=== PATIENT | female | born 1970 | race Caucasian/White ===

== ENCOUNTER 2025-05-16 18:38 | Emergency (ER) | payer OTHER, SELFPAY ==
--- OUTSIDE RECORDS SUMMARY | 2025-04-09 13:48 | XMS_ITS | Encounter Summary ---
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 Unavailable + Reason for Referral * Home Health Therapies & Aides (Routine: Next available opening) - Pending Review Specialty Diagnoses / Procedures Referred By Sharan benoit Referred To Contact Diagnoses Closed fracture of left tibial plateau, initial encounter Allison Gibbons PA-C [facility] [place] [address] Phone: tel: Referral ID Status Reason Start Date Expiration Date V isits Requested Visits Authorized [id number] Pending Review 04/12/2025 04/12/2026 1 1 Question Answer Reason for Referral: Physical Therapy Physical Therapy Eval and Treat for: Gait Training, Home Safety Assessment, Therapeutic Exercise, Transfer Training Additional Services Needed: Home Health Aide Is the patient homebound? Yes Homebound Status (describe the functional limitations that support this patient is confined to his/her home. Medicaid recipients are not required to be homebound.): Patient has difficulty ambulating >100 ft, Requires assistance of another person or specialized equipment is needed I attest that I saw or will see the patient on this date: 04/12/2025 Provider to follow patient MAGGIE SUMMERS [[id number]] Comments Your provider has ordered home health services. If you have not been contacted within 2 days of your discharge please call the selected Home Care agency listed on your Discharge document. If a Home Care agency is NOT listed, please call [phone]. Reason for Visit * Reason Comments Fall * Auth/Cert (Routine) Specialty Diagnoses / Procedures Referred By Contac t Referred To Contact Surgery Diagnoses Closed fracture of left tibial plateau, initial encounter Closed fracture of proximal end of left fibula, unspecified fracture morphology, initial encounter Lipohemarthrosis Moody Oneal MD [address] [place] [address] Phone: tel: fax: [facility] [address] [place] [address] Phone: tel: fax: Referral ID Status Reason Start Date Expiration Date Visits Re quested Visits Authorized [id number] 1 1 Encounter Details Date Type Department Care Team (Late st Contact Info) Description 04/09/2025 1:48 PM CDT - 04/17/2025 12:03 PM CDT Hospital Encounter [facility] [address] [place] [id number] Ashley Rodriguez PA-C [facility] [address] [facility] [place] [address] Moody Oneal MD [address] [place] [address] Lionel Logan MD [address] [place], [place] [id number] Closed fracture of left tibial plateau, initial encounter (Primary Dx); Closed fracture of proximal end of left fibula, unspecified fracture morphology, initial encounter; Lipohemarthrosis; Vitamin D deficiency; Bariatric surgery status; Morbid obesity (H); ELEONORA (obstructive sleep apnea) Discharge Disposition: Assisted Facility Social History Tobacco Use Types Packs/Day Years Used Date Smoking Tobacco: Former Cigarettes 0 11/07/1985 - 11/07/1995 Smokeless Tobacco: Never Comments:social smoker Alcohol Use Standard Drinks/Week Comments Yes 0 (1 standard drink = 0.6 oz pur e alcohol) Very little PHQ-2 Answer Date Recorded PHQ-2 Score 1 09/19/2018 Adolescent Education Answer Date Record ed Getting School Help Needed Not on file 06/11 Food Insecurity Answer Date Recorded Within the past 12 months, d id you worry that your food would run out before you got money to buy more? No 04/09/2025 Within the past 12 months, d id the food you bought just not last and you didn t have money to get more? No 04/09/2025 Housing Stability Answer Date Recorded Do you have housing? (Housin g is defined as stable permanent housing and does not include staying outside in a car, in a tent, in an abandoned building, in an overnight jail, or couch-surfing.) Yes 04/09/2025 Are you worried about losing your housing? No 04/09/2025 Financial Resource Strain Answer Date R ecorded Within the past 12 months, h ave you or your family members you live with been unable to get utilities (heat, electricity) when it was really needed? No 04/09/2025 Transportation Needs Answer Date Record ed Within the past 12 months, h as lack of transportation kept you from medical appointments, getting your medicines, non-medical meetings or appointments, work, or from getting things that you need? No 04/09/2025 Interpersonal Safety Answer Date Record ed Do you feel physically and e motionally safe where you currently live? Yes 04/10/2025 Within the past 12 months, h ave you been hit, slapped, kicked or otherwise physically hurt by someone? No 04/10/2025 Within the past 12 months, h ave you been humiliated or emotionally abused in other ways by your partner or ex-partner? 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 Gender Identity Not on file Sexual Orientation Not on file documented as of this encounter Last Filed Vital Signs Vital Sign Reading Time Taken Comments Blood Pressure 113/51 04/17/2025 8:29 AM CDT Pulse 68 04/17/2025 8:29 AM CDT Temperature 36.4 C (97.5 F) 04/17/2025 8:29 AM CDT Respiratory Rate 14 04/17/2025 8:29 AM CDT Oxygen Saturation 95% 04/17/2025 8:29 AM CDT Inhaled Oxygen Concentration - - Weight 123 kg (271 lb 2.7 oz) 04/16/2025 6:12 AM CDT Height 172.7 cm (5' 8) 04/09/2025 6:47 PM CDT Body Mass Index 41.23 04/09/2025 6:47 PM CDT documented in this encounter Discharge Summaries * Amara Barrera DO - 04/17/2025 12:03 PM CDT Images from the original note were not included. [facility] Hospitalist Discharge Summary Date of Admission: 04/09/2025 Date of Discharge: 04/17/2025 12:03 PM Discharging Provider: Amara Barrera DO Discharge Service: Hospitalist Service Discharge Diagnoses Left tibial plateau fracture s/p ORIF 04/10 mechanical fall Acute blood loss on chronic Fe deficiency anemia Clinically Significant Risk Factors # Morbid Obesity: Estimated body mass index is 41.23 kg/m?? as calculated from the following: Height as of this encounter: 1.727 m (5' 8). Weight as of this encounter: 123 kg (271 lb 2.7 oz). Follow-ups Needed After Discharge Follow-up Appointments Follow Up Follow-up with Dr. Cartwright ([facility]) at 2 weeks postoperatively for reevaluation, wound check/suture or staple removal, and possible x-rays. No need for labs or imaging prior to appointment. Please call Dr. Cartwright's post acute care nurse, Susan, at [phone] to schedule. [facility] [place] After Hours If urgent need with dressing/splint or operative site questions, the [facility] is available at multiple metro locations from 8-8 daily excluding holidays. Follow Up and recommended labs and tests Follow up with alf physician. Discharge Disposition Discharged to TCU Condition at discharge: Stable Hospital Course Adilene Thurman is a 55 year old lady with PMH of mild intermittent asthma, obesity, ELEONORA not on CPAP, dysfunctional uterine bleeding, HTN, generalized anxiety disorder, depression, who was admitted04/09/2025 after falling on her L leg, resulting in a tibial fracture. Left tibial plateau fracture s/p ORIF 04/10 mechanical fall orthopedic consulted. Status post ORIF Tibial plateau fracture - TTWB LLE per surgeon. Ice and elevate. Brace in place. 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 Acute blood loss on chronic Fe deficiency anemia: Ferritin low at 14. Iron 28 and % saturation 9. Hgb preoperative 11.5 --> 9.5. Start PO Fe JOHN/depression: Stable Obesity CKD Stage II - IIIa Consultations This Hospital Stay ORTHOPEDIC SURGERY IP CONSULT NURSING TO CONSULT FOR VIRTUAL CARE IP PHYSICAL THERAPY ADULT IP CONSULT OCCUPATIONAL THERAPY ADULT IP CONSULT CARE MANAGEMENT / SOCIAL WORK IP CONSULT PHYSICAL THERAPY ADULT IP CONSULT OCCUPATIONAL THERAPY ADULT IP CONSULT Code Status Full Code Time Spent on this Encounter I, Amara Barrera DO, personally saw the patient today and spent greater than 30 minutes discharging this patient. Amara Barrera DO [facility] [address] [facility] [id number] Physical Exam Vital Signs: Temp: 97.5 ??F (36.4 ??C) Temp src: Temporal BP: 113/51 Pulse: 68 Resp: 14 SpO2: 95 % O2 Device: None (Room air) Weight: 271 lbs 2.65 oz Constitutional: Awake, alert, no distress, and cooperative Cardiovascular: Regular rate and rhythm, normal S1 and S2, no S3 or S4, and no murmur noted Respiratory: No increased work of breathing, good air exchange, clear to auscultation bilaterally, no crackles or wheezing Gastrointestinal: Abdomen soft, non-tender, non-distended. BS normal. No masses, organomegaly Primary Care Physician Maggie Summers Discharge Orders Home Care Referral Reason for your hospital stay Open reduction internal fixation tibial plateau fracture, left Follow Up Follow-up with Dr. Cartwright ([facility]) at 2 weeks postoperatively for reevaluation, wound check/suture or staple removal, and possible x-rays. No need for labs or imaging prior to appointment. Please call Dr. Cartwright's post acute care nurse, Susan, at [phone] to schedule. [facility] [place] After Hours If urgent need with dressing/splint or operative site questions, the [facility]gent Care is available at multiple metro locations from 8-8 daily excluding holidays. Activity Your activity upon discharge: bedrest, elevate left leg for swelling control. May do toe touch weightbearing with crutches or walker as needed When to contact your care team Call Dr Cartwright's office if you have any of the following: temperature greater than 100, increased shortness of breath, increased drainage, increased swelling, or increased pain. Wound care and dressings Instructions to care for your wound at home: keep Aquacel dressing in place, may shower over the Aquacel. Discharge Instructions Pain after surgery is normal and expected. You will have some amount of pain and swelling for several weeks after surgery. These symptoms will improve with time. There are several things you can do to help reduce your pain including: rest, cold compresses, elevation, and using pain medications as needed. Contact your Surgeon Team if you have pain that persists or worsens after surgery despite rest, ice, elevation, and taking your medication(s) as prescribed. Contact your Surgeon Team if you have new numbness, tingling, or weakness in your operative extremity. Swelling and/or bruising of the surgical extremity is common and may persist for several months after surgery. In addition to frequent icing and elevation, gentle compressive support with an KIM wrapor tubigrip may help with swelling. Apply compression regularly, removing at least twice daily to perform skin checks. Contact your Surgeon Team if your swelling increases and is NOT associated with an increase in your activity level, or if your swelling increases and is associated with redness andpain. Ice can be used to control swelling and discomfort after surgery. Place a thin towel over your operative site and apply the ice pack overtop. Leave ice pack in place for 20 minutes, then remove for 20 minutes. Repeat this 20 minutes on/20 minutes off routine as often as tolerated. Please contact your surgical team with any concerns for infection including increasing redness around your surgical site, pus-like drainage, fever, chills, or flu-like symptoms. General info for SNF Length of Stay Estimate: Short Term Care: Estimated # of Days <30 Condition at Discharge: Stable Level of care:skilled Rehabilitation Potential: Good Admission H&P remains valid and up-to-date: Yes Recent Chemotherapy: N/A Use Long-Term Standing Orders: Yes Mantoux instructions Give two-step Mantoux (PPD) Per Facility Policy Yes Follow Up and recommended labs and tests Follow up with alf physician. Physical Therapy Adult Consult Evaluate and treat as clinically indicated. Reason: tibial fracture Occupational Therapy Adult Consult Evaluate and treat as clinically indicated. Reason: tibial fracture Crutches DME DME Documentation: Describe the reason for need to support medical necessity: Impaired gait status post knee surgery. I, the undersigned, certify that the above prescribed supplies are medically necessary for this patient and is both reasonable and necessary in reference to accepted standards of medical practice in the treatment of this patient's condition and is not prescribed as a convenience. Cane DME DME Documentation: Describe the reason for need to support medical necessity: Impaired gait status post knee surgery. I, the undersigned, certify that the above prescribed supplies are medically necessary for this patient and is both reasonable and necessary in reference to accepted standards of medical practice in the treatment of this patient's condition and is not prescribed as a convenience. Walker DME DME Documentation: Describe the reason for need to support medical necessity: Impaired gait status post knee surgery. I, the undersigned, certify that the above prescribed supplies are medically necessary for this patient and is both reasonable and necessary in reference to accepted standards of medical practice in the treatment of this patient's condition and is not prescribed as a convenience. Diet Follow this diet upon discharge: Regular Diet Adult Significant Results and Procedures Most Recent 3 CBC's: Recent Labs Lab Test 04/16/25 0613 04/13/25 0624 04/12/25 0709 04/11/25 0711 04/10/2551804/09/25 1424 WBC -- -- -- 8.4 6.4 9.1 HGB -- -- 8.6* 10.0* 9.7* 11.5* MCV 92 91 91 92 91 90 PLT 280 220 -- 230 225 310 Most Recent 3 BMP's: Recent Labs Lab Test 04/16/25 0613 04/13/25 0624 04/12/25 0709 04/11/25 0711 04/10/25 0819 04/10/2551804/09/25 1424 NA -- -- -- 136 -- 137 136 POTASSIUM -- -- -- 4.5 -- 4.2 4.2 CHLORIDE -- -- -- 103 -- 105 100 CO2 -- -- -- 24 -- 23 21* BUN -- -- -- 18.1 -- 22.9* 24.2* CR 1.09* 1.11* -- 1.11* -- 1.03* 1.09* ANIONGAP -- -- -- 9 -- 9 15 JOY -- -- -- 8.8 -- 8.4* 9.6 GLC -- -- 97 122* 73 105* 122* , Results for orders placed or performed during the hospital encounter of 04/09/25 XR Femur Left 2 Views Narrative EXAM: XR KNEE LEFT 3 VIEWS, XR FEMUR LEFT 2 VIEWS LOCATION: [facility] DATE: 04/09/2025 INDICATION: fall, pain COMPARISON: None. Impression IMPRESSION: Cortical irregularity of the medial tibial plateau suspicious for a comminuted intra-articular fracture. Small knee joint effusion with a fluid/fluid level likely representing a lipohemarthrosis. CT is recommended to confirm these findings. Cortical irregularity of the fibular head likely a nondisplaced fracture. Demineralization. No fracture of the more proximal left femur. Mild left sacroiliac joint osteoarthritis. XR Knee Left 3 Views Narrative EXAM: XR KNEE LEFT 3 VIEWS, XR FEMUR LEFT 2 VIEWS LOCATION: [facility] DATE: 04/09/2025 INDICATION: fall, pain COMPARISON: None. Impression IMPRESSION: Cortical irregularity of the medial tibial plateau suspicious for a comminuted intra-articular fracture. Small knee joint effusion with a fluid/fluid level likely representing a lipohemarthrosis. CT is recommended to confirm these findings. Cortical irregularity of the fibular head likely a nondisplaced fracture. Demineralization. No fracture of the more proximal left femur. Mild left sacroiliac joint osteoarthritis. XR Pelvis 1/2 Views Narrative EXAM: XR PELVIS 1/2 VIEWS LOCATION: [facility] DATE: 04/09/2025 INDICATION: fall, pain COMPARISON: Correlation with same day radiographs. Impression IMPRESSION: Bilateral acetabular marginal osteophytes. No hip joint space narrowing. 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 Lower lumbar facet arthropathy. No definite fracture or dislocationon a single view of the pelvis. CT Knee Left w/o Contrast Narrative EXAM: CT KNEE LEFT W/O CONTRAST LOCATION: [facility] DATE: 04/09/2025 INDICATION: cocnern tibial plateau fractures COMPARISON: 04/09/2025 TECHNIQUE: Noncontrast. Axial, sagittal and coronal thin-section reconstruction. Dose reduction techniques were used. FINDINGS: BONES: Acute comminuted impacted intra-articular fracture along the anterior aspect of the medial tibial plateau (series 5 image 70, series 4 image 70). Depression of the articular surface up to 0.2 cm. Fracture planes contact the articular surface at multiple locations. Acute avulsion fracture along the lateral aspect of the tibial plateau (series 4 image 88). Patternis suggestive of a Segond fracture. Acute minimally displaced fracture of the proximal fibula (series 4 image 108, series 2 image 187). Diffuse osseous demineralization which limits evaluation for nondisplaced fractures and subtle osseous lesions. No aggressive appearing osseous lesions. SOFT TISSUES: Large joint effusion with lipohemarthrosis. Posttraumatic soft tissue edema and blood products along the anterior medial aspect of the knee. No sizable hematoma or organized fluid collection. Impression IMPRESSION: 1. Acute comminuted impacted intra-articular fracture along the anterior aspect of the medial tibial plateau. 2. Acute avulsion fracture along the lateral aspect of the tibial plateau. Pattern is suggestive ofa Segond fracture. 3. Acute minimally displaced fracture of the proximal fibula. 4. Large joint effusion with lipohemarthrosis. XR Surgery BOBBY L/T 5 Min Fluoro w Stills Narrative EXAM: XR SURGERY C-ARM FLUORO LESS THAN 5 MIN W STILLS LOCATION: [facility] DATE: 04/10/2025 INDICATION: ORIF left tibial plateau. COMPARISON: None. TECHNIQUE: Intraoperative fluoroscopy performed during the patient's procedure. RADIATION DOSE: Dose Area Product 0.8377 mGy-cm2. Impression IMPRESSION: Two fluoroscopic images acquired by the clinical service for ORIF of the left tibial plateau. Anatomic alignment. US Lower Extremity Venous Duplex Left Narrative EXAM: US LOWER EXTREMITY VENOUS DUPLEX LEFT LOCATION: [facility] DATE: 04/12/2025 INDICATION: calf pain post op knee surgery COMPARISON: None. TECHNIQUE: Venous Duplex ultrasound of the left lower extremity with and without compression, augmentation and duplex. Color flow and spectral Doppler with waveform analysis performed. FINDINGS: Exam includes the common femoral, femoral, popliteal, and contralateral common femoral veins as well as segmentally visualized deep calf veins and greater saphenous vein. LEFT: No deep vein thrombosis. No superficial thrombophlebitis. No popliteal cyst. Impression IMPRESSION: 1. No deep venous thrombosis in the left lower extremity. Discharge Medications Review of your medicines PAUSE taking these medications Dose / Directions lisinopril-hydrochlorothiazide 20-25 MG tablet Wait to take this until your doctor or other care provider tells you to start again. Commonly known as: ZESTORETIC Dose: 1 tablet Take 1 tablet by mouth daily. Refills: 0 START taking Dose / Directions acetaminophen 325 MG tablet Commonly known as: TYLENOL Used for: Closed fracture of left tibial plateau, initial encounter Dose: 975 mg Take 3 tablets (975 mg) by mouth every 8 hours. Quantity: 100 tablet Refills: 0 celecoxib 100 MG capsule Commonly known as: celeBREX Used for: Closed fracture of left tibial plateau, initial encounter Dose: 100 mg Take 1 capsule (100 mg) by mouth 2 times daily as needed. Quantity: 30 capsule Refills: 0 enoxaparin ANTICOAGULANT 40 MG/0.4ML syringe Commonly known as: LOVENOX Used for: Closed fracture of left tibial plateau, initial encounter Dose: 40 mg Inject 0.4 mLs (40 mg) subcutaneously every 24 hours. Quantity: 12 mL Refills: 0 ferrous sulfate 325 (65 Fe) MG tablet Commonly known as: FEROSUL Used for: Vitamin D deficiency, Bariatric surgery status Dose: 325 mg Take 1 tablet (325 mg) by mouth daily. Refills: 0 hydrOXYzine HCl 25 MG tablet Commonly known as: ATARAX Used for: Closed fracture of left tibial plateau, initial encounter Dose: 25 mg Take 1 tablet (25 mg) by mouth every 6 hours. Quantity: 40 tablet Refills: 1 methocarbamol 500 MG tablet Commonly known as: ROBAXIN Used for: Closed fracture of left tibial plateau, initial encounter Dose: 500 mg Take 1 tablet (500 mg) by mouth 4 times daily as needed for muscle spasms (pain). Quantity: 40 tablet Refills: 1 oxyCODONE IR 10 MG tablet Commonly known as: ROXICODONE Used for: Closed fracture of left tibial plateau, initial encounter Dose: 10 mg Take 1 tablet (10 mg) by mouth every 4 hours as needed for severe pain (Take one tablet (10 mg) by mouth for pain rated 7-10/10. Take half tablet (5 mg) for pain rated 4-6/10.). Quantity: 8 tablet Refills: 0 * polyethylene glycol 17 GM/Dose powder Commonly known as: MIRALAX Used for: Closed fracture of left tibial plateau, initial encounter Dose: 17 g Take 17 g by mouth daily. Quantity: 510 g Refills: 0 * polyethylene glycol 17 g packet Commonly known as: MIRALAX Used for: Closed fracture of left tibial plateau, initial encounter, ELEONORA (obstructive sleep apnea) Dose: 17 g Take 17 g by mouth 2 times daily as needed for constipation. Refills: 0 * senna-docusate 8.6-50 MG tablet Commonly known as: SENOKOT-S/PERICOLACE Used for: Closed fracture of left tibial plateau, initial encounter Dose: 1 tablet Take 1 tablet by mouth 2 times daily as needed for constipation. Quantity: 30 tablet Refills: 1 * senna-docusate 8.6-50 MG tablet Commonly known as: SENOKOT-S/PERICOLACE Used for: Closed fracture of left tibial plateau, initial encounter, Morbid obesity (H) Dose: 1 tablet Take 1 tablet by mouth 2 times daily as needed for constipation. Refills: 0 * This list has 4 medication(s) that are the same as other medications prescribed for you. Read thedirections carefully, and ask your doctor or other care provider to review them with you. CONTINUE these medicines which have NOT CHANGED Dose / Directions LEVOTHYROXINE SODIUM PO Dose: 225 mcg Take 225 mcg by mouth every morning (before breakfast). Refills: 0 Where to get your medicines These medications were sent to [facility] [place], [place] - [address] [facility] [address] [facility] [address] acetaminophen 325 MG tablet celecoxib 100 MG capsule enoxaparin ANTICOAGULANT 40 MG/0.4ML syringe hydrOXYzine HCl 25 MG tablet methocarbamol 500 MG tablet polyethylene glycol 17 GM/Dose powder senna-docusate 8.6-50 MG tablet Some of these will need a paper prescription and others can be bought over the counter. Ask your nurse if you have questions. Bring a paper prescription for each of these medications oxyCODONE IR 10 MG tablet Allergies Allergies Allergen Reactions Amoxicillin-Pot Clavulanate Nausea and Vomiting Droperidol Panic attacks Ibuprofen Other (See Comments) Unable to take due to past gastric bypass Morphine And Codeine Panic attack Tape [Adhesive Tape] Clear tape=RASH; tegaderm ok * Amara Barrera DO - 04/16/2025 1:34 PM CDT Images from the original note were not included. [facility] Hospitalist Discharge Summary Date of Admission: 04/09/2025 Date of Discharge: 04/16/2025 Discharging Provider: Amara Barrera DO Discharge Service: Hospitalist Service Discharge Diagnoses Left tibial plateau fracture s/p ORIF 04/10 mechanical fall Acute blood loss on chronic Fe deficiency anemia Clinically Significant Risk Factors # Morbid Obesity: Estimated body mass index is 41.23 kg/m?? as calculated from the following: Height as of this encounter: 1.727 m (5' 8). Weight as of this encounter: 123 kg (271 lb 2.7 oz). Follow-ups Needed After Discharge Follow-up Appointments Follow Up Follow-up with Dr. Cartwright ([facility] Orthopedics) at 2 weeks postoperatively for reevaluation, wound check/suture or staple removal, and possible x-rays. No need for labs or imaging prior to appointment. Please call Dr. Cartwright's post acute care nurse, Susan, at [phone] to schedule. [facility] [place] After Hours If urgent need with dressing/splint or operative site questions, the [facility] Orthopedic Urgent Care is available at multiple metro locations from 8-8 daily excluding holidays. Follow Up and recommended labs and tests Follow up with alf physician. Discharge Disposition Discharged to TCU Condition at discharge: Stable Hospital Course Adilene Thurman is a 55 year old lady with PMH of mild intermittent asthma, obesity, ELEONORA not on CPAP, dysfunctional uterine bleeding, HTN, generalized anxiety disorder, depression, who was admitted04/09/2025 after falling on her L leg, resulting in a tibial fracture. Left tibial plateau fracture s/p ORIF 04/10 mechanical fall orthopedic consulted. Status post ORIF Tibial plateau fracture - TTWB LLE per surgeon. Ice and elevate. Brace in place. 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 Acute blood loss on chronic Fe deficiency anemia: Ferritin low at 14. Iron 28 and % saturation 9. Hgb preoperative 11.5 --> 9.5. Start PO Fe JOHN/depression: Stable Obesity CKD Stage II - IIIa Consultations This Hospital Stay ORTHOPEDIC SURGERY IP CONSULT NURSING TO CONSULT FOR VIRTUAL CARE IP PHYSICAL THERAPY ADULT IP CONSULT OCCUPATIONAL THERAPY ADULT IP CONSULT CARE MANAGEMENT / SOCIAL WORK IP CONSULT PHYSICAL THERAPY ADULT IP CONSULT OCCUPATIONAL THERAPY ADULT IP CONSULT Code Status Full Code Time Spent on this Encounter I, Amara Barrera DO, personally saw the patient today and spent greater than 30 minutes discharging this patient. Amara Barrera DO [facility] [address] [facility] [id number] Physical Exam Vital Signs: Temp: 97.7 ??F (36.5 ??C) Temp src: Temporal BP: (!) 140/64 Pulse: 71 Resp: 16 SpO2: 96 % O2 Device: None (Room air) Weight: 271 lbs 2.65 oz Constitutional: Awake, alert, no distress, and cooperative Cardiovascular: Regular rate and rhythm, normal S1 and S2, no S3 or S4, and no murmur noted Respiratory: No increased work of breathing, good air exchange, clear to auscultation bilaterally, no crackles or wheezing Gastrointestinal: Abdomen soft, non-tender, non-distended. BS normal. No masses, organomegaly Primary Care Physician Maggie Summers Discharge Orders Home Care Referral Reason for your hospital stay Open reduction internal fixation tibial plateau fracture, left Follow Up Follow-up with Dr. Cartwright ([facility]) at 2 weeks postoperatively for reevaluation, wound check/suture or staple removal, and possible x-rays. No need for labs or imaging prior to appointment. Please call Dr. Cartwright's post acute care nurse, Susan, at [phone] to schedule. [facility] [place] After Hours If urgent need with dressing/splint or operative site questions, the [facility] Orthopedic Urgent Care is available at multiple metro locations from 8-8 daily excluding holidays. Activity Your activity upon discharge: bedrest, elevate left leg for swelling control. May do toe touch weightbearing with crutches or walker as needed When to contact your care team Call Dr Cartwright's office if you have any of the following: temperature greater than 100, increased shortness of breath, increased drainage, increased swelling, or increased pain. Wound care and dressings Instructions to care for your wound at home: keep Aquacel dressing in place, may shower over the Aquacel. Discharge Instructions Pain after surgery is normal and expected. You will have some amount of pain and swelling for several weeks after surgery. These symptoms will improve with time. There are several things you can do to help reduce your pain including: rest, cold compresses, elevation, and using pain medications as needed. Contact your Surgeon Team if you have pain that persists or worsens after surgery despite rest, ice, elevation, and taking your medication(s) as prescribed. Contact your Surgeon Team if you have new numbness, tingling, or weakness in your operative extremity. Swelling and/or bruising of the surgical extremity is common and may persist for several months after surgery. In addition to frequent icing and elevation, gentle compressive support with an KIM wrapor tubigrip may help with swelling. Apply compression regularly, removing at least twice daily to perform skin checks. Contact your Surgeon Team if your swelling increases and is NOT associated with an increase in your activity level, or if your swelling increases and is associated with redness andpain. Ice can be used to control swelling and discomfort after surgery. Place a thin towel over your operative site and apply the ice pack overtop. Leave ice pack in place for 20 minutes, then remove for 20 minutes. Repeat this 20 minutes on/20 minutes off routine as often as tolerated. Please contact your surgical team with any concerns for infection including increasing redness around your surgical site, pus-like drainage, fever, chills, or flu-like symptoms. General info for SNF Length of Stay Estimate: Short Term Care: Estimated # of Days <30 Condition at Discharge: Stable Level of care:skilled Rehabilitation Potential: Good Admission H&P remains valid and up-to-date: Yes Recent Chemotherapy: N/A Use Long-Term Standing Orders: Yes Mantoux instructions Give two-step Mantoux (PPD) Per Facility Policy Yes Follow Up and recommended labs and tests Follow up with alf physician. Physical Therapy Adult Consult Evaluate and treat as clinically indicated. Reason: tibial fracture Occupational Therapy Adult Consult Evaluate and treat as clinically indicated. Reason: tibial fracture Crutches DME DME Documentation: Describe the reason for need to support medical necessity: Impaired gait status post knee surgery. I, the undersigned, certify that the above prescribed supplies are medically necessary for this patient and is both reasonable and necessary in reference to accepted standards of medical practice in the treatment of this patient's condition and is not prescribed as a convenience. Cane DME DME Documentation: Describe the reason for need to support medical necessity: Impaired gait status post knee surgery. I, the undersigned, certify that the above prescribed supplies are medically necessary for this patient and is both reasonable and necessary in reference to accepted standards of medical practice in the treatment of this patient's condition and is not prescribed as a convenience. Walker DME DME Documentation: Describe the reason for need to support medical necessity: Impaired gait status post knee surgery. I, the undersigned, certify that the above prescribed supplies are medically necessary for this patient and is both reasonable and necessary in reference to accepted standards of medical practice in the treatment of this patient's condition and is not prescribed as a convenience. Diet Follow this diet upon discharge: Regular Diet Adult Significant Results and Procedures Most Recent 3 CBC's: Recent Labs Lab Test 04/16/2561204/13/2562304/12/2509 04/11/25 0711 04/10/2551804/09/25 1424 WBC -- -- -- 8.4 6.4 9.1 HGB -- -- 8.6* 10.0* 9.7* 11.5* MCV 92 91 91 92 91 90 PLT 280 220 -- 230 225 310 Most Recent 3 BMP's: Recent Labs Lab Test 04/16/2561204/13/2562304/12/[id number]/11/[id number]/10/2581804/10/2551804/09/25 1424 NA -- -- -- 136 -- 137 136 POTASSIUM -- -- -- 4.5 -- 4.2 4.2 CHLORIDE -- -- -- 103 -- 105 100 CO2 -- -- -- 24 -- 23 21* BUN -- -- -- 18.1 -- 22.9* 24.2* CR 1.09* 1.11* -- 1.11* -- 1.03* 1.09* ANIONGAP -- -- -- 9 -- 9 15 JOY -- -- -- 8.8 -- 8.4* 9.6 GLC -- -- 97 122* 73 105* 122* , Results for orders placed or performed during the hospital encounter of 04/09/25 XR Femur Left 2 Views Narrative EXAM: XR KNEE LEFT 3 VIEWS, XR FEMUR LEFT 2 VIEWS LOCATION: [facility] DATE: 04/09/2025 INDICATION: fall, pain COMPARISON: None. Impression IMPRESSION: Cortical irregularity of the medial tibial plateau suspicious for a comminuted intra-articular fracture. Small knee joint effusion with a fluid/fluid level likely representing a lipohemarthrosis. CT is recommended to confirm these findings. Cortical irregularity of the fibular head likely a nondisplaced fracture. Demineralization. No fracture of the more proximal left femur. Mild left sacroiliac joint osteoarthritis. XR Knee Left 3 Views Narrative EXAM: XR KNEE LEFT 3 VIEWS, XR FEMUR LEFT 2 VIEWS LOCATION: [facility] DATE: 04/09/2025 INDICATION: fall, pain COMPARISON: None. Impression IMPRESSION: Cortical irregularity of the medial tibial plateau suspicious for a comminuted intra-articular fracture. Small knee joint effusion with a fluid/fluid level likely representing a lipohemarthrosis. CT is recommended to confirm these findings. Cortical irregularity of the fibular head likely a nondisplaced fracture. Demineralization. No fracture of the more proximal left femur. Mild left sacroiliac joint osteoarthritis. XR Pelvis 1/2 Views Narrative EXAM: XR PELVIS 1/2 VIEWS LOCATION: [facility] DATE: 04/09/2025 INDICATION: fall, pain COMPARISON: Correlation with same day radiographs. Impression IMPRESSION: Bilateral acetabular marginal osteophytes. No hip joint space narrowing. 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 Lower lumbar facet arthropathy. No definite fracture or dislocationon a single view of the pelvis. CT Knee Left w/o Contrast Narrative EXAM: CT KNEE LEFT W/O CONTRAST LOCATION: [facility] DATE: 04/09/2025 INDICATION: cocnern tibial plateau fractures COMPARISON: 04/09/2025 TECHNIQUE: Noncontrast. Axial, sagittal and coronal thin-section reconstruction. Dose reduction techniques were used. FINDINGS: BONES: Acute comminuted impacted intra-articular fracture along the anterior aspect of the medial tibial plateau (series 5 image 70, series 4 image 70). Depression of the articular surface up to 0.2 cm. Fracture planes contact the articular surface at multiple locations. Acute avulsion fracture along the lateral aspect of the tibial plateau (series 4 image 88). Patternis suggestive of a Segond fracture. Acute minimally displaced fracture of the proximal fibula (series 4 image 108, series 2 image 187). Diffuse osseous demineralization which limits evaluation for nondisplaced fractures and subtle osseous lesions. No aggressive appearing osseous lesions. SOFT TISSUES: Large joint effusion with lipohemarthrosis. Posttraumatic soft tissue edema and blood products along the anterior medial aspect of the knee. No sizable hematoma or organized fluid collection. Impression IMPRESSION: 1. Acute comminuted impacted intra-articular fracture along the anterior aspect of the medial tibial plateau. 2. Acute avulsion fracture along the lateral aspect of the tibial plateau. Pattern is suggestive ofa Segond fracture. 3. Acute minimally displaced fracture of the proximal fibula. 4. Large joint effusion with lipohemarthrosis. XR Surgery BOBBY L/T 5 Min Fluoro w Stills Narrative EXAM: XR SURGERY C-ARM FLUORO LESS THAN 5 MIN W STILLS LOCATION: [facility] DATE: 04/10/2025 INDICATION: ORIF left tibial plateau. COMPARISON: None. TECHNIQUE: Intraoperative fluoroscopy performed during the patient's procedure. RADIATION DOSE: Dose Area Product 0.8377 mGy-cm2. Impression IMPRESSION: Two fluoroscopic images acquired by the clinical service for ORIF of the left tibial plateau. Anatomic alignment. US Lower Extremity Venous Duplex Left Narrative EXAM: US LOWER EXTREMITY VENOUS DUPLEX LEFT LOCATION: [facility] DATE: 04/12/2025 INDICATION: calf pain post op knee surgery COMPARISON: None. TECHNIQUE: Venous Duplex ultrasound of the left lower extremity with and without compression, augmentation and duplex. Color flow and spectral Doppler with waveform analysis performed. FINDINGS: Exam includes the common femoral, femoral, popliteal, and contralateral common femoral veins as well as segmentally visualized deep calf veins and greater saphenous vein. LEFT: No deep vein thrombosis. No superficial thrombophlebitis. No popliteal cyst. Impression IMPRESSION: 1. No deep venous thrombosis in the left lower extremity. Discharge Medications Review of your medicines PAUSE taking these medications Dose / Directions lisinopril-hydrochlorothiazide 20-25 MG tablet Wait to take this until your doctor or other care provider tells you to start again. Commonly known as: ZESTORETIC Dose: 1 tablet Take 1 tablet by mouth daily. Refills: 0 START taking Dose / Directions acetaminophen 325 MG tablet Commonly known as: TYLENOL Dose: 975 mg Take 3 tablets (975 mg) by mouth every 8 hours. Quantity: 100 tablet Refills: 0 celecoxib 100 MG capsule Commonly known as: celeBREX Dose: 100 mg Take 1 capsule (100 mg) by mouth 2 times daily as needed. Quantity: 30 capsule Refills: 0 enoxaparin ANTICOAGULANT 40 MG/0.4ML syringe Commonly known as: LOVENOX Dose: 40 mg Inject 0.4 mLs (40 mg) subcutaneously every 24 hours. Quantity: 12 mL Refills: 0 ferrous sulfate 325 (65 Fe) MG tablet Commonly known as: FEROSUL Used for: Vitamin D deficiency, Bariatric surgery status Dose: 325 mg Start taking on: April 17, 2025 Take 1 tablet (325 mg) by mouth daily. Refills: 0 hydrOXYzine HCl 25 MG tablet Commonly known as: ATARAX Dose: 25 mg Take 1 tablet (25 mg) by mouth every 6 hours. Quantity: 40 tablet Refills: 1 methocarbamol 500 MG tablet Commonly known as: ROBAXIN Dose: 500 mg Take 1 tablet (500 mg) by mouth 4 times daily as needed for muscle spasms (pain). Quantity: 40 tablet Refills: 1 oxyCODONE IR 10 MG tablet Commonly known as: ROXICODONE Dose: 10 mg Take 1 tablet (10 mg) by mouth every 4 hours as needed for severe pain (Take one tablet (10 mg) by mouth for pain rated 7-10/10. Take half tablet (5 mg) for pain rated 4-6/10.). Quantity: 8 tablet Refills: 0 * polyethylene glycol 17 GM/Dose powder Commonly known as: MIRALAX Dose: 17 g Take 17 g by mouth daily. Quantity: 510 g Refills: 0 * polyethylene glycol 17 g packet Commonly known as: MIRALAX Used for: ELEONORA (obstructive sleep apnea) Dose: 17 g Take 17 g by mouth 2 times daily as needed for constipation. Refills: 0 * senna-docusate 8.6-50 MG tablet Commonly known as: SENOKOT-S/PERICOLACE Dose: 1 tablet Take 1 tablet by mouth 2 times daily as needed for constipation. Quantity: 30 tablet Refills: 1 * senna-docusate 8.6-50 MG tablet Commonly known as: SENOKOT-S/PERICOLACE Used for: Morbid obesity (H) Dose: 1 tablet Take 1 tablet by mouth 2 times daily as needed for constipation. Refills: 0 * This list has 4 medication(s) that are the same as other medications prescribed for you. Read thedirections carefully, and ask your doctor or other care provider to review them with you. CONTINUE these medicines which have NOT CHANGED Dose / Directions LEVOTHYROXINE SODIUM PO Dose: 225 mcg Take 225 mcg by mouth every morning (before breakfast). Refills: 0 Where to get your medicines These medications were sent to [place], [place] - [address] [facility] [address] [facility] [address] acetaminophen 325 MG tablet celecoxib 100 MG capsule enoxaparin ANTICOAGULANT 40 MG/0.4ML syringe hydrOXYzine HCl 25 MG tablet methocarbamol 500 MG tablet polyethylene glycol 17 GM/Dose powder senna-docusate 8.6-50 MG tablet Some of these will need a paper prescription and others can be bought over the counter. Ask your nurse if you have questions. 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 5 lisinopril-hydroch lorothiazide (ZESTORETIC) 20-25 MG tablet Take 1 tablet by mouth daily. 5 acetaminophen (TYLENOL) 325 MG tabletIndications: Closed fracture of left tibial plateau, initial encounter Take 3 tablets (975 mg) by mouth every 8 hours. 100 tablet 5 04/25/20 25 celecoxib (CELEBREX) 100 MG capsuleIndications :Closed fracture of left tibial plateau, initial encounter Take 1 capsule (100 mg) by mouth 2 times daily as needed. 30 capsule 5 04/25/20 25 enoxaparin ANTICOAGULANT (LOVENOX) 40 MG/0.4ML syringeIndications :Closed fracture of left tibial plateau, initial encounter Inject 0.4 mLs (40 mg) subcutaneously every 24 hours. 12 mL 5 04/25/20 25 ferrous sulfate (FEROSUL) 325 (65 Fe) MG tabletIndications: Vitamin D deficiency,Bariatr ic surgery status Take 1 tablet (325 mg) by mouth daily. 5 04/25/20 25 hydrOXYzine HCl (ATARAX) 25 MG tabletIndications: Closed fracture of left tibial plateau, initial encounter Take 1 tablet (25 mg) by mouth every 6 hours. 40 tablet 1 5 04/25/20 25 methocarbamol (ROBAXIN) 500 MG tabletIndications: Closed fracture of left tibial plateau, initial encounter Take 1 tablet (500 mg) by mouth 4 times daily as needed for muscle spasms (pain). 40 tablet 1 5 04/24/20 25 oxyCODONE IR (ROXICODONE) 10 MG tabletIndications: Closed fracture of left tibial plateau, initial encounter Take 1 tablet (10 mg) by mouth every 4 hours as needed for severe pain (Take one tablet (10 mg) by mouth for pain rated 7-10/10. Take half tablet (5 mg) for pain rated 4-6/10.). 8 tablet 5 04/19/20 25 polyethylene glycol (MIRALAX) 17 g packetIndications: Closed fracture of left tibial plateau, initial encounter,ELEONORA (obstructive sleep apnea) Take 17 g by mouth 2 times daily as needed for constipation. 5 04/25/20 25 polyethylene glycol (MIRALAX) 17 GM/Dose powderIndications: Closed fracture of left tibial plateau, initial encounter Take 17 g by mouth daily. 510 g 5 04/25/20 25 senna-docusate (SENOKOT-S/PERICOL KIM) 8.6-50 MG tabletIndications: Closed fracture of left tibial plateau, initial encounter,Morbid obesity (H) Take 1 tablet by mouth 2 times daily as needed for constipation. 5 04/18/20 25 senna-docusate (SENOKOT-S/PERICOL KIM) 8.6-50 MG tabletIndications: Closed fracture of left tibial plateau, initial encounter Take 1 tablet by mouth 2 times daily as needed for constipation. 30 tablet 1 5 04/25/20 25 documented as of this encounter Progress Notes * Zayra Yousif RN - 04/17/2025 12:03 PM CDT Pt discharged via wheelchair transport to TCU. AVS given to pt. * Zayra Yousif RN - 04/17/2025 12:03 PM CDT Pt discharge to TCU via wheelchair transport. * Brielle Betancourt RN - 04/17/2025 9:30 AM CDT Care Management Discharge Note Discharge Date: 04/17/2025 Discharge Disposition: TCU Discharge Transportation: [facility] [employer] [facility] Is transportation arrangement complete? Yes Private pay costs discussed: private room/amenity fees and transportation costs Does the patient's insurance plan have a 3 day qualifying hospital stay waiver? No PAS Confirmation Code: [id number] Patient/family educated on Medicare website which has current facility and service quality ratings:yes Education Provided on the Discharge Plan: yes Persons Notified of Discharge Plans: patient, bedside RN, hospitalist Patient/Family in Agreement with the Plan: yes Additional Information: Patient is medically ready for discharge today to [facility]. Update from [facility] on April admission dept,they have received auth this morning for patient's TCU stay. [facility] ridelvi is set up for fish bait picker today between [id number]. Met with patient at bedside to update on discharge plan. She is in agreement with discharge today to [facility]. Signed orders have been faxed to TCU. Hospitalist and bedside RNupdated. No further discharge needs noted. Brielle Betancourt, RN Data Control Clerk Supervisor [facility] [phone] * Brielle Betancourt RN - 04/16/2025 10:38 AM CDT Care Management Follow Up Length of Stay (days): 5 Expected Discharge Date: 04/17/2025 Concerns to be Addressed: Patient plan of care discussed at interdisciplinary rounds: Yes Anticipated Discharge Disposition: TCU Patient/family educated on Medicare website which has current facility and service quality ratings:yes Education Provided on the Discharge Plan: yes Patient/Family in Agreement with the Plan: yes Referrals Placed by CM/SW: Homecare Private pay costs discussed: private room/amenity fees and transportation costs Discussed ???Partnership in Safe Discharge Planning??? document with patient/family: No Handoff Completed: No, handoff not indicated or clinically appropriate Additional Information: Patient is medically ready for discharge today to TCU once placement is found. Met with patient andfamily member Nilda at bedside to discuss. They are aware that pt's [facility] plan is a barrier for finding placement. They are in agreement with global referral to TCUs in the area. Patient [place] like [place] of [place] and stay close to [place] or [place]. Additional TCU referrals have been sent and awaiting response. Next Steps: Follow up with TCUs and patient/family once we hear back. ADDENDUM 1200: Patient has been accepted by [facility] on [facility] TCU for admission today, pending they receive authorization from pt's [facility] plan. Met with patient and family member at bedside who will accept this bed and are in agreement with discharge this evening to [facility]. They request w/c ride at discharge. Reviewed out of pocket cost for [facility] transport, $99.20 base and $6.38 per mile to the destination. Pt and family expressed understanding and are agreeable to this. [employer] FVw/c ride has been arranged for fish bait picker this evening between [phone]. This will need to be pushed to tomorrow if TCU does not receive auth in time. Bedside RN and wire charger and hospitalist are aware. ADDENDUM 1601: TCU has not received auth yet from pt's insurance company. [employer] w/c transport has been pushed to tomorrow between [phone] in hopes that [facility] provides auth to [facility] by this time. Bedside RN updated who will let patient know. Hospitalist and wire charger updated. Brielle Betancourt, CHANDA Data Control Clerk Supervisor [facility] [phone] * Lionel Logan MD - 04/15/2025 3:51 PM CDT [facility] Progress Note - Hospitalist Service Date of Admission: 04/09/2025 Assessment & Plan Adilene Thurman is a 55 year old lady with mild intermittent asthma, obesity, obstructive sleep apnea not on BiPAP, dysfunctional uterine bleeding, hypertension, generalized anxiety disorder, depression, is otherwise healthy able to climb 2 flight of stairs without any chest pain or shortness of breath was at a bank where she slipped and fell with her left knee bent. There was no loss of consciousness. Acute medical issues: #Left tibial plateau fracture #S/P ORIF L tibial plateau fracture # mechanical fall --- Inpatient --- orthopedic consulted. Appreciate assistance. Status post ORIF Tibial plateau fracture --- advanced diet as tolerated --- multimodal pain management. --- PT consult in the AM. --- TTWB LLE per surgeon. Ice and elevate. Brace in place. --- repeat CBC and BMP in the AM. Chronic medical issues: # HTN: She is on lisinopril hydrochlorothiazide 20/25 daily. Hold for now. P.r.n. hydralazine. Repeat CBC and BMP in the AM. # Hypothyroidism: Continue replacement. # Fe deficiency anemia: Ferritin low at 14. Iron 28 and % saturation 9. Hgb preoperative 11.5 --> 9.5. Repeat CBC in the AM. Transfuse PRN. Start PO Fe # JOHN/depression: Stable. # Obesity # CKD Stage II - IIIa Diet: Advance Diet as Tolerated: Regular Diet Adult DVT Prophylaxis: Enoxaparin (Lovenox) SQ Plunkett Catheter: Not present Lines: None Cardiac Monitoring: None Code Status: Full Code Clinically Significant Risk Factors # Hypertension: Noted on problem list # Obesity: Estimated body mass index is 37.28 kg/m?? as calculated from the following: Height as of this encounter: 1.727 m (5' 8). Weight as of this encounter: 111.2 kg (245 lb 2.4 oz). # Asthma: noted on problem list Social Drivers of Health Tobacco Use: Medium Risk (04/10/2025) Patient History Smoking Tobacco Use: Former Smokeless Tobacco Use: Never Disposition Plan Medically Ready for Discharge: Anticipated Tomorrow Lionel Logan MD Hospitalist Service [facility] Securely message with [employer] (more info) Text page via [employer] Paging/Directory Interval History Pain in the left knee in better control. At rest tolerable. Blood pressure medication at home Zestoretic, on hold here b/c blood pressure is normal. Waiting for TCU bed Physical Exam Vital Signs: Temp: 97.8 ??F (36.6 ??C) Temp src: Temporal BP: 124/51 Pulse: 83 Resp: 16 SpO2: 96 % O2 Device: None (Room air) Weight: 245 lbs 2.42 oz Constitutional: awake, alert, cooperative, no apparent distress, and appears stated age Respiratory: No increased work of breathing, good air exchange, clear to auscultation bilaterally, no crackles or wheezing Cardiovascular: Normal apical impulse, regular rate and rhythm, normal S1 and S2, no S3 or S4, and no murmur noted Medical Decision Making 36 MINUTES SPENT BY ME on the date of service doing chart review, history, exam, documentation & further activities per the note. Data Imaging results reviewed over the past 24 hrs: No results found for this or any previous visit (from the past 24 hours). * Mouna Raines RN - 04/15/2025 3:05 PM CDT Care Management Follow Up Length of Stay (days): 4 Expected Discharge Date: 04/15/2025 Concerns to be Addressed: Patient plan of care discussed at interdisciplinary rounds: NA Anticipated Discharge Disposition: TCU vs Home Care Anticipated Discharge Services: TBD Anticipated Discharge DME: TBD Patient/family educated on Medicare website which has current facility and service quality ratings:yes Education Provided on the Discharge Plan: yes Patient/Family in Agreement with the Plan: yes Referrals Placed by CM/SW: Homecare, transitional care Private pay costs discussed: Not applicable Discussed ???Partnership in Safe Discharge Planning??? document with patient/family: No Handoff Completed: No, handoff not indicated or clinically appropriate Additional Information: [employer] Artistic Director met with patient in room to discuss discharge planning. Current recommendations are for transitional care unit as patient is nonweightbearing to her left lower extremity. Patient has been declined from 2 facilities due to noncoverage by her commercial insurance plan. Care Management was instructed to have the patient call their insurance provider to determine what transitional care coverage she has. Patient was provided [employer] phone number and subscriber ID at bedside. Alternate discharge disposition was discussed, including potential discharge home, but patient would need to be able to navigate stairs for this to be safe. Patient stated she will call her insurance companytoday. Once coverage is determined, Care Management will move forward with the discharge plan. Addendum 1620: Pt spoke with insurance company and DOES have TCU coverage. She will need an in-network facility. [employer] Artistic Director called [facility] who stated pt's insurance is in-network but they donot reimburse at an acceptable rate. CM will follow-up with pt tomorrow to gather additional preferences. Next Steps: Follow-up with patient regarding additional transitional care choices Mouna Raines RN, BSN, PHN 8th grade teacher Management [facility] Acute Care Management Searchable by name on Vocera: Mouna Raines * Leonor Cordoba PA-C - 04/15/2025 12:21 PM CDT Orthopedic Surgery Adilene Thurman 04/15/2025 Admit Date: 04/09/2025 Assessment: POD: 5 Days Post-Op Procedure(s): Open reduction internal fixation of right anteromedial tibial plateau fracture Patient resting comfortably in a chair, reports brace isn't fitting well. Pain controlled at rest Tolerating oral intake Reports nausea but no vomiting Denies chest pain or shortness of breath Temp: [97.2 ??F (36.2 ??C)-98.3 ??F (36.8 ??C)] 97.2 ??F (36.2 ??C) Pulse: [63-71] 63 Resp: [14-20] 14 BP: (118-126)/(57-59) 126/59 SpO2: [93 %-98 %] 96 % Alert and oriented Dressing is clean, dry, peeling proximally. Brace re-adjusted to fit more appropriately. Minimal erythema of the surrounding skin Bilateral calves are soft, left remains tender to palpation Right lower extremity is NVI Sensation intact bilateral lower extremities Patient able to resist dorsi and plantar flexion bilaterally +Dp pulse Labs: Recent Labs Lab Test 04/13/25 0624 04/12/25 0709 04/11/25 0711 04/10/25 0519 04/09/25 1424 WBC -- -- 8.4 6.4 9.1 HGB -- 8.6* 10.0* 9.7* 11.5* PLT 220 -- 230 225 310 Plan: Continue SCDs and ASA 81 mg BID for DVT prophylaxis Ultrasound on--negative for DVT on 04/12 Mobilize with PT/OT TTWB LLE x 8 weeks post op Hinged knee brace to allow ROM as tolerated at rest. Gentle ROM at rest. Locked when out of bed. Continue current pain regimen Dressings: Keep intact. change if peeling or saturated. Change if >60% saturated or peeling off Follow-up: 2 weeks post-op with [facility]/Dr Cartwright's team Disposition: Anticipate d/c to TCU when medically cleared and progressing in PT. Ortho stable for discharge. Will follow peripherally. Leonor Cordoba PA-C [facility] Orthopedics * Lionel Logan MD - 04/14/2025 2:28 PM CDT [facility] Medicine Progress Note - Hospitalist Service Date of Admission: 04/09/2025 Assessment & Plan Adilene Thurman is a 55 year old lady with mild intermittent asthma, obesity, obstructive sleep apnea not on BiPAP, dysfunctional uterine bleeding, hypertension, generalized anxiety disorder, depression, is otherwise healthy able to climb 2 flight of stairs without any chest pain or shortness of breath was at a bank where she slipped and fell with her left knee bent. There was no loss of consciousness. Acute medical issues: #Left tibial plateau fracture #S/P ORIF L tibial plateau fracture # mechanical fall --- Inpatient --- orthopedic consulted. Appreciate assistance. Status post ORIF Tibial plateau fracture --- advanced diet as tolerated --- multimodal pain management. --- PT consult in the AM. --- TTWB LLE per surgeon. Ice and elevate. Brace in place. --- repeat CBC and BMP in the AM. Chronic medical issues: # HTN: She is on lisinopril hydrochlorothiazide 20/25 daily. Hold for now. P.r.n. hydralazine. Repeat CBC and BMP in the AM. # Hypothyroidism: Continue replacement. # Fe deficiency anemia: Ferritin low at 14. Iron 28 and % saturation 9. Hgb preoperative 11.5 --> 9.5. Repeat CBC in the AM. Transfuse PRN. Start PO Fe # JOHN/depression: Stable. # Obesity Diet: Advance Diet as Tolerated: Regular Diet Adult DVT Prophylaxis: Enoxaparin (Lovenox) SQ Plunkett Catheter: Not present Lines: None Cardiac Monitoring: None Code Status: Full Code Clinically Significant Risk Factors # Hypertension: Noted on problem list # Obesity: Estimated body mass index is 37.28 kg/m?? as calculated from the following: Height as of this encounter: 1.727 m (5' 8). Weight as of this encounter: 111.2 kg (245 lb 2.4 oz)., PRESENT ON ADMISSION # Asthma: noted on problem list Social Drivers of Health Tobacco Use: Medium Risk (04/10/2025) Patient History Smoking Tobacco Use: Former Smokeless Tobacco Use: Never Disposition Plan Medically Ready for Discharge: Anticipated Tomorrow Lionel Logan MD Hospitalist Service [facility] Securely message with [employer] (more info) Text page via [employer] Paging/Directory Interval History Pain in the left knee increases with movement. At rest tolerable. Blood pressure medication at homeZestoretic, on hold here b/c blood pressure is normal. Waiting for TCU bed Physical Exam Vital Signs: Temp: 96.8 ??F (36 ??C) Temp src: Tympanic BP: 109/51 Pulse: 59 Resp: 16 SpO2: 99 % [id number]: None (Room air) Weight: 245 lbs 2.42 oz Constitutional: awake, alert, cooperative, no apparent distress, and appears stated age Respiratory: No increased work of breathing, good air exchange, clear to auscultation bilaterally, no crackles or wheezing Cardiovascular: Normal apical impulse, regular rate and rhythm, normal S1 and S2, no S3 or S4, and no murmur noted Medical Decision Making 36 MINUTES SPENT BY ME on the date of service doing chart review, history, exam, documentation & further activities per the note. Data Imaging results reviewed over the past 24 hrs: No results found for this or any previous visit (from the past 24 hours). * Linwood Lizarraga - 04/13/2025 11:23 AM CDT Care Management Follow Up Length of Stay (days): 2 Expected Discharge Date: 04/14/2025 Concerns to be Addressed: Patient plan of care discussed at interdisciplinary rounds: Yes Anticipated Discharge Disposition: TCU Anticipated Discharge Services: TCU Patient/family educated on Medicare website which has current facility and service quality ratings:yes Education Provided on the Discharge Plan: Patient/Family in Agreement with the Plan: yes Referrals Placed by CM/LIBIA: Homecare Additional Information: Patient admitted for fractures of L tibia and fibula with knee joint effusion. SW notified of an update to discharge plan it is no longer PT recommends HC PT. Patient recommended for TCU due to stairs in the home and her working full-time and limited support in the home. CM met with patientand family to discuss PT& OT recommendations. She is in agreement. Patient will review TCU referral options given by SW and determine a few options. CM will check back with the pt at the end of the day. SW also gave patient legal resources per her request. SW following. Update: The pt gave two referral choices: [facility] & [facility]. Both referrals received and submitted on the behalf of the pt. Referrals pending. Next Steps: Monitor for TCU acceptance. MELVINA Nayak, [facility] Client Insights Consultant Care Management * Lionel Logan MD - 04/13/2025 8:50 AM CDT [facility] Medicine Progress Note - Hospitalist Service Date of Admission: 04/09/2025 Assessment & Plan Adilene Thurman is a 55 year old lady with mild intermittent asthma, obesity, obstructive sleep apnea not on BiPAP, dysfunctional uterine bleeding, hypertension, generalized anxiety disorder, depression, is otherwise healthy able to climb 2 flight of stairs without any chest pain or shortness of breath was at a bank where she slipped and fell with her left knee bent. There was no loss of consciousness. Acute medical issues: #Left tibial plateau fracture #S/P ORIF L tibial plateau fracture # mechanical fall --- Inpatient --- orthopedic consulted. Appreciate assistance. Status post ORIF Tibial plateau fracture --- advanced diet as tolerated --- multimodal pain management. --- PT consult in the AM. --- TTWB LLE per surgeon. Ice and elevate. Brace in place. --- repeat CBC and BMP in the AM. Chronic medical issues: # HTN: She is on lisinopril hydrochlorothiazide 20/25 daily. Hold for now. P.r.n. hydralazine. Repeat CBC and BMP in the AM. # Hypothyroidism: Continue replacement. # Fe deficiency anemia: Ferritin low at 14. Iron 28 and % saturation 9. Hgb preoperative 11.5 --> 9.5. Repeat CBC in the AM. Transfuse PRN. Start PO Fe # JOHN/depression: Stable. # Obesity Diet: Advance Diet as Tolerated: Regular Diet Adult DVT Prophylaxis: Enoxaparin (Lovenox) SQ Plunkett Catheter: Not present Lines: None Cardiac Monitoring: None Code Status: Full Code Clinically Significant Risk Factors # Hypertension: Noted on problem list # Obesity: Estimated body mass index is 37.28 kg/m?? as calculated from the following: Height as of this encounter: 1.727 m (5' 8). Weight as of this encounter: 111.2 kg (245 lb 2.4 oz)., PRESENT ON ADMISSION # Asthma: noted on problem list Social Drivers of Health Tobacco Use: Medium Risk (04/10/2025) Patient History Smoking Tobacco Use: Former Smokeless Tobacco Use: Never Disposition Plan Medically Ready for Discharge: Anticipated Tomorrow Lionel Logan MD Hospitalist Service [facility] Securely message with [employer] (more info) Text page via [facility] Paging/Directory Interval History Pain in the left knee is unbearable WITH any movement. At rest that the leg still pain is 3/10. Denies nausea or vomiting. . Blood pressure medication at home Zestoretic, it has been on hold here butblood pressure is normal. Discussed with PT, patient is hesitant to go home Physical Exam Vital Signs: Temp: 97 ??F (36.1 ??C) Temp src: Temporal BP: 109/66 Pulse: 64 Resp: 16 SpO2: 96 % [id number]: None (Room air) Weight: 245 lbs 2.42 oz Constitutional: awake, alert, cooperative, no apparent distress, and appears stated age Respiratory: No increased work of breathing, good air exchange, clear to auscultation bilaterally, no crackles or wheezing Cardiovascular: Normal apical impulse, regular rate and rhythm, normal S1 and S2, no S3 or S4, and no murmur noted Medical Decision Making 36 MINUTES SPENT BY ME on the date of service doing chart review, history, exam, documentation & further activities per the note. Data I have personally reviewed the following data over the past 24 hrs: N/A \ N/A / 220 N/A N/A N/A / N/A N/A N/A 1.11 (H) \ Imaging results reviewed over the past 24 hrs: Recent Results (from the past 24 hours) US Lower Extremity Venous Duplex Left Narrative EXAM: US LOWER EXTREMITY VENOUS DUPLEX LEFT LOCATION: [facility] DATE: 04/12/2025 INDICATION: calf pain post op knee surgery COMPARISON: None. TECHNIQUE: Venous Duplex ultrasound of the left lower extremity with and without compression, augmentation and duplex. Color flow and spectral Doppler with waveform analysis performed. FINDINGS: Exam includes the common femoral, femoral, popliteal, and contralateral common femoral veins as well as segmentally visualized deep calf veins and greater saphenous vein. LEFT: No deep vein thrombosis. No superficial thrombophlebitis. No popliteal cyst. Impression IMPRESSION: 1. No deep venous thrombosis in the left lower extremity. * Allison Gibbons PA-C - 04/12/2025 8:52 AM CDT Orthopedic Surgery Adilene Thurman 04/12/2025 Admit Date: 04/09/2025 Assessment: POD: 2 Days Post-Op Procedure(s): Open reduction internal fixation of right anteromedial tibial plateau fracture Patient resting comfortably in a chair, had hypotension while working with therapy Pain controlled at rest Tolerating oral intake Reports nausea but no vomiting Denies chest pain or shortness of breath Per nursing is reporting left calf pain Temp: [97 ??F (36.1 ??C)-99 ??F (37.2 ??C)] 98.3 ??F (36.8 ??C) Pulse: [63-78] 71 Resp: [14-20] 18 BP: (90-135)/(36-73) 135/73 SpO2: [93 %-99 %] 94 % Alert and oriented Dressing is clean, dry, and intact Minimal erythema of the surrounding skin Bilateral calves are soft, left is tender to palpation Right lower extremity is NVI Sensation intact bilateral lower extremities Patient able to resist dorsi and plantar flexion bilaterally +Dp pulse Labs: Recent Labs Lab Test 04/12/25 0709 04/11/25 0711 04/10/25 0519 04/09/25 1424 WBC -- 8.4 6.4 9.1 HGB 8.6* 10.0* 9.7* 11.5* PLT -- 230 225 310 Plan: Continue SCDs and ASA 81 mg BID for DVT prophylaxis Ultrasound ordered to evaluate DVT--negative for DVT Perioperative antibiotics completed Mobilize with PT/OT TTWB LLE x 8 weeks post op Hinged knee brace to allow ROM as tolerated Continue current pain regimen, hydroxyzine changed to regular schedule, celebrex added to try to reduce narcotic use. Patient has taken NSAIDS in the past after her gastric bypass and tolerated. Dressings: changed today, keep intact. Change if >60% saturated or peeling off Follow-up: 2 weeks post-op with [facility]/Dr Cartwright's team Disposition: Anticipate d/c to home when medically cleared and progressing in PT Allison Gibbons PA-C [facility] Orthopedics * Lionel Logan MD - 04/12/2025 8:13 AM CDT [facility] Medicine Progress Note - Hospitalist Service Date of Admission: 04/09/2025 Assessment & Plan Adilene Thurman is a 55 year old lady with mild intermittent asthma, obesity, obstructive sleep apnea not on BiPAP, dysfunctional uterine bleeding, hypertension, generalized anxiety disorder, depression, is otherwise healthy able to climb 2 flight of stairs without any chest pain or shortness of breath was at a bank where she slipped and fell with her left knee bent. There was no loss of consciousness. Acute medical issues: #Left tibial plateau fracture #S/P ORIF L tibial plateau fracture # mechanical fall --- Observation --- orthopedic consulted. Appreciate assistance. Status post ORIF Tibial plateau fracture --- advanced diet as tolerated --- multimodal pain management. --- PT consult in the AM. --- TTWB LLE per surgeon. Ice and elevate. Brace in place. --- repeat CBC and BMP in the AM. Chronic medical issues: # HTN: She is on lisinopril hydrochlorothiazide 20/25 daily. Hold for now. P.r.n. hydralazine. Repeat CBC and BMP in the AM. # Hypothyroidism: Continue replacement. # Fe deficiency anemia: Ferritin low at 14. Iron 28 and % saturation 9. Hgb preoperative 11.5 --> 9.5. Repeat CBC in the AM. Transfuse PRN. Start PO Fe # JOHN/depression: Stable. # Obesity Diet: Advance Diet as Tolerated: Regular Diet Adult DVT Prophylaxis: Enoxaparin (Lovenox) SQ Plunkett Catheter: Not present Lines: None Cardiac Monitoring: None Code Status: Full Code Clinically Significant Risk Factors Present on Admission # Hypertension: Noted on problem list # Anemia: based on hgb <11 # Obesity: Estimated body mass index is 37.38 kg/m?? as calculated from the following: Height as of this encounter: 1.727 m (5' 8). Weight as of this encounter: 111.5 kg (245 lb 13 oz). # Asthma: noted on problem list Social Drivers of Health Tobacco Use: Medium Risk (04/10/2025) Patient History Smoking Tobacco Use: Former Smokeless Tobacco Use: Never Disposition Plan Medically Ready for Discharge: Anticipated Tomorrow Lionel Logan MD Hospitalist Service [facility] Securely message with [employer] (more info) Text [facility] via [facility] Paging/Directory Interval History On her report pain in the left knee is unbearable any movement. At rest that the leg still pain is 3/10. Denies nausea or vomiting. . Blood pressure medication at home Zestoretic, it has been on holdhere but blood pressure is normal. Azelastine is available as needed. Physical Exam Vital Signs: Temp: 98.1 ??F (36.7 ??C) Temp src: Temporal BP: 130/73 (OT - dizzy w/activity) Pulse:71 Resp: 20 SpO2: 94 % O2 Device: None (Room air) Weight: 245 lbs 13.01 oz Constitutional: awake, alert, cooperative, no apparent distress, and appears stated age Respiratory: No increased work of breathing, good air exchange, clear to auscultation bilaterally, no crackles or wheezing Cardiovascular: Normal apical impulse, regular rate and rhythm, normal S1 and S2, no S3 or S4, and no murmur noted Medical Decision Making 36 MINUTES SPENT BY ME on the date of service doing chart review, history, exam, documentation & further activities per the note. Data I have personally reviewed the following data over the past 24 hrs: N/A \ 8.6 (L) / N/A N/A N/A N/A / 97 N/A N/A N/A \ Imaging results reviewed over the past 24 hrs: No results found for this or any previous visit (from the past 24 hours). * Gallo Wick MD - 04/12/2025 4:43 AM CDT Cross cover note: Ordered simethicone as needed for gas pain. * Kelle Herring PT - 04/11/2025 10:37 AM CDT [facility] OUTPATIENT PHYSICAL THERAPY PLAN OF TREATMENT FOR OUTPATIENT REHABILITATION Patient's Last Name, First Name, Adilene Figueroa Date of : 1970 Provider's Name [facility] Onset Date: 04/09/25 Start of Care Date: 04/11/25 Medical Diagnosis: L tibial plateau fx - s/p ORIF PT Diagnosis: Impaired functional mobility Certification Dates: From: 04/11/25 To: 04/12/25 See note for plan of treatment, functional goals, and certification details. I CERTIFY THE NEED FOR THESE SERVICES FURNISHED UNDER THIS PLAN OF TREATMENT AND WHILE UNDER MY CARE (Physician co-signature of this document indicates review and certification of the therapy plan). 04/11/25 0800 Appointment Info Signing Clinician's Name / Credentials (PT) Kelle Herring PT Rehab Comments (PT) Per MD: The hinged knee brace is to remain on and locked when patient is up. Itmay be unlocked for ROM exercises. Patient to wear brace at all times. Brace may only be removed while the patient is safely seated or lying in bed for hygiene and skin checks per Provider orders. L LE TTWB Quick Adds Quick Adds [facility] Auth & Certification Living Environment People in Home spouse;child(gisell), dependent Current Living Arrangements house Home Accessibility stairs to enter home;stairs within home Number of Stairs, Main Entrance 3 Stair Railings, Main Entrance none Number of Stairs, Within Home, Primary eight Stair Railings, Within Home, Primary railing on left side (ascending) Transportation Anticipated family or friend will provide Living Environment Comments Pt lives with and 13 yr old daughter in a split entry home withall needs met on upper level with 3 BER[address] without a rail. works outside of the home FT. 13 yrold able to assist until school starts in the fall. Self-Care Usual Activity Tolerance good Current Activity Tolerance moderate Equipment Currently Used at Home walker, rolling;shower chair Fall history within last six months yes Number of times patient has fallen within last six months 1 Activity/Exercise/Self-Care Comment Pt ambulated without a device and was ind with all ADLs and IADLs. 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 Pt has aFWW and shower chair from husbands prior injury. General Information Onset of Illness/Injury or Date of Surgery 04/09/25 Referring Physician Davie Mari PA-C Patient/Family Therapy Goals Statement (PT) Pt wanting to return home and stay on upper level. Pertinent History of Current Problem (include personal factors and/or comorbidities that impact thePOC) Per medical chart: Wilma Thurman is a markedly pleasant 55-year-old female with a past medical history of asthma, obstructive sleep apnea, hypertension, JOHN, depression who presented 04/09/2025 f or mechanical fall. Pt sustained a L tibial plateau fx. Pt underwent ORIF. Weight-Bearing Status - LLE toe touch weight-bearing General Observations Pt greeted in supine with L hinged knee brace on. Seated BP 101/56, HR 76, SpO2 99% on RA Cognition Affect/Mental Status (Cognition) WFL Follows Commands (Cognition) WNL Cognitive Status Comments Pt states it's April 09; otherwise A & O. Pain Assessment Patient Currently in Pain Yes, see Vital Sign flowsheet (L knee pain 3/10 at rest) Integumentary/Edema Integumentary/Edema Comments L knee incision covered with bandages Posture Posture Forward head position;Protracted shoulders Range of Motion (ROM) ROM Comment L knee brace limited to 0-90 deg flex. Pt able to achieve ~45 deg in sitting Strength (Manual Muscle Testing) Strength (Manual Muscle Testing) Deficits observed during functional mobility Strength Comments Decreased L LE strength - unable to perform SLR without A. Assist needed to move L LE in bed. Bed Mobility Comment, (Bed Mobility) Sup > sit Mod/Max A at L LE and Min A at trunk Transfers Comment, (Transfers) Sit <> stand to FWW with Min A Gait/Stairs (Locomotion) Comment, (Gait/Stairs) Pt amb 10' with FWW and CGA, L TTWB/NWB Balance Balance Comments Good sitting balance on EOB. Impaired standing balance due to L TTWB with pt requiring B UE support on FWW and CGA for safe mobility Coordination Coordination no deficits were identified Muscle Tone Muscle Tone no deficits were identified Clinical Impression Criteria for Skilled Therapeutic Intervention Yes, treatment indicated PT Diagnosis (PT) Impaired functional mobility Influenced by the following impairments Decreased L LE strength and ROM, L LE TTWB status, impairedbalance, L LE pain Functional limitations due to impairments Impaired gait, increased falls risk, assisted mobility and ADLs. Clinical Presentation (PT Evaluation Complexity) stable Clinical Presentation Rationale clinical judgement Clinical Decision Making (Complexity) low complexity Planned Therapy Interventions (PT) balance training;bed mobility training;cryotherapy;gait training;home exercise program;patient/family education;ROM (range of motion);stair training;strengthening;stretching;transfer training;progressive activity/exercise;risk factor education;home program guidelines Risk & Benefits of therapy have been explained evaluation/treatment results reviewed;care plan/treatment goals reviewed;risks/benefits reviewed;current/potential barriers reviewed;participants voiced agreement with care plan;participants included;patient PT Total Evaluation Time PT Faizan Wallace Complexity Minutes ([id number]) 10 Therapy Certification Start of care date 04/11/25 Certification date from 04/11/25 Certification date to 04/12/25 Medical Diagnosis L tibial plateau fx - s/p ORIF [facility] Authorization Information Condition type Initial onset (within last 3 months) Cause of current episode Traumatic Nature of treatment Rehabilitative Functional ability Moderate functional limitations Documented POC (choose all that apply) Measurable short and fpc/discharge treatment goals related to physical and functional deficits.;Frequency of treatment visits and treatment activities to address deficit areas.;Patient agrees to program participation including home program Briefly describe symptoms L LE pain, decreased ROM, unable to weight bear in standing with limited gait with FWW How did the symptoms start Pt fell Last 24H: avg pain/symptom intensity 5/10 Past wk: avg pain/symptom intensity worst pain Frequency of Symptoms Constantly (76-100% of the time) Symptom impact on ADLs Quite a bit Condition change since eval N/A (first visit) General health reported by patient Very good Physical Therapy Goals PT Frequency Daily PT Predicted Duration/Target Date for Goal Attainment 04/12/25 PT Goals Bed Mobility;Transfers;Gait;Stairs PT: Bed Mobility Independent;Supine to/from sit PT: Transfers Modified independent;Sit to/from stand;Assistive device;Within precautions PT: Gait Modified independent;Rolling walker;50 feet;Within precautions PT: Stairs Minimal assist;Assistive device;Within precautions;8 stairs;Rail on right (Also amb up 3 steps without rail with chair at top) PT Discharge Planning PT Plan Progress ind with lifting L LE in/OOB, progress gait distance, initiate stairs (3 without rail to enter and 8 with L rail to main living), review HEP PT Discharge Recommendation (DC Rec) home with assist;home with home care physical therapy PT Rationale for DC Rec Pt significantly below her baseline with mobility. Pt lives in a split entry home with 8 steps to main living area. Pt currently requiring Mod/Max A to lift L LE in/OOB, Min Awith transfers and CGA with gait for limited distances of ~ 20' with FWW and L TTWB with hinged L knee brace on. Mobility limited by pain, decreased L LE strength and ROM and TTWB status limiting gait distances. Recommend pt return home with HHPT and assist from family for ADLs and IADLs as needed.HHPT to progress safety and independence with gait on level surfaces and stairs. PT Brief overview of current status A x 1 FWW up to 20' L TTWB with hinged knee brace locked in ext PT Total Distance Amb During Session (feet) 20 PT Equipment Needed at Discharge (has FWW and shower chair) Physical Therapy Time and Intention Total Session Time (sum of timed and untimed services) 10 Cosigned by Davie Mari PA-C at 04/11/2025 2:51 PM CDT Associated attestation - Davie Mari PA-C - 04/11/2025 2:51 PM CDT I agree with the above notes * Lionel Logan MD - 04/11/2025 8:01 AM CDT [facility] Medicine Progress Note - Hospitalist Service Date of Admission: 04/09/2025 Assessment & Plan Adilene Thurman is a 55 year old lady with mild intermittent asthma, obesity, obstructive sleep apnea not on BiPAP, dysfunctional uterine bleeding, hypertension, generalized anxiety disorder, depression, is otherwise healthy able to climb 2 flight of stairs without any chest pain or shortness of breath was at a bank where she slipped and fell with her left knee bent. There was no loss of consciousness. Acute medical issues: #Left tibial plateau fracture #S/P ORIF L tibial plateau fracture # mechanical fall --- Observation --- orthopedic consulted. Appreciate assistance. Status post ORIF Tibial plateau fracture --- advanced diet as tolerated --- multimodal pain management. --- PT consult in the AM. --- TTWB LLE per surgeon. Ice and elevate. Brace in place. --- repeat CBC and BMP in the AM. Chronic medical issues: # HTN: She is on lisinopril hydrochlorothiazide 20/25 daily. Hold for now. P.r.n. hydralazine. Repeat CBC and BMP in the AM. # Hypothyroidism: Continue replacement. # Fe deficiency anemia: Ferritin low at 14. Iron 28 and % saturation 9. Hgb preoperative 11.5 --> 9.5. Repeat CBC in the AM. Transfuse PRN. Start PO Fe # JOHN/depression: Stable. # Obesity Diet: Advance Diet as Tolerated: Regular Diet Adult DVT Prophylaxis: Enoxaparin (Lovenox) SQ Plunkett Catheter: Not present Lines: None Cardiac Monitoring: None Code Status: Full Code Clinically Significant Risk Factors Present on Admission # Hypertension: Noted on problem list # Anemia: based on hgb <11 # Obesity: Estimated body mass index is 37.38 kg/m?? as calculated from the following: Height as of this encounter: 1.727 m (5' 8). Weight as of this encounter: 111.5 kg (245 lb 13 oz). # Asthma: noted on problem list Social Drivers of Health Tobacco Use: Medium Risk (04/10/2025) Patient History Smoking Tobacco Use: Former Smokeless Tobacco Use: Never Disposition Plan Medically Ready for Discharge: Anticipated Tomorrow Lionel Logan MD Hospitalist Service [facility] Securely message with Sc[employer] (more info) Text page via [employer] Paging/Directory Interval History Patient reported pain in the left knee with any movement. She is sitting in the edge of bed and working with PT. Physical Exam Vital Signs: Temp: 98.1 ??F (36.7 ??C) Temp src: Temporal BP: 111/49 Pulse: 71 Resp: 20 SpO2: 94 % O2 Device: None (Room air) Weight: 245 lbs 13.01 oz Constitutional: awake, alert, cooperative, no apparent distress, and appears stated age Respiratory: No increased work of breathing, good air exchange, clear to auscultation bilaterally, no crackles or wheezing Cardiovascular: Normal apical impulse, regular rate and rhythm, normal S1 and S2, no S3 or S4, and no murmur noted Medical Decision Making 37 MINUTES SPENT BY ME on the date of service doing chart review, history, exam, documentation & further activities per the note. Data I have personally reviewed the following data over the past 24 hrs: N/A \ 8.6 (L) / N/A N/A N/A N/A / 97 N/A N/A N/A \ Imaging results reviewed over the past 24 hrs: No results found for this or any previous visit (from the past 24 hours). * Allison Gibbons PA-C - 04/11/2025 7:55 AM CDT Orthopedic Surgery Adilene M Cuca 04/11/2025 Admit Date: 04/09/2025 Assessment: POD: 1 Day Post-Op Procedure(s): OPEN REDUCTION INTERNAL FIXATION, FRACTURE, TIBIA, PLATEAU, LEFT Patient resting comfortably in bed Pain controlled Tolerating oral intake Denies nausea or vomiting Denies chest pain or shortness of breath Temp: [96.8 ??F (36 ??C)-98.7 ??F (37.1 ??C)] 97.5 ??F (36.4 ??C) Pulse: [58-86] 62 Resp: [7-32] 14 BP: (99-131)/(48-84) 109/65 SpO2: [82 %-100 %] 98 % Alert and oriented Dressing is clean, dry, and intact Knee immobilizer in place Minimal erythema of the surrounding skin Bilateral calves are soft, non-tender Left lower extremity is NVI Sensation intact bilateral lower extremities Patient able to resist dorsi and plantar flexion bilaterally +Dp pulse bilaterally Labs: Recent Labs Lab Test 04/11/25 0711 04/10/25 0519 04/09/25 1424 WBC 8.4 6.4 9.1 HGB 10.0* 9.7* 11.5* PLT 230 225 310 Plan: Continue SCDs and ASA 81 mg BID for DVT prophylaxis Perioperative antibiotics x 24 hours post op Mobilize with PT/OT TTWB LLE x 8 weeks post op Hinged knee brace to allow ROM as tolerated Continue current pain regimen Dressings: Keep intact. Change if >60% saturated or peeling off Follow-up: 2 weeks post-op with Davie/Dr Cartwright's team Disposition: Anticipate d/c to home when medically cleared and progressing in PT Allison Gibbons PA-C [facility] Orthopedics * Andi Mackenzie APRN [employer] TOOL OPERATOR - 04/10/2025 4:55 PM CDT [facility] Medicine Progress Note - Hospitalist Service Date of Admission: 04/09/2025 Assessment & Plan Adilene Thurman is a 55 year old lady with mild intermittent asthma, obesity, obstructive sleep apnea not on BiPAP, dysfunctional uterine bleeding, hypertension, generalized anxiety disorder, depression, is otherwise healthy able to climb 2 flight of stairs without any chest pain or shortness of breath was at a bank where she slipped and fell with her left knee bent. There was no loss of consciousness. Acute medical issues: #Left tibial plateau fracture #S/P ORIF L tibial plateau fracture # mechanical fall --- admitted to observation --- orthopedic consult. Appreciate assistance. Status post ORIF Tibial plateau fracture --- advanced diet as tolerated --- multimodal pain management. --- PT consult in the AM. --- TTWB LLE. Ice and elevate. Brace in place. --- continue MIVF this evening (LR). SL in the AM if taking PO well. --- repeat CBC and BMP in the AM. Chronic medical issues: #HTN: She is on lisinopril hydrochlorothiazide 20/25 daily. Hold for now. P.r.n. hydralazine. Repeat CBC and BMP in the AM. # Hypothyroidism: Continue replacement. # Fe deficiency anemia: Ferritin low at 14. Iron 28 and % saturation 9. Hgb preoperative 11.5 --> 9.5. Repeat CBC in the AM. Transfuse PRN. Start PO Fe # JOHN/depression: Stable. Diet: Advance Diet as Tolerated: Regular Diet Adult DVT Prophylaxis: Enoxaparin (Lovenox) SQ Plunkett Catheter: Not present Lines: None Cardiac Monitoring: None Code Status: Full Code Clinically Significant Risk Factors Present on Admission # Hypertension: Noted on problem list # Anemia: based on hgb <11 # Obesity: Estimated body mass index is 35.26 kg/m?? as calculated from the following: Height as of this encounter: 1.727 m (5' 8). Weight as of this encounter: 105.2 kg (231 lb 14.8 oz). # Asthma: noted on problem list Social Drivers of Health Tobacco Use: Medium Risk (04/10/2025) Patient History Smoking Tobacco Use: Former Smokeless Tobacco Use: Never Disposition Plan Medically Ready for Discharge: Anticipated in 2-4 Days The patient's care was discussed with the Bedside Nurse, Patient, Patient's Family, and Ortho Computational Physicist(s). Andi Mackenzie APRN [facility] Hospitalist Service [facility] Securely message with [employer] (more info) Text page via [employer] Paging/Directory Interval History Assumed care of patient. VSS. Seen postoperatively. No CP or SOB. Pain difficult to control -- adjusting medications. Physical Exam Vital Signs: Temp: 98.2 ??F (36.8 ??C) Temp src: Temporal BP: 114/59 Pulse: 64 Resp: (!) 7 SpO2: 97% O2 Device: Nasal cannula Oxygen Delivery: 2 LPM Weight: 231 lbs 14.78 oz General Appearance: Pleasant 55-year-old female seen postoperatively who is recovering from anesthesia Respiratory: unlabored respirations. Cardiovascular: RRR. S1S2 GI: Soft nontender nondistended. DTV. Skin: TERRAZAS. CR < 3 seconds. L KI in place. Post operative dressing CDI. Other: CN II-XII intact. No focal deficits. Medical Decision Making 45 MINUTES SPENT BY ME on the date of service doing chart review, history, exam, documentation & further activities per the note. Data PAST 24 HR DATA REVIEWED I have personally reviewed the following data over the past 24 hrs: 6.4 \ 9.7 (L) / 225 137 105 22.9 (H) / 73 4.2 23 1.03 (H) \ Imaging results reviewed over the past 24 hrs: Recent Results (from the past 24 hours) XR Surgery BOBBY L/T 5 Min Fluoro w [place] Narrative EXAM: XR SURGERY C-ARM FLUORO LESS THAN 5 MIN W STILLS LOCATION: [facility] DATE: 04/10/2025 INDICATION: ORIF left tibial plateau. COMPARISON: None. TECHNIQUE: Intraoperative fluoroscopy performed during the patient's procedure. RADIATION DOSE: Dose Area Product [id number] mGy-cm2. Impression IMPRESSION: Two fluoroscopic images acquired by the clinical service for ORIF of the left tibial plateau. Anatomic alignment. * Liu Bran CPO, LPO - 04/10/2025 3:30 PM CDT Patient was fit fit hinged knee brace. present. Physical instruction provided as well as written and contact information. Patient groggy during fitting. Patient to follow with office as needed. Liu GARCIA. * Latisha Calhoun RT - 04/09/2025 11:44 PM CDT Per chart, pt does not use CPAP. RT Radha documented in this encounter H&P Notes * Moody Oneal MD - 04/09/2025 5:33 PM CDT [facility] History and Physical - Hospitalist Service Date of Admission: 04/09/2025 Assessment & Plan Adilene Thurman is a 55 year old female admitted on 04/09/2025. Acute comminuted impacted intra-articular fracture of medial left tibial plateau Acute avulsion fracture along the lateral aspect of the left tibial plateau - suggestive of a Segond fracture Acute minimally displaced fracture of the proximal left fibula Left knee joint effusion Patient came in after falling down when her leg slipped while walking on a mossy path followed by severe pain and diagnosis of fractures as above Will keep patient n.p.o. for possible surgery tomorrow morning Give pain medications Consult orthopedic surgery Keep n.p.o. in a.m. and give IV fluids Hypertension Patient is on lisinopril and hydrochlorothiazide 20/25 mg once daily Since the blood pressure is elevated probably related to pain versus not taking the medication willgive lisinopril and hydrochlorothiazide today but We will hold lisinopril in this perioperative state and restarted later starting tomorrow hold from04/10/2025) Hypothyroidism On levothyroxine to 25 mcg daily which will be continued Obesity Obstructive sleep apnea not on BiPAP Status post gastric bypass Iron deficiency Ferritin level was low earlier CBC results from today are not available as yet JOHN Depression Asthma Not in acute exacerbation Diet: Regular diet today and n.p.o. at midnight DVT Prophylaxis: Will start DVT prophylaxis as per orthopedic surgeon. Plunkett Catheter: Not present Lines: None Cardiac Monitoring: None Code Status: Full code Clinically Significant Risk Factors Present on Admission # Hypertension: Noted on problem list # Obesity: Estimated body mass index is 34.97 kg/m?? as calculated from the following: Height as of this encounter: 1.727 m (5' 8). Weight as of this encounter: 104.3 kg (230 lb). # Asthma: noted on problem list Disposition Plan Medically Ready for Discharge: Anticipated in 2-4 Days Moody Oneal MD Hospitalist Service [facility] Securely message with [employer] (more info) Text page via [employer] Paging/Directory Chief Complaint Left knee pain History is obtained from the patient, medical records and my discussion with emergency department physician History of Present Illness Adilene Thurman is a 55 year old lady with mild intermittent asthma, obesity, obstructive sleep apnea not on BiPAP, dysfunctional uterine bleeding, hypertension, generalized anxiety disorder, depression, is otherwise healthy able to climb 2 flight of stairs without any chest pain or shortness of breath was at a bank where she slipped and fell with her left knee bent. There was no loss of consciousness. She denied any chest pain or shortness of breath before this. This resulted in a 10/10 leftknee pain for which she came to [facility] for further evaluation where a CT scan of the left knee showed acute comminuted impacted intra-articular fracture along the anterior aspect of the left medial tibia plateau with acute avulsion fracture along the lateral aspect of the left tibia plateau suggestive of a Segond fracture and acute minimally displaced fracture of the proximal left fibula. Past Medical History Past Medical History: Diagnosis Date Abnormal Pap smear of cervix 09/19/2018 See problem list Anemia IN PAST , NEEDED IRON TRANSFUSION Anesthesia complication after gastric bypass-hard time waking up Asthma uses inhaler during winter months. 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 Hypertension Irregular heart beat Osteoarthritis of right knee 04/05/2015 Tear of meniscus of right knee Past Surgical History Past Surgical History: Procedure Laterality Date ABDOMEN SURGERY gastric bypass APPENDECTOMY ARTHROSCOPY KNEE Right 05/12/2015 Procedure: ARTHROSCOPY KNEE; Surgeon: Deandre Mcfarland MD; Location: [facility] OR COLONOSCOPY N/A 02/21/2015 Procedure: COLONOSCOPY; Surgeon: Simon Montanez MD; Location: GI CYSTECTOMY OVARIAN BENIGN 05/25/2012 Procedure: CYSTECTOMY OVARIAN BENIGN; left ovarian cystectomy; Surgeon: Blanca Wharton MD; Location: [facility] DILATION AND CURETTAGE, HYSTEROSCOPY DIAGNOSTIC, COMBINED 05/25/2012 Procedure: COMBINED DILATION AND CURETTAGE, HYSTEROSCOPY DIAGNOSTIC; HYSTEROSCOPY, DILATION & CURETTAGE, MINI LAPAROTOMY WITH LEFT OVARIAN CYSTECTOMY, LEFT SALPINGECTOMY; Surgeon: Blanca Wharton MD; Location: [facility] ENT SURGERY tonsillectomy EXCISE MASS UPPER EXTREMITY Right 05/12/2015 Procedure: EXCISE MASS UPPER EXTREMITY; Surgeon: Deandre Mcfarland MD; Location: [facility] OR INCISION AND DRAINAGE TRUNK, COMBINED N/A 06/05/2014 Procedure: COMBINED INCISION AND DRAINAGE TRUNK; Surgeon: Royal Avery MD; Location: [facility] OR LAPAROTOMY MINI FOR EXPOSURE 05/25/2012 Procedure: LAPAROTOMY MINI FOR EXPOSURE; Mini-laparotomy.; Surgeon: Blanca Wharton MD;Location: [facility] SALPINGECTOMY 05/25/2012 Procedure: SALPINGECTOMY; Left salpingectomy; Surgeon: Blanca Wharton MD; Location: [facility] TYMPANOPLASTY 03/11/2014 Procedure: TYMPANOPLASTY; Surgeon: Deandre Ibrahim MD; Location: OR TYMPANOPLASTY Left 07/22/2014 Procedure: TYMPANOPLASTY; Surgeon: Deandre Ibrahim MD; Location: [facility] OR Prior to Admission Medications Prior to Admission Medications Prescriptions Last Dose Informant Patient Reported? Taking? Acetaminophen (TYLENOL PO) Yes No Sig: Take 650 mg by mouth every morning albuterol (PROAIR HFA/PROVENTIL HFA/VENTOLIN HFA) 108 (90 Base) MCG/ACT inhaler No No Sig: Inhale 2 puffs into the lungs every 4 hours as needed for shortness of breath / dyspnea or wheezing Patient not taking: Reported on 08/04/2019 azithromycin (ZITHROMAX) 250 MG tablet No No Sig: Two tablets first day, then one tablet daily for four days. buPROPion (WELLBUTRIN XL) 150 MG 24 hr tablet No No Sig: Take 3 tablets (450 mg) by mouth every morning Patient not taking: Reported on 08/04/2019 hydrochlorothiazide (HYDRODIURIL) 25 MG tablet No No Sig: Take 1 tablet (25 mg) by mouth daily Patient not taking: Reported on 08/04/2019 hydrochlorothiazide (HYDRODIURIL) 25 MG tablet No No Sig: Take 1 tablet (25 mg) by mouth daily .MUST SEE PROVIDER FOR REFILLS Patient not taking: Reported on 08/04/2019 levothyroxine (SYNTHROID/LEVOTHROID) 200 MCG tablet No No Sig: Take 1 tablet (200 mcg) by mouth daily levothyroxine (SYNTHROID/LEVOTHROID) 200 MCG tablet No No Sig: Take 1 tablet (200 mcg) by mouth daily .MUST SEE PROVIDER FOR REFILL lisinopril (PRINIVIL/ZESTRIL) 10 MG tablet No No Sig: Take 2 tablets (20 mg) by mouth daily lisinopril (PRINIVIL/ZESTRIL) 10 MG tablet No No Sig: TAKE 1 TABLET BY MOUTH DAILY magic mouthwash suspension, diphenhydrAMINE, lidocaine, aluminum-magnesium & simethicone, (FIRST-MOUTHWASH BLM) compounding kit No No Sig: Swish and swallow 5-10 mLs in mouth every 6 hours as needed for mouth sores predniSONE (DELTASONE) 20 MG tablet No No Sig: Take 2 tablets (40 mg) by mouth daily traMADol (ULTRAM) 50 MG tablet No No Sig: Take 1 tablet (50 mg) by mouth every 6 hours as needed for severe pain Facility-Administered Medications: None Review of Systems Denies any headache, blurring of vision or double vision, neck pain jaw pain or shoulder pain, chest pain, shortness of breath, cough or increased sputum production, nausea or vomiting, abdominal pain, diarrhea or constipation. Denies any urinary symptoms of burning or increased frequency. Denies any weakness of upper or lower extremities or any seizure activity. Fever or chills. Bleeding from anywhere else. No rashes or cellulitis. Social History I have reviewed this patient's social history and updated it with pertinent information if needed. Social History Tobacco Use Smoking status: Former Current packs/day: 0.00 Types: Cigarettes Start date: 11/07/1985 Quit date: 11/07/1995 Years since quittin.4 Smokeless tobacco: Never Tobacco comments: social smoker Substance Use Topics Alcohol use: Yes Alcohol/week: 0.0 standard drinks of alcohol Comment: Very little Drug use: No Family History I have reviewed this patient's family history and updated it with pertinent information if needed. Family History Problem Relation Age of Onset Diabetes Mother Hypertension Mother Cancer Mother lung ~ liver Thyroid Disease Mother Hyperlipidemia Mother Other Cancer Mother Depression Mother Sleep Apnea Mother Unknown/Adopted Father Hypertension Maternal Grandmother Gallbladder Disease Maternal Grandmother Thyroid Disease Maternal Grandmother Hypertension Maternal Grandfather C.A.D. Maternal Grandfather Thyroid Disease Maternal Grandfather Cerebrovascular Disease Maternal Grandfather Unknown/Adopted Paternal Grandmother Unknown/Adopted Paternal Grandfather Coronary Artery Disease Brother 54 [place] Colon Cancer No family hx of Allergies Allergies Allergen Reactions Amoxicillin-Pot Clavulanate Nausea and Vomiting Droperidol Panic attacks Ibuprofen Other (See Comments) Unable to take due to past gastric bypass Morphine And Codeine Panic attack Tape [Adhesive Tape] Clear tape=RASH; tegaderm ok Physical Exam Vital Signs: Temp: 98.3 ??F (36.8 ??C) BP: 135/85 Pulse: 82 Resp: 28 SpO2: 100 % O2 Device: Nasal cannula Oxygen Delivery: 2 LPM Weight: 230 lbs 0 oz GENERAL: Patient does not look in any acute distress HEENT: EOM+, Conjunctiva is clear NECK: No Jugular Venous distention HEART: S1 S2 regular Rate and Rhythm, no murmur, LUNGS: Respirations are not laboured, Lungs are clear to auscultation without Crepitations or Wheezing ABDOMEN: Soft, there is no tenderness, Bowel Sounds are Positive LOWER LIMBS: Left knee is swollen as a ice pack over it HEEL STAINER: Alert, Oriented x 3, Moving all the Four Limbs Data Imaging results reviewed over the past 24 hrs: Recent Results (from the past 24 hours) XR Pelvis 1/2 Views Narrative EXAM: XR PELVIS 1/2 VIEWS LOCATION: [facility] DATE: 04/09/2025 INDICATION: fall, pain COMPARISON: Correlation with same day radiographs. Impression IMPRESSION: Bilateral acetabular marginal osteophytes. No hip joint space narrowing. 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 Lower lumbar facet arthropathy. No definite fracture or dislocationon a single view of the pelvis. XR Knee Left 3 Views Narrative EXAM: XR KNEE LEFT 3 VIEWS, XR FEMUR LEFT 2 VIEWS LOCATION: [facility] DATE: 04/09/2025 INDICATION: fall, pain COMPARISON: None. Impression IMPRESSION: Cortical irregularity of the medial tibial plateau suspicious for a comminuted intra-articular fracture. Small knee joint effusion with a fluid/fluid level likely representing a lipohemarthrosis. CT is recommended to confirm these findings. Cortical irregularity of the fibular head likely a nondisplaced fracture. Demineralization. No fracture of the more proximal left femur. Mild left sacroiliac joint osteoarthritis. XR Femur Left 2 Views Narrative EXAM: XR KNEE LEFT 3 VIEWS, XR FEMUR LEFT 2 VIEWS LOCATION: [facility] DATE: 04/09/2025 INDICATION: fall, pain COMPARISON: None. Impression IMPRESSION: Cortical irregularity of the medial tibial plateau suspicious for a comminuted intra-articular fracture. Small knee joint effusion with a fluid/fluid level likely representing a lipohemarthrosis. CT is recommended to confirm these findings. Cortical irregularity of the fibular head likely a nondisplaced fracture. Demineralization. No fracture of the more proximal left femur. Mild left sacroiliac joint osteoarthritis. CT Knee Left w/o Contrast Narrative EXAM: CT KNEE LEFT W/O CONTRAST LOCATION: [facility] DATE: 04/09/2025 INDICATION: cocnern tibial plateau fractures COMPARISON: 04/09/2025 TECHNIQUE: Noncontrast. Axial, sagittal and coronal thin-section reconstruction. Dose reduction techniques were used. FINDINGS: BONES: Acute comminuted impacted intra-articular fracture along the anterior aspect of the medial tibial plateau (series 5 image 70, series 4 image 70). Depression of the articular surface up to 0.2 cm. Fracture planes contact the articular surface at multiple locations. Acute avulsion fracture along the lateral aspect of the tibial plateau (series 4 image 88). Patternis suggestive of a Segond fracture. Acute minimally displaced fracture of the proximal fibula (series 4 image 108, series 2 image 187). Diffuse osseous demineralization which limits evaluation for nondisplaced fractures and subtle osseous lesions. No aggressive appearing osseous lesions. SOFT TISSUES: Large joint effusion with lipohemarthrosis. Posttraumatic soft tissue edema and blood products along the anterior medial aspect of the knee. No sizable hematoma or organized fluid collection. Impression IMPRESSION: 1. Acute comminuted impacted intra-articular fracture along the anterior aspect of the medial tibial plateau. 2. Acute avulsion fracture along the lateral aspect of the tibial plateau. Pattern is suggestive ofa Segond fracture. 3. Acute minimally displaced fracture of the proximal fibula. 4. Large joint effusion with lipohemarthrosis. Recent Labs Lab 04/09/25 1424 NA 136 POTASSIUM 4.2 CHLORIDE 100 CO2 21* BUN 24.2* CR 1.09* ANIONGAP 15 JOY 9.6 GLC 122* documented in this encounter Consult Notes * Lucy Knox RN - 04/11/2025 12:01 PM CDTAssociated Order(s): CARE MANAGEMENT / SOCIAL WORK IP CONSULT Care Management Initial Consult General Information Assessment completed with: Patient, Wilma Type of CM/SW Visit: Initial Assessment Primary Care Provider verified and updated as needed: Yes Readmission within the last 30 days: no previous admission in last 30 days Reason for Consult: discharge planning, care coordination/care conference Advance Care Planning: Communication Assessment Patient's communication style: spoken language (Citizen Of [place] or Bilingual) Hearing Difficulty or Deaf: no Cognitive Cognitive/Neuro/Behavioral: .WDL except Level of Consciousness: lethargic Arousal Level: opens eyesspontaneously Orientation: disoriented to, time Mood/Behavior: calm, other (see comments) (letargic,) Best Language: 0 - No aphasia Speech: clear, logical Living Environment: People in home: child(gisell), dependent, spouse Current living Arrangements: house Able to return to prior arrangements: yes Family/Social Support: Care provided by: self Provides care for: child(gisell) Marital Status: Support system: , Children Description of Support System: Involved, Supportive Support Assessment: Adequate social supports Current Resources: Patient receiving home care services: No Community Resources: None Equipment currently used at home: none Supplies currently used at home: Employment/Financial: Employment Status: Financial Concerns: Does the patient's insurance plan have a 3 day qualifying hospital stay waiver? No Lifestyle & Psychosocial Needs: Social Drivers of Health Food Insecurity: Low Risk (04/09/2025) Food Insecurity Within the past 12 months, did you worry that your food would run out before you got money to buy more?: No Within the past 12 months, did the food you bought just not last and you didn???t have money to getmore?: No Depression: Not at risk (03/04/2025) [facility] from [facility] PHQ-2 PHQ-2 TOTAL SCORE: 2 Housing Stability: Low Risk (04/09/2025) Housing Stability Do you have housing? : Yes Are you worried about losing your housing?: No Tobacco Use: Medium Risk (04/10/2025) Patient History Smoking Tobacco Use: Former Smokeless Tobacco Use: Never Passive Exposure: Not on file Financial Resource Strain: Low Risk (04/09/2025) Financial Resource Strain Within the past 12 months, have you or your family members you live with been unable to get utilities (heat, electricity) when it was really needed?: No Alcohol Use: Not on file Transportation Needs: Low Risk (04/09/2025) Transportation Needs Within the past 12 months, has lack of transportation kept you from medical appointments, getting your medicines, non-medical meetings or appointments, work, or from getting things that you need?: No Physical Activity: Not on file Interpersonal Safety: Low Risk (04/10/2025) Interpersonal Safety Do you feel physically and emotionally safe where you currently live?: Yes Within the past 12 months, have you been hit, slapped, kicked or otherwise physically hurt by someone?: No Within the past 12 months, have you been humiliated or emotionally abused in other ways by your partner or ex-partner?: No Stress: Not on file Social Connections: Socially Integrated (08/03/2024) Received from [facility] Social Connections Do you often feel lonely or isolated from those around you?: 0 Health Literacy: Not on file Functional Status: Prior to admission patient needed assistance: Dependent ADLs:: Independent, Ambulation-no assistive device Dependent IADLs:: Independent Assesssment of Functional Status: Not at functional baseline, Not at baseline with mobility Mental Health Status: Chemical Dependency Status: Values/Beliefs: Spiritual, Cultural Beliefs, Quaker Practices, Values that affect care: Discussed ???Partnership in Safe Discharge Planning??? document with patient/family: No Additional Information: Patient admitted for fractures of L tibia and fibula with knee joint effusion. See H and P for further details. She is followed by ortho and the Hospitalist. PT recommends HC PT. CM met with patient and family to discuss PT recommendations. She is in agreement. Patient has no preference of agencies. CM sent referral for HC PT. Patient was independent in all cares , tasks and ambulation prior to the fall.Transportation home via her . Next Steps: Monitor for HC acceptance. Shelby Knox RN, BSN, CM Inpatient Care Coordination [facility] [phone] * Violet Giron PA-C - 04/10/2025 8:00 AM CDTAssociated Order(s): ORTHOPEDIC SURGERY IP CONSULT [facility] Orthopedic Consultation Adilene Thurman Age: [age] year old Date of : 1970 Date of Admission: 04/09/2025 Reason for consult: Left tibia plateau fracture Requesting physician: Moody Oneal MD Level of consult: Consult, follow and place orders Assessment and Plan: Assessment: 85-year-old female admitted 04/09/2025 following a mechanical fall and sustaining acute, closed, tibial plateau fracture of the left lower extremity Plan: The patient's history and clinical/diagnostic findings were independently reviewed by the on-call orthopedic trauma surgeon. The patient is a candidate for a left lower extremity ORIF. This is been added to the OR schedule for this morning. Appreciate surgical optimization by hospital team. Basil discuss the risks, benefits, and outcomes of surgery while obtaining consent. On my consultation I discussed general surgical plans with the patient, she is in agreement to proceed with surgery at this time. Surgeon: Dr. Cartwright NPO NWB/bedrest until postop. Continue pain regimen. Anticoagulation: Hold until postop Type and screen ordered. Please contact orthopedic trauma team if any questions or concerns arise. Chief Complaint: Left tibial plateau fracture with History of Present Illness: Wilma Thurman is a markedly pleasant 55-year-old female with a past medical history of asthma, obstructive sleep apnea, hypertension, JOHN, depression who presented 04/09/2025 for mechanical fall. Patient reports that she was ambulating outside at the bank where the ground was wet underneath a sood tree. She reports the ground was slippery and fell with immediate pain of the left lower extremity. She was brought to the emergency department by EMS for evaluation. Imaging was obtained which reveals tibial plateau fracture. On consultation she has significant pain of the left lower extremity. 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 Hypertension Irregular heart beat Osteoarthritis of right knee 04/05/2015 Tear of meniscus of right knee Past Surgical History: Past Surgical History: Procedure Laterality Date ABDOMEN SURGERY gastric bypass APPENDECTOMY ARTHROSCOPY KNEE Right 05/12/2015 Procedure: ARTHROSCOPY KNEE; Surgeon: Deandre Mcfarland MD; Location: OR COLONOSCOPY N/A 02/21/2015 Procedure: COLONOSCOPY; Surgeon: Simon Montanez MD; Location: GI CYSTECTOMY OVARIAN BENIGN 05/25/2012 Procedure: CYSTECTOMY OVARIAN BENIGN; left ovarian cystectomy; Surgeon: Blanca Wharton MD; Location: [facility] DILATION AND CURETTAGE, HYSTEROSCOPY DIAGNOSTIC, COMBINED 05/25/2012 Procedure: COMBINED DILATION AND CURETTAGE, HYSTEROSCOPY DIAGNOSTIC; HYSTEROSCOPY, DILATION & CURETTAGE, MINI LAPAROTOMY WITH LEFT OVARIAN CYSTECTOMY, LEFT SALPINGECTOMY; Surgeon: Blanca Wharton MD; Location: [facility] ENT SURGERY tonsillectomy EXCISE MASS UPPER EXTREMITY Right 05/12/2015 Procedure: EXCISE MASS UPPER EXTREMITY; Surgeon: Deandre Mcfarland MD; Location: [facility] OR INCISION AND DRAINAGE TRUNK, COMBINED N/A 06/05/2014 Procedure: COMBINED INCISION AND DRAINAGE TRUNK; Surgeon: Royal Avery MD; Location: [facility] OR LAPAROTOMY MINI FOR EXPOSURE 05/25/2012 Procedure: LAPAROTOMY MINI FOR EXPOSURE; Mini-laparotomy.; Surgeon: Blanca Wharton MD;Location: [place] SALPINGECTOMY 05/25/2012 Procedure: SALPINGECTOMY; Left salpingectomy; Surgeon: Blanca Wharton MD; [facility] 03/11/2014 Procedure: TYMPANOPLASTY; Surgeon: Deandre Ibrahim MD; Location: [facility] OR TYMPANOPLASTY Left 07/22/2014 Procedure: TYMPANOPLASTY; Surgeon: Deandre Ibrahim MD; Location: [facility] OR Social History: Social History Tobacco Use Smoking status: Former Current packs/day: 0.00 Types: Cigarettes Start date: 11/07/1985 Quit date: 11/07/1995 Years since quittin.4 Smokeless tobacco: Never Tobacco comments: social smoker Substance Use Topics Alcohol use: Yes Alcohol/week: 0.0 standard drinks of alcohol Comment: Very little Family History: Family History Problem Relation Age of Onset Diabetes Mother Hypertension Mother Cancer Mother lung ~ liver Thyroid Disease Mother Hyperlipidemia Mother Other Cancer Mother Depression Mother Sleep Apnea Mother Unknown/Adopted Father Hypertension Maternal Grandmother Gallbladder Disease Maternal Grandmother Thyroid Disease Maternal Grandmother Hypertension Maternal Grandfather C.A.D. Maternal Grandfather Thyroid Disease Maternal Grandfather Cerebrovascular Disease Maternal Grandfather Unknown/Adopted Paternal Grandmother Unknown/Adopted Paternal Grandfather Coronary Artery Disease Brother 54 [place] Colon Cancer No family hx of Immunizations: VACCINE / DOSE Diptheria DPT DTAP HBIG Hepatitis A Hepatitis B HIB Influenza Measles Meningococcal MMR Mumps Pneumococcal Polio Rubella Small Pox TDAP Varicella Zoster Allergies: Allergies Allergen Reactions Amoxicillin-Pot Clavulanate Nausea and Vomiting Droperidol Panic attacks Ibuprofen Other (See Comments) Unable to take due to past gastric bypass Morphine And Codeine Panic attack Tape [Adhesive Tape] Clear tape=RASH; tegaderm ok Medications: Current Facility-Administered Medications Medication Dose Route Frequency Provider Last Rate Last Admin [Auto Hold] acetaminophen (TYLENOL) tablet 650 mg 650 mg Oral Q4H PRN Moody Oneal MD 650 mg at 04/10/25 0239 Or [Auto Hold] acetaminophen (TYLENOL) Suppository 650 mg 650 mg Rectal Q4H PRN Moody Oneal MD [Auto Hold] calcium carbonate (TUMS) chewable tablet 1,000 mg 1,000 mg Oral 4x Daily PRN Ping Oneal MD ceFAZolin Sodium (ANCEF) injection 2 g 2 g Intravenous Pre-Op/Pre-procedure x 1 dose Jair Cartwright MD ceFAZolin Sodium (ANCEF) injection 2 g 2 g Intravenous See Admin Instructions Roge Cartwright MD fentaNYL (PF) (SUBLIMAZE) injection 50 mcg 50 mcg Intravenous Q30 Min PRN Shamika Apodaca MD50 mcg at 04/10/25 0843 [Auto Hold] HYDROmorphone (DILAUDID) injection 1 mg 1 mg Intravenous Q2H PRN Moody Oneal MD 1 mg at 04/10/25 0636 [Auto Hold] HYDROmorphone (DILAUDID) tablet 2 mg 2 mg Oral Q4H PRN Moody Oneal MD 2 mg at 04/09/25 2344 lactated ringers infusion Intravenous Continuous Tadeo Wiseman MD 10 mL/hr at 04/10/25 0845 New Bag at 04/10/25 0845 [Auto Hold] levothyroxine (SYNTHROID/LEVOTHROID) tablet 225 mcg 225 mcg Oral QAM AC Moody Oneal MD 225 mcg at 04/10/25 0636 [Auto Hold] lidocaine (LMX4) cream Topical Q1H PRN Moody Oneal MD [Auto Hold] lidocaine 1 % 0.1-1 mL 0.1-1 mL Other Q1H PRN Moody Oneal MD [Auto Hold] lisinopril-hydrochlorothiazide (ZESTORETIC) 20-25 MG per tablet 1 tablet 1 tablet Oral Daily Moody Oneal MD midazolam (VERSED) injection 2 mg 2 mg Intravenous Once PRN Shamika Apodaca MD [Auto Hold] naloxone (NARCAN) injection 0.2 mg 0.2 mg Intravenous Q2 Min PRN Moody Oneal MD Or [Auto Hold] naloxone (NARCAN) injection 0.4 mg 0.4 mg Intravenous Q2 Min PRN Moody Oneal MD Or [Auto Hold] naloxone (NARCAN) injection 0.2 mg 0.2 mg Intramuscular Q2 Min PRN Moody Oneal MD Or [Auto Hold] naloxone (NARCAN) injection 0.4 mg 0.4 mg Intramuscular Q2 Min PRMoody Venegas MD [Auto Hold] ondansetron (ZOFRAN ODT) ODT tab 4 mg 4 mg Oral Q6H PRN Moody Oneal MD Or [Auto Hold] ondansetron (ZOFRAN) injection 4 mg 4 mg Intravenous Q6H PRN Moody Oneal MD [Auto Hold] senna-docusate (SENOKOT-S/PERICOLACE) 8.6-50 MG per tablet 1 tablet 1 tablet Oral BID PRN Moody Oneal MD Or [Auto Hold] senna-docusate (SENOKOT-S/PERICOLACE) 8.6-50 MG per tablet 2 tablet 2 tablet Oral BID PRN Moody Oneal MD [Auto Hold] sodium chloride (PF) 0.9% PF flush 3 mL 3 mL Intracatheter Q8H [facility] Moody Oneal MD 3 mL at 04/09/252022 [Auto Hold] sodium chloride (PF) 0.9% PF flush 3 mL 3 mL Intracatheter q1 min prMoody Venegas MD sodium chloride 0.9 % infusion Intravenous Continuous Moody Oneal MD 75 mL/hr at 04/09/25 2345 Rate Verify at 04/09/25 2345 tranexamic acid 1 g in 100 mL NS IV bag (premix) 1 g Intravenous Once Roge Cartwright MD tranexamic acid 1 g in 100 mL NS IV bag (premix) 1 g Intravenous Once Roge Cartwright MD Physical Exam: All vitals have been reviewed Patient Vitals for the past 24 hrs: BP Temp Temp src Pulse Resp SpO2 Height Weight 04/10/25 0827 116/70 98 ??F (36.7 ??C) Core 66 18 98 % -- -- 04/09/25 2345 110/64 97.3 ??F (36.3 ??C) Oral 74 20 100 % -- -- 04/09/25 1847 (!) 152/98 97.8 ??F (36.6 ??C) Oral 78 21 99 % 1.727 m (5' 8) 105.2 kg (231 lb 14.8 oz) 04/09/25 1652 -- -- -- -- -- 92 % -- -- 04/09/25 1600 135/85 -- -- 82 -- 100 % -- -- 04/09/25 1545 112/66 -- -- 72 -- 100 % -- -- 04/09/25 1445 -- -- -- -- -- 97 % -- -- 04/09/25 1444 119/65 -- -- 78 -- (!) 88 % -- -- 04/09/25 1349 (!) 158/112 98.3 ??F (36.8 ??C) -- 110 28 100 % 1.727 m (5' 8) 104.3 kg (230 lb) Intake/Output Summary (Last 24 hours) at 04/10/2025 0945 Last data filed at 04/10/2025 0715 Gross per 24 hour Intake -- Output 700 ml Net -700 ml Constitutional: Pleasant, alert, appropriate, following commands. HEENT: Head atraumatic normocephalic. Respiratory: Unlabored breathing no audible wheeze Cardiovascular: Regular rate and rhythm per pulses. Lymph/Hematologic: No lymphadenopathy in areas examined. Skin: No rashes, no cyanosis, no edema. Musculoskeletal: Left lower extremity is extended. Moderate swelling throughout the lower extremity. Her toes are cool to touch but have appropriate cap refill. Palpable DP pulse. Compartments are soft and compressible of the calf and thigh. She endorses pain to the medial aspect of the knee along the medial patella. No open wounds, abrasions, or surrounding skin erythema. Range of motion is defer red at this time. Patient with significant discomfort at rest. Neurologic: normal without focal findings, mental status, speech normal, alert and oriented x iii Neuropsychiatric: stable Data: All laboratory data reviewed Results for orders placed or performed during the hospital encounter of 04/09/25 XR Femur Left 2 Views Status: None Narrative EXAM: XR KNEE LEFT 3 VIEWS, XR FEMUR LEFT 2 VIEWS LOCATION: [facility] DATE: 04/09/2025 INDICATION: fall, pain COMPARISON: None. Impression IMPRESSION: Cortical irregularity of the medial tibial plateau suspicious for a comminuted intra-articular fracture. Small knee joint effusion with a fluid/fluid level likely representing a lipohemarthrosis. CT is recommended to confirm these findings. Cortical irregularity of the fibular head likely a nondisplaced fracture. Demineralization. No fracture of the more proximal left femur. Mild left sacroiliac joint osteoarthritis. XR Knee Left 3 Views Status: None Narrative EXAM: XR KNEE LEFT 3 VIEWS, XR FEMUR LEFT 2 VIEWS LOCATION: [facility] DATE: 04/09/2025 INDICATION: fall, pain COMPARISON: None. Impression IMPRESSION: Cortical irregularity of the medial tibial plateau suspicious for a comminuted intra-articular fracture. Small knee joint effusion with a fluid/fluid level likely representing a lipohemarthrosis. CT is recommended to confirm these findings. Cortical irregularity of the fibular head likely a nondisplaced fracture. Demineralization. No fracture of the more proximal left femur. Mild left sacroiliac joint osteoarthritis. XR Pelvis 1/2 Views Status: None Narrative EXAM: XR PELVIS 1/2 VIEWS LOCATION: [facility] DATE: 04/09/2025 INDICATION: fall, pain COMPARISON: Correlation with same day radiographs. Impression IMPRESSION: Bilateral acetabular marginal osteophytes. No hip joint space narrowing. 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 Lower lumbar facet arthropathy. No definite fracture or dislocationon a single view of the pelvis. CT Knee Left w/o Contrast Status: None Narrative EXAM: CT KNEE LEFT W/O CONTRAST LOCATION: [facility] DATE: 04/09/2025 INDICATION: cocnern tibial plateau fractures COMPARISON: 04/09/2025 TECHNIQUE: Noncontrast. Axial, sagittal and coronal thin-section reconstruction. Dose reduction techniques were used. FINDINGS: BONES: Acute comminuted impacted intra-articular fracture along the anterior aspect of the medial tibial plateau (series 5 image 70, series 4 image 70). Depression of the articular surface up to 0.2 cm. Fracture planes contact the articular surface at multiple locations. Acute avulsion fracture along the lateral aspect of the tibial plateau (series 4 image 88). Patternis suggestive of a Segond fracture. Acute minimally displaced fracture of the proximal fibula (series 4 image 108, series 2 image 187). Diffuse osseous demineralization which limits evaluation for nondisplaced fractures and subtle osseous lesions. No aggressive appearing osseous lesions. SOFT TISSUES: Large joint effusion with lipohemarthrosis. Posttraumatic soft tissue edema and blood products along the anterior medial aspect of the knee. No sizable hematoma or organized fluid collection. Impression IMPRESSION: 1. Acute comminuted impacted intra-articular fracture along the anterior aspect of the medial tibial plateau. 2. Acute avulsion fracture along the lateral aspect of the tibial plateau. Pattern is suggestive ofa Segond fracture. 3. Acute minimally displaced fracture of the proximal fibula. 4. Large joint effusion with lipohemarthrosis. CBC with Platelets (Limited Occurrences) Status: Abnormal Result Value Ref Range WBC Count 9.1 4.0 - 11.0 10e3/uL RBC Count 3.94 3.80 - 5.20 10e6/uL Hemoglobin 11.5 (L) 11.7 - 15.7 g/dL Hematocrit 35.4 35.0 - 47.0 % MCV 90 78 - 100 fL MCH 29.2 26.5 - 33.0 pg MCHC 32.5 31.5 - 36.5 g/dL RDW 14.0 10.0 - 15.0 % Platelet Count 310 150 - 450 10e3/uL Basic Metabolic Panel (Limited Occurrences) Status: Abnormal Result Value Ref Range Sodium 136 135 - 145 mmol/L Potassium 4.2 3.4 - 5.3 mmol/L Chloride 100 98 - 107 mmol/L Carbon Dioxide (CO2) 21 (L) 22 - 29 mmol/L Anion Gap 15 7 - 15 mmol/L Urea Nitrogen 24.2 (H) 6.0 - 20.0 mg/dL Creatinine 1.09 (H) 0.51 - 0.95 mg/dL GFR Estimate 59 (L) >60 mL/min/1.73m2 Calcium 9.6 8.8 - 10.4 mg/dL Glucose 122 (H) 70 - 99 mg/dL Basic Metabolic Panel (Limited Occurrences) Status: Abnormal Result Value Ref Range Sodium 137 135 - 145 mmol/L Potassium 4.2 3.4 - 5.3 mmol/L Chloride 105 98 - 107 mmol/L Carbon Dioxide (CO2) 23 22 - 29 mmol/L Anion Gap 9 7 - 15 mmol/L Urea Nitrogen 22.9 (H) 6.0 - 20.0 mg/dL Creatinine 1.03 (H) 0.51 - 0.95 mg/dL GFR Estimate 63 >60 mL/min/1.73m2 Calcium 8.4 (L) 8.8 - 10.4 mg/dL Glucose 105 (H) 70 - 99 mg/dL CBC with platelets Status: Abnormal Result Value Ref Range WBC Count 6.4 4.0 - 11.0 10e3/uL RBC Count 3.31 (L) 3.80 - 5.20 10e6/uL Hemoglobin 9.7 (L) 11.7 - 15.7 g/dL Hematocrit 30.1 (L) 35.0 - 47.0 % MCV 91 78 - 100 fL MCH 29.3 26.5 - 33.0 pg MCHC 32.2 31.5 - 36.5 g/dL RDW 14.4 10.0 - 15.0 % Platelet Count 225 150 - 450 10e3/uL Glucose by meter Status: Normal Result Value Ref Range GLUCOSE BY METER POCT 73 70 - 99 mg/dL Adult Type and Screen Status: None Result Value Ref Range ABO/RH(D) O POS Antibody Screen Negative Negative SPECIMEN EXPIRATION DATE 04/12/2025 11:59:00 PM CDT ABO/Rh type and screen Status: None Narrative The following orders were created for panel order ABO/Rh type and screen. Procedure Abnormality Status --------- ------ Adult Type and Screen[[id number]] Edited Result - FINAL Please view results for these tests on the individual orders. Attestation: Amount of time performed on this consult: 50 minutes. Violet Giron PA-C [facility] Orthopedics Trauma Team [facility] Non-operative provider (Floor JANNETTE/ Trauma Rounds & Consults) Cosigned by Roge Cartwright MD at 04/10/2025 10:47 AM CDT Associated attestation - Roge Cartwright MD - 04/10/2025 10:47 AM CDT Physician Attestation I saw and evaluated Adilene Thurman as part of a shared FORESTRY PATROLMAN/PA visit. I personally reviewed the vital signs, medications, labs, and imaging. I personally provided a substantive portion of care for this patient and I approve the care plan aswritten by the JANNETTE. I was involved with Medical Decision Making including: Tests personally interpreted in the past 24 hours: - Left lower extremity knee radiographs and CT scan showing a displaced anterior medial left tibialplateau fracture Medical complexity over the past 24 hours: - Decision regarding MAJOR SURGERY without additional risks Roge Cartwright MD Date of Service (when I saw the patient): 04/10/25 documented in this encounter Nursing Notes * Jamila Kang RN - 04/15/2025 8:10 AM CDT Per Eli Oseguera RN and Dr. Apodaca, patient was given 2 mg IV Versed prior to pre operative peripheral nerve block. Unable to enter into MAR as order is discontinued. documented in this encounter ED Notes * Iain Cruz RN - 04/09/2025 6:13 PM CDT [facility] ED Nurse Handoff Report ED Chief complaint: Fall . ED Diagnosis: Final diagnoses: Closed fracture of left tibial plateau, initial encounter Closed fracture of proximal end of left fibula, unspecified fracture morphology, initial encounter Lipohemarthrosis Allergies: Allergies Allergen Reactions Amoxicillin-Pot Clavulanate Nausea and Vomiting Droperidol Panic attacks Ibuprofen Other (See Comments) Unable to take due to past gastric bypass Morphine And Codeine Panic attack Tape [Adhesive Tape] Clear tape=RASH; tegaderm ok Code Status: Full Code Activity level - Baseline/Home: independent. Activity Level - Current: in bed. Lift room needed: No. Bariatric: No Youth Teacher Needed: No Isolation: No. Infection: Not Applicable. Respiratory status: Room air/ NC with pain meds Vital Signs (within 30 minutes): Vitals: 04/09/25 1445 04/09/25 1545 04/09/25 1600 04/09/25 1652 BP: 112/66 135/85 Pulse: 72 82 Resp: Temp: SpO2: 97% 100% 100% 92% Weight: Height: Cardiac Rhythm: , Pain level: Patient confused: No. Patient Falls Risk: arm band in place and patient and family education. Elimination Status: DTV Patient Report - Initial Complaint: Fall. Focused Assessment: Per MD: is a 55 year old female with a history of hypertension who presents to the ED via EMS for a fall. Per EMS report, the patient had a mechanical fall resulting in left knee and mild left hip pain. There was no prior injury. EMS gave 100 mcg fentanyl. The patient reports that she was getting out of her car to enter the bank at 1230 when she slipped on the wet sood. Her left leg went completely straight and her right leg bent under her so that she was in a semi-splits. Following the fall, she developed pain in her left leg with more severe pain at the left knee and left hip. She was unable to get up independently and was helped to the curb by bank staff prior to EMS's arrival. She denies any head trauma. Further denies use of blood thinners. Abnormal Results: Labs Ordered and Resulted from Time of ED Arrival to Time of ED Departure BASIC METABOLIC PANEL (LIMITED OCCURRENCES) - Abnormal Result Value Sodium 136 Potassium 4.2 Chloride 100 Carbon Dioxide (CO2) 21 (*) Anion Gap 15 Urea Nitrogen 24.2 (*) Creatinine 1.09 (*) GFR Estimate 59 (*) Calcium 9.6 Glucose 122 (*) CBC WITH PLATELETS (LIMITED OCCURRENCES) TYPE AND SCREEN, ADULT ABO/RH(D) O POS Antibody Screen Negative SPECIMEN EXPIRATION DATE 04/12/2025 11:59:00 PM CDT ABO/RH TYPE AND SCREEN CT Knee Left w/o Contrast Final Result IMPRESSION: 1. Acute comminuted impacted intra-articular fracture along the anterior aspect of the medial tibial plateau. 2. Acute avulsion fracture along the lateral aspect of the tibial plateau. Pattern is suggestive ofa Segond fracture. 3. Acute minimally displaced fracture of the proximal fibula. 4. Large joint effusion with lipohemarthrosis. XR Femur Left 2 Views Final Result IMPRESSION: Cortical irregularity of the medial tibial plateau suspicious for a comminuted intra-articular fracture. Small knee joint effusion with a fluid/fluid level likely representing a lipohemarthrosis. CT is recommended to confirm these findings. Cortical irregularity of the fibular head likely a nondisplaced fracture. Demineralization. No fracture of the more proximal left femur. Mild left sacroiliac joint osteoarthritis. XR Knee Left 3 Views Final Result IMPRESSION: Cortical irregularity of the medial tibial plateau suspicious for a comminuted intra-articular fracture. Small knee joint effusion with a fluid/fluid level likely representing a lipohemarthrosis. CT is recommended to confirm these findings. Cortical irregularity of the fibular head likely a nondisplaced fracture. Demineralization. No fracture of the more proximal left femur. Mild left sacroiliac joint osteoarthritis. XR Pelvis 1/2 Views Final Result IMPRESSION: Bilateral acetabular marginal osteophytes. No hip joint space narrowing. 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 Lower lumbar facet arthropathy. No definite fracture or dislocationon a single view of the pelvis. Treatments provided: Pain management, supplemental O2 Family Comments: Family -spouse and daughter were at bedside OBS brochure/video discussed/provided to patient: No ED Medications: Medications HYDROmorphone (PF) (DILAUDID) injection 0.5 mg (0.5 mg Intravenous $Given 04/09/25 1550) acetaminophen (TYLENOL) tablet 1,000 mg (1,000 mg Oral $Given 04/09/25 1421) sodium chloride 0.9% BOLUS 1,000 mL (0 mLs Intravenous Stopped 04/09/25 1655) ondansetron (ZOFRAN) injection 4 mg (4 mg Intravenous $Given 04/09/25 1700) Drips infusing: No For the majority of the shift this patient was Green. Interventions performed were See MAR. Sepsis treatment initiated: No Cares/treatment/interventions/medications to be completed following ED care: ED Nurse Name: Mariela Cyr RN 6:14 PM RECEIVING UNIT ED HANDOFF REVIEW Above ED Nurse Handoff Report was reviewed: Yes Reviewed by: Iain Coles RN on April 09, 2025 at 6:25 PM * Jessi Ruiz MD - 04/09/2025 4:12 PM CDT ED APC SUPERVISION NOTE: I evaluated this patient in conjunction with Ashley Rodriguez PA-C I have participated in the care of the patient and personally performed adam elements of the history, exam, and medical decision making. HPI: Adilene Thurman is a 55 year old female with a past medical history of hypertension who presents to the emergency department for evaluation of a fall. Per EMS she had a mechanical fall resulting inleft nee and mild left hip pain. She slipped at 1230 this morning when getting out of her car and her left leg went completely straight and right bent under her. After the fall, she developed severe pain and was unable to get up independently. She denies any head trauma or use of blood thinners. Independent Historian: None Review of External Notes: EXAM: General: Resting comfortably when I enter the room Eyes: Pupils equal ENT: Moist mucus membranes Respiratory: Equal chest rise, no respiratory distress CV: Normal rate and rhythm GI: No distension Skin: Warm, dry. No rashes or petechiae Musculoskeletal: Tenderness to palpation of the diffuse left knee. Limited range of motion secondary to pain. No hip or ankle pain. Patient can wiggle her toes and flex and extend her ankle. Compartments are soft. Sensation intact. Pulses intact. Brisk capillary refill. Independent Interpretation (X-rays, CTs, rhythm strip): Xray left knee does not show any dislocation. Consultations/Discussion of Management or Tests: SHAWN Rose spoke with Kelby with [facility]. SHAWN Rose spoke with Moody Oneal for admission. MIPS: None MEDICAL DECISION MAKING/ASSESSMENT AND PLAN: 55-year-old female presents emergency department after mechanical fall with complaints of left kneepain. On exam patient has diffuse tenderness to palpation of her left knee. No tenderness of the left hipor ankle. No bruising or abrasions. Patient is neurovascularly intact distally. No signs of ischemic limb. No signs of open fracture. Patient reports that she lives in a house that has stairs and is concerned about getting around on crutches. She does not feel comfortable going home. Patient is having significant pain. Ortho is contacted for consultation. Patient is admitted to Dr. Oneal. DIAGNOSIS: ICD-10-CM 1. Closed fracture of left tibial plateau, initial encounter S82.142A 2. Closed fracture of proximal end of left fibula, unspecified fracture morphology, initial encounter S82.832A 3. Lipohemarthrosis M25.00 Scribe Disclosure: I, Jesus Cristobal, am serving as a scribe at 5:10 PM on 04/09/2025 to document services personally performed by Jessi Ruiz MD based on my observations and the provider's statements to me. I, Irvin Caceres, am serving as a scribe vocational trainer for Jesus Cristobal at 4:26 PM on 04/09/2025 to document services personally performed by Jessi Ruiz MD based on my observations and theprovider's statements to me. 04/09/2025 [facility] EMERGENCY DEPT Jessi Ruiz MD 04/09/252156 * Mariela Cyr RN - 04/09/2025 4:00 PM CDT Ice chips given to pt per request * Ashley Rodriguez PA-C - 04/09/2025 2:10 PM CDT Emergency Department Note History of Present Illness Chief Complaint Fall HPI Adilene Thurman is a 55 year old female with a history of hypertension who presents to the ED viaEMS for a fall. Per EMS report, the patient had a mechanical fall resulting in left knee and mild left hip pain. There was no prior injury. EMS gave 100 mcg fentanyl. The patient reports that she wasgetting out of her car to enter the bank at 1230 when she slipped on the wet sood. Her left leg went completely straight and her right leg bent under her so that she was in a semi-splits. Following the fall, she developed pain in her left leg with more severe pain at the left knee and left hip. Shewas unable to get up independently and was helped to the curb by bank staff prior to EMS's arrival. She denies any head trauma. Further denies use of blood thinners. Independent Historian EMS as detailed above. Review of External Notes I reviewed patient's echo from 07/25/2017 when she had a ejection fraction of 60 to 65%. Past Medical History Medical History and Problem List Left ovarian cyst Endometrial mass DUB Leonel's disease B-complex deficiency Iron deficiency anemia Essential hypertension, benign Tympanic membrane disorder Intermittent asthma Colon polyposis Medial meniscus tear, right Perimeniscal cyst of right knee Osteoarthritis of right knee JOHN ELEONORA Nocturnal Hypoxemia Morbid obesity Osteopenia of multiple sites Depression Dysfunction of bilateral eustachian tubes LLUVIA 1 Medications Synthroid Zestril Deltasone Ultram Omnicef Zestoretic Surgical History Past Surgical History: Procedure Laterality Date ??? ABDOMEN SURGERY gastric bypass ??? APPENDECTOMY ??? ARTHROSCOPY KNEE Right 05/12/2015 Procedure: ARTHROSCOPY KNEE; Surgeon: Deandre Mcfarland MD; Location: [facility] OR ??? COLONOSCOPY N/A 02/21/2015 Procedure: COLONOSCOPY; Surgeon: Simon Montanez MD; Location: [facility] GI ??? CYSTECTOMY OVARIAN BENIGN 05/25/2012 Procedure: CYSTECTOMY OVARIAN BENIGN; left ovarian cystectomy; Surgeon: Blanca Wharton MD; Location: [facility] ??? DILATION AND CURETTAGE, HYSTEROSCOPY DIAGNOSTIC, COMBINED 05/25/2012 Procedure: COMBINED DILATION AND CURETTAGE, HYSTEROSCOPY DIAGNOSTIC; HYSTEROSCOPY, DILATION & CURETTAGE, MINI LAPAROTOMY WITH LEFT OVARIAN CYSTECTOMY, LEFT SALPINGECTOMY; Surgeon: Blanca Wharton MD; Location: [facility] ??? ENT SURGERY tonsillectomy ??? EXCISE MASS UPPER EXTREMITY Right 05/12/2015 Procedure: EXCISE MASS UPPER EXTREMITY; Surgeon: Deandre Mcfarland MD; Location: [facility] OR ??? INCISION AND DRAINAGE TRUNK, COMBINED N/A 06/05/2014 Procedure: COMBINED INCISION AND DRAINAGE TRUNK; Surgeon: Royal Avery MD; Location: [facility] OR ??? LAPAROTOMY MINI FOR EXPOSURE 05/25/2012 Procedure: LAPAROTOMY MINI FOR EXPOSURE; Mini-laparotomy.; Surgeon: Blanca Wharton MD;Location: [facility] ??? SALPINGECTOMY 05/25/2012 Procedure: SALPINGECTOMY; Left salpingectomy; Surgeon: Blanca Wharton MD; [facility] ??? TYMPANOPLASTY 03/11/2014 Procedure: TYMPANOPLASTY; Surgeon: Deandre Ibrahim MD; Location: [facility] ??? TYMPANOPLASTY Left 07/22/2014 Procedure: TYMPANOPLASTY; Surgeon: Deandre Ibrahim MD; Location: [facility] Physical Exam Patient Vitals for the past 24 hrs: BP Temp Pulse Resp SpO2 Height Weight 04/09/25 1600 135/85 -- 82 -- 100 % -- -- 04/09/25 1545 112/66 -- 72 -- 100 % -- -- 04/09/25 1445 -- -- -- -- 97 % -- -- 04/09/25 1444 119/65 -- 78 -- (!) 88 % -- -- 04/09/25 1349 (!) 158/112 98.3 ??F (36.8 ??C) 110 28 100 % 1.727 m (5' 8) 104.3 kg (230 lb) Physical Exam Vital signs and nursing notes reviewed. General: Patient in no acute distress. Head: No obvious trauma to head. Negative kenyon's sign and negative raccoon eyes bilaterally. Ears: External ears normal. No hemotympanum bilaterally. Nose: No deformity to nose. No epistaxis. Eyes: Conjunctivae and EOM are normal. Pupils are equal, round, and reactive. Neck: Normal range of motion. Neck supple. No tracheal deviation present. No midline cervical neck tenderness, deformity, step off or pain in the midline with ROM. CV: Normal heart sounds. Plus radial and dorsalis pedal pulses bilaterally Pulm/Chest: Breath sounds clear and equal. Effort normal. Abd: Soft and non distended. There is no tenderness. M/S: Normal range of motion. No pain to palpation or step off to thoracic and lumbar spine. LLE: Pain to palpation of anterior hip, femur, knee, and medial proximal tibia. Able to wiggle her toes. 2-point sensation intact to the distal extremity, toes warm and well-perfused Otherwise, no pain to palpation or deformity of all 4 extremities. Neuro: Alert. CN II-XII Grossly intact. GCS 15. Skin: Skin is warm and dry to touch. Diagnostics Lab Results Labs Ordered and Resulted from Time of ED Arrival to Time of ED Departure BASIC METABOLIC PANEL (LIMITED OCCURRENCES) - Abnormal Result Value Sodium 136 Potassium 4.2 Chloride 100 Carbon Dioxide (CO2) 21 (*) Anion Gap 15 Urea Nitrogen 24.2 (*) Creatinine 1.09 (*) GFR Estimate 59 (*) Calcium 9.6 Glucose 122 (*) CBC WITH PLATELETS (LIMITED OCCURRENCES) TYPE AND SCREEN, ADULT ABO/RH(D) O POS Antibody Screen Negative SPECIMEN EXPIRATION DATE 04/12/2025 11:59:00 PM CDT ABO/RH TYPE AND SCREEN Imaging CT Knee Left w/o Contrast Final Result IMPRESSION: 1. Acute comminuted impacted intra-articular fracture along the anterior aspect of the medial tibial plateau. 2. Acute avulsion fracture along the lateral aspect of the tibial plateau. Pattern is suggestive ofa Segond fracture. 3. Acute minimally displaced fracture of the proximal fibula. 4. Large joint effusion with lipohemarthrosis. XR Femur Left 2 Views Final Result IMPRESSION: Cortical irregularity of the medial tibial plateau suspicious for a comminuted intra-articular fracture. Small knee joint effusion with a fluid/fluid level likely representing a lipohemarthrosis. CT is recommended to confirm these findings. Cortical irregularity of the fibular head likely a nondisplaced fracture. Demineralization. No fracture of the more proximal left femur. Mild left sacroiliac joint osteoarthritis. XR Knee Left 3 Views Final Result IMPRESSION: Cortical irregularity of the medial tibial plateau suspicious for a comminuted intra-articular fracture. Small knee joint effusion with a fluid/fluid level likely representing a lipohemarthrosis. CT is recommended to confirm these findings. Cortical irregularity of the fibular head likely a nondisplaced fracture. Demineralization. No fracture of the more proximal left femur. Mild left sacroiliac joint osteoarthritis. XR Pelvis 1/2 Views Final Result IMPRESSION: Bilateral acetabular marginal osteophytes. No hip joint space narrowing. 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 Lower lumbar facet arthropathy. No definite fracture or dislocationon a single view of the pelvis. Independent Interpretation I reviewed the knee x-ray and appreciate proximal fibula fracture and lateral tibial plateau fracture ED Course Medications Administered Medications HYDROmorphone (PF) (DILAUDID) injection 0.5 mg (0.5 mg Intravenous $Given 04/09/25 1550) sodium chloride 0.9% BOLUS 1,000 mL (1,000 mLs Intravenous $New Bag 04/09/25 1548) acetaminophen (TYLENOL) tablet 1,000 mg (1,000 mg Oral $Given 04/09/25 1421) Procedures Procedures Discussion of Management Staffed with Dr. Ruiz Admitting Hospitalist, [facility], SHAWN Lama at [facility] ED Course ED Course as of 04/09/25 165TueApr 09, 2025 1407 I obtained history and examined the patient as noted above. 1557 I reassessed the patient and updated them on results and plan of care. 1612 I staffed the patient with Dr. Ruiz 1627 I spoke with SHAWN Lama at [facility], regarding patient's presentation, findings, and plan of care. 1633 Dr. Ruiz assessed the patient [address] Moody Oneal, hospitalist, regarding patient's presentation, findings, and plan of care. Additional Documentation None Medical Decision Making / Diagnosis [facility] Diagnoses: None MIPS None MDM Adilene Thurman is a 55 year old female who presents to the emergency department for evaluation after a mechanical fall, presenting with mainly knee and left leg pain. See HPI. Vitals are stable. The above imaging was indicated and resulted with likely intra-articular tibial plateau fracture and proximal fibula fracture. CT was subsequently obtained and reveals both medial and lateral tibial plateau fractures with lipohemarthrosis and a mildly displaced proximal fibula fracture. Distal CMS isintact. Head to toe trauma exam is otherwise reassuring. Patient unable to extend the knee despite pain medications, and therefore cannot be adequately immobilized in a knee immobilizer. She will be admitted to the observation unit for Ortho consult overnight and pain control. Dr. Moody Oneal accepted the patient and will oversee further cares. I staffed this patient with Dr. Ruiz who agrees with the above assessment and plan. Disposition The patient was admitted to the hospital. Diagnosis ICD-10-CM 1. Closed fracture of left tibial plateau, initial encounter S82.142A 2. Closed fracture of proximal end of left fibula, unspecified fracture morphology, initial encounter S82.832A 3. Lipohemarthrosis M25.00 Discharge Medications New Prescriptions No medications on file Scribe Disclosure: I, Oneyda Glover, am serving as a scribe at 2:40 PM on 04/09/2025 to document services personally performed by Ashley Rodriguez PA-C based on my observations and the provider's statements to me. Ashley Rodriguez PA-C on 04/09/2025 at 4:54 PM Ashley Rodriguez PA-C 04/09/25 1655 * Jessi Silva RN - 04/09/2025 1:50 PM CDT Patient arrives via EMS after a slip and fall. Reporting L knee pain. 100 mcg fentanyl given by EMS. documented in this encounter Miscellaneous Notes * Plan of Care - Liang Trevino, PT - 04/17/2025 12:03 PM CDT Physical Therapy Discharge Summary Reason for therapy discharge: Discharged to transitional care facility. Progress towards therapy goal(s). See [facility] for goal details. Goals not met. Barriers to achieving goals: discharge from facility. Therapy recommendation(s): Continued therapy is recommended. Rationale/Recommendations: Per prior PT recommendation, Patient remains significantly below her prior level of function, tolerating sit <> stands and short distance ambulation with FWW and SBA but unable to negotiate stairs needed to access home. Anticipate need for TCU to promote safety and independence with mobility. * Plan of Care - Armida Javier OTR - 04/17/2025 12:03 PM CDT Occupational Therapy Discharge Summary Reason for therapy discharge: Discharged to transitional care facility. Progress towards therapy goal(s). See goals on Care Plan [facility] electronic health record for goal details. Goals not met. Barriers to achieving goals: discharge from facility. Therapy recommendation(s): Continued therapy is recommended. Rationale/Recommendations: Pt requiring Ax1 for self cares and functional mobility. Pt limited by pain, precautions, activity tolerance, and fear. Recommending TCU to progress activity tolerance, strength, functional transfers, and ADLs. * Plan of Care - Taiwo Caba RN - 04/17/2025 6:07 AM CDT Goal Outcome Evaluation: Plan of Care Reviewed With: patient Overall Patient Progress: improvingOverall Patient Progress: improving Outcome Evaluation: VSS on RA. AOx4. Gave PRN tylenol and 5mg oxy. Aquacell is CDI. Wearing knee immobilizer - locked while moving. Some constipation. Void adequately. TTWB. Problem: Adult Inpatient Plan of Care Goal: Plan of Care Review Description: The Plan of Care Review/Shift note should be completed every shift. The Outcome Evaluation is a brief statement about your assessment that the patient is improving, declining, or no change. This information will be displayed automatically on your shift note. Outcome: Progressing Flowsheets (Taken 04/17/2025 010) Outcome Evaluation: VSS on RA. AOx4. Gave PRN tylenol and 5mg oxy. Aquacell is CDI. Wearing knee immobilizer - locked while moving. Some constipation. Void adequately. TTWB. Plan of Care Reviewed With: patient Overall Patient Progress: improving Goal: Patient-Specific Goal (Individualized) Description: You can add care plan individualizations to a care plan. Examples of Individualizationmight be: Parent requests to be called daily at 9am for status, I have a hard time hearing out of my right ear, or Do not touch me to wake me up as it startles me. Outcome: Progressing Goal: Absence of Hospital-Acquired Illness or Injury Outcome: Progressing Intervention: Identify and Manage Fall Risk Recent Flowsheet Documentation Taken 04/17/202526 by Taiwo Caba RN Safety Promotion/Fall Prevention: activity supervised assistive device/personal items within reach lighting adjusted Intervention: Prevent Skin Injury Recent Flowsheet Documentation Taken 04/17/202526 by Taiwo Caba RN Body Position: position changed independently Skin Protection: adhesive use limited Intervention: Prevent and Manage VTE (Venous Thromboembolism) Risk Recent Flowsheet Documentation Taken 04/17/202526 by Taiwo Caba RN VTE Prevention/Management: SCDs off (sequential compression devices) Intervention: Prevent Infection Recent Flowsheet Documentation Taken 04/17/202526 by Taiwo Caba RN Infection Prevention: hand hygiene promoted rest/sleep promoted single patient room provided Goal: Optimal Comfort and Wellbeing Outcome: Progressing Intervention: Monitor Pain and Promote Comfort Recent Flowsheet Documentation Taken 04/17/202526 by Taiwo Caba continuous improvement manager Interventions: medication (see MAR) care clustered emotional support cold applied pain management plan reviewed with patient/caregiver rest quiet environment facilitated Goal: Readiness for Transition of Care Outcome: Progressing * Plan of Care - Vibha Quesada RN - 04/16/2025 8:17 PM CDT Goal Outcome Evaluation: Plan of Care Reviewed With: patient Overall Patient Progress: no changeOverall Patient Progress: no change Outcome Evaluation: VSS, cms, baseline numbness in feet, swelling and to left leg, hinged brace on,skin beneath is intact. TTWB LLE. Transfers with walker, gait belt and 1 assist.Voiding. Pain controlled with tylenol, atarax, oxycodone and robaxin.Plan to dc to rehab tomorrow. Problem: Adult Inpatient Plan of Care Goal: Plan of Care Review Description: The Plan of Care Review/Shift note should be completed every shift. The Outcome Evaluation is a brief statement about your assessment that the patient is improving, declining, or no change. This information will be displayed automatically on your shift note. Outcome: Progressing Flowsheets (Taken 04/16/20252013) Outcome Evaluation: VSS, cms, baseline numbness in feet, swelling and to left leg, hinged brace on,skin beneath is intact. TTWB LLE. Transfers with walker, gait belt and 1 assist.Voiding. Pain controlled with tylenol, atarax, oxycodone and robaxin.Plan to dc to rehab tomorrow. Plan of Care Reviewed With: patient Overall Patient Progress: no change Goal: Patient-Specific Goal (Individualized) Description: You can add care plan individualizations to a care plan. Examples of Individualizationmight be: Parent requests to be called daily at 9am for status, I have a hard time hearing out of my right ear, or Do not touch me to wake me up as it startles me. Outcome: Progressing Goal: Absence of Hospital-Acquired Illness or Injury Outcome: Progressing Intervention: Identify and Manage Fall Risk Recent Flowsheet Documentation Taken 04/16/20251699 by Vibha Quesada RN Safety Promotion/Fall Prevention: activity supervised assistive device/personal items within reach lighting adjusted Intervention: Prevent Skin Injury Recent Flowsheet Documentation Taken 04/16/20251699 by Vibha Quesada RN Body Position: position changed independently Skin Protection: adhesive use limited Intervention: Prevent and Manage VTE (Venous Thromboembolism) Risk Recent Flowsheet Documentation Taken 04/16/20251699 by Vibha Quesada RN VTE Prevention/Management: SCDs off (sequential compression devices) Intervention: Prevent Infection Recent Flowsheet Documentation Taken 04/16/20251699 by Vibha Quesada RN Infection Prevention: hand hygiene promoted rest/sleep promoted single patient room provided Goal: Optimal Comfort and Wellbeing Outcome: Progressing Intervention: Monitor Pain and Promote Comfort Recent Flowsheet Documentation Taken 04/16/2025 193 by Vibha Quesada RN Pain Management Interventions: medication (see MAR) care clustered cold applied Taken 04/16/2025 1602 by Vibha Quesada RN Pain Management Interventions: repositioned rest Goal: Readiness for Transition of Care Outcome: Progressing Problem: Knee Arthroplasty Goal: Optimal Coping Outcome: Progressing Intervention: Support Psychosocial Response to Surgery and Mobility Changes Recent Flowsheet Documentation Taken 04/16/20251699 by Vibha Quesada RN Supportive Measures: active listening utilized Goal: Absence of Bleeding Outcome: Progressing Intervention: Monitor and Manage Bleeding Recent Flowsheet Documentation Taken 04/16/20251699 by Vibha Quesada RN Bleeding Management: dressing monitored Goal: Effective Bowel Elimination Outcome: Progressing Intervention: Enhance Bowel Motility and Elimination Recent Flowsheet Documentation Taken 04/16/20251699 by Vibha Quesada RN Bowel Motility Enhancement: ambulation promoted fluid intake encouraged Bowel Elimination Management: relaxation techniques promoted Goal: Fluid and Electrolyte Balance Outcome: Progressing Goal: Optimal Functional Ability Outcome: Progressing Intervention: Promote Optimal Functional Status Recent Flowsheet Documentation Taken 04/16/20251699 by Vibha Quesada RN Self-Care Promotion: independence encouraged BADL personal objects within reach Assistive Device Utilized: gait belt walker Activity Management: activity adjusted per tolerance ambulated to bathroom Goal: Absence of Infection Signs and Symptoms Outcome: Progressing Intervention: Prevent or Manage Infection Recent Flowsheet Documentation Taken 04/16/20251699 by Vibha Quesada RN Infection Management: aseptic technique maintained Goal: Intact Neurovascular Status Outcome: Progressing Intervention: Prevent or Manage Neurovascular Compromise Recent Flowsheet Documentation Taken 04/16/20251699 by Vibha Quesada RN Neurovascular Pressure Management: ice/cold therapy applied Compartment Syndrome Management: active flexion/extension encouraged Goal: Anesthesia/Sedation Recovery Outcome: Progressing Intervention: Optimize Anesthesia Recovery Recent Flowsheet Documentation Taken 04/16/20251699 by Vibha Quesada RN Safety Promotion/Fall Prevention: activity supervised assistive device/personal items within reach lighting adjusted Administration (IS): self-administered Incentive Spirometer Predicted Level (mL): 2000 Number of Repetitions (IS): 5 Patient Tolerance (IS): good Goal: Optimal Pain Control and Function Outcome: Progressing Intervention: Prevent or Manage Pain Recent Flowsheet Documentation Taken 04/16/2025 193 by Vibha Quesada RN Pain Management Interventions: medication (see MAR) care clustered cold applied Taken 04/16/2025 1602 by Vibha Quesada RN Pain Management Interventions: repositioned rest Goal: Nausea and Vomiting Relief Outcome: Progressing Goal: Effective Urinary Elimination Outcome: Progressing Goal: Effective Oxygenation and Ventilation Outcome: Progressing Intervention: Optimize Oxygenation and Ventilation Recent Flowsheet Documentation Taken 04/16/20251699 by Vibha Quesada RN Airway/Ventilation Management: pulmonary hygiene promoted Activity Management: activity adjusted per tolerance ambulated to bathroom Head of Bed (HOB) Positioning: HOB at 45 degrees Problem: Orthopaedic Fracture Goal: Absence of Bleeding Outcome: Progressing Intervention: Monitor and Manage Fracture Bleeding Recent Flowsheet Documentation Taken 04/16/20251699 by Vibha Quesada RN Bleeding Management: dressing monitored Goal: Bowel Elimination Outcome: Progressing Intervention: Promote Effective Bowel Elimination Recent Flowsheet Documentation Taken 04/16/2025 1700 by Vibha Quesada RN Bowel Elimination Management: relaxation techniques promoted Bowel Elimination Promotion: adequate fluid intake promoted Goal: Absence of Embolism Signs and Symptoms Outcome: Progressing Intervention: Prevent or Manage Embolism Risk Recent Flowsheet Documentation Taken 04/16/2025 170 by Vibha Quesada RN VTE Prevention/Management: SCDs off (sequential compression devices) Goal: Fracture Stability Outcome: Progressing Goal: Optimal Functional Ability Outcome: Progressing Intervention: Optimize Functional Ability Recent Flowsheet Documentation Taken 04/16/2025 170 by Vibha Quesada RN Self-Care Promotion: independence encouraged BADL personal objects within reach Activity Management: activity adjusted per tolerance ambulated to bathroom Positioning/Transfer Devices: pillows Goal: Absence of Infection Signs and Symptoms Outcome: Progressing Intervention: Prevent or Manage Infection Recent Flowsheet Documentation Taken 04/16/2025 170 by Vibha Quesada RN Infection Management: aseptic technique maintained Goal: Effective Tissue Perfusion Outcome: Progressing Intervention: Prevent or Manage Neurovascular Compromise Recent Flowsheet Documentation Taken 04/16/2025 170 by Vibha Quesada RN Compartment Syndrome Management: active flexion/extension encouraged Goal: Optimal Pain Control and Function Outcome: Progressing Intervention: Manage Acute Orthopaedic-Related Pain Recent Flowsheet Documentation Taken 04/16/2025 193 by Vibha Quesada RN Pain Management Interventions: medication (see MAR) care clustered cold applied Taken 04/16/2025 170 by Vibha Quesada RN Sleep/Rest Enhancement: awakenings minimized Taken 04/16/2025 1602 by Vibha Quesada RN Pain Management Interventions: repositioned rest Goal: Effective Oxygenation and Ventilation Outcome: Progressing Intervention: Promote Airway Secretion Clearance Recent Flowsheet Documentation Taken 04/16/2025 170 by Vibha Quesada RN Activity Management: activity adjusted per tolerance ambulated to bathroom Intervention: Optimize Oxygenation and Ventilation Recent Flowsheet Documentation Taken 04/16/2025 170 by Vibha Quesada RN Airway/Ventilation Management: pulmonary hygiene promoted Head of Bed (HOB) Positioning: HOB at 45 degrees * Plan of Care - Zayra Yousif RN - 04/16/2025 3:59 PM CDT Goal Outcome Evaluation: VSS, on RA. A&Ox4. CMS intact. +2 swelling to LLE. Dressing CDI. Ambulated to the bathroom multiple times. PRN & scheduled stool softeners given, 1 medium BM today. Pain controlled with scheduled meds & oxycodone. Pending discharge to TCU- awaiting insurance. Plan of Care Reviewed With: patient Overall Patient Progress: no changeOverall Patient Progress: no change Problem: Adult Inpatient Plan of Care Goal: Plan of Care Review Description: The Plan of Care Review/Shift note should be completed every shift. The Outcome Evaluation is a brief statement about your assessment that the patient is improving, declining, or no change. This information will be displayed automatically on your shift note. Outcome: Progressing Flowsheets (Taken 04/16/2025 1559) Plan of Care Reviewed With: patient Overall Patient Progress: no change Goal: Patient-Specific Goal (Individualized) Description: You can add care plan individualizations to a care plan. Examples of Individualizationmight be: Parent requests to be called daily at 9am for status, I have a hard time hearing out of my right ear, or Do not touch me to wake me up as it startles me. Outcome: Progressing Goal: Absence of Hospital-Acquired Illness or Injury Outcome: Progressing Intervention: Identify and Manage Fall Risk Recent Flowsheet Documentation Taken 04/16/2025825 by Zayra Yousif RN Safety Promotion/Fall Prevention: activity supervised assistive device/personal items within reach supervised activity safety round/check completed Intervention: Prevent and Manage VTE (Venous Thromboembolism) Risk Recent Flowsheet Documentation Taken 04/16/2025825 by Zayra Yousif RN VTE Prevention/Management: SCDs off (sequential compression devices) Goal: Optimal Comfort and Wellbeing Outcome: Progressing Intervention: Monitor Pain and Promote Comfort Recent Flowsheet Documentation Taken 04/16/2025825 by Zayra Yousif continuous improvement manager Interventions: medication (see MAR) Goal: Readiness for Transition of Care Outcome: Progressing * Plan of Care - Rachelle Trejo RN - 04/16/2025 6:43 AM CDT Goal Outcome Evaluation: Plan of Care Reviewed With: patient Overall Patient Progress: no changeOverall Patient Progress: no change Outcome Evaluation: Plan for PT/OT in AM Aquacel dressing to LLE CDI, leg brace on at all times, locked when in standing position Given scheduled apap, atarax, and PRN PO oxy and robaxin for pain N/T reported to LLE, edema 2+ No IV access, care team aware Able to make needs known Problem: Adult Inpatient Plan of Care Goal: Plan of Care Review Description: The Plan of Care Review/Shift note should be completed every shift. The Outcome Evaluation is a brief statement about your assessment that the patient is improving, declining, or no change. This information will be displayed automatically on your shift note. Outcome: Progressing Flowsheets (Taken 04/16/2025 0642) Outcome Evaluation: Plan for PT/OT in AM Plan of Care Reviewed With: patient Overall Patient Progress: no change Goal: Patient-Specific Goal (Individualized) Description: You can add care plan individualizations to a care plan. Examples of Individualizationmight be: Parent requests to be called daily at 9am for status, I have a hard time hearing out of my right ear, or Do not touch me to wake me up as it startles me. Outcome: Progressing Goal: Absence of Hospital-Acquired Illness or Injury Outcome: Progressing Intervention: Identify and Manage Fall Risk Recent Flowsheet Documentation Taken 04/16/2025 043 by Rachelle Trejo RN Safety Promotion/Fall Prevention: activity supervised assistive device/personal items within reach increase visualization of patient lighting adjusted Intervention: Prevent and Manage VTE (Venous Thromboembolism) Risk Recent Flowsheet Documentation Taken 04/16/2025 0432 by Rachelle Trejo RN VTE Prevention/Management: SCDs off (sequential compression devices) Intervention: Prevent Infection Recent Flowsheet Documentation Taken 04/16/2025 0432 by Rachelle Trejo RN Infection Prevention: environmental surveillance performed single patient room provided Taken 04/16/2025 0001 by Rachelle Trejo RN Infection Prevention: environmental surveillance performed single patient room provided Goal: Optimal Comfort and Wellbeing Outcome: Progressing Intervention: Monitor Pain and Promote Comfort Recent Flowsheet Documentation Taken 04/16/2025 0341 by Rachelle Trejo RN Pain Management Interventions: cold applied repositioned rest medication (see MAR) Goal: Readiness for Transition of Care Outcome: Progressing Problem: Knee Arthroplasty Goal: Optimal Coping Outcome: Progressing Goal: Absence of Bleeding Outcome: Progressing Goal: Effective Bowel Elimination Outcome: Progressing Goal: Fluid and Electrolyte Balance Outcome: Progressing Goal: Optimal Functional Ability Outcome: Progressing Goal: Absence of Infection Signs and Symptoms Outcome: Progressing Goal: Intact Neurovascular Status Outcome: Progressing Intervention: Prevent or Manage Neurovascular Compromise Recent Flowsheet Documentation Taken 04/16/2025431 by Rachelle Trejo RN Neurovascular Pressure Management: ice/cold therapy applied Compartment Syndrome Management: active flexion/extension encouraged Goal: Anesthesia/Sedation Recovery Outcome: Progressing Intervention: Optimize Anesthesia Recovery Recent Flowsheet Documentation Taken 04/16/2025431 by Rachelle Trejo RN Safety Promotion/Fall Prevention: activity supervised assistive device/personal items within reach increase visualization of patient lighting adjusted Goal: Optimal Pain Control and Function Outcome: Progressing Intervention: Prevent or Manage Pain Recent Flowsheet Documentation Taken 04/16/2025340 by Rachelle Trejo RN Pain Management Interventions: cold applied repositioned rest medication (see MAR) Goal: Nausea and Vomiting Relief Outcome: Progressing Goal: Effective Urinary Elimination Outcome: Progressing Goal: Effective Oxygenation and Ventilation Outcome: Progressing Problem: Orthopaedic Fracture Goal: Absence of Bleeding Outcome: Progressing Goal: Bowel Elimination Outcome: Progressing Goal: Absence of Embolism Signs and Symptoms Outcome: Progressing Intervention: Prevent or Manage Embolism Risk Recent Flowsheet Documentation Taken 04/16/2025431 by Rachelle Trejo RN VTE Prevention/Management: SCDs off (sequential compression devices) Goal: Fracture Stability Outcome: Progressing Goal: Optimal Functional Ability Outcome: Progressing Goal: Absence of Infection Signs and Symptoms Outcome: Progressing Goal: Effective Tissue Perfusion Outcome: Progressing Intervention: Prevent or Manage Neurovascular Compromise Recent Flowsheet Documentation Taken 04/16/2025431 by Rachelle Trejo RN Compartment Syndrome Management: active flexion/extension encouraged Goal: Optimal Pain Control and Function Outcome: Progressing Intervention: Manage Acute Orthopaedic-Related Pain Recent Flowsheet Documentation Taken 04/16/2025340 by Rachelle Trejo RN Pain Management Interventions: cold applied repositioned rest medication (see MAR) Goal: Effective Oxygenation and Ventilation Outcome: Progressing * Plan of Care - Vibha Quesada RN - 04/15/2025 10:05 PM CDT Goal Outcome Evaluation: Plan of Care Reviewed With: patient Overall Patient Progress: improvingOverall Patient Progress: improving Outcome Evaluation: vss , alert and oriented x4. cms intact, mild swelling to left knee and leg, hinged brace on, skin intact dressing intact. Ice pack applied. TTWB, transfers with assist of1 using gait belt and walker. Sat up in recliner. pain controlled with repositioning, tylenol, robaxin, atarax and oxycodone. Voiding. DC plan to be determined, SS following. Problem: Adult Inpatient Plan of Care Goal: Plan of Care Review Description: The Plan of Care Review/Shift note should be completed every shift. The Outcome Evaluation is a brief statement about your assessment that the patient is improving, declining, or no change. This information will be displayed automatically on your shift note. Outcome: Progressing Flowsheets (Taken 04/15/2025 1904) Outcome Evaluation: vss , alert and oriented x4. cms intact, mild swelling to left knee and leg, hinged brace on, skin intact dressing intact. Ice pack applied. TTWB, transfers with assist of1 using gait belt and walker. Sat up in recliner. pain controlled with repositioning, tylenol, robaxin, atarax and oxycodone. Voiding. DC plan to be determined, SS following. Plan of Care Reviewed With: patient Overall Patient Progress: improving Goal: Patient-Specific Goal (Individualized) Description: You can add care plan individualizations to a care plan. Examples of Individualizationmight be: Parent requests to be called daily at 9am for status, I have a hard time hearing out of my right ear, or Do not touch me to wake me up as it startles me. Outcome: Progressing Goal: Absence of Hospital-Acquired Illness or Injury Outcome: Progressing Intervention: Identify and Manage Fall Risk Recent Flowsheet Documentation Taken 04/15/2025 1600 by Vibha Quesada RN Safety Promotion/Fall Prevention: activity supervised assistive device/personal items within reach increase visualization of patient lighting adjusted Intervention: Prevent Skin Injury Recent Flowsheet Documentation Taken 04/15/2025 1600 by Vibha Quesada RN Body Position: position changed independently Skin Protection: adhesive use limited Intervention: Prevent and Manage VTE (Venous Thromboembolism) Risk Recent Flowsheet Documentation Taken 04/15/2025 1600 by Vibha Quesada RN VTE Prevention/Management: SCDs off (sequential compression devices) Intervention: Prevent Infection Recent Flowsheet Documentation Taken 04/15/2025 1600 by Vibha Quesada RN Infection Prevention: hand hygiene promoted rest/sleep promoted single patient room provided Goal: Optimal Comfort and Wellbeing Outcome: Progressing Intervention: Monitor Pain and Promote Comfort Recent Flowsheet Documentation Taken 04/15/2025 1646 by Vibha Quesada RN Pain Management Interventions: cold applied care clustered Taken 04/15/2025 1603 by Vibha Quesada RN Pain Management Interventions: medication (see MAR) care clustered cold applied repositioned relaxation techniques promoted rest Goal: Readiness for Transition of Care Outcome: Progressing Problem: Knee Arthroplasty Goal: Optimal Coping Outcome: Progressing Intervention: Support Psychosocial Response to Surgery and Mobility Changes Recent Flowsheet Documentation Taken 04/15/2025 1600 by Vibha Quesada RN Supportive Measures: active listening utilized positive reinforcement provided Goal: Absence of Bleeding Outcome: Progressing Intervention: Monitor and Manage Bleeding Recent Flowsheet Documentation Taken 04/15/2025 1600 by Vibha Quesada RN Bleeding Management: dressing monitored Goal: Effective Bowel Elimination Outcome: Progressing Intervention: Enhance Bowel Motility and Elimination Recent Flowsheet Documentation Taken 04/15/2025 1600 by Vibha Quesada RN Bowel Motility Enhancement: fluid intake encouraged Bowel Elimination Management: relaxation techniques promoted sitting position facilitated Goal: Fluid and Electrolyte Balance Outcome: Progressing Goal: Optimal Functional Ability Outcome: Progressing Intervention: Promote Optimal Functional Status Recent Flowsheet Documentation Taken 04/15/2025 1600 by Vibha Quesada RN Self-Care Promotion: independence encouraged BADL personal objects within reach Assistive Device Utilized: gait belt walker Activity Management: activity adjusted per tolerance Goal: Absence of Infection Signs and Symptoms Outcome: Progressing Intervention: Prevent or Manage Infection Recent Flowsheet Documentation Taken 04/15/2025 1600 by Vibha Quesada RN Infection Management: aseptic technique maintained Goal: Intact Neurovascular Status Outcome: Progressing Intervention: Prevent or Manage Neurovascular Compromise Recent Flowsheet Documentation Taken 04/15/2025 1600 by Vibha Quesada RN Neurovascular Pressure Management: ice/cold therapy applied Compartment Syndrome Management: active flexion/extension encouraged Goal: Anesthesia/Sedation Recovery Outcome: Progressing Intervention: Optimize Anesthesia Recovery Recent Flowsheet Documentation Taken 04/15/2025 1600 by Vibha Quesada RN Safety Promotion/Fall Prevention: activity supervised assistive device/personal items within reach increase visualization of patient lighting adjusted Level Incentive Spirometer (mL): 5 Incentive Spirometer Predicted Level (mL): 1800 Patient Tolerance (IS): good Goal: Optimal Pain Control and Function Outcome: Progressing Intervention: Prevent or Manage Pain Recent Flowsheet Documentation Taken 04/15/2025 1646 by Vibha Quesada RN Pain Management Interventions: cold applied care clustered Taken 04/15/2025 1603 by Vibha Quesada RN Pain Management Interventions: medication (see MAR) care clustered cold applied repositioned relaxation techniques promoted rest Goal: Nausea and Vomiting Relief Outcome: Progressing Goal: Effective Urinary Elimination Outcome: Progressing Goal: Effective Oxygenation and Ventilation Outcome: Progressing Intervention: Optimize Oxygenation and Ventilation Recent Flowsheet Documentation Taken 04/15/2025 1600 by Vibha Quesada RN Cough And Deep Breathing: done with encouragement Airway/Ventilation Management: pulmonary hygiene promoted Activity Management: activity adjusted per tolerance Head of Bed (HOB) Positioning: HOB at 30-45 degrees Problem: Orthopaedic Fracture Goal: Absence of Bleeding Outcome: Progressing Intervention: Monitor and Manage Fracture Bleeding Recent Flowsheet Documentation Taken 04/15/2025 1600 by Vibha Quesada RN Bleeding Management: dressing monitored Goal: Bowel Elimination Outcome: Progressing Intervention: Promote Effective Bowel Elimination Recent Flowsheet Documentation Taken 04/15/2025 1600 by Vibha Quesada RN Bowel Elimination Management: relaxation techniques promoted sitting position facilitated Bowel Elimination Promotion: adequate fluid intake promoted ambulation promoted Goal: Absence of Embolism Signs and Symptoms Outcome: Progressing Intervention: Prevent or Manage Embolism Risk Recent Flowsheet Documentation Taken 04/15/2025 1600 by Vibha Quesada RN VTE Prevention/Management: SCDs off (sequential compression devices) Goal: Fracture Stability Outcome: Progressing Goal: Optimal Functional Ability Outcome: Progressing Intervention: Optimize Functional Ability Recent Flowsheet Documentation Taken 04/15/2025 1600 by Vibha Quesada RN Self-Care Promotion: independence encouraged BADL personal objects within reach Activity Management: activity adjusted per tolerance Positioning/Transfer Devices: pillows in use Goal: Absence of Infection Signs and Symptoms Outcome: Progressing Intervention: Prevent or Manage Infection Recent Flowsheet Documentation Taken 04/15/2025 1600 by Vibha Quesada RN Infection Management: aseptic technique maintained Goal: Effective Tissue Perfusion Outcome: Progressing Intervention: Prevent or Manage Neurovascular Compromise Recent Flowsheet Documentation Taken 04/15/2025 1600 by Vibha Quesada RN Neurovascular Pressure Management: Cast: external pressure reduced Compartment Syndrome Management: active flexion/extension encouraged Goal: Optimal Pain Control and Function Outcome: Progressing Intervention: Manage Acute Orthopaedic-Related Pain Recent Flowsheet Documentation Taken 04/15/2025 1646 by Vibha Quesada RN Pain Management Interventions: cold applied care clustered Taken 04/15/2025 1603 by Vibha Quesada RN Pain Management Interventions: medication (see MAR) care clustered cold applied repositioned relaxation techniques promoted rest Taken 04/15/2025 1600 by Vibha Quesada RN Sleep/Rest Enhancement: noise level reduced Goal: Effective Oxygenation and Ventilation Outcome: Progressing Intervention: Promote Airway Secretion Clearance Recent Flowsheet Documentation Taken 04/15/2025 1600 by iVbha Quesada RN Breathing Techniques/Airway Clearance: deep/controlled cough encouraged Cough And Deep Breathing: done with encouragement Activity Management: activity adjusted per tolerance Intervention: Optimize Oxygenation and Ventilation Recent Flowsheet Documentation Taken 04/15/2025 1600 by Vibha Quesada RN Airway/Ventilation Management: pulmonary hygiene promoted Head of Bed (HOB) Positioning: HOB at 30-45 degrees * Plan of Care - Thelma Constantino RN - 04/15/2025 10:21 AM CDT Goal Outcome Evaluation: Plan of Care Reviewed With: patient Overall Patient Progress: no changeOverall Patient Progress: no change Outcome Evaluation: Pt awaiting TCU placment, referrals sent. Patient A/Ox4, RA, Ax1GBW, LLE in hinged knee brace at all times - locked when up. TTWB. Voiding. Aquacel dressing C/D/I, pain controlled with ice, oxy, celebrex, atarax, and robaxin. Reports some numbness to left foot, able to feel touch but not movement. Mild edema to LLE. Awaiting TCU placement,referrals sent, SW following. Problem: Adult Inpatient Plan of Care Goal: Plan of Care Review Description: The Plan of Care Review/Shift note should be completed every shift. The Outcome Evaluation is a brief statement about your assessment that the patient is improving, declining, or no change. This information will be displayed automatically on your shift note. Outcome: Progressing Flowsheets (Taken 04/15/2025 1021) Outcome Evaluation: Pt awaiting TCU placment, referrals sent. Plan of Care Reviewed With: patient Overall Patient Progress: no change Goal: Patient-Specific Goal (Individualized) Description: You can add care plan individualizations to a care plan. Examples of Individualizationmight be: Parent requests to be called daily at 9am for status, I have a hard time hearing out of my right ear, or Do not touch me to wake me up as it startles me. Outcome: Progressing Goal: Absence of Hospital-Acquired Illness or Injury Outcome: Progressing Intervention: Identify and Manage Fall Risk Recent Flowsheet Documentation Taken 04/15/2025 09 by Thelma Constantino RN Safety Promotion/Fall Prevention: activity supervised assistive device/personal items within reach room near nurse's station safety round/check completed Intervention: Prevent Skin Injury Recent Flowsheet Documentation Taken 04/15/2025899 by Thelma Constantino RN Skin Protection: adhesive use limited Taken 04/15/2025 08 by Thelma Constantino RN Body Position: supine, head elevated Intervention: Prevent and Manage VTE (Venous Thromboembolism) Risk Recent Flowsheet Documentation Taken 04/15/2025 09 by Thelma Constantino RN VTE Prevention/Management: SCDs off (sequential compression devices) Intervention: Prevent Infection Recent Flowsheet Documentation Taken 04/15/2025 09 by Thelma Constantino RN Infection Prevention: single patient room provided rest/sleep promoted Goal: Optimal Comfort and Wellbeing Outcome: Progressing Intervention: Monitor Pain and Promote Comfort Recent Flowsheet Documentation Taken 04/15/2025 08 by Thelma Constantino continuous improvement manager Interventions: medication (see MAR) pain management plan reviewed with patient/caregiver pillow support provided repositioned Goal: Readiness for Transition of Care Outcome: Progressing Problem: Knee Arthroplasty Goal: Optimal Coping Outcome: Progressing Intervention: Support Psychosocial Response to Surgery and Mobility Changes Recent Flowsheet Documentation Taken 04/15/2025899 by Thelma Constantino RN Supportive Measures: active listening utilized Goal: Absence of Bleeding Outcome: Progressing Intervention: Monitor and Manage Bleeding Recent Flowsheet Documentation Taken 04/15/2025899 by Thelma Constantino RN Bleeding Management: dressing monitored Goal: Effective Bowel Elimination Outcome: Progressing Intervention: Enhance Bowel Motility and Elimination Recent Flowsheet Documentation Taken 04/15/2025899 by Thelma Constantino RN Bowel Motility Enhancement: fluid intake encouraged Goal: Fluid and Electrolyte Balance Outcome: Progressing Intervention: Monitor and Manage Fluid and Electrolyte Balance Recent Flowsheet Documentation Taken 04/15/2025899 by Thelma Constantino RN Fluid/Electrolyte Management: fluids provided Goal: Optimal Functional Ability Outcome: Progressing Intervention: Promote Optimal Functional Status Recent Flowsheet Documentation Taken 04/15/2025 0840 by Thelma Constantino RN Activity Management: activity adjusted per tolerance ambulated to bathroom up in chair Goal: Absence of Infection Signs and Symptoms Outcome: Progressing Intervention: Prevent or Manage Infection Recent Flowsheet Documentation Taken 04/15/2025899 by Thelma Constantino RN Infection Management: aseptic technique maintained Goal: Intact Neurovascular Status Outcome: Progressing Intervention: Prevent or Manage Neurovascular Compromise Recent Flowsheet Documentation Taken 04/15/2025899 by Thelma Constantino RN Neurovascular Pressure Management: ice/cold therapy applied Compartment Syndrome Management: active flexion/extension encouraged Goal: Anesthesia/Sedation Recovery Outcome: Progressing Intervention: Optimize Anesthesia Recovery Recent Flowsheet Documentation Taken 04/15/2025899 by Thelma Constantino RN Safety Promotion/Fall Prevention: activity supervised assistive device/personal items within reach room near nurse's station safety round/check completed Administration (IS): self-administered Goal: Optimal Pain Control and Function Outcome: Progressing Intervention: Prevent or Manage Pain Recent Flowsheet Documentation Taken 04/15/2025812 by Thelma Constantino RN Pain Management Interventions: medication (see MAR) pain management plan reviewed with patient/caregiver pillow support provided repositioned Goal: Nausea and Vomiting Relief Outcome: Progressing Goal: Effective Urinary Elimination Outcome: Progressing Intervention: Monitor and Manage Urinary Retention Recent Flowsheet Documentation Taken 04/15/2025899 by Thelma Constantino RN Urinary Elimination Promotion: toileting offered Goal: Effective Oxygenation and Ventilation Outcome: Progressing Intervention: Optimize Oxygenation and Ventilation Recent Flowsheet Documentation Taken 04/15/2025899 by Thelma Constantino RN Cough And Deep Breathing: done with encouragement Airway/Ventilation Management: pulmonary hygiene promoted Taken 04/15/2025839 by Thelma Constantino RN Activity Management: activity adjusted per tolerance ambulated to bathroom up in chair Problem: Orthopaedic Fracture Goal: Absence of Bleeding Outcome: Progressing Intervention: Monitor and Manage Fracture Bleeding Recent Flowsheet Documentation Taken 04/15/2025899 by Thelma Constantino RN Bleeding Management: dressing monitored Goal: Bowel Elimination Outcome: Progressing Intervention: Promote Effective Bowel Elimination Recent Flowsheet Documentation Taken 04/15/2025899 by Thelma Constantino RN Bowel Elimination Promotion: adequate fluid intake promoted Goal: Absence of Embolism Signs and Symptoms Outcome: Progressing Intervention: Prevent or Manage Embolism Risk Recent Flowsheet Documentation Taken 04/15/2025899 by Thelma Constantino RN VTE Prevention/Management: SCDs off (sequential compression devices) Goal: Fracture Stability Outcome: Progressing Goal: Optimal Functional Ability Outcome: Progressing Intervention: Optimize Functional Ability Recent Flowsheet Documentation Taken 04/15/2025839 by Thelma Constantino RN Activity Management: activity adjusted per tolerance ambulated to bathroom up in chair Goal: Absence of Infection Signs and Symptoms Outcome: Progressing Intervention: Prevent or Manage Infection Recent Flowsheet Documentation Taken 04/15/2025899 by Thelma Constantino RN Infection Management: aseptic technique maintained Goal: Effective Tissue Perfusion Outcome: Progressing Intervention: Prevent or Manage Neurovascular Compromise Recent Flowsheet Documentation Taken 04/15/2025899 by Thelma Constantino RN Neurovascular Pressure Management: Cast: ice/cold therapy performed Compartment Syndrome Management: active flexion/extension encouraged Goal: Optimal Pain Control and Function Outcome: Progressing Intervention: Manage Acute Orthopaedic-Related Pain Recent Flowsheet Documentation Taken 04/15/2025899 by Thelma Constantino RN Sleep/Rest Enhancement: relaxation techniques promoted regular sleep/rest pattern promoted natural light exposure provided therapeutic touch utilized Taken 04/15/2025812 by Thelma Constantino RN Pain Management Interventions: medication (see MAR) pain management plan reviewed with patient/caregiver pillow support provided repositioned Goal: Effective Oxygenation and Ventilation Outcome: Progressing Intervention: Promote Airway Secretion Clearance Recent Flowsheet Documentation Taken 04/15/2025 09 by Thelma Constantino RN Breathing Techniques/Airway Clearance: deep/controlled cough encouraged Cough And Deep Breathing: done with encouragement Taken 04/15/2025 0840 by Thelma Constantino RN Activity Management: activity adjusted per tolerance ambulated to bathroom up in chair Intervention: Optimize Oxygenation and Ventilation Recent Flowsheet Documentation Taken 04/15/2025 09 by Thelma Constantino RN Airway/Ventilation Management: pulmonary hygiene promoted Fluid/Electrolyte Management: fluids provided * Plan of Care - Juliette Cooper RN - 04/15/2025 6:30 AM CDT Goal Outcome Evaluation: Plan of Care Reviewed With: patient Overall Patient Progress: improvingOverall Patient Progress: improving Outcome Evaluation: Patient A/Ox4, RA, continent up to void [id number], VSS, LLE in hinge brace at all times, aquacel dressing C/D/I, pain controlled overnight with po analgesics, and ice therapy, reports some numbness to toes, edema to LLE and scattered erythema, awaiting TCU placement, referrals sent, SW following. Problem: Adult Inpatient Plan of Care Goal: Plan of Care Review Description: The Plan of Care Review/Shift note should be completed every shift. The Outcome Evaluation is a brief statement about your assessment that the patient is improving, declining, or no change. This information will be displayed automatically on your shift note. Outcome: Progressing Flowsheets (Taken 04/15/2025 0627) Outcome Evaluation: Patient A/Ox4, RA, continent up to void [id number], VSS, LLE in hinge brace at all times, aquacel dressing C/D/I, pain controlled overnight with po analgesics, and ice therapy, reports some numbness to toes, edema to LLE and scattered erythema, awaiting TCU placement, referrals sent, SW following. Plan of Care Reviewed With: patient Overall Patient Progress: improving Goal: Patient-Specific Goal (Individualized) Description: You can add care plan individualizations to a care plan. Examples of Individualizationmight be: Parent requests to be called daily at 9am for status, I have a hard time hearing out of my right ear, or Do not touch me to wake me up as it startles me. Outcome: Progressing Goal: Absence of Hospital-Acquired Illness or Injury Outcome: Progressing Intervention: Identify and Manage Fall Risk Recent Flowsheet Documentation Taken 04/14/20252347 by Juliette Cooper RN Safety Promotion/Fall Prevention: activity supervised assistive device/personal items within reach room near nurse's station safety round/check completed Intervention: Prevent Skin Injury Recent Flowsheet Documentation Taken 04/14/20252347 by Juliette Cooper RN Body Position: position changed independently Skin Protection: adhesive use limited Intervention: Prevent and Manage VTE (Venous Thromboembolism) Risk Recent Flowsheet Documentation Taken 04/14/20252347 by Juliette Cooper RN VTE Prevention/Management: SCDs on (sequential compression devices) Intervention: Prevent Infection Recent Flowsheet Documentation Taken 04/14/20252347 by Juliette Cooper RN Infection Prevention: single patient room provided rest/sleep promoted Goal: Optimal Comfort and Wellbeing Outcome: Progressing Intervention: Monitor Pain and Promote Comfort Recent Flowsheet Documentation Taken 04/14/20252347 by Juliette Cooper RN Pain Management Interventions: cold applied care clustered medication (see MAR) Goal: Readiness for Transition of Care Outcome: Progressing Problem: Knee Arthroplasty Goal: Optimal Coping Outcome: Progressing Intervention: Support Psychosocial Response to Surgery and Mobility Changes Recent Flowsheet Documentation Taken 04/14/20252347 by Juliette Cooper RN Supportive Measures: active listening utilized Goal: Absence of Bleeding Outcome: Progressing Intervention: Monitor and Manage Bleeding Recent Flowsheet Documentation Taken 04/14/20252347 by Juliette Cooper RN Bleeding Management: dressing monitored Goal: Effective Bowel Elimination Outcome: Progressing Intervention: Enhance Bowel Motility and Elimination Recent Flowsheet Documentation Taken 04/14/20252347 by Juliette Cooper RN Bowel Motility Enhancement: fluid intake encouraged Goal: Fluid and Electrolyte Balance Outcome: Progressing Intervention: Monitor and Manage Fluid and Electrolyte Balance Recent Flowsheet Documentation Taken 04/14/20252347 by Juliette Cooper RN Fluid/Electrolyte Management: fluids provided Goal: Optimal Functional Ability Outcome: Progressing Intervention: Promote Optimal Functional Status Recent Flowsheet Documentation Taken 04/14/20252347 by Juliette Cooper RN Assistive Device Utilized: gait belt walker Activity Management: activity adjusted per tolerance activity encouraged Goal: Absence of Infection Signs and Symptoms Outcome: Progressing Intervention: Prevent or Manage Infection Recent Flowsheet Documentation Taken 04/14/20252347 by Juliette Cooper RN Infection Management: aseptic technique maintained Goal: Intact Neurovascular Status Outcome: Progressing Intervention: Prevent or Manage Neurovascular Compromise Recent Flowsheet Documentation Taken 04/14/20252347 by Juliette Cooper RN Neurovascular Pressure Management: ice/cold therapy applied Compartment Syndrome Management: active flexion/extension encouraged Goal: Anesthesia/Sedation Recovery Outcome: Progressing Intervention: Optimize Anesthesia Recovery Recent Flowsheet Documentation Taken 04/14/20252347 by Juliette Cooper RN Safety Promotion/Fall Prevention: activity supervised assistive device/personal items within reach room near nurse's station safety round/check completed Goal: Optimal Pain Control and Function Outcome: Progressing Intervention: Prevent or Manage Pain Recent Flowsheet Documentation Taken 04/14/20252347 by Juliette Cooper RN Pain Management Interventions: cold applied care clustered medication (see MAR) Goal: Nausea and Vomiting Relief Outcome: Progressing Goal: Effective Urinary Elimination Outcome: Progressing Intervention: Monitor and Manage Urinary Retention Recent Flowsheet Documentation Taken 04/14/20252347 by Juliette Cooper RN Urinary Elimination Promotion: toileting offered Goal: Effective Oxygenation and Ventilation Outcome: Progressing Intervention: Optimize Oxygenation and Ventilation Recent Flowsheet Documentation Taken 04/14/20252347 by Juliette Cooper RN Cough And Deep Breathing: done with encouragement Airway/Ventilation Management: pulmonary hygiene promoted Activity Management: activity adjusted per tolerance activity encouraged Head of Bed (HOB) Positioning: HOB at 30 degrees Problem: Orthopaedic Fracture Goal: Absence of Bleeding Outcome: Progressing Intervention: Monitor and Manage Fracture Bleeding Recent Flowsheet Documentation Taken 04/14/20252347 by Juliette Cooper RN Bleeding Management: dressing monitored Goal: Bowel Elimination Outcome: Progressing Intervention: Promote Effective Bowel Elimination Recent Flowsheet Documentation Taken 04/14/20252347 by Juliette Cooper RN Bowel Elimination Promotion: adequate fluid intake promoted Goal: Absence of Embolism Signs and Symptoms Outcome: Progressing Intervention: Prevent or Manage Embolism Risk Recent Flowsheet Documentation Taken 04/14/20252347 by Juleitte Cooper RN VTE Prevention/Management: SCDs on (sequential compression devices) Goal: Fracture Stability Outcome: Progressing Goal: Optimal Functional Ability Outcome: Progressing Intervention: Optimize Functional Ability Recent Flowsheet Documentation Taken 04/14/20252347 by Juliette Cooper RN Activity Management: activity adjusted per tolerance activity encouraged Goal: Absence of Infection Signs and Symptoms Outcome: Progressing Intervention: Prevent or Manage Infection Recent Flowsheet Documentation Taken 04/14/20252347 by Juliette Cooper RN Infection Management: aseptic technique maintained Goal: Effective Tissue Perfusion Outcome: Progressing Intervention: Prevent or Manage Neurovascular Compromise Recent Flowsheet Documentation Taken 04/14/20252347 by Juliette Cooper RN Neurovascular Pressure Management: Cast: ice/cold therapy performed Compartment Syndrome Management: active flexion/extension encouraged Goal: Optimal Pain Control and Function Outcome: Progressing Intervention: Manage Acute Orthopaedic-Related Pain Recent Flowsheet Documentation Taken 04/14/20252347 by Juliette Cooper RN Pain Management Interventions: cold applied care clustered medication (see MAR) Sleep/Rest Enhancement: awakenings minimized room darkened Goal: Effective Oxygenation and Ventilation Outcome: Progressing Intervention: Promote Airway Secretion Clearance Recent Flowsheet Documentation Taken 04/14/20252347 by Juliette Cooper RN Breathing Techniques/Airway Clearance: deep/controlled cough encouraged Cough And Deep Breathing: done with encouragement Activity Management: activity adjusted per tolerance activity encouraged Intervention: Optimize Oxygenation and Ventilation Recent Flowsheet Documentation Taken 04/14/20252347 by Juliette Cooper RN Airway/Ventilation Management: pulmonary hygiene promoted Fluid/Electrolyte Management: fluids provided Head of Bed (HOB) Positioning: HOB at 30 degrees * Plan of Care - Anne Stanford RN - 04/14/2025 10:42 PM CDT Goal Outcome Evaluation: Plan of Care Reviewed With: patient, spouse Overall Patient Progress: improving Outcome Evaluation: Pt pending placement. Throughout this shift, pt's endorses her pain is 3-4/10 at rest but increases significantly between7-10 with ambulation. Pain controlled with scheduled and PRN oral analgesics, RICE. Continues with moderate swelling around knee. Extremity elevated. Numbness in toes per pt, but reports, I am able to feel when someone touches my toes. Able to wiggle toes. Extremity warm-consistent with body temperature. Good capillary refill <3 seconds. Problem: Adult Inpatient Plan of Care Goal: Plan of Care Review Description: The Plan of Care Review/Shift note should be completed every shift. The Outcome Evaluation is a brief statement about your assessment that the patient is improving, declining, or no change. This information will be displayed automatically on your shift note. Outcome: Progressing Flowsheets (Taken 04/14/2025 2241) Outcome Evaluation: Pt pending placement. Plan of Care Reviewed With: patient spouse Overall Patient Progress: improving Goal: Patient-Specific Goal (Individualized) Description: You can add care plan individualizations to a care plan. Examples of Individualizationmight be: Parent requests to be called daily at 9am for status, I have a hard time hearing out of my right ear, or Do not touch me to wake me up as it startles me. Outcome: Progressing Goal: Absence of Hospital-Acquired Illness or Injury Outcome: Progressing Intervention: Identify and Manage Fall Risk Recent Flowsheet Documentation Taken 04/14/2025 1617 by Anne Stanford, RN Safety Promotion/Fall Prevention: activity supervised assistive device/personal items within reach clutter free environment maintained mobility aid in reach nonskid shoes/slippers when out of bed room near nurse's station room organization consistent safety round/check completed treat reversible contributory factors Intervention: Prevent and Manage VTE (Venous Thromboembolism) Risk Recent Flowsheet Documentation Taken 04/14/2025 1617 by Anne Stanford, RN VTE Prevention/Management: SCDs on (sequential compression devices) Intervention: Prevent Infection Recent Flowsheet Documentation Taken 04/14/2025 1617 by Anne Stanford, RN Infection Prevention: hand hygiene promoted Goal: Optimal Comfort and Wellbeing Outcome: Progressing Intervention: Monitor Pain and Promote Comfort Recent Flowsheet Documentation Taken 04/14/2025 1602 by Anne Stanford, continuous improvement manager Interventions: (pt has PRN IV dilaudid but does not have PIV access. Refused placement of new IV. Wants to take only oral pain medications at this time along with ice for pain control.) medication (see MAR) Goal: Readiness for Transition of Care Outcome: Progressing Problem: Knee Arthroplasty Goal: Optimal Coping Outcome: Progressing Intervention: Support Psychosocial Response to Surgery and Mobility Changes Recent Flowsheet Documentation Taken 04/14/20251616 by Anne Stanford RN Supportive Measures: active listening utilized positive reinforcement provided self-care encouraged verbalization of feelings encouraged Goal: Absence of Bleeding Outcome: Progressing Intervention: Monitor and Manage Bleeding Recent Flowsheet Documentation Taken 04/14/20251616 by Anne Stanford RN Bleeding Management: dressing monitored Goal: Effective Bowel Elimination Outcome: Not Progressing Intervention: Enhance Bowel Motility and Elimination Recent Flowsheet Documentation Taken 04/14/20251616 by Anne Stanford RN Bowel Motility Enhancement: ambulation promoted fluid intake encouraged oral intake encouraged Bowel Elimination Management: relaxation techniques promoted hygiene measures promoted Goal: Fluid and Electrolyte Balance Outcome: Progressing Intervention: Monitor and Manage Fluid and Electrolyte Balance Recent Flowsheet Documentation Taken 04/14/20251616 by Anne Stanford RN Fluid/Electrolyte Management: fluids provided Goal: Optimal Functional Ability Outcome: Progressing Intervention: Promote Optimal Functional Status Recent Flowsheet Documentation Taken 04/14/20252022 by Anne Stanford RN Assistive Device Utilized: (hinged brace on.) walker gait belt Activity Management: activity adjusted per tolerance Taken 04/14/2025 1732 by Anne Stanford RN Assistive Device Utilized: (Hinged knee brace locked and on.) gait belt walker Activity Management: activity adjusted per tolerance ambulated to bathroom back to bed Taken 04/14/20251616 by Anne Stanford RN Assistive Device Utilized: (Hinged Knee brace.) gait belt walker Activity Management: activity encouraged up in chair Goal: Absence of Infection Signs and Symptoms Outcome: Progressing Intervention: Prevent or Manage Infection Recent Flowsheet Documentation Taken 04/14/20251616 by Anne Stanford RN Infection Management: aseptic technique maintained Goal: Intact Neurovascular Status Outcome: Progressing Intervention: Prevent or Manage Neurovascular Compromise Recent Flowsheet Documentation Taken 04/14/20251616 by Anne Stanford RN Neurovascular Pressure Management: extremity positioned at heart level ice/cold therapy applied Compartment Syndrome Management: active flexion/extension encouraged Goal: Anesthesia/Sedation Recovery Outcome: Progressing Intervention: Optimize Anesthesia Recovery Recent Flowsheet Documentation Taken 04/14/20251616 by Anne Stanford RN Safety Promotion/Fall Prevention: activity supervised assistive device/personal items within reach clutter free environment maintained mobility aid in reach nonskid shoes/slippers when out of bed room near nurse's station room organization consistent safety round/check completed treat reversible contributory factors Goal: Optimal Pain Control and Function Outcome: Progressing Intervention: Prevent or Manage Pain Recent Flowsheet Documentation Taken 04/14/2025 1602 by Anne Stanford RN Pain Management Interventions: (pt has PRN IV dilaudid but does not have PIV access. Refused placement of new IV. Wants to take only oral pain medications at this time along with ice for pain control.) medication (see MAR) Goal: Nausea and Vomiting Relief Outcome: Progressing Goal: Effective Urinary Elimination Outcome: Progressing Goal: Effective Oxygenation and Ventilation Outcome: Progressing Intervention: Optimize Oxygenation and Ventilation Recent Flowsheet Documentation Taken 04/14/20252022 by Anne Stanford RN Activity Management: activity adjusted per tolerance Taken 04/14/2025 173 by Anne Stanford RN Activity Management: activity adjusted per tolerance ambulated to bathroom back to bed Taken 04/14/2025 1617 by Anne Stanford RN Cough And Deep Breathing: done independently per patient Activity Management: activity encouraged up in chair Problem: Orthopaedic Fracture Goal: Absence of Bleeding Outcome: Progressing Intervention: Monitor and Manage Fracture Bleeding Recent Flowsheet Documentation Taken 04/14/2025 161 by Anne Stanford RN Bleeding Management: dressing monitored Goal: Bowel Elimination Outcome: Progressing Intervention: Promote Effective Bowel Elimination Recent Flowsheet Documentation Taken 04/14/2025 161 by Anne Stanford RN Bowel Elimination Management: relaxation techniques promoted hygiene measures promoted Bowel Elimination Promotion: adequate fluid intake promoted ambulation promoted Goal: Absence of Embolism Signs and Symptoms Outcome: Not Progressing Intervention: Prevent or Manage Embolism Risk Recent Flowsheet Documentation Taken 04/14/2025 161 by Anne Stanford RN VTE Prevention/Management: SCDs on (sequential compression devices) Goal: Fracture Stability Outcome: Progressing Goal: Optimal Functional Ability Outcome: Progressing Intervention: Optimize Functional Ability Recent Flowsheet Documentation Taken 04/14/20252022 by Anne Stanford RN Activity Management: activity adjusted per tolerance Taken 04/14/2025 1732 by Anne Stanford RN Activity Management: activity adjusted per tolerance ambulated to bathroom back to bed Taken 04/14/2025 1617 by Anne Stanford RN Activity Management: activity encouraged up in chair Positioning/Transfer Devices: pillows in use Goal: Absence of Infection Signs and Symptoms Outcome: Progressing Intervention: Prevent or Manage Infection Recent Flowsheet Documentation Taken 04/14/2025 161 by Anne Stanford RN Infection Management: aseptic technique maintained Goal: Effective Tissue Perfusion Outcome: Progressing Intervention: Prevent or Manage Neurovascular Compromise Recent Flowsheet Documentation Taken 04/14/2025 161 by Anne Stanford RN Compartment Syndrome Management: active flexion/extension encouraged Goal: Optimal Pain Control and Function Outcome: Progressing Intervention: Manage Acute Orthopaedic-Related Pain Recent Flowsheet Documentation Taken 04/14/2025 1602 by Anne Stanford RN Pain Management Interventions: (pt has PRN IV dilaudid but does not have PIV access. Refused placement of new IV. Wants to take only oral pain medications at this time along with ice for pain control.) medication (see MAR) Goal: Effective Oxygenation and Ventilation Outcome: Progressing Intervention: Promote Airway Secretion Clearance Recent Flowsheet Documentation Taken 04/14/20252022 by Anne Stanford RN Activity Management: activity adjusted per tolerance Taken 04/14/2025 1732 by Anne Stanford RN Activity Management: activity adjusted per tolerance ambulated to bathroom back to bed Taken 04/14/2025 161 by Anne Stanford RN Cough And Deep Breathing: done independently per patient Activity Management: activity encouraged up in chair Intervention: Optimize Oxygenation and Ventilation Recent Flowsheet Documentation Taken 04/14/2025 1617 by Anne Stanford RN Fluid/Electrolyte Management: fluids provided * Plan of Care - Abril Knapp RN - 04/14/2025 2:28 PM CDT Goal Outcome Evaluation: Plan of Care Reviewed With: patient Overall Patient Progress: improvingOverall Patient Progress: improving Outcome Evaluation: A&O. VSS on RA. No IV access. Ax1 gb/walker. Knee immobilizer/brace on at all times, locked when up and moving. Tolerating regular diet. Voiding well, up to bathroom. Pain managed with scheduled and PRN medications. Worked with PT, OT this shift. Pt on lovenox. Discharge to TCU, TBD. Problem: Adult Inpatient Plan of Care Goal: Plan of Care Review Description: The Plan of Care Review/Shift note should be completed every shift. The Outcome Evaluation is a brief statement about your assessment that the patient is improving, declining, or no change. This information will be displayed automatically on your shift note. Outcome: Progressing Flowsheets (Taken 04/14/2025 0911) Outcome Evaluation: A&O. VSS on RA. No IV access. Ax1 gb/walker. Knee immobilizer/brace on at all times, locked when up and moving. Tolerating regular diet. Voiding well, up to bathroom. Pain managed with scheduled and PRN medications. Worked with PT, OT this shift. Pt on lovenox. Shower given this shift. Discharge to TCU, TBD. Plan of Care Reviewed With: patient Overall Patient Progress: improving Goal: Patient-Specific Goal (Individualized) Description: You can add care plan individualizations to a care plan. Examples of Individualizationmight be: Parent requests to be called daily at 9am for status, I have a hard time hearing out of my right ear, or Do not touch me to wake me up as it startles me. Outcome: Progressing Goal: Absence of Hospital-Acquired Illness or Injury Outcome: Progressing Intervention: Identify and Manage Fall Risk Recent Flowsheet Documentation Taken 04/14/2025 0845 by Abril Knapp RN Safety Promotion/Fall Prevention: activity supervised assistive device/personal items within reach clutter free environment maintained increased rounding and observation increase visualization of patient lighting adjusted mobility aid in reach nonskid shoes/slippers when out of bed patient and family education room near nurse's station room organization consistent safety round/check completed room door open supervised activity Intervention: Prevent and Manage VTE (Venous Thromboembolism) Risk Recent Flowsheet Documentation Taken 04/14/2025 0845 by Abril Knapp RN VTE Prevention/Management: SCDs on (sequential compression devices) Intervention: Prevent Infection Recent Flowsheet Documentation Taken 04/14/2025 0845 by Abril Knapp RN Infection Prevention: cohorting utilized equipment surfaces disinfected hand hygiene promoted rest/sleep promoted single patient room provided Goal: Optimal Comfort and Wellbeing Outcome: Progressing Goal: Readiness for Transition of Care Outcome: Progressing Problem: Knee Arthroplasty Goal: Optimal Coping Outcome: Progressing Goal: Absence of Bleeding Outcome: Progressing Goal: Effective Bowel Elimination Outcome: Progressing Goal: Fluid and Electrolyte Balance Outcome: Progressing Goal: Optimal Functional Ability Outcome: Progressing Goal: Absence of Infection Signs and Symptoms Outcome: Progressing Goal: Intact Neurovascular Status Outcome: Progressing Goal: Anesthesia/Sedation Recovery Outcome: Progressing Intervention: Optimize Anesthesia Recovery Recent Flowsheet Documentation Taken 04/14/2025 0845 by Abril Knapp RN Safety Promotion/Fall Prevention: activity supervised assistive device/personal items within reach clutter free environment maintained increased rounding and observation increase visualization of patient lighting adjusted mobility aid in reach nonskid shoes/slippers when out of bed patient and family education room near nurse's station room organization consistent safety round/check completed room door open supervised activity Goal: Optimal Pain Control and Function Outcome: Progressing Goal: Nausea and Vomiting Relief Outcome: Progressing Goal: Effective Urinary Elimination Outcome: Progressing Goal: Effective Oxygenation and Ventilation Outcome: Progressing Problem: Orthopaedic Fracture Goal: Absence of Bleeding Outcome: Progressing Goal: Bowel Elimination Outcome: Progressing Goal: Absence of Embolism Signs and Symptoms Outcome: Progressing Intervention: Prevent or Manage Embolism Risk Recent Flowsheet Documentation Taken 04/14/202545 by Abril Knapp RN VTE Prevention/Management: SCDs on (sequential compression devices) Goal: Fracture Stability Outcome: Progressing Goal: Optimal Functional Ability Outcome: Progressing Goal: Absence of Infection Signs and Symptoms Outcome: Progressing Goal: Effective Tissue Perfusion Outcome: Progressing Goal: Optimal Pain Control and Function Outcome: Progressing Goal: Effective Oxygenation and Ventilation Outcome: Progressing * Plan of Care - Vishnu Nguyen RN - 04/14/2025 4:01 AM CDT Pt is AOX4. Endorses pain during ambulation and positioning while in bed. Prn pain given per orders. Hinged knee brace intact during rest and transfers.RA with no SOB. Regular diet, AX1 wGBW. Indpt at baseline.Homecare referral to [facility] or [facility] pending approval. SW and CM following. Goal Outcome Evaluation: Plan of Care Reviewed With: patient Overall Patient Progress: improvingOverall Patient Progress: improving Outcome Evaluation: Potential discharge today to TCU. Pain managed with Prns. Problem: Adult Inpatient Plan of Care Goal: Plan of Care Review Description: The Plan of Care Review/Shift note should be completed every shift. The Outcome Evaluation is a brief statement about your assessment that the patient is improving, declining, or no change. This information will be displayed automatically on your shift note. Outcome: Progressing Flowsheets (Taken 04/14/2025 0400) Outcome Evaluation: Potential discharge today to TCU. Pain managed with Prns. Plan of Care Reviewed With: patient Overall Patient Progress: improving Goal: Patient-Specific Goal (Individualized) Description: You can add care plan individualizations to a care plan. Examples of Individualizationmight be: Parent requests to be called daily at 9am for status, I have a hard time hearing out of my right ear, or Do not touch me to wake me up as it startles me. Outcome: Progressing Goal: Absence of Hospital-Acquired Illness or Injury Outcome: Progressing Intervention: Identify and Manage Fall Risk Recent Flowsheet Documentation Taken 04/14/2025 by Vishnu Nguyen RN Safety Promotion/Fall Prevention: activity supervised assistive device/personal items within reach clutter free environment maintained mobility aid in reach nonskid shoes/slippers when out of bed room near nurse's station room organization consistent Intervention: Prevent Skin Injury Recent Flowsheet Documentation Taken 04/14/2025 by Vishnu Nguyen RN Body Position: supine, head elevated Intervention: Prevent and Manage VTE (Venous Thromboembolism) Risk Recent Flowsheet Documentation Taken 04/14/2025 by Vishnu Nguyen RN VTE Prevention/Management: SCDs on (sequential compression devices) Intervention: Prevent Infection Recent Flowsheet Documentation Taken 04/14/2025 by Vishnu Nguyen RN Infection Prevention: hand hygiene promoted Goal: Optimal Comfort and Wellbeing Outcome: Progressing Goal: Readiness for Transition of Care Outcome: Progressing Problem: Knee Arthroplasty Goal: Optimal Coping Outcome: Progressing Goal: Absence of Bleeding Outcome: Progressing Intervention: Monitor and Manage Bleeding Recent Flowsheet Documentation Taken 04/14/2025 by Vishnu Nguyen RN Bleeding Management: dressing monitored Goal: Effective Bowel Elimination Outcome: Progressing Goal: Fluid and Electrolyte Balance Outcome: Progressing Goal: Optimal Functional Ability Outcome: Progressing Intervention: Promote Optimal Functional Status Recent Flowsheet Documentation Taken 04/14/2025 0000 by Vishnu Nguyen RN Assistive Device Utilized: gait belt walker Activity Management: activity adjusted per tolerance ambulated to bathroom back to bed Goal: Absence of Infection Signs and Symptoms Outcome: Progressing Intervention: Prevent or Manage Infection Recent Flowsheet Documentation Taken 04/14/2025 by Vishnu Nguyen RN Infection Management: aseptic technique maintained Goal: Intact Neurovascular Status Outcome: Progressing Intervention: Prevent or Manage Neurovascular Compromise Recent Flowsheet Documentation Taken 04/14/2025 by Vishnu Nguyen RN Compartment Syndrome Management: active flexion/extension encouraged Goal: Anesthesia/Sedation Recovery Outcome: Progressing Intervention: Optimize Anesthesia Recovery Recent Flowsheet Documentation Taken 04/14/2025 by Vishnu Nguyen RN Safety Promotion/Fall Prevention: activity supervised assistive device/personal items within reach clutter free environment maintained mobility aid in reach nonskid shoes/slippers when out of bed room near nurse's station room organization consistent Goal: Optimal Pain Control and Function Outcome: Progressing Goal: Nausea and Vomiting Relief Outcome: Progressing Goal: Effective Urinary Elimination Outcome: Progressing Goal: Effective Oxygenation and Ventilation Outcome: Progressing Intervention: Optimize Oxygenation and Ventilation Recent Flowsheet Documentation Taken 04/14/2025 by Vishnu Nguyen RN Cough And Deep Breathing: done independently per patient Activity Management: activity adjusted per tolerance ambulated to bathroom back to bed Head of Bed (HOB) Positioning: HOB at 20-30 degrees Problem: Orthopaedic Fracture Goal: Absence of Bleeding Outcome: Progressing Intervention: Monitor and Manage Fracture Bleeding Recent Flowsheet Documentation Taken 04/14/2025 by Vishnu Nguyen RN Bleeding Management: dressing monitored Goal: Bowel Elimination Outcome: Progressing Goal: Absence of Embolism Signs and Symptoms Outcome: Progressing Intervention: Prevent or Manage Embolism Risk Recent Flowsheet Documentation Taken 04/14/2025 by Vishnu Nguyen RN VTE Prevention/Management: SCDs on (sequential compression devices) Goal: Fracture Stability Outcome: Progressing Goal: Optimal Functional Ability Outcome: Progressing Intervention: Optimize Functional Ability Recent Flowsheet Documentation Taken 04/14/2025 by Vishnu Nguyen RN Activity Management: activity adjusted per tolerance ambulated to bathroom back to bed Positioning/Transfer Devices: orthosis pillows in use Goal: Absence of Infection Signs and Symptoms Outcome: Progressing Intervention: Prevent or Manage Infection Recent Flowsheet Documentation Taken 04/14/2025 by Vishnu Nguyen RN Infection Management: aseptic technique maintained Goal: Effective Tissue Perfusion Outcome: Progressing Intervention: Prevent or Manage Neurovascular Compromise Recent Flowsheet Documentation Taken 04/14/2025 0000 by Vishnu Nguyen RN Compartment Syndrome Management: active flexion/extension encouraged Goal: Optimal Pain Control and Function Outcome: Progressing Goal: Effective Oxygenation and Ventilation Outcome: Progressing Intervention: Promote Airway Secretion Clearance Recent Flowsheet Documentation Taken 04/14/2025 0000 by Vishnu Nguyen RN Cough And Deep Breathing: done independently per patient Activity Management: activity adjusted per tolerance ambulated to bathroom back to bed Intervention: Optimize Oxygenation and Ventilation Recent Flowsheet Documentation Taken 04/14/2025 0000 by Vishnu Nguyen RN Head of Bed (HOB) Positioning: HOB at 20-30 degrees * Plan of Care - Anne Stanford RN - 04/13/2025 10:24 PM CDT Goal Outcome Evaluation: Plan of Care Reviewed With: patient, spouse Overall Patient Progress: improving Outcome Evaluation: Discharge to TCU when facility is found. Referrals sent. Pt is hemodynamically stable. Reports mild 3/10 pain at rest to left surgical knee; pain increased to 6/10 with ambulation. Mild erythema to surrounding site. Moderate swelling also noted. Pt positioned for comfort, extremity elevated and ice applied to reduce swelling. Pain controlled with oxycodone, atarax, Celebrex,Tylenol and robaxin. Ambulating with x1 assist, GB, walker. Hinged knee brace remained on and locked during ambulation and transfers. Problem: Adult Inpatient Plan of Care Goal: Plan of Care Review Description: The Plan of Care Review/Shift note should be completed every shift. The Outcome Evaluation is a brief statement about your assessment that the patient is improving, declining, or no change. This information will be displayed automatically on your shift note. Outcome: Progressing Flowsheets (Taken 04/13/2025 1828) Outcome Evaluation: Discharge to TCU when facility is found. Referrals sent. Plan of Care Reviewed With: patient spouse Overall Patient Progress: improving Goal: Patient-Specific Goal (Individualized) Description: You can add care plan individualizations to a care plan. Examples of Individualizationmight be: Parent requests to be called daily at 9am for status, I have a hard time hearing out of my right ear, or Do not touch me to wake me up as it startles me. Outcome: Progressing Goal: Absence of Hospital-Acquired Illness or Injury Outcome: Progressing Intervention: Identify and Manage Fall Risk Recent Flowsheet Documentation Taken 04/13/20251622 by Anne Stanford RN Safety Promotion/Fall Prevention: activity supervised assistive device/personal items within reach clutter free environment maintained mobility aid in reach nonskid shoes/slippers when out of bed room near nurse's station room organization consistent safety round/check completed treat reversible contributory factors Intervention: Prevent and Manage VTE (Venous Thromboembolism) Risk Recent Flowsheet Documentation Taken 04/13/20251622 by Anne Stanford RN VTE Prevention/Management: SCDs on (sequential compression devices) Intervention: Prevent Infection Recent Flowsheet Documentation Taken 04/13/2025 1623 by Anne Stanford RN Infection Prevention: hand hygiene promoted Goal: Optimal Comfort and Wellbeing Outcome: Progressing Intervention: Monitor Pain and Promote Comfort Recent Flowsheet Documentation Taken 04/13/2025 1612 by Anne Stanford RN Pain Management Interventions: medication (see MAR) cold applied Goal: Readiness for Transition of Care Outcome: Progressing Problem: Knee Arthroplasty Goal: Optimal Coping Outcome: Progressing Intervention: Support Psychosocial Response to Surgery and Mobility Changes Recent Flowsheet Documentation Taken 04/13/20251622 by Anne Stanford RN Supportive Measures: active listening utilized positive reinforcement provided self-care encouraged verbalization of feelings encouraged Goal: Absence of Bleeding Outcome: Progressing Intervention: Monitor and Manage Bleeding Recent Flowsheet Documentation Taken 04/13/2025 1623 by Anne Stanford RN Bleeding Management: dressing monitored Goal: Effective Bowel Elimination Outcome: Not Progressing Intervention: Enhance Bowel Motility and Elimination Recent Flowsheet Documentation Taken 04/13/2025 162 by Anne Stanford RN Bowel Motility Enhancement: ambulation promoted fluid intake encouraged oral intake encouraged Bowel Elimination Management: relaxation techniques promoted hygiene measures promoted Goal: Fluid and Electrolyte Balance Outcome: Progressing Intervention: Monitor and Manage Fluid and Electrolyte Balance Recent Flowsheet Documentation Taken 04/13/20251622 by Anne Stanford RN Fluid/Electrolyte Management: fluids provided Goal: Optimal Functional Ability Outcome: Progressing Intervention: Promote Optimal Functional Status Recent Flowsheet Documentation Taken 04/13/20251622 by Anne Stanford RN Assistive Device Utilized: (Hinged Knee brace.) gait belt walker Activity Management: activity encouraged up in chair Goal: Absence of Infection Signs and Symptoms Outcome: Progressing Intervention: Prevent or Manage Infection Recent Flowsheet Documentation Taken 04/13/20251622 by Anne Stanford RN Infection Management: aseptic technique maintained Goal: Intact Neurovascular Status Outcome: Progressing Intervention: Prevent or Manage Neurovascular Compromise Recent Flowsheet Documentation Taken 04/13/20251622 by Anne Stanford RN Compartment Syndrome Management: active flexion/extension encouraged Goal: Anesthesia/Sedation Recovery Outcome: Progressing Intervention: Optimize Anesthesia Recovery Recent Flowsheet Documentation Taken 04/13/20251622 by Anne Stanford RN Safety Promotion/Fall Prevention: activity supervised assistive device/personal items within reach clutter free environment maintained mobility aid in reach nonskid shoes/slippers when out of bed room near nurse's station room organization consistent safety round/check completed treat reversible contributory factors Goal: Optimal Pain Control and Function Outcome: Progressing Intervention: Prevent or Manage Pain Recent Flowsheet Documentation Taken 04/13/2025 161 by Anne Stanford RN Pain Management Interventions: medication (see MAR) cold applied Goal: Nausea and Vomiting Relief Outcome: Progressing Goal: Effective Urinary Elimination Outcome: Progressing Goal: Effective Oxygenation and Ventilation Outcome: Progressing Intervention: Optimize Oxygenation and Ventilation Recent Flowsheet Documentation Taken 04/13/20251622 by Anne Stanford RN Cough And Deep Breathing: done independently per patient Activity Management: activity encouraged up in chair Problem: Orthopaedic Fracture Goal: Absence of Bleeding Outcome: Progressing Intervention: Monitor and Manage Fracture Bleeding Recent Flowsheet Documentation Taken 04/13/20251622 by Anne Stanford RN Bleeding Management: dressing monitored Goal: Bowel Elimination Outcome: Progressing Intervention: Promote Effective Bowel Elimination Recent Flowsheet Documentation Taken 04/13/20251622 by Anne Stanford RN Bowel Elimination Management: relaxation techniques promoted hygiene measures promoted Bowel Elimination Promotion: adequate fluid intake promoted ambulation promoted Goal: Absence of Embolism Signs and Symptoms Outcome: Progressing Intervention: Prevent or Manage Embolism Risk Recent Flowsheet Documentation Taken 04/13/20251622 by Anne Stanford RN VTE Prevention/Management: SCDs on (sequential compression devices) Goal: Fracture Stability Outcome: Progressing Goal: Optimal Functional Ability Outcome: Progressing Intervention: Optimize Functional Ability Recent Flowsheet Documentation Taken 04/13/2025 1623 by Anne Stanford RN Activity Management: activity encouraged up in chair Positioning/Transfer Devices: pillows in use Goal: Absence of Infection Signs and Symptoms Outcome: Progressing Intervention: Prevent or Manage Infection Recent Flowsheet Documentation Taken 04/13/2025 1623 by Anne Stanford RN Infection Management: aseptic technique maintained Goal: Effective Tissue Perfusion Outcome: Progressing Intervention: Prevent or Manage Neurovascular Compromise Recent Flowsheet Documentation Taken 04/13/2025 1623 by Anne Stanford RN Compartment Syndrome Management: active flexion/extension encouraged Goal: Optimal Pain Control and Function Outcome: Progressing Intervention: Manage Acute Orthopaedic-Related Pain Recent Flowsheet Documentation Taken 04/13/2025 1612 by Anne Stanford RN Pain Management Interventions: medication (see MAR) cold applied Goal: Effective Oxygenation and Ventilation Outcome: Progressing Intervention: Promote Airway Secretion Clearance Recent Flowsheet Documentation Taken 04/13/2025 1623 by Anne Stanford RN Cough And Deep Breathing: done independently per patient Activity Management: activity encouraged up in chair Intervention: Optimize Oxygenation and Ventilation Recent Flowsheet Documentation Taken 04/13/2025 1623 by Anne Stanford RN Fluid/Electrolyte Management: fluids provided * Plan of Care - Abril Knapp RN - 04/13/2025 2:06 PM CDT Goal Outcome Evaluation: Plan of Care Reviewed With: patient Overall Patient Progress: improvingOverall Patient Progress: improving Outcome Evaluation: A&O. VSS on RA. No IV access. Ax1 gb/walker. Hinged brace on at all times, locked when up and moving. Tolerating regular diet. Voiding well, up to bathroom. Pain managed with scheduled and PRN medications. Worked with PT, OT this shift, both recommending TCU at discharge. Pton lovenox. Discharge to TCU when placement is found. Problem: Adult Inpatient Plan of Care Goal: Plan of Care Review Description: The Plan of Care Review/Shift note should be completed every shift. The Outcome Evaluation is a brief statement about your assessment that the patient is improving, declining, or no change. This information will be displayed automatically on your shift note. Outcome: Progressing Flowsheets (Taken 04/13/2025 1026) Outcome Evaluation: A&O. VSS on RA. No IV access. Ax1 gb/walker. Hinged brace on at all times, locked when up and moving. Tolerating regular diet. Voiding well, up to bathroom. Pain managed with scheduled and PRN medications. Worked with PT, OT this shift, both recommending TCU at discharge. Pton lovenox. Discharge to TCU when placement is found. Plan of Care Reviewed With: patient Overall Patient Progress: improving Goal: Patient-Specific Goal (Individualized) Description: You can add care plan individualizations to a care plan. Examples of Individualizationmight be: Parent requests to be called daily at 9am for status, I have a hard time hearing out of my right ear, or Do not touch me to wake me up as it startles me. Outcome: Progressing Goal: Absence of Hospital-Acquired Illness or Injury Outcome: Progressing Intervention: Identify and Manage Fall Risk Recent Flowsheet Documentation Taken 04/13/2025837 by Abril Knapp RN Safety Promotion/Fall Prevention: activity supervised assistive device/personal items within reach increased rounding and observation clutter free environment maintained increase visualization of patient lighting adjusted mobility aid in reach nonskid shoes/slippers when out of bed patient and family education room near nurse's station room organization consistent safety round/check completed supervised activity Intervention: Prevent and Manage VTE (Venous Thromboembolism) Risk Recent Flowsheet Documentation Taken 04/13/2025837 by Abril Knapp RN VTE Prevention/Management: SCDs on (sequential compression devices) Intervention: Prevent Infection Recent Flowsheet Documentation Taken 04/13/2025837 by Abril Knapp RN Infection Prevention: cohorting utilized equipment surfaces disinfected hand hygiene promoted single patient room provided rest/sleep promoted Goal: Optimal Comfort and Wellbeing Outcome: Progressing Goal: Readiness for Transition of Care Outcome: Progressing Problem: Knee Arthroplasty Goal: Optimal Coping Outcome: Progressing Goal: Absence of Bleeding Outcome: Progressing Goal: Effective Bowel Elimination Outcome: Progressing Goal: Fluid and Electrolyte Balance Outcome: Progressing Goal: Optimal Functional Ability Outcome: Progressing Intervention: Promote Optimal Functional Status Recent Flowsheet Documentation Taken 04/13/2025837 by Abril Knapp RN Assistive Device Utilized: (knee brace) gait belt walker other (see comments) Activity Management: ambulated to bathroom up in chair Goal: Absence of Infection Signs and Symptoms Outcome: Progressing Goal: Intact Neurovascular Status Outcome: Progressing Goal: Anesthesia/Sedation Recovery Outcome: Progressing Intervention: Optimize Anesthesia Recovery Recent Flowsheet Documentation Taken 04/13/2025837 by Abril Knapp RN Safety Promotion/Fall Prevention: activity supervised assistive device/personal items within reach increased rounding and observation clutter free environment maintained increase visualization of patient lighting adjusted mobility aid in reach nonskid shoes/slippers when out of bed patient and family education room near nurse's station room organization consistent safety round/check completed supervised activity Goal: Optimal Pain Control and Function Outcome: Progressing Goal: Nausea and Vomiting Relief Outcome: Progressing Goal: Effective Urinary Elimination Outcome: Progressing Goal: Effective Oxygenation and Ventilation Outcome: Progressing Intervention: Optimize Oxygenation and Ventilation Recent Flowsheet Documentation Taken 04/13/2025837 by Abril Knapp RN Activity Management: ambulated to bathroom up in chair Problem: Orthopaedic Fracture Goal: Absence of Bleeding Outcome: Progressing Goal: Bowel Elimination Outcome: Progressing Goal: Absence of Embolism Signs and Symptoms Outcome: Progressing Intervention: Prevent or Manage Embolism Risk Recent Flowsheet Documentation Taken 04/13/2025837 by Abril Knapp RN VTE Prevention/Management: SCDs on (sequential compression devices) Goal: Fracture Stability Outcome: Progressing Goal: Optimal Functional Ability Outcome: Progressing Intervention: Optimize Functional Ability Recent Flowsheet Documentation Taken 04/13/2025837 by Abril Knapp RN Activity Management: ambulated to bathroom up in chair Goal: Absence of Infection Signs and Symptoms Outcome: Progressing Goal: Effective Tissue Perfusion Outcome: Progressing Goal: Optimal Pain Control and Function Outcome: Progressing Goal: Effective Oxygenation and Ventilation Outcome: Progressing Intervention: Promote Airway Secretion Clearance Recent Flowsheet Documentation Taken 04/13/2025837 by Abril Knapp RN Activity Management: ambulated to bathroom up in chair * Plan of Care - Vishnu Nguyen RN - 04/13/2025 6:58 AM CDT Pt is AOX4.LLE remains in aligned Hinged knee brace on. Pain managed with Prns. Refuses New IV. [place] concerns for staircase access. AX1. POD #3. VSS. Ambulated to the bathroom once this shift. Potential discharge today. Goal Outcome Evaluation: Plan of Care Reviewed With: patient Overall Patient Progress: improvingOverall Patient Progress: improving Outcome Evaluation: Pt stable. AOX4. Refused IV insertion this shift. Home access staircase concerns for Discharge. Problem: Adult Inpatient Plan of Care Goal: Plan of Care Review Description: The Plan of Care Review/Shift note should be completed every shift. The Outcome Evaluation is a brief statement about your assessment that the patient is improving, declining, or no change. This information will be displayed automatically on your shift note. Outcome: Progressing Flowsheets (Taken 04/13/2025655) Outcome Evaluation: Pt stable. AOX4. Refused IV insertion this shift. Home access staircase concerns for Discharge. Plan of Care Reviewed With: patient Overall Patient Progress: improving Goal: Patient-Specific Goal (Individualized) Description: You can add care plan individualizations to a care plan. Examples of Individualizationmight be: Parent requests to be called daily at 9am for status, I have a hard time hearing out of my right ear, or Do not touch me to wake me up as it startles me. Outcome: Progressing Goal: Absence of Hospital-Acquired Illness or Injury Outcome: Progressing Intervention: Identify and Manage Fall Risk Recent Flowsheet Documentation Taken 04/13/2025155 by Vishnu Nguyen RN Safety Promotion/Fall Prevention: activity supervised assistive device/personal items within reach clutter free environment maintained mobility aid in reach nonskid shoes/slippers when out of bed room near nurse's station room organization consistent Intervention: Prevent Skin Injury Recent Flowsheet Documentation Taken 04/13/2025155 by Vishnu Nguyen, RN Body Position: supine, head elevated Intervention: Prevent and Manage VTE (Venous Thromboembolism) Risk Recent Flowsheet Documentation Taken 04/13/2025155 by Vishnu Nguyen, RN VTE Prevention/Management: SCDs on (sequential compression devices) Intervention: Prevent Infection Recent Flowsheet Documentation Taken 04/13/2025155 by Vishnu Nguyen, RN Infection Prevention: hand hygiene promoted Goal: Optimal Comfort and Wellbeing Outcome: Progressing Goal: Readiness for Transition of Care Outcome: Progressing Problem: Knee Arthroplasty Goal: Optimal Coping Outcome: Progressing Goal: Absence of Bleeding Outcome: Progressing Intervention: Monitor and Manage Bleeding Recent Flowsheet Documentation Taken 04/13/2025155 by Vishnu Nguyen RN Bleeding Management: dressing monitored Goal: Effective Bowel Elimination Outcome: Progressing Goal: Fluid and Electrolyte Balance Outcome: Progressing Goal: Optimal Functional Ability Outcome: Progressing Intervention: Promote Optimal Functional Status Recent Flowsheet Documentation Taken 04/13/2025155 by Vishnu Nguyen RN Assistive Device Utilized: gait belt walker Activity Management: activity adjusted per tolerance ambulated to bathroom back to bed Goal: Absence of Infection Signs and Symptoms Outcome: Progressing Intervention: Prevent or Manage Infection Recent Flowsheet Documentation Taken 04/13/2025155 by Vishnu Nguyen RN Infection Management: aseptic technique maintained Goal: Intact Neurovascular Status Outcome: Progressing Intervention: Prevent or Manage Neurovascular Compromise Recent Flowsheet Documentation Taken 04/13/2025155 by Vishnu Nguyen RN Compartment Syndrome Management: active flexion/extension encouraged Goal: Anesthesia/Sedation Recovery Outcome: Progressing Intervention: Optimize Anesthesia Recovery Recent Flowsheet Documentation Taken 04/13/2025155 by Vishnu Nguyen RN Safety Promotion/Fall Prevention: activity supervised assistive device/personal items within reach clutter free environment maintained mobility aid in reach nonskid shoes/slippers when out of bed room near nurse's station room organization consistent Goal: Optimal Pain Control and Function Outcome: Progressing Goal: Nausea and Vomiting Relief Outcome: Progressing Goal: Effective Urinary Elimination Outcome: Progressing Goal: Effective Oxygenation and Ventilation Outcome: Progressing Intervention: Optimize Oxygenation and Ventilation Recent Flowsheet Documentation Taken 04/13/2025155 by Vishnu Nguyen RN Cough And Deep Breathing: done independently per patient Activity Management: activity adjusted per tolerance ambulated to bathroom back to bed Head of Bed (HOB) Positioning: HOB at 20-30 degrees Problem: Orthopaedic Fracture Goal: Absence of Bleeding Outcome: Progressing Intervention: Monitor and Manage Fracture Bleeding Recent Flowsheet Documentation Taken 04/13/2025155 by Vishnu Nguyen RN Bleeding Management: dressing monitored Goal: Bowel Elimination Outcome: Progressing Goal: Absence of Embolism Signs and Symptoms Outcome: Progressing Intervention: Prevent or Manage Embolism Risk Recent Flowsheet Documentation Taken 04/13/2025155 by Vishnu Nguyen RN VTE Prevention/Management: SCDs on (sequential compression devices) Goal: Fracture Stability Outcome: Progressing Goal: Optimal Functional Ability Outcome: Progressing Intervention: Optimize Functional Ability Recent Flowsheet Documentation Taken 04/13/2025155 by Vishnu Nguyen RN Activity Management: activity adjusted per tolerance ambulated to bathroom back to bed Positioning/Transfer Devices: orthosis pillows in use Goal: Absence of Infection Signs and Symptoms Outcome: Progressing Intervention: Prevent or Manage Infection Recent Flowsheet Documentation Taken 04/13/2025155 by Vishnu Nguyen RN Infection Management: aseptic technique maintained Goal: Effective Tissue Perfusion Outcome: Progressing Intervention: Prevent or Manage Neurovascular Compromise Recent Flowsheet Documentation Taken 04/13/2025155 by Vishnu Nguyen RN Compartment Syndrome Management: active flexion/extension encouraged Goal: Optimal Pain Control and Function Outcome: Progressing Goal: Effective Oxygenation and Ventilation Outcome: Progressing Intervention: Promote Airway Secretion Clearance Recent Flowsheet Documentation Taken 04/13/2025155 by Vishnu Nguyen RN Cough And Deep Breathing: done independently per patient Activity Management: activity adjusted per tolerance ambulated to bathroom back to bed Intervention: Optimize Oxygenation and Ventilation Recent Flowsheet Documentation Taken 04/13/2025155 by Vishnu Nguyen RN Head of Bed (HOB) Positioning: HOB at 20-30 degrees * Plan of Care - Anne Stanford RN - 04/12/2025 10:03 PM CDT Goal Outcome Evaluation: Plan of Care Reviewed With: patient, spouse Overall Patient Progress: improving Outcome Evaluation: Pt vitally stable. Pt remains alert and orientated x4. LLE remains in alignment with Hinged knee brace on. Pt reports 7/10 sharp, throbbing pain in knee. Pain managed with RICE, Tylenol, oxycodone, Robaxin, atarax. CMSintact, able to wiggle toes though limited by pain and swelling. Loss IV access d/t pain and swelling at site. Needs new IV. Problem: Adult Inpatient Plan of Care Goal: Plan of Care Review Description: The Plan of Care Review/Shift note should be completed every shift. The Outcome Evaluation is a brief statement about your assessment that the patient is improving, declining, or no change. This information will be displayed automatically on your shift note. Outcome: Progressing Flowsheets (Taken 04/12/2025 1828) Outcome Evaluation: Pt vitally stable. Plan of Care Reviewed With: patient spouse Overall Patient Progress: improving Goal: Patient-Specific Goal (Individualized) Description: You can add care plan individualizations to a care plan. Examples of Individualizationmight be: Parent requests to be called daily at 9am for status, I have a hard time hearing out of my right ear, or Do not touch me to wake me up as it startles me. Outcome: Progressing Goal: Absence of Hospital-Acquired Illness or Injury Outcome: Progressing Intervention: Identify and Manage Fall Risk Recent Flowsheet Documentation Taken 04/12/20251642 by Anne Stanford RN Safety Promotion/Fall Prevention: activity supervised assistive device/personal items within reach clutter free environment maintained mobility aid in reach nonskid shoes/slippers when out of bed room near nurse's station room organization consistent Intervention: Prevent and Manage VTE (Venous Thromboembolism) Risk Recent Flowsheet Documentation Taken 04/12/20251642 by Anne Stanford RN VTE Prevention/Management: (pt sitting in chair.) -- Intervention: Prevent Infection Recent Flowsheet Documentation Taken 04/12/20251642 by Anne Stanford RN Infection Prevention: hand hygiene promoted Goal: Optimal Comfort and Wellbeing Outcome: Progressing Goal: Readiness for Transition of Care Outcome: Progressing Problem: Knee Arthroplasty Goal: Optimal Coping Outcome: Progressing Intervention: Support Psychosocial Response to Surgery and Mobility Changes Recent Flowsheet Documentation Taken 04/12/20251642 by Anne Stanford RN Supportive Measures: active listening utilized positive reinforcement provided self-care encouraged verbalization of feelings encouraged Goal: Absence of Bleeding Outcome: Progressing Intervention: Monitor and Manage Bleeding Recent Flowsheet Documentation Taken 04/12/20251642 by Anne Stanford RN Bleeding Management: dressing monitored Goal: Effective Bowel Elimination Outcome: Not Progressing Intervention: Enhance Bowel Motility and Elimination Recent Flowsheet Documentation Taken 04/12/20251642 by Anne Stanford RN Bowel Motility Enhancement: ambulation promoted fluid intake encouraged oral intake encouraged Bowel Elimination Management: relaxation techniques promoted hygiene measures promoted Goal: Fluid and Electrolyte Balance Outcome: Progressing Intervention: Monitor and Manage Fluid and Electrolyte Balance Recent Flowsheet Documentation Taken 04/12/2025 1643 by Anne Stanford RN Fluid/Electrolyte Management: fluids provided Goal: Optimal Functional Ability Outcome: Progressing Intervention: Promote Optimal Functional Status Recent Flowsheet Documentation Taken 04/12/20251642 by Anne Stanford RN Activity Management: activity encouraged up in chair Goal: Absence of Infection Signs and Symptoms Outcome: Progressing Intervention: Prevent or Manage Infection Recent Flowsheet Documentation Taken 04/12/2025 164 by Anne Stanford RN Infection Management: aseptic technique maintained Goal: Intact Neurovascular Status Outcome: Progressing Intervention: Prevent or Manage Neurovascular Compromise Recent Flowsheet Documentation Taken 04/12/2025 1643 by Anne Stanford RN Compartment Syndrome Management: active flexion/extension encouraged Goal: Anesthesia/Sedation Recovery Outcome: Progressing Intervention: Optimize Anesthesia Recovery Recent Flowsheet Documentation Taken 04/12/20251642 by Anne Stanford RN Safety Promotion/Fall Prevention: activity supervised assistive device/personal items within reach clutter free environment maintained mobility aid in reach nonskid shoes/slippers when out of bed room near nurse's station room organization consistent Goal: Optimal Pain Control and Function Outcome: Progressing Goal: Nausea and Vomiting Relief Outcome: Progressing Goal: Effective Urinary Elimination Outcome: Progressing Goal: Effective Oxygenation and Ventilation Outcome: Progressing Intervention: Optimize Oxygenation and Ventilation Recent Flowsheet Documentation Taken 04/12/20251642 by Anne Stanford RN Cough And Deep Breathing: done independently per patient Activity Management: activity encouraged up in chair Head of Bed (HOB) Positioning: HOB at 20-30 degrees Problem: Orthopaedic Fracture Goal: Absence of Bleeding Outcome: Progressing Intervention: Monitor and Manage Fracture Bleeding Recent Flowsheet Documentation Taken 04/12/20251642 by Anne Stanford RN Bleeding Management: dressing monitored Goal: Bowel Elimination Outcome: Not Progressing Intervention: Promote Effective Bowel Elimination Recent Flowsheet Documentation Taken 04/12/20251642 by Anne Stanford RN Bowel Elimination Management: relaxation techniques promoted hygiene measures promoted Bowel Elimination Promotion: adequate fluid intake promoted ambulation promoted Goal: Absence of Embolism Signs and Symptoms Outcome: Progressing Intervention: Prevent or Manage Embolism Risk Recent Flowsheet Documentation Taken 04/12/20251642 by Anne Stanford RN VTE Prevention/Management: (pt sitting in chair.) -- Goal: Fracture Stability Outcome: Progressing Goal: Optimal Functional Ability Outcome: Progressing Intervention: Optimize Functional Ability Recent Flowsheet Documentation Taken 04/12/20251642 by Anne Stanford RN Activity Management: activity encouraged up in chair Positioning/Transfer Devices: pillows in use Goal: Absence of Infection Signs and Symptoms Outcome: Progressing Intervention: Prevent or Manage Infection Recent Flowsheet Documentation Taken 04/12/20251642 by Anne Stanford RN Infection Management: aseptic technique maintained Goal: Effective Tissue Perfusion Outcome: Progressing Intervention: Prevent or Manage Neurovascular Compromise Recent Flowsheet Documentation Taken 04/12/20251642 by Anne Stanford RN Compartment Syndrome Management: active flexion/extension encouraged Goal: Optimal Pain Control and Function Outcome: Progressing Goal: Effective Oxygenation and Ventilation Outcome: Progressing Intervention: Promote Airway Secretion Clearance Recent Flowsheet Documentation Taken 04/12/20251642 by Anne Stanford RN Cough And Deep Breathing: done independently per patient Activity Management: activity encouraged up in chair Intervention: Optimize Oxygenation and Ventilation Recent Flowsheet Documentation Taken 04/12/20251642 by Anne Stanford RN Fluid/Electrolyte Management: fluids provided Head of Bed (HOB) Positioning: HOB at 20-30 degrees * Utilization Review - Kellie Elizalde MD - 04/12/2025 5:32 PM CDT Admission Status; Secondary Review Determination Under the authority of the Utilization Management Committee, the utilization review process indicated a secondary review on the above patient. The review outcome is based on review of the medical records, discussions with staff, and applying clinical experience noted on the date of the review. (x) Inpatient Status Appropriate - This patient's medical care is consistent with medical management for inpatient care and reasonable inpatient medical practice. RATIONALE FOR DETERMINATION Patient requires inpatient admission versus short stay observation or outpatient treatment for the following reasons: Patient was getting out of the car, she slipped on the wet sood, fell and injured the left leg. Diagnosed in the emergency room with closed Left displaced anteromedial tibial plateau fracture , closed fracture of proximal end of the left fibula. On April 10, the patient underwent open reduction internal fixation of the right anteromedial tibialplateau fracture Postoperatively, the patient experienced significant pain, requiring intensive management with oxycodone and two additional doses of IV Dilaudid for adequate pain control. CPT 32484 (Open treatment of femoral fracture, distal end, medial or lateral condyle, includes internal fixation, when performed) is most commonly performed as an inpatient procedure due to the complexity of the surgery, need for postoperative monitoring, pain management, and potential for complications. The expected length of stay at the time of admission was more than 2 nights because of the severityof illness, intensity of service provided, and risk for adverse outcome. Inpatient admission is appropriate. This document was produced using voice recognition software The information on this document is developed by the utilization review team in order for the business office to ensure compliance. This only denotes the appropriateness of proper admission status and does not reflect the quality of care rendered. The definitions of Inpatient Status and Observation Status used in making the determination above are those provided in the CMS Coverage Manual, Chapter 1 and Chapter 6, section 70.4. Sincerely, KELLIE DELAROSA MD Utilization Review Physician Advisor [facility] * Plan of Care - Thelma Constantino RN - 04/12/2025 2:30 PM CDT Goal Outcome Evaluation: Plan of Care Reviewed With: patient Overall Patient Progress: improvingOverall Patient Progress: improving Outcome Evaluation: Pain managed with PO meds, up Ax1 w/ GB/W - home with home PT when ready. AOx4. VSS on RA. No hypotension or nausea today. Ax1 with Walker and GB - hinged knee brace locked when ambulating. TTWB on LLE. CMS intact. Ice, oxy, celebrex, robaxin, atarax and scheduled tylenol for pain. Up in chair throughout shift. Alia regular diet. Voiding. Plan to discharge home with home care PT when medically ready. Problem: Adult Inpatient Plan of Care Goal: Plan of Care Review Description: The Plan of Care Review/Shift note should be completed every shift. The Outcome Evaluation is a brief statement about your assessment that the patient is improving, declining, or no change. This information will be displayed automatically on your shift note. 04/12/2025 1430 by Thelma Constantino RN Outcome: Progressing Flowsheets (Taken 04/12/2025 1430) Plan of Care Reviewed With: patient Overall Patient Progress: improving 04/12/2025 142 by Thelma Constantino RN Outcome: Progressing Flowsheets (Taken 04/12/2025 1429) Outcome Evaluation: Pain managed with PO meds, up Ax1 w/ GB/W - home with home PT when ready. Plan of Care Reviewed With: patient Goal: Patient-Specific Goal (Individualized) Description: You can add care plan individualizations to a care plan. Examples of Individualizationmight be: Parent requests to be called daily at 9am for status, I have a hard time hearing out of my right ear, or Do not touch me to wake me up as it startles me. 04/12/2025 1430 by Thelma Constantino RN Outcome: Progressing 04/12/2025 142 by Thelma Constantino RN Outcome: Progressing Goal: Absence of Hospital-Acquired Illness or Injury 04/12/2025 1430 by Thelma Constantino RN Outcome: Progressing 04/12/2025 142 by Thelma Constantino RN Outcome: Progressing Intervention: Identify and Manage Fall Risk Recent Flowsheet Documentation Taken 04/12/2025 1000 by Thelma Constantino RN Safety Promotion/Fall Prevention: clutter free environment maintained activity supervised lighting adjusted safety round/check completed Intervention: Prevent Skin Injury Recent Flowsheet Documentation Taken 04/12/2025 1000 by Thelma Constantino RN Body Position: supine, head elevated supine, legs elevated Intervention: Prevent and Manage VTE (Venous Thromboembolism) Risk Recent Flowsheet Documentation Taken 04/12/2025 1000 by Thelma Consatntino RN VTE Prevention/Management: SCDs off (sequential compression devices) Intervention: Prevent Infection Recent Flowsheet Documentation Taken 04/12/2025 1000 by Thelma Constantino RN Infection Prevention: hand hygiene promoted Goal: Optimal Comfort and Wellbeing 04/12/2025 1430 by Thelma Constantino RN Outcome: Progressing 04/12/20251428 by Thelma Constantino RN Outcome: Progressing Intervention: Monitor Pain and Promote Comfort Recent Flowsheet Documentation Taken 04/12/2025 0837 by Thelma Constantino RN Pain Management Interventions: medication (see MAR) Goal: Readiness for Transition of Care 04/12/2025 1430 by Thelma Constantino RN Outcome: Progressing 04/12/2025 1429 by Thelma Constantino RN Outcome: Progressing Problem: Knee Arthroplasty Goal: Optimal Coping 04/12/2025 1430 by Thelma Cosntantino RN Outcome: Progressing 04/12/2025 1429 by Thelma Constantino RN Outcome: Progressing Intervention: Support Psychosocial Response to Surgery and Mobility Changes Recent Flowsheet Documentation Taken 04/12/2025 1000 by Thelma Constantino RN Supportive Measures: active listening utilized positive reinforcement provided self-care encouraged verbalization of feelings encouraged Goal: Absence of Bleeding 04/12/2025 1430 by Thelma Constantino RN Outcome: Progressing 04/12/2025 1429 by Thelma Constantino RN Outcome: Progressing Intervention: Monitor and Manage Bleeding Recent Flowsheet Documentation Taken 04/12/2025 1000 by Thelma Constantino RN Bleeding Management: dressing monitored Goal: Effective Bowel Elimination 04/12/2025 1430 by Thelma Constantino RN Outcome: Progressing 04/12/2025 1429 by Thelma Constantino RN Outcome: Progressing Intervention: Enhance Bowel Motility and Elimination Recent Flowsheet Documentation Taken 04/12/2025 1000 by Thelma Constantino RN Bowel Motility Enhancement: ambulation promoted fluid intake encouraged oral intake encouraged Bowel Elimination Management: relaxation techniques promoted hygiene measures promoted Goal: Fluid and Electrolyte Balance 04/12/2025 1430 by Thelma Constantino RN Outcome: Progressing 04/12/2025 1429 by Thelma Constantino RN Outcome: Progressing Intervention: Monitor and Manage Fluid and Electrolyte Balance Recent Flowsheet Documentation Taken 04/12/2025 1000 by Thelma Constantino RN Fluid/Electrolyte Management: fluids provided Goal: Optimal Functional Ability 04/12/2025 1430 by Thelma Constantino RN Outcome: Progressing 04/12/2025 1429 by Thelma Constantino RN Outcome: Progressing Intervention: Promote Optimal Functional Status Recent Flowsheet Documentation Taken 04/12/2025 1343 by Thelma Constantino RN Assistive Device Utilized: gait belt walker Activity Management: activity encouraged ambulated to bathroom up in chair Taken 04/12/2025 1000 by Thelma Constantino RN Assistive Device Utilized: gait belt walker Activity Management: activity adjusted per tolerance Taken 04/12/2025 0847 by Thelma Constantino RN Activity Management: activity adjusted per tolerance ambulated to bathroom up in chair Goal: Absence of Infection Signs and Symptoms 04/12/2025 1430 by Thelma Constantino RN Outcome: Progressing 04/12/2025 1429 by Thelma Constantino RN Outcome: Progressing Intervention: Prevent or Manage Infection Recent Flowsheet Documentation Taken 04/12/2025 1000 by Thlema Constantino RN Infection Management: aseptic technique maintained Goal: Intact Neurovascular Status 04/12/2025 1430 by Thelma Constantino RN Outcome: Progressing 04/12/2025 1429 by Thelma Constantino RN Outcome: Progressing Intervention: Prevent or Manage Neurovascular Compromise Recent Flowsheet Documentation Taken 04/12/2025 1000 by Thelma Constantino RN Compartment Syndrome Management: active flexion/extension encouraged Goal: Anesthesia/Sedation Recovery 04/12/2025 1430 by Thelma Constantino RN Outcome: Progressing 04/12/2025 1429 by Thelma Constantino RN Outcome: Progressing Intervention: Optimize Anesthesia Recovery Recent Flowsheet Documentation Taken 04/12/2025 1000 by Thelma Constantino RN Safety Promotion/Fall Prevention: clutter free environment maintained activity supervised lighting adjusted safety round/check completed Administration (IS): mouthpiece utilized proper technique demonstrated Patient Tolerance (IS): good Goal: Optimal Pain Control and Function 04/12/2025 1430 by Thelma Constantino RN Outcome: Progressing 04/12/2025 1429 by Thelma Constantino RN Outcome: Progressing Intervention: Prevent or Manage Pain Recent Flowsheet Documentation Taken 04/12/2025 0837 by Thelma Constantino RN Pain Management Interventions: medication (see MAR) Goal: Nausea and Vomiting Relief 04/12/2025 1430 by Thelma Constantino RN Outcome: Progressing 04/12/2025 1429 by Thelma Constantino RN Outcome: Progressing Goal: Effective Urinary Elimination 04/12/2025 1430 by Thelma Constantino RN Outcome: Progressing 04/12/2025 1429 by Thelma Constantino RN Outcome: Progressing Goal: Effective Oxygenation and Ventilation 04/12/2025 1430 by Thelma Constantino RN Outcome: Progressing 04/12/2025 1429 by Thelma Constantino RN Outcome: Progressing Intervention: Optimize Oxygenation and Ventilation Recent Flowsheet Documentation Taken 04/12/2025 1343 by Thelma Constantino RN Activity Management: activity encouraged ambulated to bathroom up in chair Taken 04/12/2025 1000 by Thelma Constantino RN Cough And Deep Breathing: done independently per patient Activity Management: activity adjusted per tolerance Head of Bed (HOB) Positioning: HOB at 20-30 degrees Taken 04/12/2025 0847 by Thelma Constantino RN Activity Management: activity adjusted per tolerance ambulated to bathroom up in chair Problem: Orthopaedic Fracture Goal: Absence of Bleeding 04/12/2025 1430 by Thelma Constantino RN Outcome: Progressing 04/12/2025 1429 by Thelma Constantino RN Outcome: Progressing Intervention: Monitor and Manage Fracture Bleeding Recent Flowsheet Documentation Taken 04/12/2025 1000 by Thelma Constantino RN Bleeding Management: dressing monitored Goal: Bowel Elimination 04/12/2025 1430 by Thelma Constantino RN Outcome: Progressing 04/12/2025 1429 by Thelma Constantino RN Outcome: Progressing Intervention: Promote Effective Bowel Elimination Recent Flowsheet Documentation Taken 04/12/2025 1000 by Thelma Constantino RN Bowel Elimination Management: relaxation techniques promoted hygiene measures promoted Bowel Elimination Promotion: adequate fluid intake promoted ambulation promoted Goal: Absence of Embolism Signs and Symptoms 04/12/2025 1430 by Thelma Constantino RN Outcome: Progressing 04/12/2025 1429 by Thelma Constantino RN Outcome: Progressing Intervention: Prevent or Manage Embolism Risk Recent Flowsheet Documentation Taken 04/12/2025 1000 by Thelma Constantino RN VTE Prevention/Management: SCDs off (sequential compression devices) Goal: Fracture Stability 04/12/2025 1430 by Thelma Constantino RN Outcome: Progressing 04/12/2025 1429 by Thelma Constantino RN Outcome: Progressing Goal: Optimal Functional Ability 04/12/2025 1430 by Thelma Constantino RN Outcome: Progressing 04/12/2025 1429 by Thelma Constantino RN Outcome: Progressing Intervention: Optimize Functional Ability Recent Flowsheet Documentation Taken 04/12/2025 1343 by Thelma Constantino RN Activity Management: activity encouraged ambulated to bathroom up in chair Taken 04/12/2025 1000 by Thelma Constantino RN Activity Management: activity adjusted per tolerance Positioning/Transfer Devices: pillows in use Taken 04/12/2025 0847 by Thelma Constantino RN Activity Management: activity adjusted per tolerance ambulated to bathroom up in chair Goal: Absence of Infection Signs and Symptoms 04/12/2025 1430 by Thelma Constantino RN Outcome: Progressing 04/12/2025 1429 by Thelma Constantino RN Outcome: Progressing Intervention: Prevent or Manage Infection Recent Flowsheet Documentation Taken 04/12/2025 1000 by Thelma Constantino RN Infection Management: aseptic technique maintained Goal: Effective Tissue Perfusion 04/12/2025 1430 by Thelma Constantino RN Outcome: Progressing 04/12/2025 1429 by Thelma Constantino RN Outcome: Progressing Intervention: Prevent or Manage Neurovascular Compromise Recent Flowsheet Documentation Taken 04/12/2025 1000 by Thelma Constantino RN Compartment Syndrome Management: active flexion/extension encouraged Goal: Optimal Pain Control and Function 04/12/2025 1430 by Thelma Constantino RN Outcome: Progressing 04/12/2025 1429 by Thelma Constantino RN Outcome: Progressing Intervention: Manage Acute Orthopaedic-Related Pain Recent Flowsheet Documentation Taken 04/12/2025 0837 by Thelma Constantino RN Pain Management Interventions: medication (see MAR) Goal: Effective Oxygenation and Ventilation 04/12/2025 1430 by Thelma Constantino RN Outcome: Progressing 04/12/2025 1429 by Thelma Constantino RN Outcome: Progressing Intervention: Promote Airway Secretion Clearance Recent Flowsheet Documentation Taken 04/12/2025 1343 by Thelma Constantino RN Activity Management: activity encouraged ambulated to bathroom up in chair Taken 04/12/2025 1000 by Thelma Constantino RN Cough And Deep Breathing: done independently per patient Activity Management: activity adjusted per tolerance Taken 04/12/2025 0847 by Thelma Constantino RN Activity Management: activity adjusted per tolerance ambulated to bathroom up in chair Intervention: Optimize Oxygenation and Ventilation Recent Flowsheet Documentation Taken 04/12/2025 1000 by Thelma Constantino RN Fluid/Electrolyte Management: fluids provided Head of Bed (HOB) Positioning: HOB at 20-30 degrees * Plan of Care - Taiwo Caba RN - 04/12/2025 5:08 AM CDT Goal Outcome Evaluation: Outcome Evaluation: AOx4. VSS on RA. Pain managed with oxy, tylenol, robaxin, and atarax. Complainsof pain in left calf. Hinged brace in place. Complained of gas pains - paged Xcover, simethicone ordered. Problem: Adult Inpatient Plan of Care Goal: Plan of Care Review Description: The Plan of Care Review/Shift note should be completed every shift. The Outcome Evaluation is a brief statement about your assessment that the patient is improving, declining, or no change. This information will be displayed automatically on your shift note. Outcome: Progressing Flowsheets (Taken 04/12/2025214) Outcome Evaluation: AOx4. VSS on RA. Pain managed with oxy, tylenol, robaxin, and atarax. Complainsof pain in left calf. Hinged brace in place. Goal: Patient-Specific Goal (Individualized) Description: You can add care plan individualizations to a care plan. Examples of Individualizationmight be: Parent requests to be called daily at 9am for status, I have a hard time hearing out of my right ear, or Do not touch me to wake me up as it startles me. Outcome: Progressing Goal: Absence of Hospital-Acquired Illness or Injury Outcome: Progressing Intervention: Prevent Skin Injury Recent Flowsheet Documentation Taken 04/12/202518 by Taiwo Caba RN Body Position: supine, head elevated supine, legs elevated Intervention: Prevent and Manage VTE (Venous Thromboembolism) Risk Recent Flowsheet Documentation Taken 04/12/202518 by Taiwo Caba RN VTE Prevention/Management: SCDs on (sequential compression devices) Intervention: Prevent Infection Recent Flowsheet Documentation Taken 04/12/202518 by Taiwo Caba RN Infection Prevention: hand hygiene promoted Goal: Optimal Comfort and Wellbeing Outcome: Progressing Intervention: Monitor Pain and Promote Comfort Recent Flowsheet Documentation Taken 04/12/202518 by Taiwo Caba RN Pain Management Interventions: rest cold applied Goal: Readiness for Transition of Care Outcome: Progressing * Plan of Care - Billie Capellan RN - 04/11/2025 10:54 PM CDT Goal Outcome Evaluation: Plan of Care Reviewed With: patient Overall Patient Progress: no changeOverall Patient Progress: no change Outcome Evaluation: A&O x4, VSS on RA, pain mngd w/ oxycodone, tylenol, robaxin, atarax, IV dilaudid, Ax1 GB walker w/ hinge brace TTWB, voiding, CMS intact, dressing CDI, discharge plan home w/ PT date tbd Problem: Adult Inpatient Plan of Care Goal: Plan of Care Review Description: The Plan of Care Review/Shift note should be completed every shift. The Outcome Evaluation is a brief statement about your assessment that the patient is improving, declining, or no change. This information will be displayed automatically on your shift note. Outcome: Progressing Flowsheets (Taken 04/11/2025 0264) Outcome Evaluation: A&O x4, VSS on RA, pain mngd w/ oxycodone, tylenol, robaxin, atarax, IV dilaudid, Ax1 GB walker w/ hinge brace TTWB, voiding, CMS intact, dressing CDI, discharge plan home w/ PT date tbd Plan of Care Reviewed With: patient Overall Patient Progress: no change Goal: Patient-Specific Goal (Individualized) Description: You can add care plan individualizations to a care plan. Examples of Individualizationmight be: Parent requests to be called daily at 9am for status, I have a hard time hearing out of my right ear, or Do not touch me to wake me up as it startles me. Outcome: Progressing Goal: Absence of Hospital-Acquired Illness or Injury Outcome: Progressing Intervention: Identify and Manage Fall Risk Recent Flowsheet Documentation Taken 04/11/2025 1637 by Billie Capellan, RN Safety Promotion/Fall Prevention: safety round/check completed Intervention: Prevent and Manage VTE (Venous Thromboembolism) Risk Recent Flowsheet Documentation Taken 04/11/2025 1941 by Grabinger, Billie, RN VTE Prevention/Management: SCDs on (sequential compression devices) Taken 04/11/2025 1637 by Billie Capellan RN VTE Prevention/Management: (in chair) SCDs off (sequential compression devices) Intervention: Prevent Infection Recent Flowsheet Documentation Taken 04/11/2025 1637 by Billie Capellan RN Infection Prevention: hand hygiene promoted Goal: Optimal Comfort and Wellbeing Outcome: Progressing Intervention: Monitor Pain and Promote Comfort Recent Flowsheet Documentation Taken 04/11/20252212 by Billie Capellan RN Pain Management Interventions: rest cold applied Taken 04/11/20252149 by Billie Capellan RN Pain Management Interventions: cold applied pillow support provided rest Taken 04/11/20251636 by Billie Capellan RN Pain Management Interventions: MD notified (comment) Goal: Readiness for Transition of Care Outcome: Progressing Problem: Knee Arthroplasty Goal: Optimal Coping Outcome: Progressing Goal: Absence of Bleeding Outcome: Progressing Goal: Effective Bowel Elimination Outcome: Progressing Goal: Fluid and Electrolyte Balance Outcome: Progressing Goal: Optimal Functional Ability Outcome: Progressing Intervention: Promote Optimal Functional Status Recent Flowsheet Documentation Taken 04/11/2025 194 by Billie Capellan RN Assistive Device Utilized: gait belt walker Activity Management: ambulated to bathroom back to bed Taken 04/11/2025 1637 by Billie Capellan RN Assistive Device Utilized: gait belt walker Activity Management: activity adjusted per tolerance Goal: Absence of Infection Signs and Symptoms Outcome: Progressing Goal: Intact Neurovascular Status Outcome: Progressing Goal: Anesthesia/Sedation Recovery Outcome: Progressing Intervention: Optimize Anesthesia Recovery Recent Flowsheet Documentation Taken 04/11/2025 1637 by Billie Capellan RN Safety Promotion/Fall Prevention: safety round/check completed Administration (IS): mouthpiece utilized proper technique demonstrated Level Incentive Spirometer (mL): 2500 Number of Repetitions (IS): 4 Patient Tolerance (IS): good Goal: Optimal Pain Control and Function Outcome: Progressing Intervention: Prevent or Manage Pain Recent Flowsheet Documentation Taken 04/11/20252212 by Billie Capellan RN Pain Management Interventions: rest cold applied Taken 04/11/20252149 by Billie Capellan RN Pain Management Interventions: cold applied pillow support provided rest Taken 04/11/2025 1637 by Billie Capellan RN Pain Management Interventions: MD notified (comment) Goal: Nausea and Vomiting Relief Outcome: Progressing Goal: Effective Urinary Elimination Outcome: Progressing Goal: Effective Oxygenation and Ventilation Outcome: Progressing Intervention: Optimize Oxygenation and Ventilation Recent Flowsheet Documentation Taken 04/11/20251940 by Billie Capellan RN Activity Management: ambulated to bathroom back to bed Taken 04/11/2025 163 by Billie Capellan RN Cough And Deep Breathing: done independently per patient Activity Management: activity adjusted per tolerance Problem: Orthopaedic Fracture Goal: Absence of Bleeding Outcome: Progressing Goal: Bowel Elimination Outcome: Progressing Goal: Absence of Embolism Signs and Symptoms Outcome: Progressing Intervention: Prevent or Manage Embolism Risk Recent Flowsheet Documentation Taken 04/11/20251940 by Billie Capellan RN VTE Prevention/Management: SCDs on (sequential compression devices) Taken 04/11/2025 163 by Billie Capellan RN VTE Prevention/Management: (in chair) SCDs off (sequential compression devices) Goal: Fracture Stability Outcome: Progressing Goal: Optimal Functional Ability Outcome: Progressing Intervention: Optimize Functional Ability Recent Flowsheet Documentation Taken 04/11/20251940 by Billie Capellan RN Activity Management: ambulated to bathroom back to bed Taken 04/11/2025 163 by Billie Capellan RN Activity Management: activity adjusted per tolerance Positioning/Transfer Devices: pillows in use Goal: Absence of Infection Signs and Symptoms Outcome: Progressing Goal: Effective Tissue Perfusion Outcome: Progressing Goal: Optimal Pain Control and Function Outcome: Progressing Intervention: Manage Acute Orthopaedic-Related Pain Recent Flowsheet Documentation Taken 04/11/20252212 by Billie Capellan RN Pain Management Interventions: rest cold applied Taken 04/11/20252149 by Billie Capellan RN Pain Management Interventions: cold applied pillow support provided rest Taken 04/11/2025 163 by Billie Capellan RN Pain Management Interventions: MD notified (comment) Goal: Effective Oxygenation and Ventilation Outcome: Progressing Intervention: Promote Airway Secretion Clearance Recent Flowsheet Documentation Taken 04/11/20251940 by Billie Capellan RN Activity Management: ambulated to bathroom back to bed Taken 04/11/2025 1637 by Billie Capellan RN Cough And Deep Breathing: done independently per patient Activity Management: activity adjusted per tolerance * Plan of Care - Thelma Constantino RN - 04/11/2025 12:37 PM CDT Goal Outcome Evaluation: Plan of Care Reviewed With: patient, spouse Overall Patient Progress: improvingOverall Patient Progress: improving Outcome Evaluation: Up in chair with hinged knee brace in place. Pain managed with PO and IV meds. Discharge home with home care when medically ready. AOx4. VSS on RA - soft blood pressures. Ax1 with Walker and GB - hinged knee brace locked when ambulating. TTWB on LLE. CMS intact. Ice, IV dilaudid, oxy, robaxin, atarax and scheduled tylenol for pain. Up in chair throughout shift. Alia regular diet. Some nausea, zofran effective. Voiding. and daughter at bedside. Plan to discharge home with home care PT when medically ready. Problem: Adult Inpatient Plan of Care Goal: Plan of Care Review Description: The Plan of Care Review/Shift note should be completed every shift. The Outcome Evaluation is a brief statement about your assessment that the patient is improving, declining, or no change. This information will be displayed automatically on your shift note. Outcome: Progressing Flowsheets (Taken 04/11/2025 1233) Outcome Evaluation: Up in chair with hinged knee brace in place. Pain managed with PO and IV meds. Discharge home with home care when medically ready. Plan of Care Reviewed With: patient spouse Overall Patient Progress: improving Goal: Patient-Specific Goal (Individualized) Description: You can add care plan individualizations to a care plan. Examples of Individualizationmight be: Parent requests to be called daily at 9am for status, I have a hard time hearing out of my right ear, or Do not touch me to wake me up as it startles me. Outcome: Progressing Goal: Absence of Hospital-Acquired Illness or Injury Outcome: Progressing Intervention: Identify and Manage Fall Risk Recent Flowsheet Documentation Taken 04/11/2025 1200 by Thelma Constantino RN Safety Promotion/Fall Prevention: activity supervised Intervention: Prevent and Manage VTE (Venous Thromboembolism) Risk Recent Flowsheet Documentation Taken 04/11/2025 1200 by Thelma Constantino RN VTE Prevention/Management: (to Rle, OFF to LLe) other (see comments) SCDs on (sequential compression devices) Intervention: Prevent Infection Recent Flowsheet Documentation Taken 04/11/2025 1200 by Thelma Constantino RN Infection Prevention: rest/sleep promoted Goal: Optimal Comfort and Wellbeing Outcome: Progressing Goal: Readiness for Transition of Care Outcome: Progressing Problem: Knee Arthroplasty Goal: Optimal Coping Outcome: Progressing Goal: Absence of Bleeding Outcome: Progressing Intervention: Monitor and Manage Bleeding Recent Flowsheet Documentation Taken 04/11/2025 1200 by Thelma Constantino RN Bleeding Management: dressing monitored Goal: Effective Bowel Elimination Outcome: Progressing Intervention: Enhance Bowel Motility and Elimination Recent Flowsheet Documentation Taken 04/11/2025 1200 by Thelma Constantino RN Bowel Motility Enhancement: ambulation promoted fluid intake encouraged oral intake encouraged Bowel Elimination Management: relaxation techniques promoted hygiene measures promoted Goal: Fluid and Electrolyte Balance Outcome: Progressing Intervention: Monitor and Manage Fluid and Electrolyte Balance Recent Flowsheet Documentation Taken 04/11/2025 1200 by Thelma Constantino RN Fluid/Electrolyte Management: fluids provided Goal: Optimal Functional Ability Outcome: Progressing Intervention: Promote Optimal Functional Status Recent Flowsheet Documentation Taken 04/11/2025 1200 by Thelma Constantino RN Assistive Device Utilized: gait belt walker Activity Management: activity adjusted per tolerance Goal: Absence of Infection Signs and Symptoms Outcome: Progressing Intervention: Prevent or Manage Infection Recent Flowsheet Documentation Taken 04/11/2025 1200 by Thelma Constantino RN Infection Management: aseptic technique maintained Goal: Intact Neurovascular Status Outcome: Progressing Goal: Anesthesia/Sedation Recovery Outcome: Progressing Intervention: Optimize Anesthesia Recovery Recent Flowsheet Documentation Taken 04/11/2025 1200 by Thelma Constantino RN Safety Promotion/Fall Prevention: activity supervised Administration (IS): instruction provided, follow-up Goal: Optimal Pain Control and Function Outcome: Progressing Goal: Nausea and Vomiting Relief Outcome: Progressing Intervention: Prevent or Manage Nausea and Vomiting Recent Flowsheet Documentation Taken 04/11/2025 1200 by Thelma Constantino RN Nausea/Vomiting Interventions: antiemetic Goal: Effective Urinary Elimination Outcome: Progressing Goal: Effective Oxygenation and Ventilation Outcome: Progressing Intervention: Optimize Oxygenation and Ventilation Recent Flowsheet Documentation Taken 04/11/2025 1200 by Thelma Constantino RN Cough And Deep Breathing: done with encouragement Activity Management: activity adjusted per tolerance Problem: Orthopaedic Fracture Goal: Absence of Bleeding Outcome: Progressing Intervention: Monitor and Manage Fracture Bleeding Recent Flowsheet Documentation Taken 04/11/2025 1200 by Thelma Constantino RN Bleeding Management: dressing monitored Goal: Bowel Elimination Outcome: Progressing Intervention: Promote Effective Bowel Elimination Recent Flowsheet Documentation Taken 04/11/2025 1200 by Thelma Constantino RN Bowel Elimination Management: relaxation techniques promoted hygiene measures promoted Bowel Elimination Promotion: adequate fluid intake promoted ambulation promoted Goal: Absence of Embolism Signs and Symptoms Outcome: Progressing Intervention: Prevent or Manage Embolism Risk Recent Flowsheet Documentation Taken 04/11/2025 1200 by Thelma Constnatino RN VTE Prevention/Management: (to Rle, OFF to LLe) other (see comments) SCDs on (sequential compression devices) Goal: Fracture Stability Outcome: Progressing Goal: Optimal Functional Ability Outcome: Progressing Intervention: Optimize Functional Ability Recent Flowsheet Documentation Taken 04/11/2025 1200 by Thelma Constantino RN Activity Management: activity adjusted per tolerance Positioning/Transfer Devices: pillows in use Goal: Absence of Infection Signs and Symptoms Outcome: Progressing Intervention: Prevent or Manage Infection Recent Flowsheet Documentation Taken 04/11/2025 1200 by Thelma Constantino RN Infection Management: aseptic technique maintained Goal: Effective Tissue Perfusion Outcome: Progressing Goal: Optimal Pain Control and Function Outcome: Progressing Goal: Effective Oxygenation and Ventilation Outcome: Progressing Intervention: Promote Airway Secretion Clearance Recent Flowsheet Documentation Taken 04/11/2025 1200 by Thelma Constantino RN Cough And Deep Breathing: done with encouragement Activity Management: activity adjusted per tolerance Intervention: Optimize Oxygenation and Ventilation Recent Flowsheet Documentation Taken 04/11/2025 1200 by Thelma Constantino RN Fluid/Electrolyte Management: fluids provided * Plan of Care - Lucy Knox RN - 04/11/2025 11:54 AM CDT Goal Outcome Evaluation: Plan of Care Reviewed With: patient, spouse, child Outcome Evaluation: See Initial Assessment. PT recommends HC PT. Patient and family agree. referralsent. Cm to monitor for HC acceptance. * Plan of Care - Taiwo Caba RN - 04/11/2025 5:02 AM CDT Goal Outcome Evaluation: Plan of Care Reviewed With: patient Overall Patient Progress: improvingOverall Patient Progress: improving Outcome Evaluation: VSS on 2L. AOx4. Capno on. Infusing LR. Brace on w/pillows under calf to elevate heel. No pillows under knee. Leg straight. External cath. Gave Oxy, robaxin, and tylenol for pain. Problem: Adult Inpatient Plan of Care Goal: Plan of Care Review Description: The Plan of Care Review/Shift note should be completed every shift. The Outcome Evaluation is a brief statement about your assessment that the patient is improving, declining, or no change. This information will be displayed automatically on your shift note. Outcome: Progressing Flowsheets (Taken 04/11/2025 0126) Outcome Evaluation: VSS on 2L. AOx4. Capno on. Infusing LR. Brace on w/pillows under calf to elevate heel. No pillows under knee. Leg straight. External cath. Gave Oxy, robaxin, and tylenol for pain. Plan of Care Reviewed With: patient Overall Patient Progress: improving Goal: Patient-Specific Goal (Individualized) Description: You can add care plan individualizations to a care plan. Examples of Individualizationmight be: Parent requests to be called daily at 9am for status, I have a hard time hearing out of my right ear, or Do not touch me to wake me up as it startles me. Outcome: Progressing Goal: Absence of Hospital-Acquired Illness or Injury Outcome: Progressing Intervention: Identify and Manage Fall Risk Recent Flowsheet Documentation Taken 04/11/202524 by Taiwo Caba RN Safety Promotion/Fall Prevention: activity supervised Intervention: Prevent Skin Injury Recent Flowsheet Documentation Taken 04/11/202524 by Taiwo Caba RN Body Position: supine, head elevated Intervention: Prevent and Manage VTE (Venous Thromboembolism) Risk Recent Flowsheet Documentation Taken 04/11/202524 by Taiwo Caba, RN VTE Prevention/Management: (to Rle, OFF to LLe) other (see comments) SCDs on (sequential compression devices) Intervention: Prevent Infection Recent Flowsheet Documentation Taken 04/11/202524 by Taiwo Caba RN Infection Prevention: rest/sleep promoted Goal: Optimal Comfort and Wellbeing Outcome: Progressing Intervention: Monitor Pain and Promote Comfort Recent Flowsheet Documentation Taken 04/11/202524 by Taiwo Caba continuous improvement manager Interventions: medication (see MAR) care clustered emotional support pain management plan reviewed with patient/caregiver quiet environment facilitated rest Goal: Readiness for Transition of Care Outcome: Progressing * Plan of Care - Nadya Contreras RN - 04/10/2025 10:29 PM CDT Goal Outcome Evaluation: Plan of Care Reviewed With: patient Overall Patient Progress: improvingOverall Patient Progress: improving Outcome Evaluation: pt is on CAPNO monitoring.on 2 L Oxygen . IV LR infusing. dressing CDI. Brace on. voiding via external catheter. TTWB to LLE. tolerated diet. discharge TBD. Pt is A&OX4, drowsy. LS CTA. No c/o N/V. Abdomen soft. BS hypoactive.IV CDI , LR infusing to RUE.KIM wraps on to LLE. Dressing CDI. Hinged brace applied by orthotics today. Pt is able to wiggle toes, no dorsiflex, said still has numbness.sensation returning slowly. PPP. Pt was able to Dangel LEs. Viding via external catheter. PVR was 7ml. Rated her pain 6/10. PRN Robaxin and Atrax and scheduled Tylenol was given. Pt is TTWB to LLE. Problem: Adult Inpatient Plan of Care Goal: Plan of Care Review Description: The Plan of Care Review/Shift note should be completed every shift. The Outcome Evaluation is a brief statement about your assessment that the patient is improving, declining, or no change. This information will be displayed automatically on your shift note. Outcome: Progressing Flowsheets (Taken 04/10/20252225) Outcome Evaluation: pt is on CAPNO monitoring.on 2 L Oxygen . IV LR infusing. dressing CDI. Brace on. voiding via external catheter. TTWB to LLE. tolerated diet. discharge TBD. Plan of Care Reviewed With: patient Overall Patient Progress: improving Goal: Patient-Specific Goal (Individualized) Description: You can add care plan individualizations to a care plan. Examples of Individualizationmight be: Parent requests to be called daily at 9am for status, I have a hard time hearing out of my right ear, or Do not touch me to wake me up as it startles me. Outcome: Progressing Goal: Absence of Hospital-Acquired Illness or Injury Outcome: Progressing Intervention: Identify and Manage Fall Risk Recent Flowsheet Documentation Taken 04/10/2025 1800 by Nadya Contreras RN Safety Promotion/Fall Prevention: activity supervised Intervention: Prevent and Manage VTE (Venous Thromboembolism) Risk Recent Flowsheet Documentation Taken 04/10/2025 1800 by Nadya Contreras RN VTE Prevention/Management: SCDs off (sequential compression devices) Intervention: Prevent Infection Recent Flowsheet Documentation Taken 04/10/2025 1800 by Nadya Contreras RN Infection Prevention: rest/sleep promoted Goal: Optimal Comfort and Wellbeing Outcome: Progressing Intervention: Monitor Pain and Promote Comfort Recent Flowsheet Documentation Taken 04/10/20252120 by Nadya Contreras RN Pain Management Interventions: medication (see MAR) Goal: Readiness for Transition of Care Outcome: Progressing Problem: Knee Arthroplasty Goal: Optimal Coping Outcome: Progressing Goal: Absence of Bleeding Outcome: Progressing Goal: Effective Bowel Elimination Outcome: Progressing Goal: Fluid and Electrolyte Balance Outcome: Progressing Goal: Optimal Functional Ability Outcome: Progressing Intervention: Promote Optimal Functional Status Recent Flowsheet Documentation Taken 04/10/20252120 by Nadya Contreras RN Activity Management: activity adjusted per tolerance Goal: Absence of Infection Signs and Symptoms Outcome: Progressing Goal: Intact Neurovascular Status Outcome: Progressing Goal: Anesthesia/Sedation Recovery Outcome: Progressing Intervention: Optimize Anesthesia Recovery Recent Flowsheet Documentation Taken 04/10/2025 1800 by Nadya Contreras RN Safety Promotion/Fall Prevention: activity supervised Administration (IS): instruction provided, follow-up Level Incentive Spirometer (mL): 1200 Number of Repetitions (IS): 3 Goal: Optimal Pain Control and Function Outcome: Progressing Intervention: Prevent or Manage Pain Recent Flowsheet Documentation Taken 04/10/20252120 by Nadya Contreras RN Pain Management Interventions: medication (see MAR) Goal: Nausea and Vomiting Relief Outcome: Progressing Goal: Effective Urinary Elimination Outcome: Progressing Goal: Effective Oxygenation and Ventilation Outcome: Progressing Intervention: Optimize Oxygenation and Ventilation Recent Flowsheet Documentation Taken 04/10/20252120 by Nadya Contreras RN Activity Management: activity adjusted per tolerance Taken 04/10/2025 1800 by Nadya Contreras RN Cough And Deep Breathing: done with encouragement Problem: Orthopaedic Fracture Goal: Absence of Bleeding Outcome: Progressing Goal: Bowel Elimination Outcome: Progressing Goal: Absence of Embolism Signs and Symptoms Outcome: Progressing Intervention: Prevent or Manage Embolism Risk Recent Flowsheet Documentation Taken 04/10/2025 1800 by Nadya Contreras RN VTE Prevention/Management: SCDs off (sequential compression devices) Goal: Fracture Stability Outcome: Progressing Goal: Optimal Functional Ability Outcome: Progressing Intervention: Optimize Functional Ability Recent Flowsheet Documentation Taken 04/10/20252120 by Nadya Contreras RN Activity Management: activity adjusted per tolerance Goal: Absence of Infection Signs and Symptoms Outcome: Progressing Goal: Effective Tissue Perfusion Outcome: Progressing Goal: Optimal Pain Control and Function Outcome: Progressing Intervention: Manage Acute Orthopaedic-Related Pain Recent Flowsheet Documentation Taken 04/10/20252120 by Nadya Contreras RN Pain Management Interventions: medication (see MAR) Goal: Effective Oxygenation and Ventilation Outcome: Progressing Intervention: Promote Airway Secretion Clearance Recent Flowsheet Documentation Taken 04/10/20252120 by Nadya Contreras RN Activity Management: activity adjusted per tolerance Taken 04/10/2025 1800 by Nadya Contreras RN Cough And Deep Breathing: done with encouragement * Plan of Care - Thelma Constantino RN - 04/10/2025 3:55 PM CDT Goal Outcome Evaluation: Plan of Care Reviewed With: patient, spouse, child Overall Patient Progress: improvingOverall Patient Progress: improving Outcome Evaluation: Pt settled on unit. CAPNO in place, weaned 2.0L O2, resting comfortably. Drowsy. and daughter at bedside. Hinged knee brace placed by orthotics. Toe-touch weight bearing on RLE. Not OOB. Due to void. Plan to discharge home when medically ready. * Op Note - Roge Cartwright MD - 04/10/2025 11:19 AM CDT ORTHOPEDIC OPERATIVE NOTE PREOPERATIVE DIAGNOSIS: Left displaced anteromedial tibial plateau fracture POSTOPERATIVE DIAGNOSIS: Same PROCEDURE: Open reduction internal fixation of right anteromedial tibial plateau fracture SURGEON: Roge Cartwright MD DIRECTOR OF CATH LAB: Davie Mari PA-C, whose assistance was required for positioning, exposure, fracture reduction, instrumentation, and closure SPECIMENS: None COMPLICATIONS: None ESTIMATED BLOOD LOSS: 100 mL IMPLANTS: Implant Name Type Inv. Item Serial No. Color Shop Helper Lot No. LRB No. Used Action SCREW CORTEX [id number] - [id number] Metallic Hardware/[place] SCREW CORTEX 3.5X48MM [id number] [employer] 8005 [id number] Left 1 Implanted IMP SCR BONE 3.5MM 55MML TI [address] AXSOS [id number] - [id number] Metallic Hardware/[place] IMP SCR BONE3.5MM 55MML TI [address] AXSOS [id number] [employer] 8005 [id number] Left 1 Implanted IMP SCR STRK AXSOS3 ALFIE ST 3.5X32MM TI [id number] - [id number] Metallic Hardware/[place] IMP SCR STRK AXSOS3 [address]FI[address] 3.5X32MM TI [id number] [employer] 8005 [id number] Left 1 Implanted SCREW BN 48MM 3.5MM LCK TX HD T15 NS PANGEA LF [id number] - [id number] Metallic Hardware/[place] SCREW BN 48MM 3.5MM LCK TX HD T15 NS [place] LF [id number] [employer] 8005 [id number] Left 1 Implanted SCREW BN 55MM 3.5MM LCK TX HD T15 NS PANGEA LF [id number] - [id number] Metallic Hardware/[place] SCREW BN 55MM 3.5MM LCK TX HD T15 NS [place] LF [id number] [employer] 8005 [id number] Left 1 Implanted TOURNIQUET TIME: N/A INDICATIONS: The patient is a 55 year old female who presents with a displaced left anteromedial tibial plateau fracture. Fracture demonstrated on x-rays and CT scan. The patient has a normal neurovascular exam. Given these findings they are an appropriately indicated candidate for open reduction and fixation of the fracture. I discussed the risks benefits and alternatives of surgery/the injury with the patient including risk of infection, wound healing complication, neurovascular, blood loss, DVT PE, malunion, nonunion, stiffness, subsequent arthritis, need for additional surgery, and the medical risks of anesthesia. We discussed benefits including improved chance of union in acceptable alignment. We discussed alternatives including nonoperative management. The informed consent was signed and documented. Met with the patient preoperatively to daniel the operative extremity. OPERATIVE COURSE: The patient underwent regional anesthesia at my request for postoperative pain control. The patient then underwent general anesthesia. Patient was positioned supine with a bump under the buttock and the operative extremity positioned on a ramp. The operative extremity was then prepped and draped in sterile orthopedic fashion using ChloraPrep. The surgical team scrubbed in. Procedural pause was conducted to verify correct patient, correct extremity, presence of the surgeon's initials on the operative extremity, and administration of antibiotics in this case Ancef. Following generalized agreement with the pause, an anterior approach to the knee and proximal tibia was marked,in line with a typical incision for total knee arthroplasty. I incised through skin and subcutaneous tissue sharply and dissected down to the fascia. Subcutaneous flaps were elevated medially and laterally to allow good exposure. The capsule and superficial MCL were incised and the superficial MCL w as elevated very minimally but sufficiently to allow identification of the fracture and adequate exposure. The fat pad was not dissected and we stayed extra-articular with our dissection. The fracture fragments were easily manipulated and manually reduced taking care not to strip them excessively. A Maria Alejandra utility T plate was selected from the [place] small fragment set and contoured to fit the proximal tibia. This was secured at the metaphysis with a 3.5 mm nonlocking cortical bone screw achieving good purchase and buttressing the plate down to the bone adequately. Fluoroscopic imaging at this point demonstrated good reduction of the fracture in good position of the hardware. We then drilled for placed additional nonlocking and locking screws distally and nonlocking and locking screws proximally. All locking screws were placed after the nonlocking screws had been tightened and all locking screws were final tightened with a torque limiting screwdriver. Final fluoroscopic imaging demons trated good reduction of the fracture and good position of all hardware. We thoroughly irrigated. Vancomycin tobramycin powder were placed. We then closed in layers with #1 Vicryl in the fascia, 2-0 Vicryl and subcutaneous tissue, and 3-0 nylon in the skin. Sterile dressings were applied. The patient was transported to recovery room in stable condition, sustaining no complications. POST OP PLAN: Activity: Toe-touch weightbearing x8 weeks postop. Transition from knee immobilizer to hinged knee brace and allow range of motion. ABX: Ancef for 24 hours postop if remaining inpatient, if discharging none required DVT prophylaxis: SCDs and ASA 81 mg p.o. twice daily unless contraindicated Dispo: Anticipate discharge home with follow-up at [facility] in 2 weeks * Plan of Care - Whitney Coreas RN - 04/10/2025 4:47 AM CDT PRIMARY DIAGNOSIS: LEFT TIBIAL FX OUTPATIENT/OBSERVATION GOALS TO BE MET BEFORE DISCHARGE: ADLs back to baseline: No Activity and level of assistance: BEDREST, ASSIST X1 Pain status: Improved but still requiring IV narcotics. Return to near baseline physical activity: No Public Space Attendant Nurse Safe discharge environment identified: Yes Barriers to discharge: Yes Entered by: Whitney Coreas RN 04/10/2025 4:47 AM Initiated Oxygen use after being given dilaudid. O2 sats dropping to low 80's. Pt is now on 2LPM O2via NC. Purewick in place. Pt is bedrest. NPO after midnight Please review provider order for any additional goals. Nurse to notify provider when observation goals have been met and patient is ready for discharge. Goal Outcome Evaluation: Plan of Care Reviewed With: patient Overall Patient Progress: improvingOverall Patient Progress: improving Outcome Evaluation: Pt is alert and orientedx4. 9/10 knee pain. Given IV Dilaudid with good effect.Reg diet, will be NPO after midnight. On bedrest, plan for surgery tomorrow. Orthopedic consult. POC ongoing * Plan of Care - Whitney Coreas RN - 04/10/2025 12:44 AM CDT PRIMARY DIAGNOSIS: LEFT TIBIAL FX OUTPATIENT/OBSERVATION GOALS TO BE MET BEFORE DISCHARGE: ADLs back to baseline: No Activity and level of assistance: BEDREST, ASSIST X1 Pain status: Improved but still requiring IV narcotics. Return to near baseline physical activity: No Public Space Attendant Nurse Safe discharge environment identified: Yes Barriers to discharge: Yes Entered by: Whitney Coreas RN 04/10/2025 12:44 AM Initiated Oxygen use after being given dilaudid. O2 sats dropping to low 80's. Pt is now on 2LPM O2via NC. Purewick in place. Pt is bedrest. NPO after midnight Please review provider order for any additional goals. Nurse to notify provider when observation goals have been met and patient is ready for discharge. Goal Outcome Evaluation: Plan of Care Reviewed With: patient Overall Patient Progress: improvingOverall Patient Progress: improving Outcome Evaluation: Pt is alert and orientedx4. 9/10 knee pain. Given IV Dilaudid with good effect.Reg diet, will be NPO after midnight. On bedrest, plan for surgery tomorrow. Orthopedic consult. POC ongoing * Plan of Care - Whitney Coreas RN - 04/09/2025 8:44 PM CDT PRIMARY DIAGNOSIS: LEFT TIBIAL FX OUTPATIENT/OBSERVATION GOALS TO BE MET BEFORE DISCHARGE: ADLs back to baseline: No Activity and level of assistance: BEDREST, ASSIST X1 Pain status: Improved but still requiring IV narcotics. Return to near baseline physical activity: No Public Space Attendant Nurse Safe discharge environment identified: Yes Barriers to discharge: Yes Entered by: Whitney Coreas RN 04/09/2025 8:44 PM Please review provider order for any additional goals. Nurse to notify provider when observation goals have been met and patient is ready for discharge. Goal Outcome Evaluation: Plan of Care Reviewed With: patient Overall Patient Progress: improvingOverall Patient Progress: improving Outcome Evaluation: Pt is alert and orientedx4. 9/10 knee pain. Given IV Dilaudid with good effect.Reg diet, will be NPO after midnight. On bedrest, plan for surgery tomorrow. Orthopedic consult. POC ongoing * Care Plan - Iain Cruz RN - 04/09/2025 6:54 PM CDT ROOM # 213-1 Living Situation (if not independent, order SW consult): Facility name: salesperson household appliances: Flip(spouse) [phone] Activity level at baseline: ind Activity level on admit: Who will be transporting you at discharge: Family Patient registered to observation; given Patient Bill of Rights; given the opportunity to ask questions about observation status and their plan of care. Patient has been oriented to the observation room, bathroom and call light is in place. Discussed discharge goals and expectations with patient/family. * Pharmacy-Admission Medication History - Ludin Blair RPH - 04/09/2025 5:40 PM CDT Pharmacist Admission Medication History Admission medication history is complete. The information provided in this note is only as accurateas the sources available at the time of the update. Information Source(s): Patient and CareEverywhere/SureScripts via in-person Pertinent Information: - Changes made to [employer] SUPER[employer]OR medication list: Added: all meds Deleted: old meds Changed: None Allergies reviewed with patient and updates made in EHR: yes Medication History Completed By: Ludin Blair RPH 04/09/2025 5:40 PM [employer]PER[employer]OR Med List Medication Sig Last Dose/Taking LEVOTHYROXINE SODIUM PO Take 225 mcg by mouth every morning (before breakfast). 04/08/2025 Morning lisinopril-hydrochlorothiazide (ZESTORETIC) 20-25 MG tablet Take 1 tablet by mouth daily. 04/08/2025Morning documented in this encounter Plan of Treatment Scheduled Referrals Name Type Priority Associated Diagnoses Orde r Schedule Home Care Referral Referral Routine: Next available opening Closed fracture of left tibial plateau, initial encounter Ordered: 04/12/2025 documented as of this encounter Procedures Procedure Name Priority Date/Time Associated Diagnosis Comments PLATELET COUNT Routine 04/16/2025 6:13 AM CDT CREATININE Routine 04/16/2025 6:13 AM CDT PLATELET COUNT Routine 04/13/2025 6:24 AM CDT CREATININE Routine 04/13/2025 6:24 AM CDT US LOWER EXTREMITY VENOUS DUPLEX LEFT STAT 04/12/2025 11:50 AM CDT HEMOGLOBIN Routine 04/12/2025 7:09 AM CDT GLUCOSE Routine 04/12/2025 7:09 AM CDT CBC WITH PLATELETS (LIMITED OCCURRENCES) Routine 04/11/2025 7:11 AM CDT BASIC METABOLIC PANEL (LIMITED OCCURRENCES) Routine 04/11/2025 7:11 AM CDT XR SURGERY BOBBY FLUORO LESS THAN 5 MIN W STILLS Routine 04/10/2025 12:11 PM CDT OPEN REDUCTION INTERNAL FIXATION, FRACTURE, TIBIA, PLATEAU 04/10/2025 10:51 AM CDT Closed fracture of left tibial plateau, initial encounter GLUCOSE BY METER Routine 04/10/2025 8:19 AM CDT BASIC METABOLIC PANEL (LIMITED OCCURRENCES) Routine 04/10/2025 5:19 AM CDT CBC WITH PLATELETS Routine 04/10/2025 5: [address] KNEE LEFT W/O CONTRAST STAT 04/09/2025 4:20 PM CDT XR FEMUR LEFT 2 VIEWS STAT 04/09/2025 3:41 PM CDT XR KNEE LEFT 3 VIEWS STAT 04/09/2025 3:40 PM CDT XR PELVIS 1/2 VIEWS STAT 04/09/2025 3 :39 PM CDT TYPE AND SCREEN, ADULT STAT 04/09/2025 2:24 PM CDT CBC WITH PLATELETS (LIMITED OCCURRENCES) STAT 04/09/2025 2:24 PM CDT BASIC METABOLIC PANEL (LIMITED OCCURRENCES) STAT 04/09/2025 2:24 PM CDT ABO/RH TYPE AND SCREEN STAT 04/09/2025 2:24 PM CDT documented in this encounter Results * Platelet count (04/16/2025 6:13 AM CDT) Pathologist [facility] Platelet Count 280 150 - 450 10e3/uL 04/16/2025 6:37 AM CDT [facility] MCV 92 78 - 100 fL 04/16/2025 6:37 AM CDT [facility] Blood STRUCTURE OF LEFT HAND / Unknown Venipuncture / Unknown 04/16/2025 6:13 AM CDT 04/16/2025 6:30 AM CDT us Moody Oneal MD LAB - BLOOD ORDERABLES Final Res ult [facility] [address] Lab (1st floor, no room number) [place] [address], [facility] * (ABNORMAL) Creatinine (04/16/2025 6:13 AM CDT) Pathologist [facility] Creatinine 1.09(H) 0.51 - 0.95 mg/dL 04/16/2025 6:58 AM CDT [facility] GFR Estimate 59(L) >60 mL/min/1.7 3m2 04/16/2025 6:58 AM CDT [facility] Comment:eGFR calculated usin g 2020 CKD-EPI equation. Blood STRUCTURE OF LEFT HAND / Unknown Venipuncture / Unknown 04/16/2025 6:13 AM CDT 04/16/2025 6:29 AM CDT Davie Mari PA-C LAB - BLOOD ORDERABLES Elly l Result Performing Organization Address City/[facility]/ZIP Co de Phone Number [facility] [address] Lab (1st floor, no room number) [place] [phone] * Platelet count (04/13/2025 6:24 AM CDT) Platelet Count 220 150 - 450 10e3/uL 04/13/2025 6:45 AM CDT LABORATORY MCV 91 78 - 100 fL 04/13/2025 6:45 AM CDT LABORATORY Blood STRUCTURE OF LEFT HAND / Unknown Venipuncture / Unknown 04/13/2025 6:24 AM CDT 04/13/2025 6:38 AM CDT us Moody Oneal MD LAB - BLOOD ORDERABLES Final Res ult Performing Organization Address [facility] Co de Phone Number [facility] [address] Lab (1st floor, no room number) [address] * (ABNORMAL) Creatinine (04/13/2025 6:24 AM CDT) Creatinine 1.11(H) 0.51 - 0.95 mg/dL 04/13/2025 7:04 AM CDT LABORATORY GFR Estimate 58(L) >60 mL/min/1.7 3m2 04/13/2025 7:04 AM CDT [facility] Comment:eGFR calculated usin g 2020 CKD-EPI equation. Blood STRUCTURE OF LEFT HAND / Unknown Venipuncture / Unknown 04/13/2025 6:24 AM CDT 04/13/2025 6:38 AM CDT Davie Mari PA-C LAB - BLOOD ORDERABLES Elly srinivasan Result [facility] [address] Lab (1st floor, no room number) [place] [address], [facility] * US Lower Extremity Venous Duplex Left (04/12/2025 11:50 AM CDT) Anatomical Region Laterality Modality Vascular, Thigh, Leg Ultrasound 04/12/2025 11:5 0 AM CDT Impressions 04/12/2025 11:58 AM CDT IMPRESSION: 1. No deep venous thrombosis in the left lower extremity. Narrative 04/12/2025 11:58 AM CDT EXAM: US LOWER EXTREMITY VENOUS DUPLEX LEFT LOCATION: [facility] DATE: 04/12/2025 INDICATION: calf pain post op knee surgery COMPARISON: None. TECHNIQUE: Venous Duplex ultrasound of the left lower extremity with and without compression, augmentation and duplex. Color flow and spectral Doppler with waveform analysis performed. FINDINGS: Exam includes the common femoral, femoral, popliteal, and contralateral common femoral veins as well as segmentally visualized deep calf veins and greater saphenous vein. LEFT: No deep vein thrombosis. No superficial thrombophlebitis. No popliteal cyst. Procedure Note Deon Valencia MD - 04/12/2025 EXAM: US LOWER EXTREMITY VENOUS DUPLEX LEFT LOCATION: [facility] DATE: 04/12/2025 INDICATION: calf pain post op knee surgery COMPARISON: None. TECHNIQUE: Venous Duplex ultrasound of the left lower extremity with andwithout compression, augmentation and duplex. Color flow and spectralDoppler with waveform analysis performed. FINDINGS: Exam includes the common femoral, femoral, popliteal, andcontralateral common femoral veins as well as segmentally visualized deepcalf veins and greater saphenous vein. LEFT: No deep vein thrombosis. No superficial thrombophlebitis. Nopopliteal cyst. IMPRESSION: 1. No deep venous thrombosis in the left lower extremity. Allison Gibbons PA-C IMG US ORDER [facility] Final Result * Glucose (04/12/2025 7:09 AM CDT) Glucose 97 70 - 99 mg/dL 04/12/2025 7:43 AM CDT LABORATORY Blood STRUCTURE OF RIGHT HAND / Unknown Venipuncture / Unknown 04/12/2025 7:09 AM CDT 04/12/2025 7:21 AM CDT us Lionel Logan MD LAB - BLOOD ORDERABLES Final Result LABORATORY [facility] [address] Lab (1st floor, no room number) [address] * (ABNORMAL) Hemoglobin (04/12/2025 7:09 AM CDT) Hemoglobin 8.6(L) 11.7 - 15.7 g/dL 04/12/2025 7:25 AM CDT LABORATORY MCV 91 78 - 100 fL 04/12/2025 7:25 AM CDT LABORATORY Blood STRUCTURE OF RIGHT HAND / Unknown Venipuncture / Unknown 04/12/2025 7:09 AM CDT 04/12/2025 7:21 AM CDT us Davie Mari PA-C LAB - BLOOD ORDERABLES Elly l Result LABORATORY [facility] [address] Lab (1st floor, no room number) [address] * (ABNORMAL) Basic Metabolic Panel (Limited Occurrences) (04/11/2025 7:11 AM CDT) Sodium 136 135 - 145 mmol/L 04/11/2025 7:48 AM CDT LABORATORY Potassium 4.5 3.4 - 5.3 mmol/L 04/11/2025 7:48 AM CDT LABORATORY Chloride 103 98 - 107 mmol/L 04/11/2025 7:48 AM CDT LABORATORY Carbon Dioxide (CO2) 24 22 - 29 mmol/L 04/11/2025 7:48 AM CDT [facility] Anion Gap 9 7 - 15 mmol/L 04/11/2025 7:48 AM CDT [facility] Urea Nitrogen 18.1 6.0 - 20.0 mg/dL 04/11/2025 7:48 AM CDT [facility] Creatinine 1.11(H) 0.51 - 0.95 mg/dL 04/11/2025 7:48 AM CDT [facility] GFR Estimate 58(L) >60 mL/min/1.7 3m2 04/11/2025 7:48 AM CDT [facility] Comment:eGFR calculated us2020 CKD-EPI equation. Calcium 8.8 8.8 - 10.4 mg/dL 04/11/2025 7:48 AM CDT [facility] Glucose 122(H) 70 - 99 mg/dL 04/11/2025 7:48 AM CDT [facility] Blood STRUCTURE OF RIGHT HAND / Unknown Venipuncture / Unknown 04/11/2025 7:11 AM CDT 04/11/2025 7:21 AM CDT us Andi Mackenzie APRN [employer] OPERATOR LAB - BLOOD ORDERABLE S Final Result LABORATORY [facility] [address] Lab (1st floor, no room number) [place] [address], [facility] * (ABNORMAL) CBC with Platelets (Limited Occurrences) (04/11/2025 7:11 AM CDT) WBC Count 8.4 4.0 - 11.0 10e3/uL 04/11/2025 7:25 AM CDT [facility] RBC Count 3.44(L) 3.80 - 5.20 10e6/uL 04/11/2025 7:25 AM CDT [facility] Hemoglobin 10.0(L) 11.7 - 15.7 g/dL 04/11/2025 7:25 AM CDT [facility] Hematocrit 31.8(L) 35.0 - 47.0 % 04/11/2025 7:25 AM CDT [facility] MCV 92 78 - 100 fL 04/11/2025 7:25 AM CDT [facility] MCH 29.1 26.5 - 33.0 pg 04/11/2025 7:25 AM CDT [facility] MCHC 31.4(L) 31.5 - 36.5 g/dL 04/11/2025 7:25 AM CDT [facility] RDW 14.3 10.0 - 15.0 % 04/11/2025 7:25 AM CDT [facility] Platelet Count 230 150 - 450 10e3/uL 04/11/2025 7:25 AM CDT [facility] Blood STRUCTURE OF RIGHT HAND / Unknown Venipuncture / Unknown 04/11/2025 7:11 AM CDT 04/11/2025 7:21 AM CDT Andi Mackenzie APRN [employer] OPERATOR LAB - BLOOD ORDERABLE S Final Result LABORATORY [facility] [address] Lab (1st floor, no room number) [place] [address] * XR Surgery BOBBY L/T 5 Min Fluoro w Stills (04/10/2025 12:11 PM CDT) Anatomical Region Laterality Modality Abdomen/Pelvis Radio Fluoroscop y 04/10/2025 12:1 1 PM CDT Impressions 04/10/2025 1:22 PM CDT IMPRESSION: Two fluoroscopic images acquired by the clinical service for ORIF of the left tibial plateau. Anatomic alignment. Narrative 04/10/2025 1:22 PM CDT EXAM: XR SURGERY C-ARM FLUORO LESS THAN 5 MIN W STILLS LOCATION: [facility] DATE: 04/10/2025 INDICATION: ORIF left tibial plateau. COMPARISON: None. TECHNIQUE: Intraoperative fluoroscopy performed during the patient's procedure. RADIATION DOSE: Dose Area Product 0.8377 mGy-cm2. Procedure Note Deon Ghosh MD - 04/10/2025 EXAM: XR SURGERY C-ARM FLUORO LESS THAN 5 MIN W STILLS LOCATION: [facility] DATE: 04/10/2025 INDICATION: ORIF left tibial plateau. COMPARISON: None. TECHNIQUE: Intraoperative fluoroscopy performed during the patient'sprocedure. RADIATION DOSE: Dose Area Product 0.8377 mGy-cm2. IMPRESSION: Two fluoroscopic images acquired by the clinical service for ORIF of theleft tibial plateau. Anatomic alignment. us Moody Oneal MD IMG DIAGNOSTIC IMAGING ORDERABLE S Final Result * Glucose by meter (04/10/2025 8:19 AM CDT) Pathologist [facility] GLUCOSE BY METER POCT 73 70 - 99 mg/dL 04/10/2025 8:25 AM CDT [facility] POC Comment:Dr/RN Notified Blood, Capillary BLOOD SPECIMEN / Unknown 04/10/2025 8:19 AM CDT 04/10/2025 8:25 AM CDT us Moody Oneal MD LAB - BEAKER POCT Final Result Performing Organization Address City/State/[facility] Co de Phone Number [facility] [address] Lab (1st floor, no room number) [place] [address], [facility] * (ABNORMAL) CBC with platelets (04/10/2025 5:19 AM CDT) Pathologist [facility] WBC Count 6.4 4.0 - 11.0 10e3/uL 04/10/2025 5:28 AM CDT [facility] RBC Count 3.31(L) 3.80 - 5.20 10e6/uL 04/10/2025 5:28 AM CDT [facility] Hemoglobin 9.7(L) 11.7 - 15.7 g/dL 04/10/2025 5:28 AM CDT [facility] Hematocrit 30.1(L) 35.0 - 47.0 % 04/10/2025 5:28 AM CDT [facility] MCV 91 78 - 100 fL 04/10/2025 5:28 AM CDT [facility] MCH 29.3 26.5 - 33.0 pg 04/10/2025 5:28 AM CDT [facility] MCHC 32.2 31.5 - 36.5 g/dL 04/10/2025 5:28 AM CDT [facility] RDW 14.4 10.0 - 15.0 % 04/10/2025 5:28 AM CDT LABORATORY Platelet Count 225 150 - 450 10e3/uL 04/10/2025 5:28 AM CDT LABORATORY Blood BLOOD SPECIMEN / Unknown Venipuncture / Unknown 04/10/2025 5:19 AM CDT 04/10/2025 5:22 AM CDT us Moody Oneal MD LAB - BLOOD ORDERABLES Final Res ult LABORATORY [facility] [address] Lab (1st floor, no room number) [place] [address] * (ABNORMAL) Basic Metabolic Panel (Limited Occurrences) (04/10/2025 5:19 AM CDT) Sodium 137 135 - 145 mmol/L 04/10/2025 5:50 AM CDT LABORATORY Potassium 4.2 3.4 - 5.3 mmol/L 04/10/2025 5:50 AM CDT LABORATORY Chloride 105 98 - 107 mmol/L 04/10/2025 5:50 AM CDT LABORATORY Carbon Dioxide (CO2) 23 22 - 29 mmol/L 04/10/2025 5:50 AM CDT LABORATORY Anion Gap 9 7 - 15 mmol/L 04/10/2025 5:50 AM CDT LABORATORY Urea Nitrogen 22.9(H) 6.0 - 20.0 mg/dL 04/10/2025 5:50 AM CDT LABORATORY Creatinine 1.03(H) 0.51 - 0.95 mg/dL 04/10/2025 5:50 AM CDT LABORATORY GFR Estimate 63 >60 mL/min/1.7 3m2 04/10/2025 5:50 AM CDT LABORATORY Comment:eGFR calculated usin 2020 CKD-EPI equation. Calcium 8.4(L) 8.8 - 10.4 mg/dL 04/10/2025 5:50 AM CDT LABORATORY Glucose 105(H) 70 - 99 mg/dL 04/10/2025 5:50 AM CDT LABORATORY Blood BLOOD SPECIMEN / Unknown Venipuncture / Unknown 04/10/2025 5:19 AM CDT 04/10/2025 5:22 AM CDT us Moody Oneal MD LAB - BLOOD ORDERABLES Final Res ult LABORATORY [facility] [address] Lab (1st floor, no room number) [place] [address] * CT Knee Left w/o Contrast (04/09/2025 4:20 PM CDT) Anatomical Region Laterality Modality Left Knee, SUBRAD CT MSK, UMP CT MSK, RAD CT Computed Tomography 04/09/2025 4:20 PM CDT Impressions 04/09/2025 4:35 PM CDT IMPRESSION: 1. Acute comminuted impacted intra-articular fracture along the anterior aspect of the medial tibial plateau. 2. Acute avulsion fracture along the lateral aspect of the tibial plateau. Pattern is suggestive of a Segond fracture. 3. Acute minimally displaced fracture of the proximal fibula. 4. Large joint effusion with lipohemarthrosis. Narrative 04/09/2025 4:35 PM CDT EXAM: CT KNEE LEFT W/O CONTRAST LOCATION: [facility] DATE: 04/09/2025 INDICATION: cocnern tibial plateau fractures COMPARISON: 04/09/2025 TECHNIQUE: Noncontrast. Axial, sagittal and coronal thin-section reconstruction. Dose reduction techniques were used. FINDINGS: BONES: Acute comminuted impacted intra-articular fracture along the anterior aspect of the medial tibial plateau (series 5 image 70, series 4 image 70). Depression of the articular surface up to 0.2 cm. Fracture planes contact the articular surface at multiple locations. Acute avulsion fracture along the lateral aspect of the tibial plateau (series 4 image 88). Pattern is suggestive of a Segond fracture. Acute minimally displaced fracture of the proximal fibula (series 4 image 108, series 2 image 187). Diffuse osseous demineralization which limits evaluation for nondisplaced fractures and subtle osseous lesions. No aggressive appearing osseous lesions. SOFT TISSUES: Large joint effusion with lipohemarthrosis. Posttraumatic soft tissue edema and blood products along the anterior medial aspect of the knee. No sizable hematoma or organized fluid collection. Procedure Note Rhett Do MD - 04/09/2025 EXAM: CT KNEE LEFT W/O CONTRAST LOCATION: [facility] DATE: 04/09/2025 INDICATION: cocnern tibial plateau fractures COMPARISON: 04/09/2025 TECHNIQUE: Noncontrast. Axial, sagittal and coronal thin-sectionreconstruction. Dose reduction techniques were used. FINDINGS: BONES: Acute comminuted impacted intra-articular fracture along the anterioraspect of the medial tibial plateau (series 5 image 70, series 4 image70). Depression of the articular surface up to 0.2 cm. Fracture planescontact the articular surface at multiple locations. Acute avulsion fracture along the lateral aspect of the tibial plateau(series 4 image 88). Pattern is suggestive of a Segond fracture. Acute minimally displaced fracture of the proximal fibula (series 4 , series 2 image 187). Diffuse osseous demineralization which limits evaluation for nondisplacedfractures and subtle osseous lesions. No aggressive appearing osseouslesions. SOFT TISSUES: Large joint effusion with lipohemarthrosis. Posttraumatic soft tissueedema and blood products along the anterior medial aspect of the knee. Nosizable hematoma or organized fluid collection. IMPRESSION: 1. Acute comminuted impacted intra-articular fracture along the anterioraspect of the medial tibial plateau. 2. Acute avulsion fracture along the lateral aspect of the tibialplateau. Pattern is suggestive of a Segond fracture. 3. Acute minimally displaced fracture of the proximal fibula. 4. Large joint effusion with lipohemarthrosis. Ashley Rodriguez PA-C IMRj CT ORDERABLES Final Result * XR Femur Left 2 Views (04/09/2025 3:41 PM CDT) Anatomical Region Laterality Modality Hip, Thigh, Knee Left Digital Radiogr aphy 04/09/2025 3:41 PM CDT Impressions 04/09/2025 3:45 PM CDT IMPRESSION: Cortical irregularity of the medial tibial plateau suspicious for a comminuted intra-articular fracture. Small knee joint effusion with a fluid/fluid level likely representing a lipohemarthrosis. CT is recommended to confirm these findings. Cortical irregularity of the fibular head likely a nondisplaced fracture. Demineralization. No fracture of the more proximal left femur. Mild left sacroiliac joint osteoarthritis. Narrative 04/09/2025 3:45 PM CDT EXAM: XR KNEE LEFT 3 VIEWS, XR FEMUR LEFT 2 VIEWS LOCATION: [facility] DATE: 04/09/2025 INDICATION: fall, pain COMPARISON: None. Procedure Note Adrián Berg MD - 04/09/2025 EXAM: XR KNEE LEFT 3 VIEWS, XR FEMUR LEFT 2 VIEWS LOCATION: [facility] DATE: 04/09/2025 INDICATION: fall, pain COMPARISON: None. IMPRESSION: Cortical irregularity of the medial tibial plateau suspiciousfor a comminuted intra-articular fracture. Small knee joint effusion witha fluid/fluid level likely representing a lipohemarthrosis. CT isrecommended to confirm these findings. Cortical irregularity of the fibular head likely a nondisplacedfracture. Demineralization. No fracture of the more proximal left femur. Mild leftsacroiliac joint osteoarthritis. Ashley Rodriguez PA-C IMRj DIAGNOSTIC IMAGING O ANNERANORBERT Final Result * XR Knee Left 3 Views (04/09/2025 3:40 PM CDT) Anatomical Region Laterality Modality Thigh, Knee, Leg Left Digital Radiogr aphy 04/09/2025 3:40 PM CDT Impressions 04/09/2025 3:45 PM CDT IMPRESSION: Cortical irregularity of the medial tibial plateau suspicious for a comminuted intra-articular fracture. Small knee joint effusion with a fluid/fluid level likely representing a lipohemarthrosis. CT is recommended to confirm these findings. Cortical irregularity of the fibular head likely a nondisplaced fracture. Demineralization. No fracture of the more proximal left femur. Mild left sacroiliac joint osteoarthritis. Narrative 04/09/2025 3:45 PM CDT EXAM: XR KNEE LEFT 3 VIEWS, XR FEMUR LEFT 2 VIEWS LOCATION: [facility] DATE: 04/09/2025 INDICATION: fall, pain COMPARISON: None. Procedure Note Adrián Berg MD - 04/09/2025 EXAM: XR KNEE LEFT 3 VIEWS, XR FEMUR LEFT 2 VIEWS LOCATION: [facility] DATE: 04/09/2025 INDICATION: fall, pain COMPARISON: None. IMPRESSION: Cortical irregularity of the medial tibial plateau suspiciousfor a comminuted intra-articular fracture. Small knee joint effusion witha fluid/fluid level likely representing a lipohemarthrosis. CT isrecommended to confirm these findings. Cortical irregularity of the fibular head likely a nondisplacedfracture. Demineralization. No fracture of the more proximal left femur. Mild leftsacroiliac joint osteoarthritis. Ashley Rodriguez PA-C IMRj DIAGNOSTIC IMAGING O RDERABLES Final Result * XR Pelvis 1/2 Views (04/09/2025 3:39 PM CDT) Anatomical Region Laterality Modality Abdomen/Pelvis Digital Radiogra phy 04/09/2025 3:39 PM CDT Impressions 04/09/2025 3:43 PM CDT IMPRESSION: Bilateral acetabular marginal osteophytes. No hip joint space narrowing. 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 Lower lumbar facet arthropathy. No definite fracture or dislocation on a single view of the pelvis. Narrative 04/09/2025 3:43 PM CDT EXAM: XR PELVIS 1/2 VIEWS LOCATION: [facility] DATE: 04/09/2025 INDICATION: fall, pain COMPARISON: Correlation with same day radiographs. Procedure Note Raudel Cardoso DO - 04/09/2025 EXAM: XR PELVIS 1/2 VIEWS LOCATION: [facility] DATE: 04/09/2025 INDICATION: fall, pain COMPARISON: Correlation with same day radiographs. IMPRESSION: Bilateral acetabular marginal osteophytes. No hip joint spacenarrowing. 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 Lower lumbarfacet arthropathy. No definite fracture or dislocation on a single view ofthe pelvis. Ashley Rodriguez PA-C IMG DIAGNOSTIC IMAGING O RDERABLES Final Result * Adult Type and Screen (04/09/2025 2:24 PM CDT) ABO/RH(D) O POS 04/09/2025 2:11 PM CDT [facility] BLOOD BANK Antibody Screen Negative Negative 04/09/2025 2:11 PM CDT [facility] SPECIMEN EXPIRATION DATE 04/12/2025 11:59:00 PM CDT 04/09/2025 2:11 PM CDT [facility] BLO[facility] B[facility] Blood BLOOD SPECIMEN / Unknown Venipuncture / Unknown 04/09/2025 2:24 PM CDT 04/09/2025 2:29 PM CDT Ashley Rodriguez PA-C LAB - BLOOD BANK TEST OR ROXY Edited Result - Final BLOOD BANK [address] [place] [address], [facility] * (ABNORMAL) Basic Metabolic Panel (Limited Occurrences) (04/09/2025 2:24 PM CDT) Sodium 136 135 - 145 mmol/L 04/09/2025 2:56 PM CDT LABORATORY Potassium 4.2 3.4 - 5.3 mmol/L 04/09/2025 2:56 PM CDT LABORATORY Chloride 100 98 - 107 mmol/L 04/09/2025 2:56 PM CDT LABORATORY Carbon Dioxide (CO2) 21(L) 22 - 29 mmol/L 04/09/2025 2:56 PM CDT LABORATORY Anion Gap 15 7 - 15 mmol/L 04/09/2025 2:56 PM CDT LABORATORY Urea Nitrogen 24.2(H) 6.0 - 20.0 mg/dL 04/09/2025 2:56 PM CDT LABORATORY Creatinine 1.09(H) 0.51 - 0.95 mg/dL 04/09/2025 2:56 PM CDT LABORATORY GFR Estimate 59(L) >60 mL/min/1.7 3m2 04/09/2025 2:56 PM CDT [facility] Comment:eGFR calculated 2020 CKD-EPI equation. Calcium 9.6 8.8 - 10.4 mg/dL 04/09/2025 2:56 PM CDT [facility] Glucose 122(H) 70 - 99 mg/dL 04/09/2025 2:56 PM CDT [facility] Blood BLOOD SPECIMEN / Unknown Venipuncture / Unknown 04/09/2025 2:24 PM CDT 04/09/2025 2:29 PM CDT Ashley Rodriguez PA-C LAB - BLOOD ORDERABLES F inal Result RH LABORATORY [facility] [address] Lab (1st floor, no room number) [place] [address], [facility] * (ABNORMAL) CBC with Platelets (Limited Occurrences) (04/09/2025 2:24 PM CDT) WBC Count 9.1 4.0 - 11.0 10e3/uL 04/10/2025 2:04 AM CDT [facility] RBC Count 3.94 3.80 - 5.20 10e6/uL 04/10/2025 2:04 AM CDT [facility] Hemoglobin 11.5(L) 11.7 - 15.7 g/dL 04/10/2025 2:04 AM CDT [facility] Hematocrit 35.4 35.0 - 47.0 % 04/10/2025 2:04 AM CDT [facility] MCV 90 78 - 100 fL 04/10/2025 2:04 AM CDT [facility] MCH 29.2 26.5 - 33.0 pg 04/10/2025 2:04 AM CDT [facility] MCHC 32.5 31.5 - 36.5 g/dL 04/10/2025 2:04 AM CDT [facility] RDW 14.0 10.0 - 15.0 % 04/10/2025 2:04 AM CDT [facility] Platelet Count 310 150 - 450 10e3/uL 04/10/2025 2:04 AM CDT [facility] Blood BLOOD SPECIMEN / Unknown Venipuncture / Unknown 04/09/2025 2:24 PM CDT 04/10/2025 1:55 AM CDT Ashley Rodriguez PA-C LAB - BLOOD ORDERABLES F inal Result [facility] [address] Lab (1st floor, no room number) [place] [address], [facility] documented in this encounter Visit Diagnoses Diagnosis Closed fracture of left tibial plateau, initial encounter- Primary Closed fracture of left tibial plateau, initial encounter Closed fracture of proximal end of left fibula, unspecified fracture morphology, initial encounter Lipohemarthrosis Vitamin D deficiency Unspecified vitamin D deficiency Bariatric surgery status Morbid obesity (H) Morbid obesity ELEONORA (obstructive sleep apnea) Obstructive sleep apnea (adult) (pediatric) Acute hypoxemic respiratory failure (H) documented in this encounter Admitting Diagnoses Diagnosis Closed fracture of left tibial plateau, initial encounter Acute hypoxemic respiratory failure (H) documented in this encounter Administered Medications Inactive Administered Medications - up to 3 most recent administrations Medication Order MAR Action Action Date Dose Rate Site acetaminophen (TYLENOL) Suppository 650 mg 650 mg, Rectal, EVERY 4 HOURS PRN, mild pain, other, and adjunct with moderate or severe pain or per patient request, Starting on Tue04/09/25 at 1999, Alternate with ibuprofen if ordered. Maximum acetaminophen dose from all sources = 75 mg/kg/day not to exceed 4 grams/day. acetaminophen (TYLENOL) tablet 1,000 mg 1,000 mg, Oral, ONCE, On Tue04/09/25 at 1415, For 1 dose, Maximum acetaminophen dose from all sources = 75 mg/kg/day not to exceed 4 gram $Given 04/09/2025 2:21 PM CDT 1,000 mg acetaminophen (TYLENOL) tablet 650 mg 650 mg, Oral, EVERY 4 HOURS PRN, mild pain, other, and adjunct with moderate or severe pain or per patient request, Starting on Tue04/09/25 at 1999, Alternate with ibuprofen if ordered. Maximum acetaminophen dose from all sources = 75 mg/kg/day not to exceed 4 grams/day. $Given 04/17/2025 12:27 AM CDT 650 mg $Given 04/14/2025 12:56 AM CDT 650 mg $Given 04/11/2025 12:26 AM CDT 650 mg acetaminophen (TYLENOL) tablet 975 mg 975 mg, Oral, EVERY 8 HOURS, First dose on Tue04/10/25 at 1330, Administer for multimodal surgical pain management. Maximum dose of 2 grams/day for patients with liver disease or excessive alcohol use. Maximum acetaminophen dose from all sources = 75 mg/kg/day not to exceed 4 grams/day. $Given 04/17/2025 3:36 AM CDT 975 mg $Given 04/16/2025 7:35 PM CDT 975 mg $Given 04/16/2025 11:38 AM CDT 975 mg benzocaine-menthol (CHLORASEPTIC) 6-10 MG lozenge 1 lozenge 1 lozenge, Buccal, EVERY 1 HOUR PRN, sore throat, sore throat without fever, Starting on Tue04/10/25 at 1439 ceFAZolin (ANCEF) 2 g in dextrose 50 mL intermittent infusion Routine, 2 g, Intravenous, EVERY 8 HOURS, First dose on Tue04/10/25 at 1800, For 2 doses, First post-op dose due 8 hours after intra-op dose, see eMAR. , Indications: Perioperative PharmacoprophylaxisIndications:Perioperative Pharmacoprophylaxis $New Bag 04/11/2025 1:07 AM CDT 2 g $New Bag 04/10/2025 6:15 PM CDT 2 g celecoxib (celeBREX) capsule 100 mg 100 mg, Oral, 2 TIMES DAILY PRN, inflammatory pain, Starting on Tue04/12/25 at 0943 $Given 04/15/2025 10:29 AM CDT 100 mg $Given 04/14/2025 10:18 PM CDT 100 mg $Given 04/14/2025 9:25 AM CDT 100 mg enoxaparin ANTICOAGULANT (LOVENOX) injection 40 mg 40 mg, Subcutaneous, EVERY 24 HOURS, First dose on Tue04/11/25 at 0900, Check to make sure start date/time is 12-24 hours post op unless documented complication. Continue until discharge to home. HOLD if platelet count drops by 50% or more after enoxaparin initiation OR if platelet count falls below 50 x 10e3/uL and notify provider. $Given 04/17/2025 8:42 AM CDT 40 mg $Given 04/16/2025 8:27 AM CDT 40 mg $Given 04/15/2025 8:13 AM CDT 40 mg fentaNYL (PF) (SUBLIMAZE) injection 50 mcg 50 mcg, Intravenous, EVERY 5 MIN PRN, severe pain, Give fentaNYL (SUBLIMAZE) first if HYDROmorphone (DILAUDID) also ordered., Starting on Tue04/10/25 at 1222, Administer fentaNYL (SUBLIMAZE) for acute pain control. Move to HYDROmorphone (DILAUDID): - IF patient has received up to 200 mcg of fentaNYL (SUBLIMAZE), OR - IF patient has received 2 doses of fentaNYL (SUBLIMAZE) AND continues to have severe pain (pain score greater than or equal to seven (7) or is unable to participate in post op recovery due to pain. Wait 5 minutes AFTER last fentaNYL (SUBLIMAZE) dose before administering HYDROmorphone (DILADUDID). Postop Anesthesia Phase I only. Notify Provider to assess for uncontrolled pain or analgesic side effects. DO NOT revert back to fentanyl (SUBLIMAZE) after administering HYDROmorphone (DILAUDID)., PACU $Given 04/10/2025 12:40 PM CDT 50 mcg $Given 04/10/2025 12:35 PM CDT 50 mcg fentaNYL (PF) (SUBLIMAZE) injection 50 mcg 50 mcg, Intravenous, EVERY 30 MIN PRN, severe pain, Administer over 3-5 Minutes, Starting on Tue04/10/25 at 0840, For 2 doses $Given 04/10/2025 10:18 AM CDT 50 mcg $Given 04/10/2025 8:43 AM CDT 50 mcg ferrous sulfate (FEROSUL) tablet 325 mg 325 mg, Oral, DAILY, First dose on Tue04/10/25 at 1730, Absorbed best on an empty stomach. If stomach upset occurs, can take with meals. $Given 04/17/2025 8:38 AM CDT 325 mg $Given 04/16/2025 8:26 AM CDT 325 mg $Given 04/14/2025 8:47 AM CDT 325 mg hydrALAZINE (APRESOLINE) injection 10 mg 10 mg, Intravenous, EVERY 6 HOURS PRN, high blood pressure, SBP >/= 190 and/or DBP >/= 95., Administer over 1 Minutes, Starting on Tue04/10/25 at 1703 HYDROmorphone (DILAUDID) injection 0.2 mg 0.2 mg, Intravenous, EVERY 2 HOURS PRN, moderate pain, Starting on Tue04/10/25 at 1439, IF patient unable to take oral pain medication or pain not controlled with oral analgesics. Hold IV PRN opioid dose for analgesic side effects. Notify provider to assess for uncontrolled pain or analgesic side effects. $Given 04/11/2025 11:48 AM CDT 0.2 mg HYDROmorphone (DILAUDID) injection 0.4 mg 0.4 mg, Intravenous, EVERY 2 HOURS PRN, severe pain, Starting on Tue04/10/25 at 1439, IF patient unable to take oral pain medication or pain not controlled with oral analgesics. Hold IV PRN opioid dose for analgesic side effects. Notify provider to assess for uncontrolled pain or analgesic side effects. $Given 04/11/2025 5:04 PM CDT 0.4 mg HYDROmorphone (DILAUDID) injection 0.4 mg 0.4 mg, Intravenous, EVERY 5 MIN PRN, severe pain, Starting on Tue04/10/25 at 1222, Use FentaNYL (SUBLIMAZE) first if ordered. Maximum total cumulative dose NOT to exceed 2 mg. DO NOT revert back to fentanyl (SUBLIMAZE) after administering HYDROmorphone (DILAUDID). Notify Provider to assess for uncontrolled pain or analgesic side effects., PACU $Given 04/10/2025 1:12 PM CDT 0.4 mg HYDROmorphone (DILAUDID) injection 1 mg 1 mg, Intravenous, EVERY 2 HOURS PRN, severe pain, IF patient cannot take oral opioid OR IF pain not managed with non-pharmacological, non-opioid, or oral opioid interventions if ordered, Starting on Tue04/09/25 at 2000, May use concomitant with non-opioid analgesics. $Given 04/10/2025 6:36 AM CDT 1 mg $Given 04/10/2025 2:45 AM CDT 1 mg $Given 04/09/2025 8:14 PM CDT 1 mg HYDROmorphone (DILAUDID) tablet 2 mg 2 mg, Oral, EVERY 4 HOURS PRN, moderate pain, IF pain not managed with non-pharmacological and non-opioid interventions, Starting on Tue04/09/25 at 2000, May use concomitant with non-opioid analgesics. $Given 04/09/2025 11:44 PM CDT 2 mg HYDROmorphone (PF) (DILAUDID) injection 0.5 mg 0.5 mg, Intravenous, EVERY 15 MIN, First dose on Tue04/09/25 at 1415, For 3 doses $Given 04/09/2025 3:50 PM CDT 0.5 mg $Given 04/09/2025 2:21 PM CDT 0.5 mg hydrOXYzine HCl (ATARAX) tablet 25 mg 25 mg, Oral, EVERY 6 HOURS PRN, other, adjuvant pain, Starting on Tue04/10/25 at 1303 $Given 04/12/2025 8:37 AM CDT 25 mg $Given 04/11/2025 9:03 PM CDT 25 mg $Given 04/11/2025 12:18 PM CDT 25 mg hydrOXYzine HCl (ATARAX) tablet 25 mg 25 mg, Oral, EVERY 6 HOURS, First dose (after last modification) on Tue04/12/25 at 1600 $Given 04/17/2025 10:34 AM CDT 25 mg $Given 04/17/2025 3:37 AM CDT 25 mg $Given 04/16/2025 9:53 PM CDT 25 mg lactated ringers infusion at 125 mL/hr, Intravenous, CONTINUOUS, IF overnight stay, continue IV fluids until 0400 POD #1, then may saline lock if tolerating oral fluids. IF Day of Surgery Discharge, continue IV Fluids until one hour before discharge., Starting on Tue04/10/25 at 1500, Until Tue04/16/25 at 1330 $New Bag 04/11/2025 1:08 AM CDT 125 mL/hr Rate/Dose Change 04/10/2025 6:08 PM CDT 125 mL/ hr $New Bag 04/10/2025 3:04 PM CDT 75 mL/hr lactated ringers infusion at 10 mL/hr, Intravenous, CONTINUOUS, IF patient NOT on dialysis., Pre-procedure, Starting on Tue04/10/25 at 0900, Until Tue04/10/25 at 1222 Restarted 04/10/2025 12:14 PM CDT $New Bag 04/10/2025 8:45 AM CDT 10 mL/hr levothyroxine (SYNTHROID/LEVOTHROID) tablet 225 mcg 225 mcg, Oral, EVERY MORNING BEFORE BREAKFAST, First dose on Tue04/10/25 at 0730 $Given 04/17/2025 6:15 AM CDT 225 mcg $Given 04/16/2025 6:06 AM CDT 225 mcg $Given 04/15/2025 7:09 AM CDT 225 mcg methocarbamol (ROBAXIN) tablet 500 mg 500 mg, Oral, 4 TIMES DAILY PRN, muscle spasms, pain, Starting on Tue04/10/25 at 1654 $Given 04/17/2025 8:36 AM CDT 500 mg $Given 04/16/2025 9:53 PM CDT 500 mg $Given 04/16/2025 6:06 AM CDT 500 mg naloxone (NARCAN) injection 0.2 mg 0.2 mg, Intravenous, EVERY 2 MIN PRN, opioid reversal, Starting on Tue04/09/25 at 2003, Administer intravenous route when available and notify provider when administered. For unintended sedation or respiratory depression if all of the below criteria are met: ~ respiratory rate LESS than or EQUAL to 8. ~SaO2 less than 92% and or/end-tidal CO2 is greater than 50. ~ the patient is receiving an opioid, has unintended sedations assessed as RASS (-3), and is currently not on mechanical ventilation. RASS scale moderate (-3) is movement or eye opening to voice but no eye contact. Patient Monitoring Once the patient has demonstrated a response to the naloxone, continue to monitor respiratory rate, depth, oxygen saturation and end-tidal CO2 (if available) every 15 minutes x 2, then every 30 minutes x 2, then every 1 hour x 1 after each naloxone dose. Consider transfer to ICU if patient respiratory parameters have not improved after 4 naloxone doses. naloxone (NARCAN) injection 0.2 mg 0.2 mg, Intramuscular, EVERY 2 MIN PRN, opioid reversal, Starting on Tue04/09/25 at 2003, Administer intramuscular if an intravenous route is not available and notify provider when administered. For unintended sedation or respiratory depression if all of the below criteria are met: ~ respiratory rate LESS than or EQUAL to 8. ~SaO2 less than 92% and or/end-tidal CO2 is greater than 50. ~ the patient is receiving an opioid, has unintended sedations assessed as RASS (-3), and is currently not on mechanical ventilation. RASS scale moderate (-3) is movement or eye opening to voice but no eye contact. Patient Monitoring Once the patient has demonstrated a response to the naloxone, continue to monitor respiratory rate, depth, oxygen saturation and end-tidal CO2 (if available) every 15 minutes x 2, then every 30 minutes x 2, then every 1 hour x 1 after each naloxone dose. Consider transfer to ICU if patient respiratory parameters have not improved after 4 naloxone doses. naloxone (NARCAN) injection 0.4 mg 0.4 mg, Intravenous, EVERY 2 MIN PRN, opioid reversal, Starting on Tue04/09/25 at 2003, Administer intravenous route when available and notify provider when administered. For unintended sedation or respiratory depression if all of the below criteria are met: ~ respiratory rate LESS than or EQUAL to 8. ~ SaO2 less than 92% and or/end-tidal CO2 is greater than 50. ~ the patient is receiving an opioid, has unintended sedation assessed as RASS (-4) or (-5) and patient is currently not on mechanical ventilation. RASS scale (-4) is deep sedation with no response to voice but movement or eye opening to physical stimulation. RASS scale (-5) is unarousable. Patient Monitoring Once the patient has demonstrated a response to the naloxone, continue to monitor respiratory rate, depth, oxygen saturation and end-tidal CO2 (if available) every 15 minutes x 2, then every 30 minutes x 2, then every 1 hour x 1 after each naloxone dose. Consider transfer to ICU if patient respiratory parameters have not improved after 4 naloxone doses. naloxone (NARCAN) injection 0.4 mg 0.4 mg, Intramuscular, EVERY 2 MIN PRN, opioid reversal, Starting on Tue04/09/25 at 2003, Administer intramuscular if an intravenous route is not available and notify provider when administered. For unintended sedation or respiratory depression if all of the below criteria are met: ~ respiratory rate LESS than or EQUAL to 8. ~ SaO2 less than 92% and or/end-tidal CO2 is greater than 50. ~ the patient is receiving an opioid, has unintended sedation assessed as RASS (-4) or (-5) and patient is currently not on mechanical ventilation. RASS scale (-4) is deep sedation with no response to voice but movement or eye opening to physical stimulation. RASS scale (-5) is unarousable. Patient Monitoring Once the patient has demonstrated a response to the naloxone, continue to monitor respiratory rate, depth, oxygen saturation and end-tidal CO2 (if available) every 15 minutes x 2, then every 30 minutes x 2, then every 1 hour x 1 after each naloxone dose. Consider transfer to ICU if patient respiratory parameters have not improved after 4 naloxone doses. ondansetron (ZOFRAN ODT) ODT tab 4 mg 4 mg, Oral, EVERY 6 HOURS PRN, nausea/vomiting - 1st line, Starting on Tue04/09/25 at 2000, This is Step 1 of nausea and vomiting management. If nausea not resolved in 15 minutes, go to Step 2 prochlorperazine (COMPAZINE). With dry hands, peel back foil backing and gently remove tablet. Do not push oral disintegrating tablet through foil backing. Administer immediately on tongue and oral disintegrating tablet dissolves in seconds, then swallow with saliva. Liquid not required. $Given 04/11/2025 7:33 PM CDT 4 mg $Given 04/11/2025 11:48 AM CDT 4 mg ondansetron (ZOFRAN) injection 4 mg 4 mg, Intravenous, ONCE, Administer over 2-5 Minutes, On Tue04/09/25 at 1700, For 1 dose $Given 04/09/2025 5:00 PM CDT 4 mg ondansetron (ZOFRAN) injection 4 mg 4 mg, Intravenous, EVERY 6 HOURS PRN, nausea/vomiting - 1st line, Administer over 2-5 Minutes, Starting on Tue04/09/25 at 2000, Give IF patient unable to tolerate oral medication. This is Step 1 of nausea and vomiting management. If nausea not resolved in 15 minutes, go to Step 2 prochlorperazine (COMPAZINE). ondansetron (ZOFRAN) injection 4 mg 4 mg, Intravenous, EVERY 30 MIN PRN, nausea/vomiting - 1st line, PACU, Administer over 2-5 Minutes, Starting on Tue04/10/25 at 1222, For 2 doses, This is Step 1 of nausea and vomiting management. If nausea/vomiting not resolved in 15 minutes, then go to Step 2 dexamethasone (DECADRON) IV. MAX total dose = 8 mg, including OR dosing., PACU $Given 04/10/2025 12:33 PM CDT 4 mg oxyCODONE (ROXICODONE) tablet 5 mg 5 mg, Oral, EVERY 4 HOURS PRN, moderate pain, Starting on Tue04/10/25 at 1303, Hold oral PRN dose for analgesic side effects. Notify provider to assess for uncontrolled pain or analgesic side effects. Hold while on IV [employer] or with regular IV opioid dosing. $Given 04/17/2025 12:27 AM CDT 5 mg $Given 04/16/2025 8:26 AM CDT 5 mg $Given 04/13/2025 11:17 PM CDT 5 mg oxyCODONE IR (ROXICODONE) tablet 10 mg 10 mg, Oral, EVERY 4 HOURS PRN, severe pain, Starting on Tue04/10/25 at 1303, Hold oral PRN dose for analgesic side effects. Notify provider to assess for uncontrolled pain or analgesic side effects. Hold while on IV [employer]ERSON or with regular IV opioid dosing. $Given 04/17/2025 10:39 AM CDT 10 mg $Given 04/16/2025 7:35 PM CDT 10 mg $Given 04/16/2025 3:20 PM CDT 10 mg polyethylene glycol (MIRALAX) Packet 17 g 17 g, Oral, DAILY, First dose on Tue04/11/25 at 0800, To prevent constipation. Mixed prescribed dose in 8 ounces of water, juice or soda. Administer daily starting at 0900 on POD 1. Hold for loose stools. 1 Packet = 17 grams. Mix each gram with at least 1/2 ounce (15 mL) of water - 8 ounces for 17 g dose, 4 ounces for 8.5 g dose, 2 ounces for 4 g dose. Follow with the same volume of water. Hold for loose stools unless being administered as part of a bowel prep regimen or bowel clean out. $Given 04/17/2025 8:38 AM CDT 17 g $Given 04/16/2025 8:27 AM CDT 17 g $Given 04/15/2025 8:13 AM CDT 17 g polyethylene glycol (MIRALAX) Packet 17 g 17 g, Oral, 2 TIMES DAILY PRN, constipation, Starting on Tue04/16/25 at 0935, If the patient has multiple PO bowel stimulant agents ordered PRN, offer in the following order per policy. Move to the next available step if the earlier step is ineffective. Step 1 - senna; Step 2 - bisacodyl; Step 3 - milk of magnesia; Step 4 - polyethylene glycol; Step 5 - magnesium citrate. 1 Packet = 17 grams. Mix each gram with at least 1/2 ounce (15 mL) of water - 8 ounces for 17 g dose, 4 ounces for 8.5 g dose, 2 ounces for 4 g dose. Follow with the same volume of water. Hold for loose stools unless being administered as part of a bowel prep regimen or bowel clean out. $Given 04/16/2025 4:53 PM CDT 17 g $Given 04/16/2025 11:39 AM CDT 17 g prochlorperazine (COMPAZINE) injection 5 mg 5 mg, Intravenous, EVERY 6 HOURS PRN, nausea, vomiting, Administer over 1-2 Minutes, Starting on Tue04/11/25 at 1420, If the patient has multiple antiemetics ordered PRN, offer in the following order per policy. Move to the next available step if earlier step is ineffective. Step 1 - ondansetron; Step 2 - prochlorperazine; Step 3 - metoclopramide; Step 4 - promethazine; Step 5 - lorazepam; Step 6 - diphenhydramine. prochlorperazine (COMPAZINE) suppository 25 mg 25 mg, Rectal, EVERY 12 HOURS PRN, nausea, vomiting, Starting on Tue04/11/25 at 1420, If the patient has multiple antiemetics ordered PRN, offer in the following order per policy. Move to the next available step if earlier step is ineffective. Step 1 - ondansetron; Step 2 - prochlorperazine; Step 3 - metoclopramide; Step 4 - promethazine; Step 5 - lorazepam; Step 6 - diphenhydramine. senna-docusate (SENOKOT-S/PERICOLACE) 8.6-50 MG per tablet 1 tablet 1 tablet, Oral, 2 TIMES DAILY, First dose on Tue04/10/25 at 2000, To prevent constipation. Hold for loose stools Hold for loose stools. $Given 04/17/2025 8:37 AM CDT 1 tablet $Given 04/16/2025 7:36 PM CDT 1 tablet $Given 04/16/2025 8:27 AM CDT 1 tablet senna-docusate (SENOKOT-S/PERICOLACE) 8.6-50 MG per tablet 1 tablet 1 tablet, Oral, 2 TIMES DAILY PRN, constipation, Starting on Tue04/16/25 at 0935, If the patient has multiple PO bowel stimulant agents ordered PRN, offer in the following order per policy. Move to the next available step if the earlier step is ineffective. Step 1 - senna; Step 2 - bisacodyl; Step 3 - milk of magnesia; Step 4 - polyethylene glycol; Step 5 - magnesium citrate. Hold for loose stools. $Given 04/16/2025 11:39 A M CDT 1 tablet simethicone (MYLICON) chewable tablet 80 mg 80 mg, Oral, EVERY 6 HOURS PRN, cramping, other, flatulence, gas, Starting on Tue04/12/25 at 0443 $Given 04/12/2025 5:50 AM CDT 80 mg sodium chloride (PF) 0.9% PF flush 3 mL 3 mL, Intracatheter, EVERY 8 HOURS SCHEDULED, First dose on Tue04/09/25 at 2200, to lock peripheral IV dormant line $Given 04/12/2025 5:50 AM CDT 3 m Ls $Given 04/09/2025 8:23 PM CDT 3 mLs sodium chloride (PF) 0.9% PF flush 3 mL 3 mL, Intracatheter, EVERY 8 HOURS SCHEDULED, First dose on Tue04/10/25 at 1500, to lock peripheral IV dormant line $Given 04/12/2025 1:29 PM CDT 3 mLs $Given 04/12/2025 5:50 AM CDT 3 mLs $Given 04/11/2025 9:42 PM CDT 3 mLs sodium chloride (PF) 0.9% PF flush 3 mL 3 mL, Intracatheter, EVERY 1 MIN PRN, line flush, other, to ensure patency or to lock dormant line, Starting on Tue04/10/25 at 1439 $Given 04/11/2025 4:40 PM CDT 3 mLs sodium chloride 0.9 % infusion at 75 mL/hr, Intravenous, CONTINUOUS, Starting on Tue04/10/25 at 0000, Until Tue04/10/25 at 1654 Rate/Dose Verify 04/09/2025 11:45 PM CDT 75 mL/hr $New Bag 04/09/2025 8:15 PM CDT 75 mL/hr sodium chloride 0.9% BOLUS 1,000 mL Intravenous, 1,000 mL, ONCE, at 1,000 mL/hr, Administer over 1 Hours, On Tue04/09/25 at 1505, For 1 dose $New Bag 04/09/2025 3:48 PM CDT 1,000 mLs 1000 mL/hr documented in this encounter Active and Recently Administered Medications Times are shown in CDT. Scheduled Medication Order 04/15/2025 04/16/2025 04/17/2025 acetaminophen (TYLENOL) tablet 975 mg 975 mg, Oral, EVERY 8 HOURS, First dose on Tue04/10/25 at 1330, Administer for multimodal surgical pain management. Maximum dose of 2 grams/day for patients with liver disease or excessive alcohol use. Maximum acetaminophen dose from all sources = 75 mg/kg/day not to exceed 4 grams/day. 0448 ($Given - Provider: Juliette Cooper RN)1255 ($Given - Provider: Thelma Constantino RN)1936 ($Given - Provider: Vibha Quesada RN) 0341 ($Given - Provider: Rachelle Trejo RN)1138 ($Given - Provider: aZyra Yousif, CHANDA)1935 ($Given - Provider: Vibha Quesada RN) 0336 ($Given - Provider: Taiwo Caba RN)1200 (Canceled Entry - Provider: Orders Generic Provider - Comment: Automatically canceled at discontinue of medication order) enoxaparin ANTICOAGULANT (LOVENOX) injection 40 mg 40 mg, Subcutaneous, EVERY 24 HOURS, First dose on Tue04/11/25 at 0900, Check to make sure start date/time is 12-24 hours post op unless documented complication. Continue until discharge to home. HOLD if platelet count drops by 50% or more after enoxaparin initiation OR if platelet count falls below 50 x 10e3/uL and notify provider. 0813 ($Given - Provider: Thelma Constantino RN) 0827 ($Given - Provider: Zayra Yousif, RN) 0842 ($Given - Provider: Zayra Yousif, CHANDA) ferrous sulfate (FEROSUL) tablet 325 mg 325 mg, Oral, DAILY, First dose on Tue04/10/25 at 1730, Absorbed best on an empty stomach. If stomach upset occurs, can take with meals. 0814 (Not Given - Provider: Thelma Constantino RN - Reason: Patient/family refused) 0826 ($Given - Provider: Zayra Yousif, CHANDA) 0838 ($Given - Provider: Zayra Yousif, CHANDA) hydrOXYzine HCl (ATARAX) tablet 25 mg 25 mg, Oral, EVERY 6 HOURS, First dose (after last modification) on Tue04/12/25 at 1600 0448 ($Given - Provider: Juliette Cooper RN)1029 ($Given - Provider: Thelma Constantino RN)1602 ($Given - Provider: Vibha Quesada RN)2150 ($Given - Provider: Vibha Quesada RN) 0341 ($Given - Provider: Rachelle Trejo RN)1022 ($Given - Provider: Zayra Yousif, CHANDA)1649 ($Given - Provider: Vibha Quesada RN)2153 ($Given - Provider: Vibha Quesada RN) 0337 ($Given - Provider: Taiwo Caba, CHANDA)1034 ($Given - Provider: Zayra Yousif, CHANDA) levothyroxine (SYNTHROID/LEVOTHROID) tablet 225 mcg 225 mcg, Oral, EVERY MORNING BEFORE BREAKFAST, First dose on Tue04/10/25 at 0730 0709 ($Given - Provider: Juliette Cooper RN) 0606 ($Given - Provider: Rachelle Trejo, CHANDA) 0615 ($Given - Provider: Taiwo Caba, CHANDA) polyethylene glycol (MIRALAX) Packet 17 g 17 g, Oral, DAILY, First dose on Tue04/11/25 at 0800, To prevent constipation. Mixed prescribed dose in 8 ounces of water, juice or soda. Administer daily starting at 0900 on POD 1. Hold for loose stools. 1 Packet = 17 grams. Mix each gram with at least 1/2 ounce (15 mL) of water - 8 ounces for 17 g dose, 4 ounces for 8.5 g dose, 2 ounces for 4 g dose. Follow with the same volume of water. Hold for loose stools unless being administered as part of a bowel prep regimen or bowel clean out. 0813 ($Given - Provider: Thelma Constantino RN) 0827 ($Given - Provider: Zayra Yousif RN) 0838 ($Given - Provider: Zayra Yousif RN) senna-docusate (SENOKOT-S/PERICOLACE) 8.6-50 MG per tablet 1 tablet 1 tablet, Oral, 2 TIMES DAILY, First dose on Tue04/10/25 at 2000, To prevent constipation. Hold for loose stools Hold for loose stools. 0813 ($Given - Provider: Thelma Constantino RN)1935 ($Given - Provider: Vibha Quesada RN) 08 ($Given - Provider: Zayra Yousif RN)1935 ($Given - Provider: Vibha Quesada RN) 0837 ($Given - Provider: Zayra Yousif RN) sodium chloride (PF) 0.9% PF flush 3 mL 3 mL, Intracatheter, EVERY 8 HOURS SCHEDULED, First dose on Tue04/09/25 at 2200, to lock peripheral IV dormant line 0616 (Not Given - Provider: Juliette Cooper RN - Reason: No IV Access)1451 (Not Given - Provider: Thelma Constantino RN - Reason: No IV Access)2200 (Canceled Entry - Provider: Vibha Quesada RN - Comment: loss of iv access) 0620 (Not Given - Provider: Rachelle Trejo RN - Reason: No IV Access)1443 (Not Given - Provider: Zayra Yousif RN - Reason: No IV Access)2200 (Canceled Entry - Provider: Vibha Quesada RN) 0617 (Not Given - Provider: Taiwo Caba RN - Reason: No IV Access)1400 (Canceled Entry - Provider: Orders Generic Provider - Comment: Automatically canceled at discontinue of medication order) PRN Medication Order 04/15/2025 04/16/2025 04/17/2025 acetaminophen (TYLENOL) Suppository 650 mg(Linked Group 1) 650 mg, Rectal, EVERY 4 HOURS PRN, mild pain, other, and adjunct with moderate or severe pain or per patient request, Starting on Tue04/09/25 at 1999, Alternate with ibuprofen if ordered. Maximum acetaminophen dose from all sources = 75 mg/kg/day not to exceed 4 grams/day. 0027 (See Alternative - Provider: Taiwo Caba RN)0842 (See Alternative - Provider: Zayra Yousif, CHANDA) acetaminophen (TYLENOL) tablet 650 mg(Linked Group 1) 650 mg, Oral, EVERY 4 HOURS PRN, mild pain, other, and adjunct with moderate or severe pain or per patient request, Starting on Tue04/09/25 at 1999, Alternate with ibuprofen if ordered. Maximum acetaminophen dose from all sources = 75 mg/kg/day not to exceed 4 grams/day. 0027 ($Given - Provider: Taiwo Caba RN)0842 (Canceled Entry - Provider: Zayra Yousif, CHANDA) benzocaine-menthol (CHLORASEPTIC) 6-10 MG lozenge 1 lozenge 1 lozenge, Buccal, EVERY 1 HOUR PRN, sore throat, sore throat without fever, Starting on Tue04/10/25 at 1439 calcium carbonate (TUMS) chewable tablet 1,000 mg 1,000 mg, Oral, 4 TIMES DAILY PRN, heartburn, Starting on Tue04/09/25 at 2000 celecoxib (celeBREX) capsule 100 mg 100 mg, Oral, 2 TIMES DAILY PRN, inflammatory pain, Starting on Tue04/12/25 at 0943 0818 (Not Given - Provider: Thelma Constantino RN - Reason: Other - Comment: too soon)1029 ($Given - Provider: Thelma Constantino RN) hydrALAZINE (APRESOLINE) injection 10 mg 10 mg, Intravenous, EVERY 6 HOURS PRN, high blood pressure, SBP >/= 190 and/or DBP >/= 95., Administer over 1 Minutes, Starting on Tue04/10/25 at 1703 HYDROmorphone (DILAUDID) injection 0.2 mg(Linked Group 2) 0.2 mg, Intravenous, EVERY 2 HOURS PRN, moderate pain, Starting on Tue04/10/25 at 1439, IF patient unable to take oral pain medication or pain not controlled with oral analgesics. Hold IV PRN opioid dose for analgesic side effects. Notify provider to assess for uncontrolled pain or analgesic side effects. HYDROmorphone (DILAUDID) injection 0.4 mg(Linked Group 2) 0.4 mg, Intravenous, EVERY 2 HOURS PRN, severe pain, Starting on Tue04/10/25 at 1439, IF patient unable to take oral pain medication or pain not controlled with oral analgesics. Hold IV PRN opioid dose for analgesic side effects. Notify provider to assess for uncontrolled pain or analgesic side effects. lidocaine (LMX4) cream Topical, EVERY 1 HOUR PRN, pain, with VAD insertion, Starting on Tue04/09/25 at 2000, Apply at least 30 minutes prior to VAD insertion in divided doses as needed for size of site for insertion. MAX Dose: 2.5 g ( of 5 g tube) Do NOT give if patient has a history of allergy to any local anesthetic or any leisa product. Do NOT use both lidocaine intradermal/subcutaneous injection and the lidocaine cream on the same site. lidocaine 1 % 0.1-1 mL 0.1-1 mL, Other, EVERY 1 HOUR PRN, mild pain with VAD insertion, Starting on Tue04/09/25 at 2000, MAX dose 1 mL subcutaneous OR intradermal along the side of the vein in divided doses as needed for VAD insertion. Do NOT give if patient has a history of allergy to any local anesthetic or any leisa product. Do NOT use both lidocaine intradermal/subcutaneous injection and the lidocaine cream on the same site. methocarbamol (ROBAXIN) tablet 500 mg 500 mg, Oral, 4 TIMES DAILY PRN, muscle spasms, pain, Starting on Tue04/10/25 at 1654 0007 ($Given - Provider: Juliette Cooper RN)0823 ($Given - Provider: Thelma Constantino RN)1824 ($Given - Provider: Vibha Quesada RN) 0606 ($Given - Provider: Rachelle Trejo RN)2153 ($Given - Provider: Vibha Quesada RN) 0836 ($Given - Provider: Zayra Yousif RN) naloxone (NARCAN) injection 0.2 mg(Linked Group 3) 0.2 mg, Intravenous, EVERY 2 MIN PRN, opioid reversal, Starting on Tue04/09/25 at 2003, Administer intravenous route when available and notify provider when administered. For unintended sedation or respiratory depression if all of the below criteria are met: ~ respiratory rate LESS than or EQUAL to 8. ~SaO2 less than 92% and or/end-tidal CO2 is greater than 50. ~ the patient is receiving an opioid, has unintended sedations assessed as RASS (-3), and is currently not on mechanical ventilation. RASS scale moderate (-3) is movement or eye opening to voice but no eye contact. Patient Monitoring Once the patient has demonstrated a response to the naloxone, continue to monitor respiratory rate, depth, oxygen saturation and end-tidal CO2 (if available) every 15 minutes x 2, then every 30 minutes x 2, then every 1 hour x 1 after each naloxone dose. Consider transfer to ICU if patient respiratory parameters have not improved after 4 naloxone doses. naloxone (NARCAN) injection 0.2 mg(Linked Group 3) 0.2 mg, Intramuscular, EVERY 2 MIN PRN, opioid reversal, Starting on Tue04/09/25 at 2003, Administer intramuscular if an intravenous route is not available and notify provider when administered. For unintended sedation or respiratory depression if all of the below criteria are met: ~ respiratory rate LESS than or EQUAL to 8. ~SaO2 less than 92% and or/end-tidal CO2 is greater than 50. ~ the patient is receiving an opioid, has unintended sedations assessed as RASS (-3), and is currently not on mechanical ventilation. RASS scale moderate (-3) is movement or eye opening to voice but no eye contact. Patient Monitoring Once the patient has demonstrated a response to the naloxone, continue to monitor respiratory rate, depth, oxygen saturation and end-tidal CO2 (if available) every 15 minutes x 2, then every 30 minutes x 2, then every 1 hour x 1 after each naloxone dose. Consider transfer to ICU if patient respiratory parameters have not improved after 4 naloxone doses. naloxone (NARCAN) injection 0.4 mg(Linked Group 3) 0.4 mg, Intravenous, EVERY 2 MIN PRN, opioid reversal, Starting on Tue04/09/25 at 2003, Administer intravenous route when available and notify provider when administered. For unintended sedation or respiratory depression if all of the below criteria are met: ~ respiratory rate LESS than or EQUAL to 8. ~ SaO2 less than 92% and or/end-tidal CO2 is greater than 50. ~ the patient is receiving an opioid, has unintended sedation assessed as RASS (-4) or (-5) and patient is currently not on mechanical ventilation. RASS scale (-4) is deep sedation with no response to voice but movement or eye opening to physical stimulation. RASS scale (-5) is unarousable. Patient Monitoring Once the patient has demonstrated a response to the naloxone, continue to monitor respiratory rate, depth, oxygen saturation and end-tidal CO2 (if available) every 15 minutes x 2, then every 30 minutes x 2, then every 1 hour x 1 after each naloxone dose. Consider transfer to ICU if patient respiratory parameters have not improved after 4 naloxone doses. naloxone (NARCAN) injection 0.4 mg(Linked Group 3) 0.4 mg, Intramuscular, EVERY 2 MIN PRN, opioid reversal, Starting on Tue04/09/25 at 2003, Administer intramuscular if an intravenous route is not available and notify provider when administered. For unintended sedation or respiratory depression if all of the below criteria are met: ~ respiratory rate LESS than or EQUAL to 8. ~ SaO2 less than 92% and or/end-tidal CO2 is greater than 50. ~ the patient is receiving an opioid, has unintended sedation assessed as RASS (-4) or (-5) and patient is currently not on mechanical ventilation. RASS scale (-4) is deep sedation with no response to voice but movement or eye opening to physical stimulation. RASS scale (-5) is unarousable. Patient Monitoring Once the patient has demonstrated a response to the naloxone, continue to monitor respiratory rate, depth, oxygen saturation and end-tidal CO2 (if available) every 15 minutes x 2, then every 30 minutes x 2, then every 1 hour x 1 after each naloxone dose. Consider transfer to ICU if patient respiratory parameters have not improved after 4 naloxone doses. ondansetron (ZOFRAN ODT) ODT tab 4 mg(Linked Group 4) 4 mg, Oral, EVERY 6 HOURS PRN, nausea/vomiting - 1st line, Starting on Tue04/09/25 at 1999, This is Step 1 of nausea and vomiting management. If nausea not resolved in 15 minutes, go to Step 2 prochlorperazine (COMPAZINE). With dry hands, peel back foil backing and gently remove tablet. Do not push oral disintegrating tablet through foil backing. Administer immediately on tongue and oral disintegrating tablet dissolves in seconds, then swallow with saliva. Liquid not required. ondansetron (ZOFRAN) injection 4 mg(Linked Group 4) 4 mg, Intravenous, EVERY 6 HOURS PRN, nausea/vomiting - 1st line, Administer over 2-5 Minutes, Starting on Tue04/09/25 at 2000, Give IF patient unable to tolerate oral medication. This is Step 1 of nausea and vomiting management. If nausea not resolved in 15 minutes, go to Step 2 prochlorperazine (COMPAZINE). oxyCODONE (ROXICODONE) tablet 5 mg(Linked Group 5) 5 mg, Oral, EVERY 4 HOURS PRN, moderate pain, Starting on Tue04/10/25 at 1303, Hold oral PRN dose for analgesic side effects. Notify provider to assess for uncontrolled pain or analgesic side effects. Hold while on IV WAGON PERSON or with regular IV opioid dosing. 0813 (See Alternative - Provider: Thelma Constantino RN)1603 (See Alternative - Provider: Vibha Quesada RN)2150 (See Alternative - Provider: Vibah Quesada, CHANDA) 0341 (See Alternative - Provider: Rachelle Trejo RN)0826 ($Given - Provider: Zayra Yousif RN)1520 (See Alternative - Provider: Zayra Yousif RN)1935 (See Alternative - Provider: Vibha Quesada, CHANDA) 0027 ($Given - Provider: Taiwo Caba RN)1039 (See Alternative - Provider: Zayra Yousif RN) oxyCODONE IR (ROXICODONE) tablet 10 mg(Linked Group 5) 10 mg, Oral, EVERY 4 HOURS PRN, severe pain, Starting on Tue04/10/25 at 1303, Hold oral PRN dose for analgesic side effects. Notify provider to assess for uncontrolled pain or analgesic side effects. Hold while on IV WAGON PERSON or with regular IV opioid dosing. 0813 ($Given - Provider: Thelma Constantino RN)1603 ($Given - Provider: Vibha Quesada RN)2150 ($Given - Provider: Vibha Quesada RN) 0341 ($Given - Provider: Rachelle Trejo RN)0826 (See Alternative - Provider: Zayra Yousif, CHANDA)1520 ($Given - Provider: Zayra Yousif RN)1935 ($Given - Provider: Vibha Quesada, CHANDA) 0027 (See Alternative - Provider: Taiwo Caba, CHANDA)1039 ($Given - Provider: Zayra Yousif, CHANDA) polyethylene glycol (MIRALAX) Packet 17 g 17 g, Oral, 2 TIMES DAILY PRN, constipation, Starting on Tue04/16/25 at 0935, If the patient has multiple PO bowel stimulant agents ordered PRN, offer in the following order per policy. Move to the next available step if the earlier step is ineffective. Step 1 - senna; Step 2 - bisacodyl; Step 3 - milk of magnesia; Step 4 - polyethylene glycol; Step 5 - magnesium citrate. 1 Packet = 17 grams. Mix each gram with at least 1/2 ounce (15 mL) of water - 8 ounces for 17 g dose, 4 ounces for 8.5 g dose, 2 ounces for 4 g dose. Follow with the same volume of water. Hold for loose stools unless being administered as part of a bowel prep regimen or bowel clean out. 1139 ($Given - Provider: Zayra Yousif RN)1653 ($Given - Provider: Vibha Quesada RN) prochlorperazine (COMPAZINE) injection 5 mg(Linked Group 6) 5 mg, Intravenous, EVERY 6 HOURS PRN, nausea, vomiting, Administer over 1-2 Minutes, Starting on Tue04/11/25 at 1420, If the patient has multiple antiemetics ordered PRN, offer in the following order per policy. Move to the next available step if earlier step is ineffective. Step 1 - ondansetron; Step 2 - prochlorperazine; Step 3 - metoclopramide; Step 4 - promethazine; Step 5 - lorazepam; Step 6 - diphenhydramine. prochlorperazine (COMPAZINE) suppository 25 mg(Linked Group 6) 25 mg, Rectal, EVERY 12 HOURS PRN, nausea, vomiting, Starting on Tue04/11/25 at 1420, If the patient has multiple antiemetics ordered PRN, offer in the following order per policy. Move to the next available step if earlier step is ineffective. Step 1 - ondansetron; Step 2 - prochlorperazine; Step 3 - metoclopramide; Step 4 - promethazine; Step 5 - lorazepam; Step 6 - diphenhydramine. senna-docusate (SENOKOT-S/PERICOLACE) 8.6-50 MG per tablet 1 tablet 1 tablet, Oral, 2 TIMES DAILY PRN, constipation, Starting on Tue04/16/25 at 0935, If the patient has multiple PO bowel stimulant agents ordered PRN, offer in the following order per policy. Move to the next available step if the earlier step is ineffective. Step 1 - senna; Step 2 - bisacodyl; Step 3 - milk of magnesia; Step 4 - polyethylene glycol; Step 5 - magnesium citrate. Hold for loose stools. 1139 ($Given - Provider: Zayra Yousif RN) simethicone (MYLICON) chewable tablet 80 mg 80 mg, Oral, EVERY 6 HOURS PRN, cramping, other, flatulence, gas, Starting on Tue04/12/25 at 0443 sodium chloride (PF) 0.9% PF flush 3 mL 3 mL, Intracatheter, EVERY 1 MIN PRN, line flush, other, to ensure patency or to lock dormant line, Starting on Tue04/09/25 at 2000 Linked Groups Order Group 1: acetaminophen (TYLENOL) tablet 650 mgJump to med 650 mg, Oral, EVERY 4 HOURS PRN, mild pain, other, and adjunct with moderate or severe pain or per patient request, Starting on Tue04/09/25 at 1999, Alternate with ibuprofen if ordered. Maximum acetaminophen dose from all sources = 75 mg/kg/day not to exceed 4 grams/day. Or acetaminophen (TYLENOL) Suppository 650 mgJump to med 650 mg, Rectal, EVERY 4 HOURS PRN, mild pain, other, and adjunct with moderate or severe pain or per patient request, Starting on Tue04/09/25 at 1999, Alternate with ibuprofen if ordered. Maximum acetaminophen dose from all sources = 75 mg/kg/day not to exceed 4 grams/day. Group 2: HYDROmorphone (DILAUDID) injection 0.2 mgJump to med 0.2 mg, Intravenous, EVERY 2 HOURS PRN, moderate pain, Starting on Tue04/10/25 at 1439, IF patient unable to take oral pain medication or pain not controlled with oral analgesics. Hold IV PRN opioid dose for analgesic side effects. Notify provider to assess for uncontrolled pain or analgesic side effects. Or HYDROmorphone (DILAUDID) injection 0.4 mgJump to med 0.4 mg, Intravenous, EVERY 2 HOURS PRN, severe pain, Starting on Tue04/10/25 at 1439, IF patient unable to take oral pain medication or pain not controlled with oral analgesics. Hold IV PRN opioid dose for analgesic side effects. Notify provider to assess for uncontrolled pain or analgesic side effects. Group 3: naloxone (NARCAN) injection 0.2 mgJump to med 0.2 mg, Intravenous, EVERY 2 MIN PRN, opioid reversal, Starting on Tue04/09/25 at 2003, Administer intravenous route when available and notify provider when administered. For unintended sedation or respiratory depression if all of the below criteria are met: ~ respiratory rate LESS than or EQUAL to 8. ~SaO2 less than 92% and or/end-tidal CO2 is greater than 50. ~ the patient is receiving an opioid, has unintended sedations assessed as RASS (-3), and is currently not on mechanical ventilation. RASS scale moderate (-3) is movement or eye opening to voice but no eye contact. Patient Monitoring Once the patient has demonstrated a response to the naloxone, continue to monitor respiratory rate, depth, oxygen saturation and end-tidal CO2 (if available) every 15 minutes x 2, then every 30 minutes x 2, then every 1 hour x 1 after each naloxone dose. Consider transfer to ICU if patient respiratory parameters have not improved after 4 naloxone doses. Or naloxone (NARCAN) injection 0.4 mgJump to med 0.4 mg, Intravenous, EVERY 2 MIN PRN, opioid reversal, Starting on Tue04/09/25 at 2003, Administer intravenous route when available and notify provider when administered. For unintended sedation or respiratory depression if all of the below criteria are met: ~ respiratory rate LESS than or EQUAL to 8. ~ SaO2 less than 92% and or/end-tidal CO2 is greater than 50. ~ the patient is receiving an opioid, has unintended sedation assessed as RASS (-4) or (-5) and patient is currently not on mechanical ventilation. RASS scale (-4) is deep sedation with no response to voice but movement or eye opening to physical stimulation. RASS scale (-5) is unarousable. Patient Monitoring Once the patient has demonstrated a response to the naloxone, continue to monitor respiratory rate, depth, oxygen saturation and end-tidal CO2 (if available) every 15 minutes x 2, then every 30 minutes x 2, then every 1 hour x 1 after each naloxone dose. Consider transfer to ICU if patient respiratory parameters have not improved after 4 naloxone doses. Or naloxone (NARCAN) injection 0.2 mgJump to med 0.2 mg, Intramuscular, EVERY 2 MIN PRN, opioid reversal, Starting on Tue04/09/25 at 2003, Administer intramuscular if an intravenous route is not available and notify provider when administered. For unintended sedation or respiratory depression if all of the below criteria are met: ~ respiratory rate LESS than or EQUAL to 8. ~SaO2 less than 92% and or/end-tidal CO2 is greater than 50. ~ the patient is receiving an opioid, has unintended sedations assessed as RASS (-3), and is currently not on mechanical ventilation. RASS scale moderate (-3) is movement or eye opening to voice but no eye contact. Patient Monitoring Once the patient has demonstrated a response to the naloxone, continue to monitor respiratory rate, depth, oxygen saturation and end-tidal CO2 (if available) every 15 minutes x 2, then every 30 minutes x 2, then every 1 hour x 1 after each naloxone dose. Consider transfer to ICU if patient respiratory parameters have not improved after 4 naloxone doses. Or naloxone (NARCAN) injection 0.4 mgJump to med 0.4 mg, Intramuscular, EVERY 2 MIN PRN, opioid reversal, Starting on Tue04/09/25 at 2003, Administer intramuscular if an intravenous route is not available and notify provider when administered. For unintended sedation or respiratory depression if all of the below criteria are met: ~ respiratory rate LESS than or EQUAL to 8. ~ SaO2 less than 92% and or/end-tidal CO2 is greater than 50. ~ the patient is receiving an opioid, has unintended sedation assessed as RASS (-4) or (-5) and patient is currently not on mechanical ventilation. RASS scale (-4) is deep sedation with no response to voice but movement or eye opening to physical stimulation. RASS scale (-5) is unarousable. Patient Monitoring Once the patient has demonstrated a response to the naloxone, continue to monitor respiratory rate, depth, oxygen saturation and end-tidal CO2 (if available) every 15 minutes x 2, then every 30 minutes x 2, then every 1 hour x 1 after each naloxone dose. Consider transfer to ICU if patient respiratory parameters have not improved after 4 naloxone doses. Group 4: ondansetron (ZOFRAN ODT) ODT tab 4 mgJump to med 4 mg, Oral, EVERY 6 HOURS PRN, nausea/vomiting - 1st line, Starting on Tue04/09/25 at 1999, This is Step 1 of nausea and vomiting management. If nausea not resolved in 15 minutes, go to Step 2 prochlorperazine (COMPAZINE). With dry hands, peel back foil backing and gently remove tablet. Do not push oral disintegrating tablet through foil backing. Administer immediately on tongue and oral disintegrating tablet dissolves in seconds, then swallow with saliva. Liquid not required. Or ondansetron (ZOFRAN) injection 4 mgJump to med 4 mg, Intravenous, EVERY 6 HOURS PRN, nausea/vomiting - 1st line, Administer over 2-5 Minutes, Starting on Tue04/09/25 at 1999, Give IF patient unable to tolerate oral medication. This is Step 1 of nausea and vomiting management. If nausea not resolved in 15 minutes, go to Step 2 prochlorperazine (COMPAZINE). Group 5: oxyCODONE (ROXICODONE) tablet 5 mgJump to med 5 mg, Oral, EVERY 4 HOURS PRN, moderate pain, Starting on Tue04/10/25 at 1303, Hold oral PRN dose for analgesic side effects. Notify provider to assess for uncontrolled pain or analgesic side effects. Hold while on IV WAGON PERSON or with regular IV opioid dosing. Or oxyCODONE IR (ROXICODONE) tablet 10 mgJump to med 10 mg, Oral, EVERY 4 HOURS PRN, severe pain, Starting on Tue04/10/25 at 1303, Hold oral PRN dose for analgesic side effects. Notify provider to assess for uncontrolled pain or analgesic side effects. Hold while on IV WAGON PERSON or with regular IV opioid dosing. Group 6: prochlorperazine (COMPAZINE) injection 5 mgJump to med 5 mg, Intravenous, EVERY 6 HOURS PRN, nausea, vomiting, Administer over 1-2 Minutes, Starting on Ame 04/11/25 at 1420, If the patient has multiple antiemetics ordered PRN, offer in the following order per policy. Move to the next available step if earlier step is ineffective. Step 1 - ondansetron; Step 2 - prochlorperazine; Step 3 - metoclopramide; Step 4 - promethazine; Step 5 - lorazepam; Step 6 - diphenhydramine. Or prochlorperazine (COMPAZINE) suppository 25 mgJump to med 25 mg, Rectal, EVERY 12 HOURS PRN, nausea, vomiting, Starting on Ame 04/11/25 at 1420, If the patient has multiple antiemetics ordered PRN, offer in the following order per policy. Move to the next available step if earlier step is ineffective. Step 1 - ondansetron; Step 2 - prochlorperazine; Step 3 - metoclopramide; Step 4 - promethazine; Step 5 - lorazepam; Step 6 - diphenhydramine. 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
--- OUTSIDE RECORDS SUMMARY | 2025-04-10 09:20 | XMS_ITS | Encounter Summary ---
Author Organization [facility] Address [address] [place] [address] Care Team Providers Care Process Safety Engineer Name Role Phone Maggie Bowers PA-C Primary Care Provid er Reason for Visit * Reason Comments Fall * Auth/Cert (Routine) Specialty Diagnoses / Procedures Referred By Sharan benoit Referred To Contact Surgery Diagnoses Closed fracture of left tibial plateau, initial encounter Closed fracture of proximal end of left fibula, unspecified fracture morphology, initial encounter Lipohemarthrosis Moody Oneal MD [address] [place] [address] Phone: tel: fax: [facility] Post Anesthesia Care [address] [place] [address] Phone: tel: fax: Referral ID Status Reason Start Date Expiration Date Visits Re quested Visits Authorized [id number] 1 1 Encounter Details Date Type Department Care Team (Late st Contact Info) Description 04/10/2025 9:20 AM CDT - 04/10/2025 12:05 PM CDT Surgery [facility] PeriOp Services [address] [place] [phone] Roge Cartwright MD [facility] [place] [id number] Open reduction internal fixation of right anteromedial tibial plateau fracture Surgery Details Date/Time Status Location OR Service Patient Class Case Class Case Type Trauma Case? 04/10/2025 9:20 AM Posted [facility] OR OR 06 Orthopedics Inpatient NEST 6 - Semi-Urge nt (within 72hrs) Panel 1 Procedure LRB Anes Op Region Wound Class Comments Open reduction internal fixation of right anteromedial tibial plateau fracture Left General with Block Knee I-Clean Surgeon Surgeon Role Service Panel Roge Cartwright MD Primary Orthopedics 1 Davie Mari PA-C Assisting Credit Analysis Manager Authoriz ation 1 documented in this encounter Social History Tobacco Use Types Packs/Day Years [...] in an abandoned building, in an overnight assisted, or couch-surfing.) Yes 04/09/2025 Are you worried [...] on file Legal Sex Female 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 Gender Identity Not on file Sexual Orientation Not on file documented as of this encounter Last Filed Vital Signs Vital Sign Reading Time Taken Comments Blood Pressure 116/70 04/10/2025 8:27 AM CDT Pulse 58 04/10/2025 10:26 AM CDT Temperature 36.7 C (98 F) 04/10/2025 8:27 AM CDT Respiratory Rate 10 04/10/2025 10:2 6 AM CDT Oxygen Saturation 98% 04/10/2025 12: 00 PM CDT Inhaled Oxygen Concentration - - Weight 105.2 kg (231 lb 14.8 oz) 04/09/2025 6:47 PM CDT Height 172.7 cm (5' 8) 04/09/2025 6:47 PM CDT Body Mass Index 41.23 04/09/2025 6:47 PM CDT documented in this encounter Discharge Summaries * Amara Barrera DO - 04/17/2025 12:03 PM CDT Images from the original note were not included. [facility] Hospitalist Discharge Summary Date of Admission: 04/09/2025 [...] Appointments Follow Up Follow-up with Dr. Cartwright ([facility]) at 2 weeks postoperatively for reevaluation, wound check/suture or staple removal, and possible x-rays. No need for labs or imaging prior to appointment. Please call Dr. Cartwright's rn palliative care, Susan, at [phone] to schedule. [facility] [place] After Hours If urgent need with dressing/splint or operative site questions, the [facility] Orthopedic Urgent Care is available at multiple metro locations from 8-8 daily excluding holidays. Follow Up and recommended labs and tests Follow up with correction physician. Discharge Disposition Discharged to TCU Condition [...] and elevate. Brace in place. 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 Amara Barrera DO [facility] [address] [facility] [phone] Physical Exam Vital Signs: Temp: 97.5 ??F [...] No masses, organomegaly Primary Care Physician Maggie Bowers Discharge Orders Home Care Referral Reason for your hospital stay Open reduction internal fixation tibial plateau fracture, left Follow Up Follow-up with Dr. Cartwright ([facility]) at 2 weeks postoperatively for reevaluation, wound check/suture or staple removal, and possible x-rays. No need for labs or imaging prior to appointment. Please call Dr. Cartwright's rn palliative care, Susan, at [phone] to schedule. [facility] [place] After Hours If urgent need with dressing/splint or operative site questions, the [facility] Orthopedic Urgent Care is available at multiple [...] and up-to-date: Yes Recent Chemotherapy: N/A Use Penitentiary Standing Orders: Yes Mantoux instructions Give two-step Mantoux (PPD) Per Facility Policy Yes Follow Up and recommended labs and tests Follow up with correction physician. Physical Therapy Adult Consult Evaluate and [...] Recent 3 CBC's: Recent Labs Lab Test 04/16/2561204/13/2562304/12/[id number]/11/2571004/10/2551804/09/25 1424 WBC -- -- -- 8.4 6.4 [...] VIEWS, XR FEMUR LEFT 2 VIEWS LOCATION: [facility] DATE: 04/09/2025 INDICATION: fall, pain COMPARISON: [...] VIEWS, XR FEMUR LEFT 2 VIEWS LOCATION: [facility] DATE: 04/09/2025 INDICATION: fall, pain COMPARISON: [...] Narrative EXAM: XR PELVIS 1/2 VIEWS LOCATION: [facility] DATE: 04/09/2025 INDICATION: fall, pain COMPARISON: Correlation with same day radiographs. Impression IMPRESSION: Bilateral acetabular marginal osteophytes. No hip joint space narrowing. 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 Lower lumbar facet arthropathy. No definite fracture or dislocationon a single view of the pelvis. CT Knee Left w/o Contrast Narrative EXAM: CT KNEE LEFT W/O CONTRAST LOCATION: [facility] DATE: 04/09/2025 INDICATION: cocnern tibial plateau [...] LESS THAN 5 MIN W STILLS LOCATION: [facility] DATE: 04/10/2025 INDICATION: ORIF left tibial plateau. COMPARISON: None. TECHNIQUE: Intraoperative fluoroscopy performed during the patient's procedure. RADIATION DOSE: Dose Area Product 0.8377 mGy-cm2. Impression IMPRESSION: Two fluoroscopic images acquired by the clinical service for ORIF of the left tibial plateau. Anatomic alignment. US Lower Extremity Venous Duplex Left Narrative EXAM: US LOWER EXTREMITY VENOUS DUPLEX LEFT LOCATION: [facility] DATE: 04/12/2025 INDICATION: calf pain post [...] your medicines These medications were sent to [facility] [place] - [address] [facility] [address] [facility] [address] acetaminophen 325 MG tablet celecoxib 100 MG [...] from the original note were not included. [facility] Hospitalist Discharge Summary Date of Admission: [...] Appointments Follow Up Follow-up with Dr. Cartwright ([facility]) at 2 weeks postoperatively for reevaluation, wound check/suture or staple removal, and possible x-rays. No need for labs or imaging prior to appointment. Please call Dr. Cartwright's rn palliative care, Susan, at [phone] to schedule. [facility] [place] After Hours If urgent need with dressing/splint or operative site questions, the [facility] Orthopedic Urgent Care is available at multiple metro locations from 8-8 daily excluding holidays. Follow Up and recommended labs and tests Follow up with correction physician. Discharge Disposition Discharged to TCU Condition [...] and elevate. Brace in place. 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 Amara Barrera DO [facility] [address] [place] [address] Physical Exam Vital Signs: Temp: 97.7 ??F [...] No masses, organomegaly Primary Care Physician Maggie Bowers Discharge Orders Home Care Referral Reason for your hospital stay Open reduction internal fixation tibial plateau fracture, left Follow Up Follow-up with Dr. Cartwright ([facility]) at 2 weeks postoperatively for reevaluation, wound check/suture or staple removal, and possible x-rays. No need for labs or imaging prior to appointment. Please call Dr. Cartwrihgt's rn palliative care, Ssuan at [phone] to schedule. [facility] [place] After Hours If urgent need with dressing/splint or operative site questions, the [facility] Orthopedic Urgent Care is available at multiple [...] and up-to-date: Yes Recent Chemotherapy: N/A Use Penitentiary Standing Orders: Yes Mantoux instructions Give two-step Mantoux (PPD) Per Facility Policy Yes Follow Up and recommended labs and tests Follow up with correction physician. Physical Therapy Adult Consult Evaluate and treat as clinically indicated. Reason: tibial fracture Occupational Therapy Adult Consult Evaluate and treat as clinically indicated. Reason: tibial fracture Crutches [facility] Documentation: Describe the reason for need [...] 04/16/25 0613 04/13/25 0624 04/12/25 0709 04/11/25 0704/10/2551804/09/25 1424 WBC -- -- -- 8.4 6.4 9.1 HGB -- -- 8.6* 10.0* 9.7* 11.5* MCV 92 91 91 92 91 90 PLT 280 220 -- 230 225 310 Most Recent 3 BMP's: Recent Labs Lab Test 04/16/25 0613 04/13/25 0604/12/25 0709 04/11/25 0711 04/10/25 0804/10/2551804/09/25 1424 NA -- -- -- 136 -- [...] VIEWS, XR FEMUR LEFT 2 VIEWS LOCATION: [facility] DATE: 04/09/2025 INDICATION: fall, pain COMPARISON: [...] VIEWS, XR FEMUR LEFT 2 VIEWS LOCATION: [facility] DATE: 04/09/2025 INDICATION: fall, pain COMPARISON: [...] Narrative EXAM: XR PELVIS 1/2 VIEWS LOCATION: [facility] DATE: 04/09/2025 INDICATION: fall, pain COMPARISON: Correlation with same day radiographs. Impression IMPRESSION: Bilateral acetabular marginal osteophytes. No hip joint space narrowing. 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 Lower lumbar facet arthropathy. No definite fracture or dislocationon a single view of the pelvis. CT Knee Left w/o Contrast Narrative EXAM: CT KNEE LEFT W/O CONTRAST LOCATION: [facility] DATE: 04/09/2025 INDICATION: cocnern tibial plateau [...] LESS THAN 5 MIN W STILLS LOCATION: [facility] DATE: 04/10/2025 INDICATION: ORIF left tibial plateau. COMPARISON: None. TECHNIQUE: Intraoperative fluoroscopy performed during the patient's procedure. RADIATION DOSE: Dose Area Product 0.8377 mGy-cm2. Impression IMPRESSION: Two fluoroscopic images acquired by the clinical service for ORIF of the left tibial plateau. Anatomic alignment. US Lower Extremity Venous Duplex Left Narrative EXAM: US LOWER EXTREMITY VENOUS DUPLEX LEFT LOCATION: [facility] DATE: 04/12/2025 INDICATION: calf pain post [...] your medicines [place] - [address] [facility] [address] [facility] [address] acetaminophen 325 MG tablet celecoxib 100 MG [...] needed for constipation. 30 tablet 1 5 08/14/20 25 documented as of this encounter Progress [...] Date: 04/17/2025 Discharge Disposition: TCU Discharge Transportation: [facility] Is transportation arrangement complete? Yes Private pay costs discussed: private room/amenity fees and transportation costs Does the patient's insurance plan have a 3 day qualifying hospital stay waiver? No PAS Confirmation Code: [id number] Patient/family educated on Medicare website which has current facility and service quality ratings:yes Education Provided on the Discharge Plan: yes Persons Notified of Discharge Plans: patient, bedside RN, hospitalist Patient/Family in Agreement with the Plan: yes Additional Information: Patient is medically ready for discharge today to [facility]. Update from [facility] on April admission dept,they have received auth this morning for patient's TCU stay. [facility]/ ride is set up for pickling tank operator today between 4032-2212. Met with patient at bedside to update on discharge plan. She is in agreement with discharge today to [facility]. Signed orders have been faxed to TCU. Hospitalist and bedside RNupdated. No further discharge needs noted. Brielle Betancourt, CHANDA Ladle Car Operator [facility] [phone] * Brielle Betancourt RN - 04/16/2025 10:38 [...] to discuss. They are aware that pt's [facility] plan is a barrier for finding placement. They are in agreement with global referral to TCUs in the area. Patient would like tostay out of [facility] and stay close to [place] where her works or further south. Additional TCU referrals have been sent and awaiting response. Next Steps: Follow up with TCUs and patient/family once we hear back. ADDENDUM 1200: Patient has been accepted by [facility] on [facility] TCU for admission today, pending they receive authorization from pt's [facility] plan. Met with patient and family member at bedside who will accept this bed and are in agreement with discharge this evening to [facility]. They request w/c ride at discharge. Reviewed out of pocket cost for [facility] transport, $99.20 base and $6.38 per mile to the destination. Pt and family expressed understanding and are agreeable to this. [facility] ride has been arranged for pickling tank operator this evening between 1359-3031. This will need to be pushed to tomorrow if TCU does not receive auth in time. Bedside RN and charge account identification clerk and hospitalist are aware. ADDENDUM 1601: TCU has not received auth yet from pt's insurance company. [facility] w/c transport has been pushed to tomorrow between 1405-4833 in hopes that [facility] provides auth to [facility] by this time. Bedside RN updated who will let patient know. Hospitalist and charge account identification clerk updated. Brielle Betancourt, CHANDA Ladle Car Operator [facility] [phone] * Lionel Logan MD - 04/15/2025 3:51 PM CDT [facility] Medicine Progress Note - Hospitalist Service [...] Anticipated Tomorrow Lionel Logan MD Hospitalist Service [facility] Securely message with Chinese [employer]is[employer] (more info) Text page via [facility] Paging/Directory Interval History Pain in the left [...] not indicated or clinically appropriate Additional Information: Cabinetmaker Maintenance met with patient in room to discuss discharge planning. Current recommendations are for transitional care unit as patient is nonweightbearing to her left lower extremity. Patient has been declined from 2 facilities due to noncoverage by her commercial insurance plan. Care Management was instructed to have the patient call their insurance provider to determine what transitional care coverage she has. Patient was provided [employer] phone number and subscriber ID at bedside. Alternate discharge disposition was discussed, including potential discharge home, but patient would need to be able to navigate stairs for this to be safe. Patient stated she will call her insurance companytoday. Once coverage is determined, Care Management will move forward with the discharge plan. Addendum 1620: Pt spoke with insurance [email or web address] and DOES have TCU coverage. She will need an in-network facility. Cabinetmaker Maintenance called [facility] who stated pt's insurance is in-network but they donot reimburse at an acceptable rate. CM will follow-up with pt tomorrow to gather additional preferences. Next Steps: Follow-up with patient regarding additional transitional care choices Mouna Raines RN, BSN, PHN freelance director Management [facility] Acute Care Management Searchable by name [...] off Follow-up: 2 weeks post-op with [facility]/Dr Walker's team Disposition: Anticipate d/c to TCU when medically cleared and progressing in PT. Ortho stable for discharge. Will follow peripherally. Leonor Cordoba PA-C [facility] * Lionel Logan MD - 04/14/2025 2:[address] [facility] Medicine Progress Note - Hospitalist Service Date [...] Anticipated Tomorrow Lionel Logan MD Hospitalist Service [facility] Securely message with Chinese Wh[employer] Music (more info) Text page via [facility] Paging/Directory Interval History Pain in the left knee increases with movement. At rest tolerable. Blood pressure medication at homeZestoretic, on hold here b/c blood pressure is normal. Waiting for TCU bed Physical Exam Vital Signs: Temp: 96.8 ??F (36 ??C) Temp src: Tympanic BP: 109/51 Pulse: 59 Resp: 16 SpO2: 99 % [id number]: None (Room air) Weight: 245 lbs 2.42 [...] Plan: yes Referrals Placed by CM/SW: Homecare Additional Information: Patient admitted for fractures [...] Update: The pt gave two referral choices: [facility] & [facility]. Both referrals received and submitted on the behalf of the pt. Referrals pending. Next Steps: Monitor for TCU acceptance. MELVINA Nayak, GLOBAL MARKETING MANAGER Gauge Machine Operator Care Management * Lionel Logan MD - 04/13/2025 8:[address] [facility] Medicine Progress Note - Hospitalist Service Date [...] Anticipated Tomorrow Lionel Logan MD Hospitalist Service [facility] Securely message with Ida (more info) Text page via [facility] Paging/Directory Interval History Pain in the left [...] Pulse: 64 Resp: 16 SpO2: 96 % G7Prqmap: None (Room air) Weight: 245 lbs 2.42 [...] US LOWER EXTREMITY VENOUS DUPLEX LEFT LOC[facility]: [facility] DATE: 04/12/2025 INDICATION: calf pain post [...] and progressing in PT Allison Gibbons PA-C [facility] * Lionel Logan MD - 04/12/2025 8:[address] [facility] Medicine Progress Note - Hospitalist Service Date [...] Anticipated Tomorrow Lionel Logan MD Hospitalist Service [facility] Securely message with Chinese [employer]is[employer] Music (more info) Text page via [facility] Paging/Directory Interval History On her report pain [...] Herring PT - 04/11/2025 10:37 AM CDT [facility] OUTPATIENT PHYSICAL THERAPY PLAN OF TREATMENT FOR OUTPATIENT REHABILITATION Patient's Last Name, First Name, Adilene Figueroa Date of : 1970 Provider's Name [facility] Onset Date: 04/09/25 Start of Care [...] L LE TTWB Quick Adds Quick Adds [facility] Auth & Certification Living Environment People in [...] 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 Pt [...] plan;participants included;patient PT Total Evaluation Time PT Eval, Low Complexity Minutes (99293) 10 Therapy Certification Start of care date 04/11/25 Certification date from 04/11/25 Certification date to 04/12/25 Medical Diagnosis L tibial plateau fx - s/p ORIF [facility] Authorization Information Condition type Initial onset (within last 3 months) Cause of current episode Traumatic Nature of treatment Rehabilitative Functional ability Moderate functional limitations Documented POC (choose all that apply) Measurable short and intermediate card tender/discharge treatment goals related to physical and functional [...] Logan MD - 04/11/2025 8:[address] [facility] Medicine Progress Note - Hospitalist Service Date [...] Anticipated Tomorrow Lionel Logan MD Hospitalist Service [facility] Securely message with Chinese [employer]is[employer] (more info) Text page via [facility] Paging/Directory Interval History Patient reported pain in [...] 04/11/2025 7:55 AM CDT Orthopedic Surgery Adilene Thurman 04/11/2025 Admit Date: 04/09/2025 Assessment: POD: 1 [...] and progressing in PT Allison Gibbons PA-C [facility] * Andi Mackenzie APRN CNP - 04/10/2025 4:[address] [facility] Medicine Progress Note - Hospitalist Service Date [...] Bedside Nurse, Patient, Patient's Family, and Ortho Business Operations Director(s). Andi Mackenzie APRN [facility] Hospitalist Service [facility] Securely message with Chinese Whis[employer] Music (more info) Text page via [employer] Paging/Directory Interval History Assumed care of patient. [...] LESS THAN 5 MIN W STILLS LOCATION: [facility] DATE: 04/10/2025 INDICATION: ORIF left tibial [...] Oneal MD - 04/09/2025 5:[address] [facility] History and Physical - Hospitalist Service Date [...] 2-4 Days Moody Oneal MD Hospitalist Service [facility] Securely message with Chinese Whis[employer] Music (more info) Text page via [facility] Paging/Directory Chief Complaint Left knee pain History [...] leftknee pain for which she came to [facility] for further evaluation where a CT [...] ovarian cystectomy; Surgeon: Blanca Wharton MD; Location: [facility] DILATION AND CURETTAGE, HYSTEROSCOPY DIAGNOSTIC, COMBINED 05/25/2012 Procedure: COMBINED DILATION AND CURETTAGE, HYSTEROSCOPY DIAGNOSTIC; HYSTEROSCOPY, DILATION & CURETTAGE, MINI LAPAROTOMY WITH LEFT OVARIAN CYSTECTOMY, LEFT SALPINGECTOMY; Surgeon: Blanca Wharton MD; Location: [facility] ENT SURGERY tonsillectomy EXCISE MASS UPPER EXTREMITY Right 05/12/2015 Procedure: EXCISE MASS UPPER EXTREMITY; Surgeon: Deandre Mcfarland MD; Location: [facility] OR INCISION AND DRAINAGE TRUNK, COMBINED N/A 06/05/2014 Procedure: COMBINED INCISION AND DRAINAGE TRUNK; Surgeon: Royal Avery MD; Location: OR LAPAROTOMY MINI FOR EXPOSURE 05/25/2012 Procedure: LAPAROTOMY MINI FOR EXPOSURE; Mini-laparotomy.; Surgeon: Blanca Wharton MD;Location: [place] SALPINGECTOMY 05/25/2012 Procedure: SALPINGECTOMY; Left salpingectomy; Surgeon: Blanca Wharton MD; [facility]2014 Procedure: TYMPANOPLASTY; Surgeon: Deandre Ibrahim [...] Paternal Grandfather Coronary Artery Disease Brother 54 [place] Colon Cancer No family hx of Allergies [...] swollen as a ice pack over it MOLDER VACUUM: Alert, Oriented x 3, Moving all the Four Limbs Data Imaging results reviewed over the past 24 hrs: Recent Results (from the past 24 hours) XR Pelvis 1/2 Views Narrative EXAM: XR PELVIS 1/2 VIEWS LOCATION: [facility] DATE: 04/09/2025 INDICATION: fall, pain COMPARISON: Correlation with same day radiographs. Impression IMPRESSION: Bilateral acetabular marginal osteophytes. No hip joint space narrowing. 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 Lower lumbar facet arthropathy. No definite fracture or dislocationon a single view of the pelvis. XR Knee Left 3 Views Narrative EXAM: XR KNEE LEFT 3 VIEWS, XR FEMUR LEFT 2 VIEWS LOCATION: [facility] DATE: 04/09/2025 INDICATION: fall, pain COMPARISON: [...] VIEWS, XR FEMUR LEFT 2 VIEWS LOCATION: [facility] DATE: 04/09/2025 INDICATION: fall, pain COMPARISON: [...] EXAM: CT KNEE LEFT W/O CONTRAST LOCATION: [facility] DATE: 04/09/2025 INDICATION: cocnern tibial plateau [...] Communication Assessment Patient's communication style: spoken language (Setswana or Bilingual) Hearing Difficulty or Deaf: no [...] Depression: Not at risk (03/04/2025) Received from [facility] PHQ-2 PHQ-2 TOTAL SCORE: 2 Housing Stability: [...] Social Connections: Socially Integrated (08/03/2024) Received from [employer] & [facility] Social Connections Do you often feel lonely or isolated from those around you?: 0 Health Literacy: Not on file Functional Status: Prior to admission patient needed assistance: Dependent ADLs:: Independent, Ambulation-no assistive device Dependent IADLs:: Independent Assesssment of Functional Status: Not at functional baseline, Not at baseline with mobility Mental Health Status: Chemical Dependency Status: Values/Beliefs: Spiritual, Cultural Beliefs, Amish Practices, Values that affect care: Discussed ???Partnership [...] Knox RN, BSN, CM Inpatient Care Coordination [facility] [phone] * Violet Giron PA-C - 04/10/2025 8:00 AM CDTAssociated Order(s): ORTHOPEDIC SURGERY IP CONSULT [facility] Orthopedic Consultation Adilene Thurman Age: [age] year [...] ovarian cystectomy; Surgeon: Blanca Wharton MD; Location: [facility] DILATION AND CURETTAGE, HYSTEROSCOPY DIAGNOSTIC, COMBINED 05/25/2012 Procedure: COMBINED DILATION AND CURETTAGE, HYSTEROSCOPY DIAGNOSTIC; HYSTEROSCOPY, DILATION & CURETTAGE, MINI LAPAROTOMY WITH LEFT OVARIAN CYSTECTOMY, LEFT SALPINGECTOMY; Surgeon: Blanca Wharton MD; Location: [facility] ENT SURGERY tonsillectomy EXCISE MASS UPPER EXTREMITY Right 05/12/2015 Procedure: EXCISE MASS UPPER EXTREMITY; Surgeon: Deandre Mcfarland MD; Location: [facility] OR INCISION AND DRAINAGE TRUNK, COMBINED N/A 06/05/2014 Procedure: COMBINED INCISION AND DRAINAGE TRUNK; Surgeon: Royal Avery MD; Location: [facility] OR LAPAROTOMY MINI FOR EXPOSURE 05/25/2012 Procedure: LAPAROTOMY MINI FOR EXPOSURE; Mini-laparotomy.; Surgeon: Blanca Wharton MD;Location: [facility] SALPINGECTOMY 05/25/2012 Procedure: SALPINGECTOMY; Left salpingectomy; Surgeon: Blanca Wharton MD; [facility] TYMPAN[facility]LAST[facility] 03/11/2014 Procedure: TYMPANOPLASTY; Surgeon: Deandre Ibrahim [...] Paternal Grandfather Coronary Artery Disease Brother 54 [place] Colon Cancer No family hx of Immunizations: [...] 0.4 mg 0.4 mg Intramuscular Q2 Min PRN Moody Oneal MD [Auto Hold] ondansetron (ZOFRAN ODT) ODT [...] flush 3 mL 3 mL Intracatheter Q8H [facility] Moody Oneal MD 3 mL at 04/09/252022 [Auto Hold] sodium chloride (PF) 0.9% PF flush 3 mL 3 mL Intracatheter q1 min prMoody Venegas MD sodium chloride 0.9 % infusion Intravenous Continuous Moody Oneal MD 75 mL/hr at 04/09/25 2345 Rate Verify at 04/09/25 2345 tranexamic acid 1 g in 100 mL NS IV bag (premix) 1 g Intravenous Once Roge Cartwrgiht MD tranexamic acid 1 g in 100 [...] VIEWS, XR FEMUR LEFT 2 VIEWS LOCATION: [facility] DATE: 04/09/2025 INDICATION: fall, pain COMPARISON: [...] VIEWS, XR FEMUR LEFT 2 VIEWS LOCATION: [facility] DATE: 04/09/2025 INDICATION: fall, pain COMPARISON: [...] Narrative EXAM: XR PELVIS 1/2 VIEWS LOCATION: [facility] DATE: 04/09/2025 INDICATION: fall, pain COMPARISON: Correlation with same day radiographs. Impression IMPRESSION: Bilateral acetabular marginal osteophytes. No hip joint space narrowing. 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 Lower lumbar facet arthropathy. No definite fracture or dislocationon a single view of the pelvis. CT Knee Left w/o Contrast Status: None Narrative EXAM: CT KNEE LEFT W/O CONTRAST LOCATION: [facility] DATE: 04/09/2025 INDICATION: cocnern tibial plateau [...] Abnormality Status --------- ------ Adult Type and Screen[[id number]] Edited Result - FINAL Please view results for these tests on the individual orders. Attestation: Amount of time performed on this consult: 50 minutes. Violet Giron PA-C [facility] Orthopedics Trauma Team [facility] Non-operative provider (Floor JANNETTE/ Trauma Rounds & Consults) Cosigned by Roge Cartwright MD at 04/10/2025 10:47 AM CDT Associated attestation - Roge Cartwright MD - 04/10/2025 10:47 AM CDT Physician Attestation I saw and evaluated Adilene Thurman as part of a shared DAIRY HAND/PA visit. I personally reviewed the vital signs, [...] peripheral nerve block. Unable to enter into [facility] as order is discontinued. documented in this encounter ED Notes * Iain Cruz RN - 04/09/2025 6:[address] [facility] ED Nurse Handoff Report ED Chief complaint: [...] bed. Lift room needed: No. Bariatric: No Farm Demonstrator Needed: No Isolation: No. Infection: Not Applicable. [...] Tests: SHAWN Rose spoke with Kelby with [facility]. SHAWN Rose spoke with Moody Oneal for [...] encounter S82.832A 3. Lipohemarthrosis M25.00 Scribe Disclosure: IJesus, am serving as a scribe at 5:10 PM on 04/09/2025 to document services personally performed by Jessi Ruiz MD based on my observations and the provider's statements to me. IIrvin, am serving as a scribe senior animal trainer for Jesus Cristobal at 4:26 PM on 04/09/2025 to document services personally performed by Jessi Ruiz MD based on my observations and theprovider's statements to me. 04/09/2025 [facility] EMERGENCY DEPT Jessi Ruiz MD 04/09/252156 * Mariela Cyr RN - 04/09/2025 4:00 PM CDT Ice chips given to pt per request * Ashley Rodriguez PA-C - 04/09/2025 2:10 PM CDT Emergency Department Note History of Present Illness Chief Complaint Fall ALBERT Thurman is a 55 year old female [...] LEFT SALPINGECTOMY; Surgeon: Blanca Wharton MD; Location: [facility] ??? ENT SURGERY tonsillectomy ??? EXCISE [...] Hospitalist, [facility], SHAWN Lama at [facility] ED Course ED Course as of 04/09/251653Apr 09, 2025 140 I obtained history and examined the patient as noted above. 1557 I reassessed the patient and updated them on results and plan of care. 1612 I staffed the patient with Dr. Ruiz 1627 I spoke with SHAWN Lama at [facility], regarding patient's presentation, findings, and plan of care. 1633 Dr. Ruiz assessed the patient [address] Moody Oneal, hospitalist, regarding patient's presentation, findings, and plan of care. Additional Documentation None Medical Decision Making / Diagnosis [facility] Diagnoses: None MIPS None MDM Adilene [...] medications on file Scribe Disclosure: I, Oneyda Belen, am serving as a scribe at 2:40 [...] goal(s). See goals on Care Plan in [facility] electronic health record for goal [...] goal(s). See goals on Care Plan in Epic electronic health record for goal details. Goals [...] shift note. Outcome: Progressing Flowsheets (Taken 04/17/2025 0106) Outcome Evaluation: VSS on RA. AOx4. Gave [...] Documentation Taken 04/17/202526 by Taiwo Caba RN Pain Management Interventions: medication (see MAR) care clustered emotional [...] Fall Risk Recent Flowsheet Documentation Taken 04/16/2025 1700 by Vibha Quesada RN Safety Promotion/Fall Prevention: activity supervised assistive device/personal items within reach lighting adjusted Intervention: Prevent Skin Injury Recent Flowsheet Documentation Taken 04/16/2025 1700 by Vibha Quesada RN Body Position: position changed independently Skin Protection: adhesive use limited Intervention: Prevent and Manage VTE (Venous Thromboembolism) Risk Recent Flowsheet Documentation Taken 04/16/2025 1700 by Vibha Quesada RN VTE Prevention/Management: SCDs off (sequential compression devices) Intervention: Prevent Infection Recent Flowsheet Documentation Taken 04/16/2025 1700 by Vibha Quesada RN Infection Prevention: hand hygiene promoted rest/sleep promoted single patient room provided Goal: Optimal Comfort and Wellbeing Outcome: Progressing Intervention: Monitor Pain and Promote Comfort Recent Flowsheet Documentation Taken 04/16/2025 1935 by Vibha Quesada RN Pain Management Interventions: medication (see MAR) care clustered cold applied Taken 04/16/2025 1602 by Vibha Quesada RN Pain Management Interventions: repositioned rest Goal: Readiness for Transition of Care Outcome: Progressing Problem: Knee Arthroplasty Goal: Optimal Coping Outcome: Progressing Intervention: Support Psychosocial Response to Surgery and Mobility Changes Recent Flowsheet Documentation Taken 04/16/2025 1700 by Vibha Quesada RN Supportive Measures: active [...] Effective Bowel Elimination Recent Flowsheet Documentation Taken 04/16/20251699 by Vibha Quesada RN Bowel Elimination Management: relaxation techniques promoted Bowel Elimination Promotion: adequate fluid intake promoted Goal: Absence of Embolism Signs and Symptoms Outcome: Progressing Intervention: Prevent or Manage Embolism Risk Recent Flowsheet Documentation Taken 04/16/20251699 by Vibha Quesada RN VTE Prevention/Management: SCDs off (sequential compression devices) Goal: Fracture Stability Outcome: Progressing Goal: Optimal Functional Ability Outcome: Progressing Intervention: Optimize Functional Ability Recent Flowsheet Documentation Taken 04/16/20251699 by Vibha [...] Documentation Taken 04/16/20251699 by Vibha Quesada RN Compartment Syndrome Management: active flexion/extension encouraged Goal: Optimal Pain Control and Function Outcome: Progressing Intervention: Manage Acute Orthopaedic-Related Pain Recent Flowsheet Documentation Taken 04/16/2025 193 by Vibha Quesada RN Pain Management Interventions: medication (see MAR) care clustered cold applied Taken 04/16/20251699 by Vibha Quesada RN Sleep/Rest Enhancement: awakenings minimized Taken 04/16/2025 1602 by Vibha Quesada RN Pain Management Interventions: repositioned rest Goal: Effective Oxygenation and Ventilation Outcome: Progressing Intervention: Promote Airway Secretion Clearance Recent Flowsheet Documentation Taken 04/16/20251699 by Vibha Quesada RN Activity Management: activity adjusted per tolerance ambulated to bathroom Intervention: Optimize Oxygenation and Ventilation Recent Flowsheet Documentation Taken 04/16/2025 1700 by Vibha Quesada RN Airway/Ventilation Management: pulmonary [...] Promote Comfort Recent Flowsheet Documentation Taken 04/16/2025 0826 by Zayra Yousif RN Pain Management Interventions: medication (see MAR) [...] Thromboembolism) Risk Recent Flowsheet Documentation Taken 04/16/2025 043 by Rachelle Treoj RN VTE Prevention/Management: SCDs off (sequential compression devices) Intervention: Prevent Infection Recent Flowsheet Documentation Taken 04/16/2025 043 by Rachelle Trejo RN Infection Prevention: environmental surveillance performed single patient room provided Taken 04/16/2025 0001 by Rachelle Trejo RN Infection Prevention: environmental surveillance performed single patient room provided Goal: Optimal Comfort and Wellbeing Outcome: Progressing Intervention: Monitor Pain and Promote Comfort Recent Flowsheet Documentation Taken 04/16/2025 034 by Rachelle Trejo RN Pain Management Interventions: [...] Orthopaedic-Related Pain Recent Flowsheet Documentation Taken 04/16/2025 0341 by Rachelle Trejo tank systems maintainer Interventions: cold applied repositioned rest medication (see [...] Taken 04/15/2025 1600 by Vibha Quesada RN Breathing Techniques/Airway Clearance: deep/controlled cough [...] Skin Injury Recent Flowsheet Documentation Taken 04/15/2025 09 by Thelma Constantino RN Skin Protection: adhesive use limited Taken 04/15/2025 0813 by Thelma Constantino RN Body Position: supine, head elevated Intervention: Prevent and Manage VTE (Venous Thromboembolism) Risk Recent Flowsheet Documentation Taken 04/15/2025 09 by Thelma Constantino RN VTE Prevention/Management: SCDs off (sequential compression devices) Intervention: Prevent Infection Recent Flowsheet Documentation Taken 04/15/2025899 by Thelma Constantino RN Infection Prevention: single patient room provided rest/sleep promoted Goal: Optimal Comfort and Wellbeing Outcome: Progressing Intervention: Monitor Pain and Promote Comfort Recent Flowsheet Documentation Taken 04/15/2025812 by Thelma [...] Optimal Functional Status Recent Flowsheet Documentation Taken 04/15/2025839 by Thelma [...] or Manage Pain Recent Flowsheet Documentation Taken 04/15/202513 by Thelma Constantino RN Pain Management Interventions: [...] light exposure provided therapeutic touch utilized Taken 04/15/2025 0813 by Thelma Constantino RN Pain Management Interventions: medication (see MAR) pain management plan reviewed with patient/caregiver pillow support provided repositioned Goal: Effective Oxygenation and Ventilation Outcome: Progressing Intervention: Promote Airway Secretion Clearance Recent Flowsheet Documentation Taken 04/15/2025899 by Thelma Constantino RN Breathing Techniques/Airway Clearance: deep/controlled cough encouraged Cough And Deep Breathing: done with encouragement Taken 04/15/2025 0840 by Thelma Constantino RN Activity Management: activity adjusted per tolerance ambulated to bathroom up in chair Intervention: Optimize Oxygenation and Ventilation Recent Flowsheet Documentation Taken 04/15/2025899 by Thelma Constantino RN Airway/Ventilation Management: pulmonary [...] shift note. Outcome: Progressing Flowsheets (Taken 04/15/2025 06) Outcome Evaluation: Patient A/Ox4, RA, continent up [...] Manage Fall Risk Recent Flowsheet Documentation Taken 04/14/20251616 by Anne Stanford, RN Safety Promotion/Fall Prevention: activity supervised assistive device/personal items within reach clutter free environment maintained mobility aid in reach nonskid shoes/slippers when out of bed room near nurse's station room organization consistent safety round/check completed treat reversible contributory factors Intervention: Prevent and Manage VTE (Venous Thromboembolism) Risk Recent Flowsheet Documentation Taken 04/14/20251616 by Anne Stanford, RN VTE Prevention/Management: SCDs on (sequential compression devices) Intervention: Prevent Infection Recent Flowsheet Documentation Taken 04/14/20251616 by Anne Stanford, RN Infection Prevention: hand [...] and Mobility Changes Recent Flowsheet Documentation Taken 04/14/2025 161 by Anne Stanofrd RN Supportive Measures: active listening utilized positive [...] Taken 04/14/2025 161 by Anne Stanford RN Assistive Device Utilized: [...] Taken 04/14/2025 161 by Anne Stanford RN Neurovascular Pressure Management: extremity positioned at heart level ice/cold therapy applied Compartment Syndrome Management: active flexion/extension encouraged Goal: Anesthesia/Sedation Recovery Outcome: Progressing Intervention: Optimize Anesthesia Recovery Recent Flowsheet Documentation Taken 04/14/2025 161 by Anne Stanford RN Safety Promotion/Fall Prevention: activity supervised assistive device/personal items within reach clutter free environment maintained mobility aid in reach nonskid shoes/slippers when out of bed room near nurse's station room organization consistent safety round/check completed treat reversible contributory factors Goal: Optimal Pain Control and Function Outcome: Progressing Intervention: Prevent or Manage Pain Recent Flowsheet Documentation Taken 04/14/2025 160 by Anne Stanford RN Pain Management Interventions: [...] Effective Bowel Elimination Recent Flowsheet Documentation Taken 04/14/20251616 by Anne Stanford RN Bowel Elimination Management: relaxation techniques promoted hygiene measures promoted Bowel Elimination Promotion: adequate fluid intake promoted ambulation promoted Goal: Absence of Embolism Signs and Symptoms Outcome: Not Progressing Intervention: Prevent or Manage Embolism Risk Recent Flowsheet Documentation Taken 04/14/20251616 by Anne Stanford RN VTE Prevention/Management: SCDs [...] Taken 04/14/2025 161 by Anne Stanford RN Activity Management: activity [...] Documentation Taken 04/14/20251616 by Anne Stanford RN Compartment Syndrome Management: [...] Oxygenation and Ventilation Recent Flowsheet Documentation Taken 04/14/20251616 by Anne [...] Manage Fall Risk Recent Flowsheet Documentation Taken 04/14/202545 by Abril Knapp, CHANDA Safety Promotion/Fall Prevention: activity supervised assistive device/personal [...] (Venous Thromboembolism) Risk Recent Flowsheet Documentation Taken 04/14/202545 by [...] Embolism Risk Recent Flowsheet Documentation Taken 04/14/2025 0845 [...] AX1 wGBW. Indpt at baseline.Homecare referral to [facility] pending approval. SW and CM following. Goal [...] Fall Risk Recent Flowsheet Documentation Taken 04/14/2025 0000 by Vishnu Nguyen RN Safety Promotion/Fall Prevention: activity supervised assistive device/personal items within reach clutter free environment maintained mobility aid in reach nonskid shoes/slippers when out of bed room near nurse's station room organization consistent Intervention: Prevent Skin Injury Recent Flowsheet Documentation Taken 04/14/2025 0000 by Vishnu Nguyen RN Body Position: supine, head elevated Intervention: Prevent and Manage VTE (Venous Thromboembolism) Risk Recent Flowsheet Documentation Taken 04/14/2025 0000 by Vishnu Nguyen RN VTE Prevention/Management: SCDs on (sequential compression devices) Intervention: Prevent Infection Recent Flowsheet Documentation Taken 04/14/2025 0000 by Vishnu Nguyen RN Infection Prevention: hand [...] Functional Status Recent Flowsheet Documentation Taken 04/14/2025 by Vishnu Nguyen RN Assistive Device Utilized: [...] Functional Ability Recent Flowsheet Documentation Taken 04/14/2025 0000 by Vishnu Nguyen RN Activity Management: activity adjusted per tolerance ambulated to bathroom back to bed Positioning/Transfer Devices: orthosis pillows in use Goal: Absence of Infection Signs and Symptoms Outcome: Progressing Intervention: Prevent or Manage Infection Recent Flowsheet Documentation Taken 04/14/2025 0000 by Vishnu Nguyen RN Infection Management: aseptic [...] Documentation Taken 04/14/2025 by Vishnu Nguyen RN Head of Bed [...] (Venous Thromboembolism) Risk Recent Flowsheet Documentation Taken 04/13/2025 162 by Anne Stanford RN VTE Prevention/Management: SCDs on (sequential compression devices) Intervention: Prevent Infection Recent Flowsheet Documentation Taken 04/13/20251622 by Anne Stanford RN Infection Prevention: hand [...] and Mobility Changes Recent Flowsheet Documentation Taken 04/13/2025 162 by Anne Stanford RN Supportive Measures: active listening utilized positive reinforcement provided self-care encouraged verbalization of feelings encouraged Goal: Absence of Bleeding Outcome: Progressing Intervention: Monitor and Manage Bleeding Recent Flowsheet Documentation Taken 04/13/20251622 by Anne Stanford RN Bleeding Management: dressing monitored Goal: Effective Bowel Elimination Outcome: Not Progressing Intervention: Enhance Bowel Motility and Elimination Recent Flowsheet Documentation Taken 04/13/20251622 by Anne Stanford RN Bowel Motility Enhancement: ambulation promoted fluid intake encouraged oral intake encouraged Bowel Elimination Management: relaxation techniques promoted hygiene measures promoted Goal: Fluid and Electrolyte Balance Outcome: Progressing Intervention: Monitor and Manage Fluid and Electrolyte Balance Recent Flowsheet Documentation Taken 04/13/2025 162 by Anne Stanford RN Fluid/Electrolyte Management: fluids provided Goal: Optimal Functional Ability Outcome: Progressing Intervention: Promote Optimal Functional Status Recent Flowsheet Documentation Taken 04/13/2025 1623 by Anne Stanford RN Assistive Device Utilized: (Hinged Knee brace.) gait belt walker Activity Management: activity encouraged up in chair Goal: Absence of Infection Signs and Symptoms Outcome: Progressing Intervention: Prevent or Manage Infection Recent Flowsheet Documentation Taken 04/13/2025 162 by Anne Stanford RN Infection Management: aseptic technique maintained Goal: Intact Neurovascular Status Outcome: Progressing Intervention: Prevent or Manage Neurovascular Compromise Recent Flowsheet Documentation Taken 04/13/2025 1623 by Anne Stanford RN Compartment Syndrome Management: active flexion/extension encouraged Goal: Anesthesia/Sedation Recovery Outcome: Progressing Intervention: Optimize Anesthesia Recovery Recent Flowsheet Documentation Taken 04/13/2025 162 by Anne Stanford RN Safety Promotion/Fall Prevention: activity supervised assistive device/personal items within reach clutter free environment maintained mobility aid in reach nonskid shoes/slippers when out of bed room near nurse's station room organization consistent safety round/check completed treat reversible contributory factors Goal: Optimal Pain Control and Function Outcome: Progressing Intervention: Prevent or Manage Pain Recent Flowsheet Documentation Taken 04/13/2025 1612 [...] Manage Fracture Bleeding Recent Flowsheet Documentation Taken 04/13/2025 1623 by Anne Stanford RN Bleeding Management: dressing monitored Goal: Bowel Elimination Outcome: Progressing Intervention: Promote Effective Bowel Elimination Recent Flowsheet Documentation Taken 04/13/2025 162 by Anne Stanford RN Bowel Elimination Management: relaxation techniques promoted hygiene measures promoted Bowel Elimination Promotion: adequate fluid intake promoted ambulation promoted Goal: Absence of Embolism Signs and Symptoms Outcome: Progressing Intervention: Prevent or Manage Embolism Risk Recent Flowsheet Documentation Taken 04/13/2025 162 by Anne Stanford RN VTE Prevention/Management: SCDs [...] Manage Infection Recent Flowsheet Documentation Taken 04/13/2025 162 by Anne Stanford RN Infection Management: aseptic [...] Secretion Clearance Recent Flowsheet Documentation Taken 04/13/2025 162 by Anne Stanford RN Cough And Deep [...] Manage Fall Risk Recent Flowsheet Documentation Taken 04/13/2025 0838 by Abril Knapp RN Safety Promotion/Fall Prevention: [...] (Venous Thromboembolism) Risk Recent Flowsheet Documentation Taken 04/13/2025 08 by Abril Knapp RN VTE Prevention/Management: SCDs on (sequential compression devices) Intervention: Prevent Infection Recent Flowsheet Documentation Taken 04/13/2025 0838 by Abril Knapp RN Infection Prevention: cohorting [...] shift note. Outcome: Progressing Flowsheets (Taken 04/13/2025 0656) Outcome Evaluation: Pt stable. AOX4. Refused IV [...] Manage Fall Risk Recent Flowsheet Documentation Taken 04/13/2025 015 by Vishnu Nguyen RN Safety Promotion/Fall Prevention: activity supervised assistive device/personal items within reach clutter free environment maintained mobility aid in reach nonskid shoes/slippers when out of bed room near nurse's station room organization consistent Intervention: Prevent Skin Injury Recent Flowsheet Documentation Taken 04/13/2025 015 by Vishnu Nguyen RN Body Position: supine, head elevated Intervention: Prevent and Manage VTE (Venous Thromboembolism) Risk Recent Flowsheet Documentation Taken 04/13/2025155 by Vishnu Nguyen RN VTE Prevention/Management: SCDs on (sequential compression devices) Intervention: Prevent Infection Recent Flowsheet Documentation Taken 04/13/2025155 by Vishnu Nguyen RN Infection Prevention: hand [...] Prevent Infection Recent Flowsheet Documentation Taken 04/12/2025 164 by Anne Stanford RN Infection Prevention: hand [...] Manage Bleeding Recent Flowsheet Documentation Taken 04/12/2025 164 by Abdoulaye, Anne T, RN Bleeding Management: dressing monitored Goal: Effective Bowel Elimination Outcome: Not Progressing Intervention: Enhance Bowel Motility and Elimination Recent Flowsheet Documentation Taken 04/12/2025 164 by Anne Stanford RN Bowel Motility Enhancement: [...] Functional Status Recent Flowsheet Documentation Taken 04/12/2025 1643 by Anne Stanford RN Activity Management: activity encouraged up in chair Goal: Absence of Infection Signs and Symptoms Outcome: Progressing Intervention: Prevent or Manage Infection Recent Flowsheet Documentation Taken 04/12/2025 164 by Anne Stanford RN Infection Management: aseptic technique maintained Goal: Intact Neurovascular Status Outcome: Progressing Intervention: Prevent or Manage Neurovascular Compromise Recent Flowsheet Documentation Taken 04/12/2025 164 by Anne Stanford RN Compartment Syndrome Management: active flexion/extension encouraged Goal: Anesthesia/Sedation Recovery Outcome: Progressing Intervention: Optimize Anesthesia Recovery Recent Flowsheet Documentation Taken 04/12/2025 1643 by Anne Stanford RN Safety Promotion/Fall Prevention: [...] and Ventilation Recent Flowsheet Documentation Taken 04/12/2025 164 by Anne Stanford RN Cough And Deep Breathing: done independently per patient Activity Management: activity encouraged up in chair Head of Bed (HOB) Positioning: HOB at 20-30 degrees Problem: Orthopaedic Fracture Goal: Absence of Bleeding Outcome: Progressing Intervention: Monitor and Manage Fracture Bleeding Recent Flowsheet Documentation Taken 04/12/2025 1643 by Anne Stanford RN Bleeding Management: dressing monitored Goal: Bowel Elimination Outcome: Not Progressing Intervention: Promote Effective Bowel Elimination Recent Flowsheet Documentation Taken 04/12/2025 1643 by Anne Stanford RN Bowel Elimination Management: [...] IV Dilaudid for adequate pain control. CPT 63587 (Open treatment of femoral fracture, distal end, [...] KELLIE DELAROSA MD Utilization Review Physician [facility] * Plan of Care - Thelma [...] Reviewed With: patient Overall Patient Progress: improving 04/12/20251428 by Thelma Constantino RN Outcome: Progressing Flowsheets (Taken 04/12/20251428) Outcome Evaluation: Pain managed with PO meds, [...] 04/12/20251428 by Thelma Constantino RN Outcome: Progressing Goal: [...] Goal: Optimal Coping 04/12/2025 1430 by Thelma Constantino RN Outcome: [...] Recent Flowsheet Documentation Taken 04/12/2025 1000 by hTelma Constantino RN Infection Management: aseptic technique maintained [...] shift note. Outcome: Progressing Flowsheets (Taken 04/11/2025 5593) Outcome Evaluation: A&O x4, VSS on RA, [...] Fall Risk Recent Flowsheet Documentation Taken 04/11/2025 163 by Billie Capellan RN Safety Promotion/Fall Prevention: safety round/check completed Intervention: Prevent and Manage VTE (Venous Thromboembolism) Risk Recent Flowsheet Documentation Taken 04/11/2025 194 by Billie Capellan RN VTE Prevention/Management: SCDs on (sequential compression devices) Taken 04/11/2025 1637 by Billie Capellan RN VTE Prevention/Management: (in chair) SCDs off (sequential compression devices) Intervention: Prevent Infection Recent Flowsheet Documentation Taken 04/11/2025 1637 by Billie Capellan RN Infection Prevention: hand hygiene promoted Goal: Optimal Comfort and Wellbeing Outcome: Progressing Intervention: Monitor Pain and Promote Comfort Recent Flowsheet Documentation Taken 04/11/2025 2213 by Billie Capellan RN Pain Management Interventions: [...] Optimal Functional Status Recent Flowsheet Documentation Taken 04/11/20251940 by Billie Capellan RN Assistive Device Utilized: [...] ambulated to bathroom back to bed Taken 04/11/20251636 by Billie Capellan RN Cough And Deep [...] Prevention/Management: SCDs on (sequential compression devices) Taken 04/11/20251636 by Billie Capellan RN VTE Prevention/Management: (in [...] Secretion Clearance Recent Flowsheet Documentation Taken 04/11/2025 194 by Billie Capellan RN Activity Management: ambulated [...] Flowsheet Documentation Taken 04/11/2025 1200 by Thelma Cosntantino RN Fluid/Electrolyte Management: fluids provided Goal: Optimal [...] Documentation Taken 04/11/202524 by Taiwo Caba RN VTE Prevention/Management: (to Rle, OFF to LLe) other (see comments) SCDs on (sequential compression devices) Intervention: Prevent Infection Recent Flowsheet Documentation Taken 04/11/202524 by Taiwo Caba RN Infection Prevention: rest/sleep promoted Goal: Optimal Comfort and Wellbeing Outcome: Progressing Intervention: Monitor Pain and Promote Comfort Recent Flowsheet Documentation Taken 04/11/202524 by Taiwo Caba RN Pain Management Interventions: medication (see MAR) care clustered emotional [...] tibial plateau fracture SURGEON: Roge Cartwright MD SENIOR PREMIUM AUDITOR: Davie Mari PA-C, whose assistance was required for positioning, exposure, fracture reduction, instrumentation, and closure SPECIMENS: None COMPLICATIONS: None ESTIMATED BLOOD LOSS: 100 mL IMPLANTS: Implant Name Type Inv. Item Serial No. Prospecting Observer Lot No. LRB No. Used Action SCREW CORTEX [id number] - [id number] Metallic Hardware/[place] SCREW CORTEX 3.5X48MM [id number] [employer] 8005 [id number] Left 1 Implanted IMP SCR BONE 3.5MM 55MML TI [address] AXSOS [id number] - [id number] Metallic Hardware/[place] IMP SCR BONE3.5MM 55MML TI ALFIE ST AXSOS [id number] [employer] 8005 [id number] Left 1 Implanted IMP SCR STRK AXSOS3 ALFIE ST 3.5X32MM TI [id number] - [id number] Metallic Hardware/[place] IMP SCR STRK AXSOS3 ALFIE ST 3.5X32MM TI [id number] [employer] 8005 [id number] Left 1 Implanted SCREW BN 48MM 3.5MM LCK TX HD T15 NS PANGE[place] LF [id number] - [id number] Metallic Hardware/[place] SCREW BN 48MM 3.5MM LCK TX HD T15 NS [place] LF [id number] [employer] 8005 [id number] Left 1 Implanted SCREW BN 55MM 3.5MM LCK TX HD T15 NS PANGE[place] LF [id number] - [id number] Metallic Hardware/[place] SCREW BN 55MM 3.5MM LCK TX HD T15 NS [place] [id number] [employer] 8005 [id number] Left 1 Implanted TOURNIQUET TIME: N/A INDICATIONS: [...] documented. Met with the patient preoperatively to adniel the operative extremity. OPERATIVE COURSE: The patient [...] care not to strip them excessively. A [employer] utility T plate was selected from the [...] Dispo: Anticipate discharge home with follow-up at [facility] in 2 weeks * Plan of Care - Whitney Coreas RN - 04/10/2025 4:47 AM CDT PRIMARY DIAGNOSIS: LEFT TIBIAL FX OUTPATIENT/OBSERVATION GOALS TO BE MET BEFORE DISCHARGE: ADLs back to baseline: No Activity and level of assistance: BEDREST, ASSIST X1 Pain status: Improved but still requiring IV narcotics. Return to near baseline physical activity: No Senior Fire Protection Engineer Nurse Safe discharge environment identified: Yes Barriers [...] Return to near baseline physical activity: No Senior Fire Protection Engineer Nurse Safe discharge environment identified: Yes Barriers [...] Return to near baseline physical activity: No Senior Fire Protection Engineer Nurse Safe discharge environment identified: Yes Barriers [...] - 04/09/2025 6:54 PM CDT ROOM # [facility] Living Situation (if not independent, order SW consult): Facility name: personal care home administrator: Flip(spouse) [phone] Activity level at baseline: ind Activity level [...] in-person Pertinent Information: - Changes made to HR ADMINISTRATIVE ASSISTANT medication list: Added: all meds Deleted: old meds Changed: None Allergies reviewed with patient and updates made in EHR: yes Medication History Completed By: Ludin Blair RPH 04/09/2025 5:40 PM HR ADMINISTRATIVE ASSISTANT Med List Medication Sig Last Dose/Taking LEVOTHYROXINE [...] * Platelet count (04/16/2025 6:13 AM CDT) Platelet Count 280 150 - 450 10e3/uL 04/16/2025 6:37 AM CDT [facility] MCV 92 78 - 100 fL 04/16/2025 6:37 AM CDT [facility] Blood STRUCTURE OF LEFT HAND / Unknown Venipuncture / Unknown 04/16/2025 6:13 AM CDT 04/16/2025 6:30 AM CDT us Moody Oneal MD LAB - BLOOD ORDERABLES Final Res ult [facility] [address] Lab (1st floor, no room number) [place] [address], [facility] * (ABNORMAL) Creatinine (04/16/2025 6:13 AM CDT) Creatinine 1.09(H) 0.51 - 0.95 mg/dL 04/16/2025 6:58 AM CDT [facility] GFR Estimate 59(L) >60 mL/min/1.7 3m2 04/16/2025 6:58 AM CDT [facility] Comment:eGFR calculated usin g 2020 CKD-EPI equation. Blood STRUCTURE OF LEFT HAND / Unknown Venipuncture / Unknown 04/16/2025 6:13 AM CDT 04/16/2025 6:29 AM CDT Davie Mari PA-C LAB - BLOOD ORDERABLES Elly l Result LABORATORY [facility] [address] [place] Lab (1st floor, no room number) [place] [phone] [place] [address] * Platelet count (04/13/2025 6:24 AM CDT) Platelet Count 220 150 - 450 10e3/uL 04/13/2025 6:45 AM CDT LABORATORY MCV 91 78 - 100 fL 04/13/2025 6:45 AM CDT LABORATORY Blood STRUCTURE OF LEFT HAND / Unknown Venipuncture / Unknown 04/13/2025 6:24 AM CDT 04/13/2025 6:38 AM CDT us Moody Oneal MD LAB - BLOOD ORDERABLES Final Res ult LABORATORY [facility] [address] Lab (1st floor, no room number) [place] [phone] * (ABNORMAL) Creatinine (04/13/2025 6:24 AM CDT) Creatinine 1.11(H) 0.51 - 0.95 mg/dL 04/13/2025 7:04 AM CDT LABORATORY GFR Estimate 58(L) >60 mL/min/1.7 3m2 04/13/2025 7:04 AM CDT LABORATORY Comment:eGFR calculated 2020 CKD-EPI equation. Blood STRUCTURE OF LEFT HAND / Unknown Venipuncture / Unknown 04/13/2025 6:24 AM CDT 04/13/2025 6:38 AM CDT Davie Mari PA-C LAB - BLOOD ORDERABLES Elly srinivasan Result LABORATORY [facility] [address] Lab (1st floor, no room number) [place] [address], [facility] * US Lower Extremity Venous Duplex Left (04/12/2025 11:50 AM CDT) Anatomical Region Laterality Modality Vascular, Thigh, Leg Ultrasound 04/12/2025 11:5 0 AM CDT Impressions 04/12/2025 11:58 AM CDT IMPRESSION: 1. No deep venous thrombosis in the left lower extremity. Narrative 04/12/2025 11:58 AM CDT EXAM: US LOWER EXTREMITY VENOUS DUPLEX LEFT LOCATION: [facility] DATE: 04/12/2025 INDICATION: calf pain post [...] US LOWER EXTREMITY VENOUS DUPLEX LEFT LOCATION: [facility] DATE: 04/12/2025 INDICATION: calf pain post [...] Result * Glucose (04/12/2025 7:09 AM CDT) [facility] Glucose 97 70 - 99 mg/dL 04/12/2025 7:43 AM CDT [facility] Blood STRUCTURE OF RIGHT HAND / Unknown Venipuncture / Unknown 04/12/2025 7:09 AM CDT 04/12/2025 7:21 AM CDT Lionel Logan MD LAB - BLOOD ORDERABLES Final Result Performing Organization Address City/[facility]/ZIP Co de Phone Number [facility] [address] Lab (1st floor, no room number) [address] * (ABNORMAL) Hemoglobin (04/12/2025 7:09 AM CDT) [facility] Hemoglobin 8.6(L) 11.7 - 15.7 g/dL 04/12/2025 7:25 AM CDT LABORATORY MCV 91 78 - 100 fL 04/12/2025 7:25 AM CDT LABORATORY Blood STRUCTURE OF RIGHT HAND / Unknown Venipuncture / Unknown 04/12/2025 7:09 AM CDT 04/12/2025 7:21 AM CDT Davie Mari PA-C LAB - BLOOD ORDERABLES Elly l Result [facility] [address] Lab (1st floor, no room number) [address] * (ABNORMAL) Basic Metabolic Panel (Limited Occurrences) (04/11/2025 7:11 AM CDT) [facility] Sodium 136 135 - 145 mmol/L 04/11/2025 7:48 AM CDT LABORATORY Potassium 4.5 3.4 - 5.3 mmol/L 04/11/2025 7:48 AM CDT LABORATORY Chloride 103 98 - 107 mmol/L 04/11/2025 7:48 AM CDT LABORATORY Carbon Dioxide (CO2) 24 22 - 29 mmol/L 04/11/2025 7:48 AM CDT LABORATORY Anion Gap 9 7 - 15 mmol/L 04/11/2025 7:48 AM CDT LABORATORY Urea Nitrogen 18.1 6.0 - 20.0 mg/dL 04/11/2025 7:48 AM CDT LABORATORY Creatinine 1.11(H) 0.51 - 0.95 mg/dL 04/11/2025 7:48 AM CDT LABORATORY GFR Estimate 58(L) >60 mL/min/1.7 3m2 04/11/2025 7:48 AM CDT LABORATORY Comment:eGFR calculated usin g 2020 CKD-EPI equation. Calcium 8.8 8.8 - 10.4 mg/dL 04/11/2025 7:48 AM CDT LABORATORY Glucose 122(H) 70 - 99 mg/dL 04/11/2025 7:48 AM CDT LABORATORY Blood STRUCTURE OF RIGHT HAND / Unknown Venipuncture / Unknown 04/11/2025 7:11 AM CDT 04/11/2025 7:21 AM CDT Andi Mackenzie APRN EXTERMINATOR LAB - BLOOD ORDERABLE S Final Result LABORATORY [facility] [address] Lab (1st floor, no room number) [place] [address], [facility] * (ABNORMAL) CBC with Platelets (Limited Occurrences) (04/11/2025 7:11 AM CDT) Pathologist [facility] WBC Count 8.4 4.0 - 11.0 10e3/uL 04/11/2025 7:25 AM CDT LABORATORY RBC Count 3.44(L) 3.80 - 5.20 [...] 7:21 AM CDT us Andi Mackenzie APRN EXTERMINATOR LAB - BLOOD ORDERABLE S Final Result LABORATORY [facility] [address] Lab (1st floor, no room number) [place] [address], [facility] * XR Surgery BOBBY L/T 5 Min [...] LESS THAN 5 MIN W STILLS LOCATION: [facility] DATE: 04/10/2025 INDICATION: ORIF left tibial plateau. COMPARISON: None. TECHNIQUE: Intraoperative fluoroscopy performed during the patient's procedure. RADIATION DOSE: Dose Area Product 0.8377 mGy-cm2. Procedure Note Deon Ghosh MD - 04/10/2025 EXAM: XR SURGERY C-ARM FLUORO LESS THAN 5 MIN W STILLS LOCATION: [facility] DATE: 04/10/2025 INDICATION: ORIF left tibial plateau. COMPARISON: None. TECHNIQUE: Intraoperative fluoroscopy performed during the patient'sprocedure. RADIATION DOSE: Dose Area Product 0.8377 mGy-cm2. IMPRESSION: Two fluoroscopic images acquired by the clinical service for ORIF of theleft tibial plateau. Anatomic alignment. us Moody Oneal MD IMG DIAGNOSTIC IMAGING ORDERABLE S Final Result * Glucose by meter (04/10/2025 8:19 AM CDT) GLUCOSE BY METER POCT 73 70 - 99 mg/dL 04/10/2025 8:25 AM CDT [facility] POC Comment:Dr/RN Notified Blood, Capillary BLOOD SPECIMEN / Unknown 04/10/2025 8:19 AM CDT 04/10/2025 8:25 AM CDT us Moody Oneal MD LAB - BEAKER POCT Final Result [facility] POC [facility] [address] [facility] Lab (1st floor, no room number) [place] [address] * (ABNORMAL) CBC with platelets (04/10/2025 5:19 AM CDT) WBC Count 6.4 4.0 - 11.0 10e3/uL [...] BLOOD ORDERABLES Final Res ult LABORATORY [facility] [address] Lab (1st floor, no room number) [place] [address] * (ABNORMAL) Basic Metabolic Panel (Limited [...] >60 mL/min/1.7 3m2 04/10/2025 5:50 AM CDT [facility] Comment:eGFR calculated us2020 CKD-EPI equation. Calcium 8.4(L) 8.8 - 10.4 mg/dL 04/10/2025 5:50 AM CDT LABORATORY Glucose 105(H) 70 - 99 mg/dL 04/10/2025 5:50 AM CDT [facility] Blood BLOOD SPECIMEN / Unknown Venipuncture / Unknown 04/10/2025 5:19 AM CDT 04/10/2025 5:22 AM CDT us Moody Oneal MD LAB - BLOOD ORDERABLES Final Res ult [facility] [address] Lab (1st floor, no room number) [place] [address] * CT Knee Left w/o Contrast (04/09/2025 [...] EXAM: CT KNEE LEFT W/O CONTRAST LOCATION: [facility] DATE: 04/09/2025 INDICATION: cocnern tibial plateau [...] EXAM: CT KNEE LEFT W/O CONTRAST LOCATION: [facility] DATE: 04/09/2025 INDICATION: cocnern tibial plateau [...] fracture of the proximal fibula (series 4 [id number], series 2 image 187). Diffuse osseous demineralization [...] fibula. 4. Large joint effusion with lipohemarthrosis. us Ashley Rodriguez PA-C IMRj CT ORDERABLES Final [...] VIEWS, XR FEMUR LEFT 2 VIEWS LOCATION: [facility] DATE: 04/09/2025 INDICATION: fall, pain COMPARISON: None. Procedure Note Adrián Berg MD - 04/09/2025 EXAM: XR KNEE LEFT 3 VIEWS, XR FEMUR LEFT 2 VIEWS LOCATION: [facility] DATE: 04/09/2025 INDICATION: fall, pain COMPARISON: [...] IMAGING O RDERABLES Final Result * XR Knee Left 3 [...] VIEWS, XR FEMUR LEFT 2 VIEWS LOCATION: [facility] DATE: 04/09/2025 INDICATION: fall, pain COMPARISON: None. Procedure Note Adrián Berg MD - 04/09/2025 EXAM: XR KNEE LEFT 3 VIEWS, XR FEMUR LEFT 2 VIEWS LOCATION: [facility] DATE: 04/09/2025 INDICATION: fall, pain COMPARISON: None. IMPRESSION: Cortical irregularity of the medial tibial plateau suspiciousfor a comminuted intra-articular fracture. Small knee joint effusion witha fluid/fluid level likely representing a lipohemarthrosis. CT isrecommended to confirm these findings. Cortical irregularity of the fibular head likely a nondisplacedfracture. Demineralization. No fracture of the more proximal left femur. Mild leftsacroiliac joint osteoarthritis. Ashley Rodriguez PA-C IMG DIAGNOSTIC IMAGING O [...] CDT EXAM: XR PELVIS 1/2 VIEWS LOCATION: [facility] DATE: 04/09/2025 INDICATION: fall, pain COMPARISON: Correlation with same day radiographs. Procedure Note Raudel Cardoso, - 04/09/2025 EXAM: XR PELVIS 1/2 VIEWS LOCATION: [facility] DATE: 04/09/2025 INDICATION: fall, pain COMPARISON: [...] Result - Final BLOOD BANK [address] [place] [address], [facility] * (ABNORMAL) Basic Metabolic Panel (Limited Occurrences) (04/09/2025 2:24 PM CDT) Sodium 136 135 - 145 mmol/L 04/09/2025 2:56 PM CDT [facility] Potassium 4.2 3.4 - 5.3 mmol/L 04/09/2025 2:56 PM CDT [facility] Chloride 100 98 - 107 mmol/L 04/09/2025 2:56 PM CDT [facility] Carbon Dioxide (CO2) 21(L) 22 - 29 mmol/L 04/09/2025 2:56 PM CDT [facility] Anion Gap 15 7 - 15 mmol/L 04/09/2025 2:56 PM CDT [facility] Urea Nitrogen 24.2(H) 6.0 - 20.0 mg/dL 04/09/2025 2:56 PM CDT [facility] Creatinine 1.09(H) 0.51 - 0.95 mg/dL 04/09/2025 2:56 PM CDT [facility] GFR Estimate 59(L) >60 mL/min/1.7 3m2 04/09/2025 2:56 PM CDT [facility] Comment:eGFR calculated us2020 CKD-EPI equation. Calcium 9.6 8.8 - 10.4 mg/dL 04/09/2025 2:56 PM CDT [facility] Glucose 122(H) 70 - 99 mg/dL 04/09/2025 2:56 PM CDT [facility] Blood BLOOD SPECIMEN / Unknown Venipuncture / Unknown 04/09/2025 2:24 PM CDT 04/09/2025 2:29 PM CDT Ashley Rodriguez PA-C LAB - BLOOD ORDERABLES F inal Result [facility] [address] [facility] Lab (1st floor, no room number) [place] [address] * (ABNORMAL) CBC with Platelets (Limited [...] 2:24 PM CDT 04/10/2025 1:55 AM CDT us Ashley Rodriguez PA-C LAB - BLOOD ORDERABLES F inal Result LABORATORY [facility] [address] Lab (1st floor, no room number) [place] [address], [facility] documented in this encounter Visit Diagnoses Diagnosis Closed fracture of left tibial plateau, initial encounter- Primary Closed fracture of left tibial plateau, initial encounter Closed fracture of proximal end of left fibula, unspecified fracture morphology, initial encounter Lipohemarthrosis Vitamin D deficiency Unspecified vitamin D deficiency Bariatric surgery status Morbid obesity (H) Morbid obesity ELEONORA (obstructive sleep apnea) Obstructive sleep apnea (adult) (pediatric) Closed fracture of left tibial plateau, initial encounter documented in this encounter Admitting Diagnoses Diagnosis [...] to exceed 4 grams/day. acetaminophen (TYLENOL) tablet 650 mg 650 mg, [...] without fever, Starting on Tue04/10/25 at 1439 BUPivacaine 0.25 % - EPINEPHrine 1:200,000 injection PRN, Starting on Tue04/10/25 at 1205, Intra-procedure $Given 04/10/2025 12:05 PM CDT 30 mLs Operative Site/Surgi joy Site celecoxib (celeBREX) capsule 100 mg 100 mg, Oral, 2 TIMES DAILY PRN, inflammatory pain, Starting on Tue04/12/25 at 0943 $Given 04/15/2025 10:29 AM CDT 100 mg $Given 04/14/2025 10:18 PM CDT 100 mg $Given 04/14/2025 9:25 AM CDT 100 mg enoxaparin ANTICOAGULANT (LOVENOX) injection 40 mg 40 mg, Subcutaneous, EVERY 24 HOURS, First dose on Ame 04/11/25 at 0900, Check to make sure start [...] $Given 04/15/2025 8:13 AM CDT 40 mg ferrous sulfate (FEROSUL) tablet 325 mg 325 [...] $Given 04/11/2025 5:04 PM CDT 0.4 mg hydrOXYzine HCl (ATARAX) tablet 25 mg 25 mg, Oral, EVERY 6 HOURS, First dose (after last modification) on Tue04/12/25 at 1600 $Given 04/17/2025 10:34 AM CDT 25 mg $Given 04/17/2025 3:37 AM CDT 25 mg $Given 04/16/2025 9:53 PM CDT 25 mg levothyroxine (SYNTHROID/LEVOTHROID) tablet 225 mcg 225 mcg, [...] 2 prochlorperazine (COMPAZINE). oxyCODONE (ROXICODONE) tablet 5 mg 5 mg, Oral, EVERY 4 HOURS PRN, moderate pain, Starting on Tue04/10/25 at 1303, Hold oral PRN dose for analgesic side effects. Notify provider to assess for uncontrolled pain or analgesic side effects. Hold while on IV FURNITURE MOVER or with regular IV opioid dosing. $Given [...] analgesic side effects. Hold while on IV FURNITURE MOVER or with regular IV opioid dosing. $Given [...] 8:23 PM CDT 3 mLs sodium chloride 0.9% (bottle) irrigation PRN, Starting on Tue04/10/25 at 1205, Intra-procedure $Given 04/10/2025 12:05 PM CDT 400 mLs Operative Site/Surgi joy Site tobramycin (NEBCIN) vial PRN, Starting on Tue04/10/25 at 1205, Intra-procedure $Given 04/10/2025 12:05 PM CDT 1.2 g Operative Site/Surgi joy Site vancomycin (VANCOCIN) topical powder PRN, Starting on Tue04/10/25 at 1205, Intra-procedure $Given 04/10/2025 12:05 PM CDT 1 g Operative Site/Surgi joy Site documented in this encounter Active and Recently [...] Provider: Rachelle Trejo RN)1138 ($Given - Provider: Zayra Yousif RN)1935 ($Given - Provider: Vibha Quesada RN) 0336 ($Given - Provider: Taiwo Caba RN)1200 (Canceled Entry - Provider: Orders Generic Provider - Comment: Automatically canceled at discontinue of medication order) enoxaparin ANTICOAGULANT (LOVENOX) injection 40 mg 40 mg, Subcutaneous, EVERY 24 HOURS, First dose on Ame 04/11/25 at 0900, Check to make sure start date/time is 12-24 hours post op unless documented complication. Continue until discharge to home. HOLD if platelet count drops by 50% or more after enoxaparin initiation OR if platelet count falls below 50 x 10e3/uL and notify provider. 0813 ($Given - Provider: Thelma Constantino RN) 0827 ($Given - Provider: Zayra Yousif, CHANDA) 0842 ($Given - Provider: Zayra Yousif RN) ferrous sulfate (FEROSUL) tablet 325 mg 325 mg, Oral, DAILY, First dose on Tue04/10/25 at 1730, Absorbed best on an empty stomach. If stomach upset occurs, can take with meals. 0814 (Not Given - Provider: Thelma Constantino RN - Reason: Patient/family refused) 0826 ($Given - Provider: Zayra Yousif RN) 0838 ($Given - Provider: Zayra Yousif RN) hydrOXYzine HCl (ATARAX) tablet 25 mg 25 mg, Oral, EVERY 6 HOURS, First dose (after last modification) on Tue04/12/25 at 1600 0448 ($Given - Provider: Juliette Cooper RN)1029 ($Given - Provider: Thelma Constantino RN)1602 ($Given - Provider: Vibha Quesada RN)2150 ($Given - Provider: Vibha Quesada RN) 0341 ($Given - Provider: Rachelle Trejo RN)1022 ($Given - Provider: Zayra Yousif RN)1649 ($Given - Provider: Vibha Quesada RN)2153 ($Given - Provider: Vibha Quesada, CHANDA) 0337 ($Given - Provider: Taiwo Caba, CHANDA)1034 ($Given - Provider: Zayra Youisf RN) levothyroxine (SYNTHROID/LEVOTHROID) tablet 225 mcg 225 mcg, Oral, EVERY MORNING BEFORE BREAKFAST, First dose on Tue04/10/25 at 0730 0709 ($Given - Provider: Juliette Cooper RN) 0606 ($Given - Provider: Rachelle Trejo RN) 0615 ($Given - Provider: Taiwo Caba, CHANDA) [...] stools. 0813 ($Given - Provider: Thelma Constantino RN)193 ($Given - Provider: Vibha Quesada RN) 0827 ($Given - Provider: Zayra Yousif RN)193 ($Given - Provider: Vibha Quesada RN) 0837 [...] Caba RN)0842 (See Alternative - Provider: Zayra Yousif RN) acetaminophen (TYLENOL) tablet 650 mg(Linked Group 1) [...] Caba RN)0842 (Canceled Entry - Provider: Zayra Yousif RN) benzocaine-menthol (CHLORASEPTIC) 6-10 MG lozenge 1 lozenge [...] Comment: too soon)1029 ($Given - Provider: Thelma J Dougie, RN) hydrALAZINE (APRESOLINE) injection 10 mg 10 [...] with VAD insertion, Starting on Tue04/09/25 at 1999, MAX dose 1 mL subcutaneous OR intradermal [...] Juliette Cooper RN)0823 ($Given - Provider: Thelma Constantino, CHANDA)1824 ($Given - Provider: Vibha Quesada, RN) 0606 ($Given - Provider: Rachelle Trejo, RN)2153 ($Given - Provider: Vibha Quesada RN) [...] analgesic side effects. Hold while on IV FURNITURE MOVER or with regular IV opioid dosing. 0813 (See Alternative - Provider: Thelma Constantino RN)1603 (See Alternative - Provider: Vibha Quesada RN)2150 (See Alternative - Provider: Vibha Quesada RN) 0341 (See Alternative - Provider: Rachelle Trejo RN)0826 ($Given - Provider: Zayra Yousif, CHANDA)1520 (See Alternative - Provider: Zayra Yousif, CHANDA)1935 (See Alternative - Provider: Vibha Quesada RN) 0027 ($Given - Provider: Taiwo Caba RN)1039 (See Alternative - Provider: Zayra Yousif, CHANDA) oxyCODONE IR (ROXICODONE) tablet 10 mg(Linked Group 5) 10 mg, Oral, EVERY 4 HOURS PRN, severe pain, Starting on Tue04/10/25 at 1303, Hold oral PRN dose for analgesic side effects. Notify provider to assess for uncontrolled pain or analgesic side effects. Hold while on IV FURNITURE MOVER or with regular IV opioid dosing. 0813 ($Given - Provider: Thelma Constantino RN)1603 ($Given - Provider: Vibha Quesada, CHANDA)2150 ($Given - Provider: Vibha Quesada, RN) 0341 ($Given - Provider: Rachelle Trejo, RN)0826 (See Alternative - Provider: Zayra Yousif RN)1520 ($Given - Provider: Zayra Yousif RN)1935 ($Given - Provider: Vibha Quesada, CHANDA) 0027 (See Alternative - Provider: Taiwo Caba RN)1039 ($Given - Provider: Zayra Yousif RN) polyethylene glycol (MIRALAX) Packet 17 g 17 [...] Zayra Yousif RN)1653 ($Given - Provider: Vibha Quesada, CHANDA) prochlorperazine (COMPAZINE) injection 5 mg(Linked Group 6) [...] 2 MIN PRN, opioid reversal, Starting on Tue04/09/252003, Administer intramuscular if an intravenous route is [...] analgesic side effects. Hold while on IV FURNITURE MOVER or with regular IV opioid dosing. Or oxyCODONE IR (ROXICODONE) tablet 10 mgJump to med 10 mg, Oral, EVERY 4 HOURS PRN, severe pain, Starting on Tue04/10/25 at 1303, Hold oral PRN dose for analgesic side effects. Notify provider to assess for uncontrolled pain or analgesic side effects. Hold while on IV FURNITURE MOVER or with regular IV opioid dosing. Group [...] Total Score: 3 09/19/19 19 9:27 AM PREFABRICATED HOUSES TRIMMER documented as of this encounter Care Teams Process Safety Engineer Relationship Specialty Start Date End Date Maggie Bowers PA-C [id number] [place] [address] PCP - General Family Practice 04/09/25 documented as of this encounter
--- OUTSIDE RECORDS SUMMARY | 2025-04-10 10:51 | XMS_ITS | Encounter Summary ---
Author Organization [facility] Address [address] [place] [address]. [place] [address] Care Team Providers Care Specialty Sales Representative Name Role Phone Maggie Bowers PA-C Primary Care Provid er Reason for Visit * Auth/Cert (Routine) Specialty Diagnoses / Procedures Referred By Sharan t Referred To Contact Surgery Diagnoses Closed fracture of left tibial plateau, initial encounter Closed fracture of proximal end of left fibula, unspecified fracture morphology, initial encounter Lipohemarthrosis Moody Oneal MD [address] [place] [address] Phone: tel: fax: [facility] [address] [place] [address] Phone: tel: fax: Referral ID Status Reason Start Date Expiration Date Visits Re quested Visits Authorized [id number] 1 1 Encounter Details Date Type Department Care Team (Late st Contact Info) Description 04/10/2025 10:51 AM CDT Anesthesia Event [facility] [address] [place] [address] Shamika Apodaca MD [facility] [place] [address] [place], [place] [address] Anesthesia Record Procedure Summary Procedure Name Responsible Anesthesiologist Anesthesia Start Time Anesthesia Stop Time Open reduction internal fixation of right anteromedial tibial plateau fracture (Left: Knee) Shamika Apodaca MD 04/10/25 1051 04/10/25 122 4 Events Date Time Event Comment 04/10/2025 0858 1051 An Start Anesthesia Star t is defined as when the anesthesia provider assumed care, began anesthesia prep, remained continuously present with the patient, and excludes all time for performing the pre-anesthesia evaluation. The Pre-Anesthesia Evaluation was completed before Anesthesia Start. 1051 An Start Data 1053 An Induction 1053 MD Present 1056 An LMA 1104 MD Present 1108 Anesthesia Ready for Procedu re 1119 AN INCISION 1123 MD Present 1218 LMA Removed 1219 an stop data 1224 An Stop Electronically signed by Deandre Toledo APRN CRNA on April 10, 2025 12:24 PM Meds Name Total fentaNYL 50 mcg/mL 100 mcg lidocaine 2% 50 mg propofol 10 mg/mL 200 mg propofol drip mcg/kg/min 320.86 mg phenylephrine (HUANG-SYNEPHRINE) injection 100 mcg dexamethasone (DECADRON) 4 mg/mL 8 mg ondansetron 2 mg/mL 4 mg glycopyrrolate 0.2 mg/mL 0.2 mg Bupivacaine 0.5% w/ 1:200K Epi (Other) 3 0 mL ceFAZolin Sodium (ANCEF) injection 2 g 2 g tranexamic acid 1 g in 100 mL NS IV bag (premix) 1 g lactated ringers infusion 800 mL * Agents Name O2 N2O Air Exp Sevoflurane Exp Isoflurane Exp Desflurane Ins Sevoflurane Ins Isoflurane Ins Desflurane * Blood No blood administrations on file. Lines, Drains, and Airways Type Details Placement Removal Wound 05/25/12; 92205/25/12 0923 by Jasmine Tijerina RN Incision/Surgical Site 05/25/12; 0935; Lower, Transverse; Abdomen 05/25/12 0935 by Jasmine Tijerina RN Incision/Surgical Site 03/11/14; 0844; Right; Ear 03/11/14 0844 by Arlene Haney RN Incision/Surgical Site 06/05/14; 1037; L eft, Upper; Back 06/05/14 1037 by Cong Talley RN Incision/Surgical Site with Packing 06/05/14; 1038; Left, Upper; Back; Gauze; 3 06/05/14 1038 by Cong Talley RN Incision/Surgical Site 07/22/14; 0907; L eft; Ear; anterior to the ear 07/22/14 0907 by Janessa Almeida RN Incision/Surgical Site 05/12/15; 1250; Right; Arm 05/12/15 1250 by Gunjan Lim RN Incision/Surgical Site 05/12/15; 1250; Right; Knee 05/12/15 1250 by Gunjan Lim RN Incision/Surgical Site Incision; 5; 1212; Anterior, Left; Knee 04/10/25 1212 by Danielle Eckert RN Packing 03/11/14; 0844; Inner, Right; Ear; Other (Comment) (Kerr silk with cotton wrapped to form a seminole vaseline gauze ); 6; 04/17/25; 1303 03/11/14 0844 by Arlene Haney RN 04/17/25 1303 by Inpatient, Nurse Peripheral IV 04/09/25; 1421; 22 G ; Left; Hand; EMS 04/09/25 1421 by Mariela Cyr RN 04/11/25 1053 by Thelma Constantino RN Urinary Drain 04/09/25; 2108; External Catheter 04/09/25 2108 by Reena York 04/11/25 0930 by Thelma Constantino RN Peripheral IV 20 G; Right; Upper forearm; Alcohol; None; 1 04/10/25 1104 by 04/11/25 2206 by Billie Capellan RN Supraglottic Airway Placement Date: 04/10/25; Placement Time: 110 (created via procedure documentation); Mask Ventilation: 1; LMA Size: 4; Airway Brand: I-Gel; Attempts: 1 04/10/25 1108 by Rhett Fernandez APRN CHILDHOOD TEACHER 04/10/25 1218 by Deandre Toledo APRN CHILDHOOD TEACHER documented in this encounter Social History Tobacco [...] Answer Date Recorded Do you have housing? 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 status CV/Hemodynamics: Uneventful Sign Out: Acceptable CV status; No obvious hypovolemia; No obvious fluid overload Other NRE: DID A NON-ROUTINE EVENT OCCUR? No Last vitals: Vitals Value Taken Time BP 131/78 04/10/25 13:15 Temp 97.88 ??F (36.6 ??C) 04/10/25 13:26 Pulse 67 04/10/25 13:26 Resp 11 04/10/25 13:26 SpO2 91 % 04/10/25 13:26 Vitals shown include unfiled device data. Electronically Signed By: Shamika Apodaca MD April 10, 2025 1:28 PM * Anesthesia Procedure Notes - Rhett Fernandez APRN CRNA - 04/10/2025 11:08 AM CDT Associated Order(s): Airway Airway Patient location during procedure: OR Staff - CHILDHOOD TEACHER: Rhett eFrnandez APRN CRNA Performed By: CHILDHOOD TEACHER Consent for Airway Urgency: elective Indications and Patient Condition Indications for airway management: dustin-procedural Induction type:intravenous Mask difficulty assessment: 1 - vent by mask Final Airway Details Final airway type: supraglottic airway Supraglottic Airway Details Type: LMA Brand: I-Gel LMA size: 4 Post intubation assessment Placement verified by: capnometry, equal breath sounds and chest rise Number of attempts at approach: 1 Number of other approaches attempted: 0 Secured with: tape Ease of procedure: easy Dentition: Unchanged * Anesthesia Procedure Notes - Shamika Apodaca MD - 04/10/2025 10:26 AM CDTAssociated Order(s): Peripheral/Paravertebral Block Adductor canal Procedure Note Pre-Procedure Staff - Anesthesiologist: Shamika Apodaca MD Performed By: anesthesiologist Referred By: Chay Location: pre-op Procedure Start/Stop Times: 04/10/2025 10:18 AM and 04/10/2025 10:26 AM Pre-Anesthestic Checklist: patient identified, IV checked, site marked, risks and benefits discussed, informed consent, monitors and equipment checked, pre-op evaluation, at physician/surgeon's request and post-op pain management Timeout: Correct Patient: Yes Correct Procedure: Yes Correct Site: Yes Correct Position: Yes Correct Laterality: Yes Site Marked: Yes Procedure Documentation Procedure: Adductor canal Diagnosis: KNEE PAIN Laterality: left Patient Position: supine Patient Prep/Sterile Barriers: sterile gloves, mask Skin prep: Chloraprep Local skin infiltrated with 2 mL of 1% lidocaine. Needle Gauge: 21. Needle Length (Inches): 4 Ultrasound guided 1. Ultrasound was used to identify targeted nerve, plexus, vascular marker, or fascial plane and place a needle adjacent to it in real-time. 2. Ultrasound was used to visualize the spread of anesthetic in close proximity to the above referenced structure. 4. The visualized anatomic structures appeared normal. 5. There were no apparent abnormal pathologic findings. Assessment/Narrative The placement was negative for: blood aspirated, painful injection and site bleeding Paresthesias: No. Bolus given via needle. no blood aspirated via catheter. Secured via. Insertion/Infusion Method: Single Shot Complications: none Medication(s) Administered Bupivacaine 0.5% w/ 1:200K Epi (Other) - Other 30 mL - 04/10/2025 10:18:00 AM Medication Administration Time: 04/10/2025 10:18 AM FOR [facility] ([facility] [place]) ONLY: Pain Team Contact information: please page the Pain Team Via [employer]Search Pain. During daytime hours, please page the attending first. At night please page the resident first. 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 Hypertension Irregular heart beat Osteoarthritis of right knee 04/05/2015 Tear of meniscus of right knee Past Surgical History: Procedure Laterality Date ABDOMEN SURGERY gastric bypass APPENDECTOMY ARTHROSCOPY KNEE Right 05/12/2015 Procedure: ARTHROSCOPY KNEE; Surgeon: Deandre Mcfarland MD; Location: OR COLONOSCOPY N/A 02/21/2015 Procedure: COLONOSCOPY; Surgeon: Simon Montanez MD; Location: GI CYSTECTOMY OVARIAN BENIGN 05/25/2012 Procedure: CYSTECTOMY OVARIAN BENIGN; left ovarian cystectomy; Surgeon: Blanca Wharton MD; Location: [facility] DILATION AND CURETTAGE, HYSTEROSCOPY DIAGNOSTIC, COMBINED 05/25/2012 Procedure: COMBINED DILATION AND CURETTAGE, HYSTEROSCOPY DIAGNOSTIC; HYSTEROSCOPY, DILATION & CURETTAGE, MINI LAPAROTOMY WITH LEFT OVARIAN CYSTECTOMY, LEFT SALPINGECTOMY; Surgeon: Blanca Wharton MD; Location: [facility] ENT SURGERY tonsillectomy EXCISE MASS UPPER EXTREMITY Right 05/12/2015 Procedure: EXCISE MASS UPPER EXTREMITY; Surgeon: Deandre Mcfarland MD; Location: [facility] OR INCISION AND DRAINAGE TRUNK, COMBINED N/A 06/05/2014 Procedure: COMBINED INCISION AND DRAINAGE TRUNK; Surgeon: Royal Avery MD; Location: [facility] OR LAPAROTOMY MINI FOR EXPOSURE 05/25/2012 Procedure: LAPAROTOMY MINI FOR EXPOSURE; Mini-laparotomy.; Surgeon: Blanca Wharton MD;Location: [facility] SALPINGECTOMY 05/25/2012 Procedure: SALPINGECTOMY; Left salpingectomy; Surgeon: Blanca Wharton MD; Location: [facility] TYMPANOPLASTY 03/11/2014 Procedure: TYMPANOPLASTY; Surgeon: Deandre Ibrahim MD; Location: [facility] OR TYMPANOPLASTY Left 07/22/2014 Procedure: TYMPANOPLASTY; Surgeon: Deandre Ibrahim MD; Location: [facility] OR Allergies Allergen Reactions Amoxicillin-Pot Clavulanate Nausea and Vomiting Droperidol Panic attacks Ibuprofen Other (See Comments) Unable to take due to past gastric bypass Morphine And Codeine Panic attack Tape [Adhesive Tape] Clear tape=RASH; tegaderm ok Social History Tobacco Use Smoking status: Former Current packs/day: 0.00 Types: Cigarettes Start date: 11/07/1985 Quit date: 11/07/1995 Years since quittin.4 Smokeless tobacco: Never Tobacco comments: social smoker Substance Use Topics Alcohol use: Yes Alcohol/week: 0.0 standard drinks of alcohol Comment: Very little Wt Readings from Last 1 Encounters: 04/09/25 105.2 kg (231 lb 14.8 oz) Anesthesia Evaluation Pt has had prior anesthetic. Type: General. No history of anesthetic complications ROS/MED HX ENT/Pulmonary: (+) sleep apnea, tobacco use, Past use, asthma (-) recent URI Neurologic: Cardiovascular: (+) hypertension- - - - - (-) irregular heartbeat/palpitations METS/Exercise Tolerance: Hematologic: (+) anemia, Musculoskeletal: Comment: Tibial plateau fracture s/p fall from wet ground GI/Hepatic: (-) GERD Renal/Genitourinary: Endo: (+) thyroid problem, hypothyroidism, Obesity, Psychiatric/Substance Use: (+) psychiatric history anxiety and depression Infectious Disease: Malignancy: Other: Physical Exam Airway Mallampati: III TM distance: >3 FB Neck ROM: full Mouth opening: >= 4 cm Cardiovascular - normal exam Dental (+) Modest Abnormalities - crowns, retainers, 1 or 2 missing teeth Pulmonary - normal exam Neurological Other Findings OUTSIDE LABS: CBC: Lab Results Component Value Date WBC 6.4 04/10/2025 WBC 9.1 04/09/2025 HGB 9.7 (L) 04/10/2025 HGB 11.5 (L) 04/09/2025 HCT 30.1 (L) 04/10/2025 HCT 35.4 04/09/2025 PLT 225 04/10/2025 PLT 310 04/09/2025 BMP: Lab Results Component Value Date NA 137 04/10/2025 NA 136 04/09/2025 POTASSIUM 4.2 04/10/2025 POTASSIUM 4.2 04/09/2025 CHLORIDE 105 04/10/2025 CHLORIDE 100 04/09/2025 CO2 23 04/10/2025 CO2 21 (L) 04/09/2025 BUN 22.9 (H) 04/10/2025 BUN 24.2 (H) 04/09/2025 CR 1.03 (H) 04/10/2025 CR 1.09 (H) 04/09/2025 GLC 105 (H) 04/10/2025 GLC 122 (H) 04/09/2025 COAGS: No results found for: PTT, INR, FIBR POC: Lab Results Component Value Date BGM 94 05/12/2015 HCG Negative 05/12/2015 HEPATIC: Lab Results Component Value Date ALBUMIN 3.5 11/05/2016 PROTTOTAL 6.8 11/05/2016 ALT 21 11/05/2016 AST 18 11/05/2016 ALKPHOS 89 11/05/2016 BILITOTAL 0.3 11/05/2016 OTHER: Lab Results Component Value Date A1C 5.5 01/19/2013 JOY 8.4 (L) 04/10/2025 PHOS 4.0 01/21/2014 TSH 19.30 (H) 09/19/2018 T4 0.77 09/19/2018 CRP 3.3 12/28/2014 Anesthesia Plan ASA Status: 2 NPO Status: NPO Appropriate Anesthesia Type: General. Airway: supraglottic airway. Induction: intravenous. Maintenance: Balanced. Techniques and Equipment: - Airway: Planned airway equipment includes supraglottic airway. - Monitoring Plan: standard ASA monitoring Consents Anesthesia Plan(s) and associated risks, benefits, and realistic alternatives discussed. Questions answered and patient/counter sales representative(s) expressed understanding. - Discussed: anesthesiologist - Discussed with: Patient - Pt is DNR/DNI Status: no DNR Blood Consent: - Discussed with: not discussed. Postoperative Care Pain management: non-narcotic analgesics, plan for postoperative opioid use, peripheral nerve block, multimodal analgesia. Comments: Other Comments: The surgeon has given a verbal order transferring care of this patient to me for the performance of a regional analgesia block for either post- op pain control or primary anesthetic. It is requested of me because I am uniquely trained and qualified to perform this block and the surgeon is neither trained nor qualified to perform this procedure. Ultrasound guided peripheral nerve block(s) discussed. The patient was informed that undergoing theblock is not required for surgery to proceed and is optional, but they can be beneficial in reducing post operative pain and pain medication requirements for a period of time (several hours to a few days). Block rationale, procedure, expected results, and block specific side effects reviewed with the patient. Risks, including but not limited to bleeding, infection, nerve damage, damage to surrounding structures, medication adverse/allergic reactions, and block failure discussed. Other anesthetic/pain control options discussed. Questions encouraged and answered. The patient wishes to proceed. Shamika Apodaca MD I have reviewed the pertinent notes and labs in the chart from the past 30 days and (re)examined the patient. Any updates or changes from those notes are reflected in this note. Clinically Significant Risk Factors Present on Admission # Hypertension: Noted on problem list # Anemia: based on hgb <11 # Obesity: Estimated body mass index is 35.26 kg/m?? as calculated from the following: Height as of this encounter: 1.727 m (5' 8). Weight as of this encounter: 105.2 kg (231 lb 14.8 oz). # Asthma: noted on problem list documented in this encounter Miscellaneous Notes * Anesthesia Care Transfer Note - Deandre Toledo APRN CRNA - 04/10/2025 12:24 PM CDT Patient: Adilene Thurman Procedure: Procedure(s): OPEN REDUCTION INTERNAL FIXATION, FRACTURE, TIBIA, PLATEAU Diagnosis: Closed fracture of left tibial plateau, initial encounter [S82.142A] Diagnosis Additional Information: No value filed. Anesthesia Type: General Note: Oropharynx: spontaneously breathing Level of Consciousness: awake Oxygen Supplementation: face mask Independent Airway: airway patency satisfactory and stable Dentition: dentition unchanged Vital Signs Stable: post-procedure vital signs reviewed and stable Report to RN Given: handoff report given Patient transferred to: PACU Handoff Report: Identifed the Patient, Identified the Reponsible Provider, Reviewed the pertinent medical history, Discussed the surgical course, Reviewed Intra-OP anesthesia mangement and issues during anesthesia, Set expectations for post-procedure period and Allowed opportunity for questions andacknowledgement of understanding Vitals: Vitals Value Taken Time BP Temp Pulse Resp SpO2 Electronically Signed By: Deandre Toledo APRN CRNA April 10, 2025 12:24 PM documented in this encounter Plan of Treatment Not on file documented as of this encounter Procedures Procedure Name Priority Date/Time Associated Diagnosis Comments ANE AIRWAY SUPRAGLOTTIC PERFORMABLE Routine 04/10/2025 11:08 AM CDT ANE PERIPHERAL/PARAVETEBR AL BLOCK Routine 04/10/2025 10:18 AM CDT documented in this encounter Results * ANE AIRWAY SUPRAGLOTTIC PERFORMABLE (04/10/2025 11:08 AM CDT) Narrative Rhett Fernandez APRN CRNA - 04/10/2025 11:08 AM CDT Rhett Fernandez APRN CRNA 04/10/2025 11:08 AM Airway Patient location during procedure: OR Staff - CHILDHOOD TEACHER: Rhett Fernandez APRN CRNA Performed By: CHILDHOOD TEACHER Consent for Airway Urgency: elective Indications and Patient Condition Indications for airway management: dustin-procedural Induction type:intravenous Mask difficulty assessment: 1 - vent by mask Final Airway Details Final airway type: supraglottic airway Supraglottic Airway Details Type: LMA Brand: I-Gel LMA size: 4 Post intubation assessment Placement verified by: capnometry, equal breath sounds and chest rise Number of attempts at approach: 1 Number of other approaches attempted: 0 Secured with: tape Ease of procedure: easy Dentition: Unchanged us Shamika Apodaca MD [place] ANESTHESIA Final Re sult * Peripheral/Paravertebral Block (04/10/2025 10:18 AM CDT) Narrative Shamika Apodaca MD - 04/10/2025 10:18 AM CDT Shamika Apodaca MD 04/10/2025 10:27 AM Adductor canal Procedure Note Pre-Procedure Staff - Anesthesiologist: Shamika Apodaca MD Performed By: anesthesiologist Referred By: Chay Location: pre-op Procedure Start/Stop Times: 04/10/2025 10:18 AM and 04/10/2025 10:26 AM Pre-Anesthestic Checklist: patient identified, IV checked, site marked, risks and benefits discussed, informed consent, monitors and equipment checked, pre-op evaluation, at physician/surgeon's request and post-op pain management Timeout: Correct Patient: Yes Correct Procedure: Yes Correct Site: Yes Correct Position: Yes Correct Laterality: Yes Site Marked: Yes Procedure Documentation Procedure: Adductor canal Diagnosis: KNEE PAIN Laterality: left Patient Position: supine Patient Prep/Sterile Barriers: sterile gloves, mask Skin prep: Chloraprep Local skin infiltrated with 2 mL of 1% lidocaine. Needle Gauge: 21. Needle Length (Inches): 4 Ultrasound guided 1. Ultrasound was used to identify targeted nerve, plexus, vascular marker, or fascial plane and place a needle adjacent to it in real-time. 2. Ultrasound was used to visualize the spread of anesthetic in close proximity to the above referenced structure. 4. The visualized anatomic structures appeared normal. 5. There were no apparent abnormal pathologic findings. Assessment/Narrative The placement was negative for: blood aspirated, painful injection and site bleeding Paresthesias: No. Bolus given via needle. no blood aspirated via catheter. Secured via. Insertion/Infusion Method: Single Shot Complications: none Medication(s) Administered Bupivacaine 0.5% w/ 1:200K Epi (Other) - Other 30 mL - 04/10/2025 10:18:00 AM Medication Administration Time: 04/10/2025 10:18 AM FOR [facility] ([facility]) ONLY: Pain Team Contact information: please page the Pain Team Via [employer]. Search Pain. During daytime hours, please page the attending first. At night please page the resident first. Shamika Apodaca MD [place] ANESTHESIA Final Re sult documented in this encounter Visit Diagnoses Not on filedocumented in this encounter Administered Medications Inactive Administered Medications - up to 3 most recent administrations Medication Order MAR Action Action Date Dose Rate Site BUPivacaine 0.5 % - EPINEPHrine 1:200,000 injection Other, ONCE PRN WITHIN 24 HRS, Starting on Tue04/10/25 at 1018, For 1 dose, Anesthesia Intra-op $Given 04/10/2025 10:18 AM CDT 30 mLs ceFAZolin Sodium (ANCEF) injection 2 g Routine, 2 g, Intravenous, PRE-OP/PRE-PROCEDURE, Starting on Tue04/10/25 at 0906, For 1 dose, Give first dose within 1 hour PRIOR to incision. If patient weight is greater than or equal to 120 kg increase dose to 3 g., Indications: Perioperative Pharmacoprophylaxis, Pre-procedureIndications:Perioperat tierra Pharmacoprophylaxis $Given 04/10/2025 10:51 AM CDT 2 g dexAMETHasone (DECADRON) injection Intravenous, PRN, Administer over 1 Minutes, Starting on Tue04/10/25 at 1053, Anesthesia Intra-op $Given 04/10/2025 10:53 AM CDT 8 mg fentaNYL (PF) (SUBLIMAZE) injection Intravenous, PRN, Administer over 3-5 Minutes, Starting on Tue04/10/25 at 1053, Anesthesia Intra-op $Given 04/10/2025 11:21 AM CDT 50 mcg $Given 04/10/2025 10:53 AM CDT 50 mcg glycopyrrolate (ROBINUL) injection Intravenous, PRN, Administer over 1-2 Minutes, Starting on Tue04/10/25 at 1100, Anesthesia Intra-op $Given 04/10/2025 11:00 AM CDT 0.2 mg lactated ringers infusion at 10 mL/hr, Intravenous, CONTINUOUS, IF patient NOT on dialysis., Pre-procedure, Starting on Tue04/10/25 at 0900, Until Tue04/10/25 at 1222 Restarted 04/10/2025 12:14 PM CDT $New Bag 04/10/2025 8:45 AM CDT 10 mL/hr lidocaine 2% injection (MDV) Intravenous, PRN, Starting on Tue04/10/25 at 1053, Anesthesia Intra-op $Given 04/10/2025 10:53 AM CDT 50 mg ondansetron (ZOFRAN) injection Intravenous, PRN, Administer over 2-5 Minutes, Starting on Tue04/10/25 at 1212, Anesthesia Intra-op $Given 04/10/2025 12:12 PM CDT 4 mg phenylephrine (HUANG-SYNEPHRINE) injection Intravenous, CONTINUOUS PRN, Starting on Tue04/10/25 at 1100, Anesthesia Intra-op $New Bag 04/10/2025 11:00 AM CDT 100 mcg propofol (DIPRIVAN) infusion Intravenous, CONTINUOUS PRN, Starting on Tue04/10/25 at 1100, Anesthesia Intra-op $New Bag 04/10/2025 11:00 AM CDT 50 mcg/kg/min 31.56 mL/hr propofol (DIPRIVAN) injection 10 mg/mL vial Intravenous, PRN, Starting on Tue04/10/25 at 1053, Anesthesia Intra-op $Given 04/10/2025 10:53 AM CDT 200 mg tranexamic acid 1 g in 100 mL NS IV bag (premix) 1 g, Intravenous, Administer over 10 Minutes, ONCE, On Tue04/10/25 at 0930, For 1 dose, Give before incision. Each 1 gram to be infused over 10 minutes., Pre-procedure $Given 04/10/2025 10:58 AM CDT 1 g documented in this encounter Additional Health Concerns Assessment Noted Time PHQ-9 Depression Total Score: 3 09/19/19 19 9:27 AM LINE DEPARTMENT SUPERVISOR documented as of this encounter Care Teams Specialty Sales Representative Relationship Specialty Start Date End Date Maggie Bowers PA-C [id number] [place] [address] PCP - General Family Practice 04/09/25 documented as of this encounter
--- OUTSIDE RECORDS SUMMARY | 2025-04-18 07:00 | XMS_ITS | Encounter Summary ---
Author Organization [facility] Address [address] [place] [id number] Care Team Providers Care Lacrosse Coach Name Role Phone Maggie Bowers PA-C Primary Care Provid er (Fgs), [facility] Unavailab le Ashley Jean APRN UNDER BASTER Unavailable +1 Reason for Visit * Reason Comments Hospital F/U Encounter Details Date Type Department Care Team (Late st Contact Info) Description 04/18/2025 7:00 AM CDT Transitional Care Unit Visit [facility] [address] [place] [id number] Ashley Jean, MARCIE UNDER BASTER [address] [place] [id number] Closed fracture of shaft of left tibia with routine healing, unspecified fracture morphology, subsequent encounter (Primary Dx); Fall, subsequent encounter; Physical deconditioning; ABLA (acute blood loss anemia); Primary hypertension; Hypothyroidism, unspecified type; CKD stage 3a, GFR 45-59 ml/min (H); Slow transit constipation; Advanced directives, counseling/discuss ion Social History Tobacco Use Types Packs/Day Years [...] Answer Date Recorded Do you have housing? 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 Gender Identity Not on file Sexual Orientation Not on file documented as of this encounter Last Filed Vital Signs Vital Sign Reading Time Taken Comments Blood Pressure 122/79 04/18/2025 7:20 AM CDT Pulse 70 04/18/2025 7:20 AM CDT Temperature 36.7 C (98.1 F) 04/18/2025 7:20 AM CDT Respiratory Rate 18 04/18/2025 7:20 AM CDT Oxygen Saturation 93% 04/18/2025 7:20 AM CDT Inhaled Oxygen Concentration - - Weight 104.3 kg (230 lb) 04/18/2025 7:20 AM CDT Height 172.7 cm (5' 8) 04/18/2025 7:20 AM CDT Body Mass Index 34.97 04/18/2025 7:20 AM CDT documented in this encounter Progress Notes * Ashley Jena, MARCIE UNDER BASTER - 04/18/2025 7:00 AM CDT [facility] PRIMARY CARE PROVIDER AND CLINIC: Maggie Bowers PA-C, [id number] [address] / [facility] [id number] Chief Complaint Patient presents with Hospital F/U [facility] Place of Service where encounter took place: [facility] (U) [[id number]] Adilene Thurman is a 55 year old (1970), admitted to the above facility from [facility]. Hospital stay 04/09/25 through 04/17/25. HPI: 55 year old lady with PMHx of mild intermittent asthma, obesity, ELEONORA not on CPAP, dysfunctional uterine bleeding, HTN, generalized anxiety disorder, depression hospitalized after falling on her L leg, resulting in a tibial fracture. She is now s/p ORIF 04/10. TTWB. Hgb 8.6 on 04/12. HTN: held meds init ially, at discharge back on lisinopril and HCTZ. Hypothyroid: on synthroid. Iron deficiency - started PO Fe. CKD 2-3a: Cr 1.09 on 04/16. To TCU for rehab. Patient is seen for initial TCU visit, history obtained from patient, staff and extensive review ofthe chart. Asks to be Full Code. Pain managed adequately. BP improved, range 108-134/68-85 and sats93% room air. Asks to resume Zestoretic due to LE edema. Stools regularly. No headaches, chest pain, dyspnea, bladder issues. Occasionally dizzy when up. 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 Hypertension Irregular heart beat Osteoarthritis of right knee 04/05/2015 Tear of meniscus of right knee PAST SURGICAL HISTORY: has a past surgical history that includes appendectomy; Abdomen surgery; Laparotomy mini for exposure (05/25/2012); Salpingectomy (05/25/2012); Colonoscopy (N/A, 02/21/2015); ENT surgery; Tympanoplasty (03/11/2014); Tympanoplasty (Left, 07/22/2014); Dilation and curettage, hystero scopy diagnostic, combined (05/25/2012); Cystectomy ovarian benign (05/25/2012); Incision and drainage trunk, combined (N/A, 06/05/2014); Arthroscopy knee (Right, 05/12/2015); Excise mass upper extremity(Right, 05/12/2015); and Open reduction internal fixation tibial plateau (Left, 04/10/2025). FAMILY HISTORY: family history includes C.A.D. in her maternal grandfather; Cancer in her mother; Cerebrovascular Disease in her maternal grandfather; Coronary Artery Disease (age of onset: 54) in her brother; Depression in her mother; Diabetes in her mother; Gallbladder Disease in her maternal grandmother; Hyperlipidemia in her mother; Hypertension in her maternal grandfather, maternal grandmother, and mother; Other Cancer in her mother; Sleep Apnea in her mother; Thyroid Disease in her maternal grandfather, maternal grandmother, and mother; Unknown/Adopted in her father, paternal grandfather, and paternal grandmother. SOCIAL HISTORY: reports that she quit smoking about 29 years ago. Her smoking use included cigarettes. She started smoking about 39 years ago. She has never used smokeless tobacco. She reports current alcohol use. She reports that she does not use drugs. Patient's living condition: lives with family, and 13 year old daughter Post Discharge Medication Reconciliation Status: MED REC REQUIRED Post Medication Reconciliation Status: discharge medications reconciled and changed, per note/orders Current Outpatient Medications Medication Sig Dispense Refill acetaminophen (TYLENOL) 325 MG tablet Take 3 tablets (975 mg) by mouth every 8 hours. 100 tablet 0 celecoxib (CELEBREX) 100 MG capsule Take 1 capsule (100 mg) by mouth 2 times daily as needed. 30 capsule 0 enoxaparin ANTICOAGULANT (LOVENOX) 40 MG/0.4ML syringe Inject 0.4 mLs (40 mg) subcutaneously every 24 hours. 12 mL 0 ferrous sulfate (FEROSUL) 325 (65 Fe) MG tablet Take 1 tablet (325 mg) by mouth daily. hydrOXYzine HCl (ATARAX) 25 MG tablet Take 1 tablet (25 mg) by mouth every 6 hours. 40 tablet 1 LEVOTHYROXINE SODIUM PO Take 225 mcg by mouth every morning (before breakfast). lisinopril-hydrochlorothiazide (ZESTORETIC) 20-25 MG tablet Take 1 tablet by mouth daily. methocarbamol (ROBAXIN) 500 MG tablet Take 1 tablet (500 mg) by mouth 4 times daily as needed for muscle spasms (pain). 40 tablet 1 polyethylene glycol (MIRALAX) 17 g packet Take 17 g by mouth 2 times daily as needed for constipation. polyethylene glycol (MIRALAX) 17 GM/Dose powder Take 17 g by mouth daily. 510 g 0 senna-docusate (SENOKOT-S/PERICOLACE) 8.6-50 MG tablet Take 1 tablet by mouth 2 times daily as needed for constipation. 30 tablet 1 oxyCODONE IR (ROXICODONE) 10 MG tablet Take 1 tablet (10 mg) by mouth every 4 hours as needed for severe pain (Take one tablet (10 mg) by mouth for pain rated 7-10/10. Take half tablet (5 mg) for pain rated 4-6/10.). 30 tablet 0 No current facility-administered medications for this visit. ROS: 4 point ROS including Respiratory, CV, GI and , other than that noted in the HPI, is negative Vitals: BP 122/79 Pulse 70 Temp 98.1 ??F (36.7 ??C) Resp 18 Ht 1.727 m (5' 8) Wt 104.3 kg (230 lb) SpO2 93% BMI 34.97 kg/m?? Exam: GENERAL APPEARANCE: Alert, in no distress, pleasant, cooperative, oriented x 4 EYES: EOM, lids, pupils and irises normal, sclera clear and conjunctiva normal, no discharge or mattering on lids or lashes noted ENT: Mouth normal, moist mucous membranes, nose normal without drainage or crusting, external ears without lesions, hearing acuity intact NECK: supple, symmetrical, trachea midline RESP: respiratory effort normal, no chest wall tenderness, no respiratory distress, Lung sounds clear, patient is on room air CV: Auscultation of heart done, rate and rhythm controlled and regular, no murmur, no rub or gallop. Edema none ABDOMEN: normal bowel sounds, soft, nontender, no palpable masses. M/S: Gait and station wheelchair bound, left leg in immobilizer; able to move all extremities, digits normal NEURO: cranial nerves 2-12 grossly intact, no facial asymmetry, no speech deficits and able to follow directions, moves all extremities symmetrically PSYCH: insight and judgement and memory intact, affect and mood normal Lab/Diagnostic data: Most Recent 3 CBC's: Recent Labs Lab Test 04/16/25 0613 04/13/25 0624 04/12/25 0709 04/11/25 0711 04/10/25 0504/09/25 1424 WBC -- -- -- 8.4 6.4 9.1 HGB -- -- 8.6* 10.0* 9.7* 11.5* MCV 92 91 91 92 91 90 PLT 280 220 -- 230 225 310 Most Recent 3 BMP's: Recent Labs Lab Test 04/16/25 0613 04/13/25 0624 04/12/25 0709 04/11/25 0711 04/10/25 0819 04/10/25 0519 04/09/25 1424 NA -- -- -- 136 -- [...] -- -- 97 122* 73 105* 122* ASSESSMENT/PLAN: Closed fracture of shaft of left tibia with routine healing, unspecified fracture morphology, subsequent encounter Fall, subsequent encounter Physical deconditioning Acute injury, s/p repair. Continue tylenol 975 mg TID, Celebrex 100 mg BID PRN, Lovenox 40 mg subcutaneous daily for DVT prophylaxis, atarax 25 mg QID PRN spasms, robaxin 500 mg QID PRN, oxycodone 10mg every 4 hrs PRN. Therapies eval and treat. Ortho follow-up as planned. ABLA (acute blood loss anemia) Iron deficiency. Acute on chronic. Last Hgb 8.6 on 04/12. Continue ferrous sulfate 325 mg daily. Check CBC on 04/22 Primary hypertension Chronic. Asks to resume Zestoretic 20-25 mg 1 tab daily due to edema. Monitor vs. Hypothyroidism, unspecified type Continue CLINICAL DATA ABSTRACTOR synthroid 225 mg daily. CKD stage 3a, GFR 45-59 ml/min (H) Chronic. Cr 1.11 on 04/13. Avoid nephrotoxins. Monitor renal function PRN. Slow transit constipation Continue CLINICAL DATA ABSTRACTOR Miralax 17 gm BID PRN and daily scheduled, senna s 1 tab BID PRN, monitor bowel status. Advanced directives, counseling/discussion Asks to be Full Code Orders: Full Code CBC on 04/22 Resume Zestoretic 20-25 mg tab 1 PO daily Total time spent with patient visit at the [facility] facility was > 45 min including patient visit and review of past records. Electronically signed by: Ashley Jean APRN CNP documented in this encounter Plan of Treatment Not on file documented as of this encounter Visit Diagnoses Diagnosis Closed fracture of shaft of left tibia with routine healing, unspecified fracture morphology, subsequent encounter- Primary Fall, subsequent encounter Physical deconditioning Debility, unspecified ABLA (acute blood loss anemia) Primary hypertension Unspecified essential hypertension Hypothyroidism, unspecified type CKD stage 3a, GFR 45-59 ml/min (H) Slow transit constipation Advanced directives, counseling/discussion Other specified counseling documented in this encounter Additional Health Concerns Assessment Noted Time PHQ-9 Depression Total Score: 3 09/19/19 19 9:27 AM BALL SHAGGER documented as of this encounter Care Teams Lacrosse Coach Relationship Specialty Start Date End Date Maggie Bowers PA-C [id number] [facility] [place] [address] PCP - General Family Practice 04/09/25 (Fgs), [facility] [address] [place] [id number] 04/17/25 04/28/25 Ashley Jean APRN UNDER BASTER [address] [place] [address] Nurse Practitioner Family Medicine 04/17/25 04/28/25 documented as of this encounter
--- OUTSIDE RECORDS SUMMARY | 2025-04-25 10:30 | XMS_ITS | Encounter Summary ---
Author Organization [facility] Address [address] [place] [address] Care Team Providers Care Production Floater Name Role Phone Maggie Summers PA-C Primary Care Provid er (Fgs), [facility] - [facility] Unavailab le Ashley Jean APRN TENNIS COACH Unavailable + Reason for Referral * Home Health Therapies & Aides (Routine) - Pending Review Specialty Diagnoses / Procedures Referred By Sharan t Referred To Contact Diagnoses Closed fracture of left tibial plateau with routine healing, subsequent encounter S/P ORIF (open reduction internal fixation) fracture Fall, subsequent encounter Impaired mobility and ADLs Sulaiman Saavedra MD [address] [place] [address] Phone: tel: fax: Referral ID Status Reason Start Date Expiration Date V isits Requested Visits Authorized [id number] Pending Review 04/25/2025 04/25/2026 1 1 Question Answer Reason for Referral: Penitentiary, Physical Therapy Physical Therapy Eval and Treat for: Gait Training, Range of Motion Penitentiary Eval and Treat for: Wound assessment and care Additional Services Needed: Occupational Therapy Occupational Therapy Eval and Treat for: ADLs Is the patient homebound? Yes Homebound Status (describe the functional limitations that support this patient is confined to his/her home. Medicaid recipients are not required to be homebound.): Patient has difficulty ambulating >100 ft, Requires assistance of another person or specialized equipment is needed I attest that I saw or will see the patient on this date: 04/25/2025 Provider to follow patient MAGGIE SUMMERS [[id number]] Reason for Visit * Reason Comments Hospital F/U Discharge Summary Care Home Encounter Details Date Type Department Care Team (Late st Contact Info) Description 04/25/2025 10:30 AM CDT Transitional Care Unit Visit [facility] [address] [place] [phone] Sulaiman Saavedra MD [address] [place] [phone] Closed fracture of left tibial plateau with routine healing, subsequent encounter (Primary Dx); S/P ORIF (open reduction internal fixation) fracture; Fall, subsequent encounter; Impaired mobility and ADLs; Slow transit constipation; ABLA (acute blood loss anemia); Iron deficiency anemia, unspecified iron deficiency anemia type; Hx of gastric bypass; Essential hypertension, benign; CKD (chronic kidney disease) stage 2, GFR 60-89 ml/min; Hypothyroidism, unspecified type; Acute post-operative pain; Closed fracture of left tibial plateau, initial encounter Social History Tobacco Use Types Packs/Day [...] in an abandoned building, in an overnight senior care, or couch-surfing.) Yes 04/09/2025 Are you worried [...] on file Legal Sex Female 4:02 AM WATCH SUPERVISOR Gender Identity Not on file Sexual Orientation Not on file documented as of this encounter Last Filed Vital Signs Vital Sign Reading Time Taken Comments Blood Pressure 115/77 04/25/2025 6:46 AM CDT Pulse 72 04/25/2025 6:46 AM CDT Temperature 36.7 C (98 F) 04/25/2025 6:46 AM CDT Respiratory Rate 16 04/25/2025 6:46 AM CDT Oxygen Saturation 97% 04/25/2025 6:46 AM CDT Inhaled Oxygen Concentration - - Weight 116.9 kg (257 lb 12.8 oz) 04/25/2025 6:46 AM CDT Height 172.7 cm (5' 8) 04/25/2025 6:46 AM CDT Body Mass Index 39.2 04/25/2025 6:46 AM CDT documented in this encounter Progress Notes * Sulaiman Saavedra MD - 04/25/2025 10:30 AM CDTFormatting of this note is different from the [facility] G[facility] Initial Visit Note April 25, 2025 PRIMARY CARE PROVIDER AND CLINIC: Maggie Summers PA-C, [id number] [address] / [facility] [id number] [place] Place of Service where encounter took place: [facility] (TCU) [[id number]] Chief Complaint Patient presents with Hospital F/U Discharge Summary Care Home Reviewed ED note, H&P, discharge summary, labs, and imaging from recent hospitalization(s) HPI: Adilene Thurman is a(n) 55 year old (1970) female admitted to [facility] (TCU) [[id number]]from [facility] Date of TCU admission: 04/17/25 Anticipate date of TCU discharge: 04/29/25 Admitted to this facility for: rehab. Patient's prior living condition: lives with spouse and daughter in a house PMHx significant for HTN, ELEONORA not on CPAP, dysfunctional uterine bleeding, asthma, CKD stage II, prior gastric bypass surgery, depression/anxiety Hospitalized at [facility] 04/09-04/17/25 for a left tibial plateau fracture due to fall, and is s/p ORIF on 04/10/25. Pre-op Hgb 11.5; decreased to 8.6 post-op. Also found to have iron deficiency, and was started on iron supplementation. 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 Referred to [facility] for [facility]hab. Today, patient was seen as an initial visit. Facility records reviewed. VSS. BIMS . Remains NWB-TTWB RLE; ambulating up to 40' with 2ww. Patient was seen in her room; sitting a wheelchair. She reports feeling well, and offers no concerns. Pain adequately controlled. Denies cp/sob, dizziness/lig htheadedness.Plans to work on stairs prior to anticipated discharge on 04/29/25. Has follow up with Ortho on 04/29 as well. Referral ordered for home RN, PT, OT, and DAIRY LABORATORY TECHNICIAN. Discharge medications, including oxycodone, prescribed to [facility]. SW is coordinating wheelchair for home Addendum: Meds rerouted to [facility] pharmacy in [place] per patient request CODE STATUS: CPR/Full code ALLERGIES: Allergies Allergen Reactions Amoxicillin-Pot Clavulanate Nausea and Vomiting Droperidol Panic attacks Ibuprofen Other (See Comments) Unable to take due to past gastric bypass Morphine And Codeine Panic attack Tape [Adhesive Tape] Clear tape=RASH; tegaderm ok REVIEW OF SYSTEMS: 6 point ROS was completed. Pertinent positives and negatives are noted above in the HPI. All othersnegative PAST MEDICAL HISTORY Past Medical History: Diagnosis Date Abnormal Pap smear of cervix 09/19/2018 See problem list Anemia IN PAST , NEEDED IRON TRANSFUSION Anesthesia complication after gastric bypass-hard time waking up Asthma uses inhaler during winter months. 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 Hypertension Irregular heart beat Osteoarthritis of right knee 04/05/2015 Tear of meniscus of right knee PAST SURGICAL HISTORY Past Surgical History: Procedure Laterality Date ABDOMEN SURGERY gastric bypass APPENDECTOMY ARTHROSCOPY KNEE Right 05/12/2015 Procedure: ARTHROSCOPY KNEE; Surgeon: Deandre Mcfarland MD; Location: OR COLONOSCOPY N/A 02/21/2015 Procedure: COLONOSCOPY; Surgeon: Simon Montanez MD; Location: GI CYSTECTOMY OVARIAN BENIGN 05/25/2012 Procedure: CYSTECTOMY OVARIAN BENIGN; left ovarian cystectomy; Surgeon: Blanca Wharton MD; Location: [facility] DILATION AND CURETTAGE, HYSTEROSCOPY DIAGNOSTIC, COMBINED 05/25/2012 Procedure: COMBINED DILATION AND CURETTAGE, HYSTEROSCOPY DIAGNOSTIC; HYSTEROSCOPY, DILATION & CURETTAGE, MINI LAPAROTOMY WITH LEFT OVARIAN CYSTECTOMY, LEFT SALPINGECTOMY; Surgeon: Blanca Wharton MD; Location: [facility] ENT SURGERY tonsillectomy EXCISE MASS UPPER EXTREMITY Right 05/12/2015 Procedure: EXCISE MASS UPPER EXTREMITY; Surgeon: Deandre Mcfarland MD; Location: OR INCISION AND DRAINAGE TRUNK, COMBINED N/A 06/05/2014 Procedure: COMBINED INCISION AND DRAINAGE TRUNK; Surgeon: Royal Avery MD; Location: OR LAPAROTOMY MINI FOR EXPOSURE 05/25/2012 Procedure: LAPAROTOMY MINI FOR EXPOSURE; Mini-laparotomy.; Surgeon: Blanca Wharton MD;Location: [facility] OPEN REDUCTION INTERNAL FIXATION TIBIAL PLATEAU Left 04/10/2025 Procedure: Open reduction internal fixation of right anteromedial tibial plateau fracture; Surgeon:Roge Cartwright MD; Location: [facility] OR SALPINGECTOMY 05/25/2012 Procedure: SALPINGECTOMY; Left salpingectomy; Surgeon: Blanca Wharton MD; Location: [facility] TYMPANOPLASTY 03/11/2014 Procedure: TYMPANOPLASTY; Surgeon: Deandre Ibrahim MD; Location: [facility] OR TYMPANOPLASTY Left 07/22/2014 Procedure: TYMPANOPLASTY; Surgeon: Deandre Ibrahim MD; Location: [facility] OR FAMILY HISTORY Reviewed and noncontributory SOCIAL HISTORY Patient's living condition: lives with family, and daughter reports that she quit smoking about 29 years ago. Her smoking use included cigarettes. She started smoking about 39 years ago. She has never used smokeless tobacco. She reports current alcohol use. She reports that she does not use drugs. MEDICATIONS Post Medication Reconciliation Status: discharge medications reconciled and changed, per note/orders Current Outpatient Medications Medication Sig Dispense Refill acetaminophen (TYLENOL) 325 MG tablet Take 3 tablets (975 mg) by mouth 3 times daily as needed for mild pain. 180 tablet 0 celecoxib (CELEBREX) 100 MG capsule Take 1 capsule (100 mg) by mouth 2 times daily as needed for pain. 60 capsule 0 enoxaparin ANTICOAGULANT (LOVENOX) 40 MG/0.4ML syringe Inject 0.4 mLs (40 mg) subcutaneously every 24 hours. 12 mL 0 hydrOXYzine HCl (ATARAX) 25 MG tablet Take 1 tablet (25 mg) by mouth every 6 hours as needed (adjuvant pain). 60 tablet 0 oxyCODONE (ROXICODONE) 5 MG tablet Take 1-2 tablets (5-10 mg) by mouth every 4 hours as needed for pain. 30 tablet 0 polyethylene glycol (MIRALAX) 17 GM/Dose powder Take 17 g by mouth daily as needed for constipation. 510 g 0 LEVOTHYROXINE SODIUM PO Take 225 mcg by mouth every morning (before breakfast). lisinopril-hydrochlorothiazide (ZESTORETIC) 20-25 MG tablet Take 1 tablet by mouth daily. No current facility-administered medications for this visit. PHYSICAL EXAM BP 115/77 Pulse 72 Temp 98 ??F (36.7 ??C) Resp 16 Ht 1.727 m (5' 8) Wt 116.9 kg (257 lb 12.8 oz) SpO2 97% BMI 39.20 kg/m?? Constitutional: Sitting up in chair, NAD HEENT: Sclera white, MMM Respiratory: Breathing non-labored. Lungs CTAB - no wheezes, crackles, or rhonchi Cardiovascular: Heart RRR, no m/r/g. No pedal edema GI: +BS, abd soft/NT Skin/Integument: No rash Musculoskeletal: Normal muscle bulk and tone. LLE immobilizer intact Neuro: Alert and appropriate, no lateralizing deficits Psych: Calm and cooperative LAB/IMAGING DATA: Reviewed in [facility] and/or [facility] Most Recent 3 CBC's: Recent Labs Lab Test 04/22/25 0640 04/16/25 0613 04/13/25 0624 04/12/25 0709 04/11/25 0711 04/10/25 0519 WBC 5.8 -- -- -- 8.4 6.4 HGB 9.4* -- -- 8.6* 10.0* 9.7* MCV 93 92 91 91 92 91 PLT 437 280 220 -- 230 225 Most Recent 3 BMP's: Recent Labs Lab [...] -- 97 122* 73 105* 122* ASSESSMENT/PLAN: Left tibial plateau fracture s/p ORIF, 04/10/25 Fall, subsequent encounter Impaired mobility and ADLs Acute post-operative pain Slow transit constipation Underwent uncomplicated surgery with Dr. Cartwright - cont pain regimen: APAP 975 mg q8h prn Celecoxib 100 mg BID prn Hydroxyzine 25 mg q6h prn Oxycodone 5-10 mg q4h prn - bowel regimen: Miralax daily prn - VTE ppx: enoxaparin - cont PT/OT - SW following for discharge planning on 04/29/25; referral for home RN, PT, OT, DAIRY LABORATORY TECHNICIAN ordered Acute blood loss anemia Iron deficiency anemia Hx of gastric bypass Hgb 11.5 on hospital admission; decreased to 8.6 post-op. Found to have iron deficiency inpatient, and was started on oral iron - Hgb 9.4 at TCU on 04/22/25; monitor prn - oral iron d/c'd per patient request due to prior hx of gastric bypass; she receives intermittent IV iron Essential hypertension Chronic, stable - cont TOOL KEEPER lisinopril-HCTZ CKD stage 2-3a Chronic, stable - Cr has been stable within baseline 1-1.1 Hypothyroidism Chronic, stable - cont TOOL KEEPER levothyroxine Orders: Discontinue ferrous sulfate Total time spent with patient visit at the group home facility was 55 min including patient visit and review of past records. Electronically signed by: Sulaiman Saavedra MD Documentation of Face to Face and Certification for Home Health Services I certify that services are/were furnished while this patient was under the care of a physician andthat a physician or an allowed non-physician practitioner (NPP), had a [id number] encounter that meets the physician tnjc-uh-enft encounter requirements. The encounter was in whole, or in part, related to the primary reason for home health. The patient is confined to his/her home and needs intermittent group home, physical therapy, speech-language pathology, or the continued need for occupational therapy. A plan of care has been established by a physician and is periodically reviewed by a physician. Date of Oauh-fo-Nzgu Encounter: 04/25/2025. I certify that, based on my findings, the following services are medically necessary home health services: Nursing, Occupational Therapy, Physical Therapy, and DAIRY LABORATORY TECHNICIAN. My clinical findings support the need for the above skilled services because: Requires assistance of another person or specialized equipment to access medical services because patient: Has prohibitive pain during ambulation., Is unable to walk greater than 40 feet without rest., Range of motion limitations prevents ability to exit home safely., and Requires supervision of another for safe transfer... Patient to re-establish plan of care with their PCP within 7-10 days after leaving the facility to reestablish care. Medicare certified PECOS provider: Sulaiman Saavedra MD Date: April 25, 2025 Wheelchair Documentation Patient currently has a mobility limitation that impacts her ability to participate in ADLs and mobility related activities due to left tibial plateau and left fibula fractures. Patient is currently ambulating up to 30 feet with CGA and 2WW. Mobility limitation cannot be sufficiently and safely resolved with use of 2WW, 4WW, cane, and crutches due to LLE TTWB status impacting patient's independence with performance. A wheelchair will allow the patient to participate in ADLs and mobility with less assistance and improve her safety. The patient demonstrates ability to safely use manual wheelchair. The patient???s home has the accessibility to ensure that the wheelchair will fit in the home. The patient has not expressed an unwillingness to use the wheelchair. Medicare certified PECOS provider: Sulaiman Saavedra MD Date: April 25, 2025 documented in this encounter Miscellaneous Notes * Addendum Note - Sulaiman Saavedra MD - 04/25/2025 10:30 AM CDTAddended by: SULAIMAN SAAVEDRA on: 04/29/2025 12:34 PM Modules accepted: Orders documented in this encounter Plan of Treatment Scheduled Referrals Name Type Priority Associated Diagnoses Orde r Schedule Home Care Referral Referral Routine: Next available opening Closed fracture of left tibial plateau with routine healing, subsequent encounter S/P ORIF (open reduction internal fixation) fracture Fall, subsequent encounter Impaired mobility and ADLs Ordered: 04/25/2025 documented as of this encounter Visit Diagnoses Diagnosis Closed fracture of left tibial plateau with routine healing, subsequent encounter- Primary S/P ORIF (open reduction internal fixation) fracture Fall, subsequent encounter Impaired mobility and ADLs Mechanical problems with limbs Slow transit constipation ABLA (acute blood loss anemia) Iron deficiency anemia, unspecified iron deficiency anemia type Hx of gastric bypass Bariatric surgery status Essential hypertension, benign CKD (chronic kidney disease) stage 2, GFR 60-89 ml/min Chronic kidney disease, Stage II (mild) Hypothyroidism, unspecified type Acute post-operative pain Other acute postoperative pain Closed fracture of left tibial plateau, initial encounter documented in this encounter Additional Health Concerns Assessment Noted Time PHQ-9 Depression Total Score: 3 09/19/19 19 9:27 AM WATCH SUPERVISOR documented as of this encounter Care Teams Production Floater Relationship Specialty Start Date End Date Maggie Summers PA-C [address] [place] [address] PCP - General Family Practice 04/09/25 (Fgs)[facility] [address] [place] [phone] 04/17/25 04/28/25 Ashley Jean APRN TENNIS COACH [address] [place] [address] Nurse Practitioner Family Medicine 04/17/25 04/28/25 documented as of this encounter
--- OUTSIDE RECORDS SUMMARY | 2025-05-16 18:39 | XMS_ITS | Encounter Summary ---
Author Organization [facility] Address [address] [place] [address] Care Team Providers Care Insurance Advisor Name Role Phone Maggie Bowers PA-C Primary Care Provid er (Fgs), 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 Gender Identity Not on file Sexual Orientation Not on file documented as of this encounter Plan of Treatment Not on file documented as of this encounter Visit Diagnoses Not on filedocumented in this encounter Additional Health Concerns Assessment Noted Time PHQ-9 Depression Total Score: 3 09/19/19 19 9:27 AM JOB SETTER documented as of this encounter Care Teams Insurance Advisor Relationship Specialty Start Date End Date Maggie Bowers PA-C [address] [facility] [place] [address] PCP - General Family Practice 04/09/25 (Fgs), [facility] [address] [place] [phone] 04/17/25 04/28/25 Ashley Jean APRN BEATER ROOM SUPERVISOR [address] [place] [address] Nurse Practitioner Family Medicine 04/17/25 04/28/25 documented as of this encounter
--- OUTSIDE RECORDS SUMMARY | 2025-05-16 18:39 | XMS_ITS | Encounter Summary ---
Author Organization [facility] Address [address] [place] [address] Care Team Providers Care Correctional Case Manager Name Role Phone Maggie Bowers PA-C Primary Care Provid er (Fgs), [facility] Unavailab le Ashley Jean APRN PIERCING ARTIST Unavailable + Encounter Details Date Type Department Care Team (Late st Contact Info) Description 04/19/2025 Orders Only [facility] [address] [place] [phone] Ashley Jean APRN PIERCING ARTIST [address] [place] [phone] Closed fracture of left tibial plateau, initial [...] Date Recorded Do you have housing? (Lukasz sharp is defined as stable permanent housing and does not include staying outside in a car, in a tent, in an abandoned building, in an overnight retirement, or couch-surfing.) Yes 04/09/2025 Are you worried [...] on file Legal Sex Female 4:02 AM PUBLIC HEALTH NUTRITIONIST Gender Identity Not on file Sexual Orientation Not on file documented as of this encounter Plan of Treatment Not on file documented as of this encounter Visit Diagnoses Diagnosis Closed fracture of left tibial plateau, initial encounter documented in this encounter Additional Health Concerns Assessment Noted Time PHQ-9 Depression Total Score: 3 09/19/19 19 9:27 AM PUBLIC HEALTH NUTRITIONIST documented as of this encounter Care Teams Correctional Case Manager Relationship Specialty Start Date End Date Maggie Bowers PA-C [address] [address] [address] PCP - General Family Practice 04/09/25 (Fgs), [facility] [address] [phone] 04/17/25 04/28/25 Ashley Jean APRN PIERCING ARTIST [address] [facility] [place] [address] Nurse Practitioner Family Medicine 04/17/25 04/28/25 documented as of this encounter
--- OUTSIDE RECORDS SUMMARY | 2025-05-16 18:39 | XMS_ITS ---
Author Organization [facility] Care Team Providers Care Plater Helper Name Role Phone Ofe Giron Unavailable Unavailable Ashley Jean Unavailable Unavailable Allergies and adverse reactions Code CodeSystem Substance Reaction Severity StartDate Concern Status morphine and codeine Unknown 11/07/2005 active 5640 RXNORM Ibuprofen Unknown 05/07/2015 active 3648 RXNORM DroPERidol Unknown 12/16/2007 active Adhesive tape Unknown 12/16/2007 active Care Team Name Role Address Phone Organization Dates Ashley Jean PCP [address], [address], [place] States (Office): : [facility] 04/17/2025 - 04/29/2025 Ofe Giron [address] [place], [address], [place] (Office): [place] [facility] 04/17/2025 - 04/29/2025 Goals Section Goals Description Status Target Date Wilma will be free from disc omfort or adverse reactions related to anticoagulant use through the review date. Active 05/06/2025 Wilma will be free from s/sx of hypothyroidism through the review date. Active 05/06/2025 Wilma will be free of any di scomfort or adverse side effects from pain medication through the review date. Active 05/06/2025 Wilma will have no s/sx of p oor oxygen absorption through the review date. Active 05/06/2025 Wilma will remain free of s/ sx or complications related to anemia through review date. Active 05/06/2025 I will have my preferences followed. Active 05/06/2025 Res will return to previous living arrangement with necessary services and support as appropriate Active 05/06/2025 Tolerate diet. Active 05/06/2025 Will have fewer episodes of muscle spasms by rev iew date. Active 05/06/2025 Will improve current level of function in ADL's Active 05/06/2025 Will increase level of mobility from baseline. A ctive 05/06/2025 Will not have an interruptio n in normal activities due to pain through the review date. Active 05/06/2025 Will not sustain serious injury through the revi ew date. Active 05/06/2025 Will remain free from s/sx o f hypertension through the review date. Active 05/06/2025 Will show no decline in visual function through the review date. Active 05/06/2025 Will show no signs of infection by review date A ctive 05/06/2025 Will verbalize adequate reli ef of pain or ability to cope with incompletely relieved pain through the review date. Active Functional Status Code Name Recorded Time Value Entered By Bathing 04/26/2025 Not assessed ksalgado Chair/mbg-rr-zojug transfer 04/29/2025 Supe rvision or touching assistance nsherab Does the resident use a wheelchair and/or scooter? 04/29/2025 Yes (qualifier value) nsherab Dressing 04/28/2025 Independent saira Eating 04/28/2025 Setup or clean-up assistance saira Feeding or Eating 04/29/2025 Independent shabana Indicate the type of wheelch air or scooter used 04/29/2025 Manual wheelchair (physical object) nsherab Lower body dressing 04/29/2025 Supervision or touching assistance nsherab Lying to sitting on side of bed 04/29/2025 Supervision or touching assistance nsherab Oral hygiene 04/29/2025 Supervision or t ouching assistance nsherab Personal hygiene 04/29/2025 Supervision or touching assistance nsherab Putting on/taking off footwear 04/29/2025 S upervision or touching assistance nsherab Roll left and right 04/29/2025 Supervision or touching assistance nsherab Shower/bathe self 04/28/2025 Not assessed ameliaj Sit to lying 04/29/2025 Supervision or t ouching assistance nsherab Sit to stand 04/29/2025 Supervision or t ouching assistance nsherab Toilet transfer 04/29/2025 Supervision or t ouching assistance nsherab Toileting 04/29/2025 Limited Assistance nsherab Toileting hygiene 04/29/2025 Supervision or touching assistance nsherab Transferring 04/28/2025 Independent ameliaj Upper body dressing 04/29/2025 Supervision or touching assistance nsherab Walk 10 feet 04/29/2025 Not assessed nsherab Walk 150 feet 04/29/2025 Independent nsherab Walk 50 feet 04/29/2025 Independent nsherab Wheel 150 feet 04/29/2025 Substantial/maxi mal assistance nsherab Wheel 50 feet with two turns 04/29/2025 Sub stantial/maximal assistance nsherab Immunizations Immunization Status Vaccine Details Vaccine Code CodeSystem Date Notes Tdap cancelled tetanus toxoid, reduced diphtheria toxoid, and acellular pertussis vaccine, adsorbed 115 CVX created date: 5 consent date: 5 Tdap completed tetanus toxoid, reduced diphtheria toxoid, and acellular pertussis vaccine, adsorbed lotNumber: [id number] Given 0.5 115 CVX created date: 5 administe red date: 4 doseUOMNonco ded:mL Tdap completed tetanus toxoid, reduced diphtheria toxoid, and acellular pertussis vaccine, adsorbed 115 CVX created date: 5 administe red date: 2 Pneumoccol 23 completed pneumococcal polysaccharide vaccine, 23 valent lotNumber: [id number] 33 CVX created date: 5 administe red date: 2 SARS-COV-2 (COVID-19) completed SARS-COV-2 (COVID-19) vaccine, mRNA, spike protein, LNP, preservative free, 30 mcg/0.3mL dose lotNumber: [id number] Mfg: PFIZER Given 0.3 intramuscularly Step 0 of Multi-step with next step required 208 CVX created date: 5 administe red date: 1 doseUOMNonco ded:mL Booster Vaccine Moderna completed SARS-COV-2 (COVID-19) vaccine, mRNA, spike protein, LNP, preservative free, 100 mcg/0.5mL dose or 50 mcg/0.25mL dose Mfg: [employer] Flavourly. 207 CVX created date: 5 administe red date: 1 Booster Vaccine Moderna completed SARS-COV-2 (COVID-19) vaccine, mRNA, spike protein, LNP, preservative free, 100 mcg/0.5mL dose or 50 mcg/0.25mL dose Mfg: [employer].. 207 CVX created date: 5 administe red date: 1 Prevnar 20 cancelled Pneumococcal conjugate vaccine 20-valent (PCV20), polysaccharide [id number] conjugate, adjuvant, preservative free 216 CVX created date: 5 consent date: 5 Educated by on 04/26/2025 Patient refused and said, she wants to decide when she discharges home. Per floor nurse. Influenza, seasonal, injectable, preservative free completed Influenza, split virus, trivalent, injectable, preservative free lotNumber: [id number] Mfg: OneBuild Given 0.5 intramuscularly 140 CVX created date: 5 administe red date: 4 doseUOMNonco ded:mL Covid [email or web address] Formula cancelled SARS-COV-2 (COVID-19) vaccine, mRNA, spike protein, LNP, preservative free, bhavya-sucrose, 30 mcg/0.3 mL dose 309 CVX created date: 5 consent date: 5 Medications Section Medication Name Status Code CodeSystem Dose Route Frequency Admin Type Sig Text Start Date End Date Lovenox Injection Solution aborted 0.4 ml Subcuta neous every 24 hours Routine Inject 0.4 ml subcut aneous ly every 24 hours for . 04/18 Acetaminophen Oral Tablet active 975 mg Oral every 8 hours Routine Give 975 mg by mouth every 8 hours for Pain 2024 - FeroSul Oral Tablet aborted 325 mg Oral one time a day Routine Give 325 mg by mouth one time a day for Vitami n D defici ency, Elijahat alexia Surger y Status 04/25 Methocarbamol Oral Tablet aborted 500 mg Oral as needed PRN Give 500 mg by mouth as needed for Muscle spasms QID PRN 04/23 Levothyroxine Sodium Oral Tablet aborted 225 mg Oral in the morning Routine Give 225 mg by mouth in the mornin g for . Before Breakf ast 04/18 Polyethylene Glycol 3350 Oral Powder 17 GM/SCOOP active 023678 RXNORM 17 gram Oral one time a day Routine Give 17 gram by mouth one time a day for Consti pation AND Give 17 gram by mouth as needed for Consti pation BID PRN 2024 - 400396 RXNORM 17 gram Oral as needed PRN Give 17 gram by mouth one time a day for Consti pation AND Give 17 gram by mouth as needed for Consti pation BID PRN 2024 - Roxicodone Oral Tablet 5 MG active 162878 3 RXNORM 5 mg Oral as needed PRN Give 5 mg by mouth every 4 hours as needed for Modera te pain Q4H PRN, On scale 4-6/10 AND Give 10 mg by mouth every 4 hours as needed for Severe pain Q4H PRN, on scale 7/10-1 0 2024 - 001610 3 RXNORM 10 mg Oral as needed PRN Give 5 mg by mouth every 4 hours as needed for Modera te pain Q4H PRN, On scale 4-6/10 AND Give 10 mg by mouth every 4 hours as needed for Severe pain Q4H PRN, on scale 7/10-1 0 2024 - Celecoxib Oral Capsule aborted 100 mg Oral as needed PRN Give 100 mg by mouth as needed for . BID PRN 04/18 hydrOXYzine HCl Oral Tablet aborted 25 mg Oral every 6 hours Routine Give 25 mg by mouth every 6 hours for . 04/18 Senna-Docusat e Sodium Oral Tablet 8.6-50 MG aborted 1 tablet Oral as needed PRN Give 1 tablet by mouth as needed for Consti pation BID PRN 04/23 hydrOXYzine HCl Oral Tablet active 25 mg Oral every 6 hours Routine Give 25 mg by mouth every 6 hours for Spasms 2024 - Zestoretic Oral Tablet 20-25 MG active 407853 RXNORM 1 tablet Oral one time a day Routine Give 1 tablet by mouth one time a day for HTN 2024 - Levothyroxine Sodium Oral Tablet active 225 mg Oral in the morning Routine Give 225 mg by mouth in the mornin g relate d to HYPOTH YROIDI SM, UNSPEC IFIED (E03.9 ) Before Breakf ast 2024 - Celecoxib Oral Capsule active 100 mg Oral as needed PRN Give 100 mg by mouth as needed for Pain BID PRN 2024 - Lovenox Injection Solution active 0.4 ml Subcuta neous every 24 hours Routine Inject 0.4 ml subcut aneous ly every 24 hours for DVT Prophy laxis 2024 - Prevnar 20 Intramuscular Suspension Prefilled Syringe 0.5 ML complete d 166206 4 RXNORM 0.5 ml Intramu scular one time only One Time Only Inject 0.5 ml intram uscula rly one time only for Vaccin e for 1 Day 04/26 Mental Status Section Date Assessment Total Score Description 04/23/2025 BIMS 14 cognitively int act CAM 0 No delirium ind icated PHQ-9 00 04/23/2025 BIMS 14 cognitively int act CAM 0 No delirium ind icated PHQ-9 00 Problems Problem # Description Date of onset Resolved Date Code CodeSystem Concern Status 1 ACUTE POSTHEMORRHAGIC ANEMIA 04/17/[address] active 2 CHRONIC KIDNEY DISEASE, STAGE 3A 04/17/[address] active 3 DISPLACED BICONDYLAR FRACTURE OF LEFT TIBIA, SUBSEQUENT ENCOUNTER FOR CLOSED FRACTURE WITH ROUTINE HEALING 04/17/[address] active 4 ESSENTIAL (PRIMARY) HYPERTENSION 04/17/[address] active 5 HYPOTHYROIDISM, UNSPECIFIED 04/17/[address] active 6 OTHER FRACTURE OF UPPER AND LOWER END OF LEFT FIBULA, SUBSEQUENT ENCOUNTER FOR CLOSED FRACTURE WITH ROUTINE HEALING 04/17/[address] active 7 SLOW TRANSIT CONSTIPATION 04/17/[address] active 8 UNSPECIFIED FALL, SUBSEQUENT ENCOUNTER 04/17/[address] active Reason for Referral No Reasons for Referral Entered Diagnostic Results Result Code Code System Date Test Result Interpretation Reference Range Status Notes [id number] LOINC 04/22 CBC with Platelets Completed Result for: KELLY ERVIN ( 1970, F) 6690-2 LOINC 04/22 WBC Count Value: 5.8 Units: 10e3/uL Normal 4.0-11.0 Final 789-8 LOINC 04/22 RBC Count Value: 3.13 Units: 10e6/uL Low 3.80-5.20 Final 718-7 LOINC 04/22 Hemoglobin Value: 9.4 Units: g/dL Low 11.7-15.7 Final 4544-3 LOINC 04/22 Hematocrit Value: 29.0 Units: % Low 35.0-47.0 Final 787-2 LOINC 04/22 MCV Value: 93 Units: fL Normal 78-100 Final 785-6 LOINC 04/22 MCH Value: 30.0 Units: pg Normal 26.5-33.0 Final 786-4 LOINC 04/22 MCHC Value: 32.4 Units: g/dL Normal 31.5-36.5 Final 788-0 LOINC 04/22 RDW Value: 15.6 Units: % High 10.0-15.0 Final 777-3 LOINC 04/22 Platelet Count Value: 437 Units: 10e3/uL Normal 150-450 Final LD3480- 6 LOINC 04/19 Quantiferon -TB Gold Plus Completed Result for: KELLY ERVIN ( 1970, F) 123-999 99-9 LOINC 04/18 Quantiferon -TB Gold Plus Value: Negative Units: Normal Negative Final No interferon gamma response to M.tuberculo sis antigens was detected. Infection with M.tuberculo sis is unlikely, however a single negative result does not exclude infection. In patients at high risk for infection, a second test should be considered in accordance with the 2017 ATS/IDSA/CD C Clinical Pract ice Guidelines for Diagnosis of Tuberculosi s in Adults and Children 123-999 99-9 LOINC 04/18 TB1 Ag Minus Nil Value Value: 0.00 Units: IU/mL Normal Final 123-999 99-9 LOINC 04/18 TB2 Ag Minus Nil Value Value: -0.01 Units: IU/mL Normal Final 123-999 99-9 LOINC 04/18 Mitogen Minus Nil Result Value: 9.95 Units: IU/mL Normal Final 123-999 99-9 LOINC 04/18 Nil Result Value: 0.05 Units: IU/mL Normal Final Test Code Code System Name Date CBC with Platelets Quantiferon-TB Gold Plus 03/2025 Social History Social History Observation Description Start Date End Date Code Code System Current Smoking Status Tobacco smoking consumption unknown 210165709 SNOMED CT Sex Assigned At Female 1970 00445-9 [facility] Gender Identity Vital Signs Code Code System Vitals Name Values and Units Timing Information 9279-1 [facility] Respiratory Rate Value=18.0 Units=/m in 04/29/2025 8462-4 [facility] Blood Pressure-Diastolic Value=71 Un its=mmHg 04/29/2025 8480-6 [facility] Blood Pressure-Systolic Khfvv=396 Un its=mmHg 04/29/2025 8310-5 [facility] Body Temperature Value=97.6 Units= F 04/29/2025 8867-4 [facility] Heart rate Value=71.0 Units=/min 37870-9 [facility] O2 % BldC Oximetry Value=96.0 Units= % 04/29/2025 47808-9 [facility] Pain Level Value=2.0 04/29/2025 54558-4 LOINC Weight Mfkmd=503.8 Units=Lbs 08/2025 8302-2 [facility] Height Value=68.0 Units=Inches 04/18/2025
--- OUTSIDE RECORDS SUMMARY | 2025-05-16 18:39 | XMS_ITS | Encounter Summary ---
Author Organization [facility] Address [address] [place] [address] Care Team Providers Care Pharmacist Helper Name Role Phone Maggie Bowers PA-C Primary Care Provid er (Fgs), [facility] - Phillip Unavailab le Ashley Jean APRN AWS SOLUTION ARCHITECT Unavailable + Encounter Details Date Type Department Care Team (Latest Contact Info) Description 04/25/2025 Travel Social History Tobacco Use Types Packs/Day [...] on file Legal Sex Female 4:02 AM WARP TIER Gender Identity Not on file Sexual Orientation Not on file documented as of this encounter Plan of Treatment Not on file documented as of this encounter Visit Diagnoses Not on filedocumented in this encounter Additional Health Concerns Assessment Noted Time PHQ-9 Depression Total Score: 3 09/19/19 19 9:27 AM WARP TIER documented as of this encounter Care Teams Pharmacist Helper Relationship Specialty Start Date End Date Maggie Bowers PA-C [address] [facility] [place] [address] PCP - General Family Practice 04/09/25 (Fgs), [facility] On April Fisher [address] [place] [phone] 04/17/25 04/28/25 Ashley Jean APRN AWS SOLUTION ARCHITECT [address] [place] [address] Nurse Practitioner Family Medicine 04/17/25 04/28/25 documented as of this encounter
--- OUTSIDE RECORDS SUMMARY | 2025-05-16 18:39 | XMS_ITS | Encounter Summary ---
Author Organization [facility] Address [address] [place] [address] Care Team Providers Care Lean Six Sigma Senior Specialist Name Role Phone Maggie Bowers PA-C Primary Care Provid er (Fgs), [facility] - [place] Unavailab le Ashley Jean APRN TUNNEL DRIER OPERATOR Unavailable + Reason for Visit * Reason Comments Geriatrics Tracker Encounter Details Date Type Department Care Team (Late st Contact Info) Description 04/17/2025 Documentation Only [facility] Geriatrics [address] [place] [phone] Alexandrea Bernstein [address] [place] [address] Geriatrics Tracker Social History Tobacco Use Types Packs/Day Years [...] in an abandoned building, in an overnight mcc, or couch-surfing.) Yes 04/09/2025 Are you worried [...] on file Legal Sex Female 4:02 AM MOLD FILLER Gender Identity Not on file Sexual Orientation Not on file documented as of this encounter Plan of Treatment Not on file documented as of this encounter Visit Diagnoses Not on filedocumented in this encounter Additional Health Concerns Assessment Noted Time PHQ-9 Depression Total Score: 3 09/19/19 19 9:27 AM MOLD FILLER documented as of this encounter Care Teams Lean Six Sigma Senior Specialist Relationship Specialty Start Date End Date Maggie Bowers PA-C [address] [place] [id number] PCP - General Family Practice 04/09/25 (Fgs), Marian Fisher [address] [phone] 04/17/25 04/28/25 Ashley Jean APRN TUNNEL DRIER OPERATOR [address] [place] [address] Nurse Practitioner Family Medicine 04/17/25 04/28/25 documented as of this encounter
--- OUTSIDE RECORDS SUMMARY | 2025-05-16 18:39 | XMS_ITS | Encounter Summary ---
Author Organization [facility] Address [address] [place] [address] Care Team Providers Care Natural Gas Technician Name Role Phone Maggie Bowers PA-C Primary Care Provid er (Fgs), [facility] - [place] Unavailab le Ashley Jean APRN REAL ESTATE INVESTMENT ANALYST Unavailable +1 Reason for Visit * Reason Comments Medication Refill Encounter Details Date Type Department Care Team (Late st Contact Info) Description 04/19/2025 Refill [facility] Geriatrics [address] [place] [phone] Ashley Jean, MARCIE REAL ESTATE INVESTMENT ANALYST [address] [place] [address] Medication Refill Social History Tobacco Use Types Packs/Day Years [...] in an abandoned building, in an overnight fdc, or couch-surfing.) Yes 04/09/2025 Are you worried [...] on file Legal Sex Female 4:02 AM MANAGER SECURITY Gender Identity Not on file Sexual Orientation Not on file documented as of this encounter Plan of Treatment Not on file documented as of this encounter Visit Diagnoses Diagnosis Closed fracture of left tibial plateau, initial encounter documented in this encounter Additional Health Concerns Assessment Noted Time PHQ-9 Depression Total Score: 3 09/19/19 19 9:27 AM MANAGER SECURITY documented as of this encounter Care Teams Natural Gas Technician Relationship Specialty Start Date End Date Maggie Bowers PA-C [address] [address] PCP - General Family Practice 04/09/25 (Fgs), Marian [facility] - Phillip [address] [phone] 04/17/25 04/28/25 Ashley Jean APRN REAL ESTATE INVESTMENT ANALYST [address] [place] [address] Nurse Practitioner Family Medicine 04/17/25 04/28/25 documented as of this encounter
--- OUTSIDE RECORDS SUMMARY | 2025-05-16 18:39 | XMS_ITS | Clinical Summary ---
Author Organization [facility] Address [address] [place] [id number] Care Team Providers Care Floor Tech Name Role Phone Maggie Bowers PA-C Primary Care Provid er Ashley Jean SENIOR TECHNICAL TRAINER UROLOGY TEACHER Unavailable + Allergies Active Allergy Reactions Criticality Noted Date Comments Amoxicillin-Pot Clavulanate Nausea and Vomiting 12/16/2007 Droperidol 12/16/2007 Panic attacks Ibuprofen Other (See Comments) 05/07/2015 Unable to take due to past gastric bypass Morphine And Codeine 11/07/2005 Panic attack Adhesive Tape 12/16/2007 Clear tape=RASH; tegaderm ok Medications lisinopril-hydro chlorothiazide (ZESTORETIC) 20-25 MG tablet Take 1 tablet by mouth daily. Active LEVOTHYROXINE SODIUM PO Take 225 mcg by mouth every morning (before breakfast). Active acetaminophen (TYLENOL) 325 MG tabletIndication s:Closed fracture of left tibial plateau, initial encounter Take 3 tablets (975 mg) by mouth 3 times daily as needed for mild pain. 180 tablet 025 Active celecoxib (CELEBREX) 100 MG capsuleIndicatio ns:Closed fracture of left tibial plateau, initial encounter Take 1 capsule (100 mg) by mouth 2 times daily as needed for pain. 60 capsule 025 Active enoxaparin ANTICOAGULANT (LOVENOX) 40 MG/0.4ML syringeIndicatio ns:Closed fracture of left tibial plateau, initial encounter Inject 0.4 mLs (40 mg) subcutaneously every 24 hours. 12 mL Active hydrOXYzine HCl (ATARAX) 25 MG tabletIndication s:Closed fracture of left tibial plateau, initial encounter Take 1 tablet (25 mg) by mouth every 6 hours as needed (adjuvant pain). 60 tablet Active oxyCODONE (ROXICODONE) 5 MG tabletIndication s:Closed fracture of left tibial plateau with routine healing, subsequent encounter,S/P ORIF (open reduction internal fixation) fracture Take 1-2 tablets (5-10 mg) by mouth every 4 hours as needed for pain. 30 tablet Active polyethylene glycol (MIRALAX) 17 GM/Dose powderIndication s:Closed fracture of left tibial plateau, initial encounter Take 17 g by mouth daily as needed for constipation. 510 g Active acetaminophen (TYLENOL) 325 MG tabletIndication s:Closed fracture of left tibial plateau, initial encounter Take 3 tablets (975 mg) by mouth every 8 hours. 100 tablet 025 2024 Discontinued(R eorder (No AVS)) celecoxib (CELEBREX) 100 MG capsuleIndicatio ns:Closed fracture of left tibial plateau, initial encounter Take 1 capsule (100 mg) by mouth 2 times daily as needed. 30 capsule 025 2024 Discontinued(R eorder (No AVS)) hydrOXYzine HCl (ATARAX) 25 MG tabletIndication s:Closed fracture of left tibial plateau, initial encounter Take 1 tablet (25 mg) by mouth every 6 hours. 40 tablet 1 025 2024 Discontinued(R eorder (No AVS)) methocarbamol (ROBAXIN) 500 MG tabletIndication s:Closed fracture of left tibial plateau, initial encounter Take 1 tablet (500 mg) by mouth 4 times daily as needed for muscle spasms (pain). 40 tablet 1 025 2024 Discontinued(T herapy completed (No AVS)) senna-docusate (SENOKOT-S/PERIC OLACE) 8.6-50 MG tabletIndication s:Closed fracture of left tibial plateau, initial encounter Take 1 tablet by mouth 2 times daily as needed for constipation. 30 tablet 1 2024 Discontinued(T herapy completed (No AVS)) polyethylene glycol (MIRALAX) 17 GM/Dose powderIndication s:Closed fracture of left tibial plateau, initial encounter Take 17 g by mouth daily. 510 g 2024 Discontinued(R eorder (No AVS)) oxyCODONE IR (ROXICODONE) 10 MG tabletIndication s:Closed fracture of left tibial plateau, initial encounter Take 1 tablet (10 mg) by mouth every 4 hours as needed for severe pain (Take one tablet (10 mg) by mouth for pain rated 7-10/10. Take half tablet (5 mg) for pain rated 4-6/10.). 8 tablet 2024 Discontinued(R eorder (No AVS)) enoxaparin ANTICOAGULANT (LOVENOX) 40 MG/0.4ML syringeIndicatio ns:Closed fracture of left tibial plateau, initial encounter Inject 0.4 mLs (40 mg) subcutaneously every 24 hours. 12 mL 2024 Discontinued(R eorder (No AVS)) ferrous sulfate (FEROSUL) 325 (65 Fe) MG tabletIndication s:Vitamin D deficiency,Baria tric surgery status Take 1 tablet (325 mg) by mouth daily. 2024 Discontinued(T herapy completed (No AVS)) senna-docusate (SENOKOT-S/PERIC OLACE) 8.6-50 MG tabletIndication s:Closed fracture of left tibial plateau, initial encounter,Morbid obesity (H) Take 1 tablet by mouth 2 times daily as needed for constipation. 2024 Discontinued polyethylene glycol (MIRALAX) 17 g packetIndication s:Closed fracture of left tibial plateau, initial encounter,ELEONORA (obstructive sleep apnea) Take 17 g by mouth 2 times daily as needed for constipation. 025 2024 Discontinued(D uplicate Therapy (No AVS / No eCancel)) oxyCODONE IR (ROXICODONE) 10 MG tabletIndication s:Closed fracture of left tibial plateau, initial encounter Take 1 tablet (10 mg) by mouth every 4 hours as needed for severe pain (Take one tablet (10 mg) by mouth for pain rated 7-10/10. Take half tablet (5 mg) for pain rated 4-6/10.). 30 tablet 025 2024 Discontinued(A lternate therapy) polyethylene glycol (MIRALAX) 17 GM/Dose powderIndication s:Closed fracture of left tibial plateau, initial encounter Take 17 g by mouth daily as needed for constipation. 510 g 2024 Discontinued hydrOXYzine HCl (ATARAX) 25 MG tabletIndication s:Closed fracture of left tibial plateau, initial encounter Take 1 tablet (25 mg) by mouth every 6 hours as needed (adjuvant pain). 60 tablet 2024 Discontinued enoxaparin ANTICOAGULANT (LOVENOX) 40 MG/0.4ML syringeIndicatio ns:Closed fracture of left tibial plateau, initial encounter Inject 0.4 mLs (40 mg) subcutaneously every 24 hours. 12 mL 2024 Discontinued celecoxib (CELEBREX) 100 MG capsuleIndicatio ns:Closed fracture of left tibial plateau, initial encounter Take 1 capsule (100 mg) by mouth 2 times daily as needed for pain. 60 capsule 2024 Discontinued acetaminophen (TYLENOL) 325 MG tabletIndication s:Closed fracture of left tibial plateau, initial encounter Take 3 tablets (975 mg) by mouth 3 times daily as needed for mild pain. 180 tablet 2024 Discontinued oxyCODONE (ROXICODONE) 5 MG tabletIndication s:Closed fracture of left tibial plateau with routine healing, subsequent encounter,S/P ORIF (open reduction internal fixation) fracture Take 1-2 tablets (5-10 mg) by mouth every 4 hours as needed for pain. 30 tablet 025 2024 Discontinued Active Problems Problem Noted Date Diagnosed Date Acute hypoxemic respiratory failure 04/11/2025 Closed fracture of left tibial plateau, initial encounter 04/09/2025 Papanicolaou smear of cervix with low grade squamous intraepithelial lesion (LGSIL) 09/19/2018 Overview (11/01/2019): 09/19/18 LSIL, Neg HPV. Plan 1 yr co-test as preferred management 11/01/19 Patient is lost to pap tracking follow-up. 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 Provider to review Left ovarian cyst 05/24/2012 Endometrial mass 05/24/2012 DUB (dysfunctional uterine bleeding) 05/24/2012 B-complex deficiency 04/21/2011 Overview (01/21/2014): Overview: Was on B12 shots. B12 (oral ) did not work per report Shots since April 2011. B12 = 462 on shots (07/21/11). Symptomatic improvement. Personal history of endocrin e, metabolic or immunity disorder 04/21/2011 Overview (01/21/2014): Overview: Hypothyroidism diagnosis around 2003 to 2005 Hashimotos diagnosis made June 2010. Hoping to become . TSH = 3.12 on 200mcg (07/21/11), increasing to 225mcg levothyroxine daily. Bariatric surgery status 04/21/2011 Overview (01/21/2014): Overview: November 27, 2002 [place] [facility] [place] 130 total; as of Apr 2011 has had regain of about 20 pounds. Secondary hyperparathyroidism, renal 04/21/2011 Overview (01/21/2014): Overview: Outside notes indicated this resolved with Vitamin D replacement. No kidney stones. No osteoporosis. 08/17/2010 outside labs: PTH = 184.6; 25-D = 72 (on 50,000 units Vitamin D three times a week) 10/07/10 outside labs: PTH = 104.2; 25D = 64 10/09/10 outside labs: 24 hour urinary calcium = 60mg / 24 hours. (voulme = 1240mL) 12/08/10 outside labs: PTH = 65.2; 25D = 66; Calcium = 9.2; Cr = 0.8; Phosphorus = 3.0 Plan to recheck labs around OctoberNovember 2011. Vitamin D deficiency 04/21/2011 Family history of diabetes mellitus 01/15/2011 Iron deficiency anemia 01/15/2011 Overview (01/21/2014): Overview: Dr. Tapia note (08/09/11) states primary care physician started her on iron supplements. Resolved Problems Problem Noted Date Diagnosed Date Resolved Date Plantar fasciitis 06/02/2018 02/20/2019 Pain in joint, ankle and foot, left 03/21/2018 05/30/2018 Pain in joint, lower leg 02/10/2015 Hyperlipidemia LDL goal <160 01/21/2014 11/12/2014 Surgery aftercare 05/25/2012 01/21/2014 Overview (10/24/2012): IMO update changed this record. Please review for accuracy Encounters Date Type Department Care Team Description 04/25/2025 10:30 AM CDT Transitional Care Unit Visit [address] [phone] Ofe Giron MD Closed fracture of left tibial plateau with [...] fracture of left tibial plateau, initial encounter 04/25/2025 Travel 04/19/[address] [address] Ashley Jean APRN UROLOGY TEACHER Medication Refill 04/19/2025 Orders Only [address] [phone] Ashley Jean APRN CNP Closed fracture of left tibial plateau, initial encounter 04/18/2025 7:00 AM CDT Transitional Care Unit Visit [address] [phone] Ashley Jean APRN CNP Closed fracture of shaft of left tibia with routine healing, unspecified fracture morphology, subsequent encounter (Primary Dx); Fall, subsequent encounter; Physical deconditioning; ABLA (acute blood loss anemia); Primary hypertension; Hypothyroidism, unspecified type; CKD stage 3a, GFR 45-59 ml/min (H); Slow transit constipation; Advanced directives, counseling/discussi on 04/18/2025 Travel 04/17/2025 Documentation Only [address] [phone] Alexandrea Bernstein Geriatrics Tracker 04/10/2025 10:51 AM CDT Anesthesia Event [facility] [address] [place] [phone] Shamika Apodaca MD 04/10/2025 9:20 AM CDT - 04/10/2025 12:05 PM CDT Surgery [facility] [address] [place] [phone] Roge Cartwright MD Open reduction internal fixation of right anteromedial tibial plateau fracture 04/09/2025 1:48 PM CDT - 04/17/2025 12:03 PM CDT Hospital Encounter [facility] [address] [place] [phone] Ashley Rodriguez, Moody Pope MD Cabrera, Jesus F, MD Closed fracture of left tibial plateau, initial encounter (Primary Dx); Closed fracture of proximal end of left fibula, unspecified fracture morphology, initial encounter; Lipohemarthrosis; Vitamin D deficiency; Bariatric surgery status; Morbid obesity (H); ELEONORA (obstructive sleep apnea) Discharge Disposition: [facility] Facility 04/09/2025 Travel from Last 3 Months Immunizations Immunization Administration Dates Next Due Influenza (IIV3) PF 07/21/2013,06/26/2011 Influenza (prior to 2023) 07/01/2006 Influenza Vaccine >6 months,quad, PF 06/12/2017, 06/22/2016,07/02/2015 Influenza Vaccine, 6+MO IM ( QUADRIVALENT W/PRESERVATIVES) 06/12/2017 Nasal Influenza Vaccine 2-49 (FluMist) 4 Pneumococcal 23 valent 05/26/2012 TDAP Vaccine (Adacel) 02/11/2014,05/27/2012,09/2003 Family History Medical History Relation Comments Coronary Artery Disease Brother [place] Unknown/Adopted Father C.A.D. Maternal Grandfather Cerebrovascular Disease Maternal Grandfather Hypertension Maternal Grandfather Thyroid Disease Maternal Grandfather Gallbladder Disease Maternal Grandmother Hypertension Maternal Grandmother Thyroid Disease Maternal Grandmother Cancer Mother lung ~ liver Depression Mother Diabetes Mother Hyperlipidemia Mother Hypertension Mother Other Cancer Mother Sleep Apnea Mother Thyroid Disease Mother Unknown/Adopted Paternal Grandfather Unknown/Adopted Paternal Grandmother Colon Cancer No family hx of Relation Status Comments Brother Father Maternal Grandfather Maternal Grandmother Mother Paternal Grandfather Paternal Grandmother Social History Tobacco Use Types Packs/Day Years Used Date Smoking Tobacco: Former Cigarettes 0 11/07/1985 - 11/07/1995 Smokeless Tobacco: Never Tobacco Cessation:Counseling Given: No Comments:social smoker Alcohol Use Standard Drinks/Week Comments [...] in an abandoned building, in an overnight usp, or couch-surfing.) Yes 04/09/2025 Are you worried [...] on file Legal Sex Female 4:02 AM CAREER DEVELOPMENT MANAGER Gender Identity Not on file Sexual Orientation Not on file Last Filed Vital Signs Vital Sign Reading [...] Mass Index 39.2 04/25/2025 6:46 AM CDT Plan of Treatment Health Maintenance Due Date Last Done Comments ANNUAL REVIEW OF HM ORDERS 1968 CT COLONOGRAPHY 1968 FLEX SIG 1968 sDNA (Cologuard) 1968 HIV SCREENING 12/31/1982 HEPATITIS C SCREENING 12/31/1985 HEPATITIS B VACCINE (1 of 3 - 19+ 3-dose series) 12/31/1986 PNEUMOCOCCAL VACCINE 50+ YEARS (2 of 2 - PCV) 05/26/2013 05/26/2012 FIT 02/12/2015 02/12/2014 ZOSTER VACCINE (1 of 2) 12/31/2017 ASTHMA CONTROL TEST 03/19/2019 09/19/2018, 10/28/2017, 01/31/2017, Additional history exists ASTHMA ACTION PLAN 09/19/2019 09/19/2018, 0 01/31/2017, 01/27/2016, Additional history exists TSH W/FREE T4 REFLEX 09/19/2019 09/19/2018, 09/19/2018, 09/19/2018, Additional history exists LIPID 09/19/2023 09/19/2018, 01/21/2014 DTAP/TDAP/TD VACCINE (4 - Td or Tdap) 02/12/2024 02/11/2014, 05/27/2012, 06/12/2004, Additional history exists PHQ-2 (once per calendar year) 2024 09/19/2018, 09/19/2018, 09/07/2017, Additional history exists YEARLY PREVENTIVE VISIT 03/26/2025 03/26/20 24, 06/24/2021, 09/19/2018 COVID-19 VACCINE ( - 2024- season) 2025 09/08/2021, 10/14/2020, 09/16/2020 INFLUENZA VACCINE (#1) 2025 , 09/07/2023, 07/06/2021, Additional history exists HPV TEST 03/04/2026 03/04/2025, 07/1 01/2024, 06/24/2021, Additional history exists PAP 03/04/2026 03/04/2025, 02/11, 03/26/2024, Additional history exists BMP 04/11/2026 04/11/2025, 03/14, 04/09/2025, Additional history exists MAMMO SCREENING 02/14/2027 02/14/2025, 09/13, 07/01/2021, Additional history exists DIABETES SCREENING 04/12/2028 04/12/2025, 0 04/11/2025, 04/10/2025, Additional history exists ADVANCE CARE PLANNING 04/18/2030 04/18/2025 COLONOSCOPY 08/19/2031 08/19/2021, 02/10, 02/21/2015, Additional history exists COLORECTAL CANCER SCREENING 08/19/2031 HPV VACCINE (No Doses Required) Completed MENINGITIS VACCINE Aged Out No longer eligible based on patient's age to complete this topic Medical Devices Implanted Type Area Physician In Private Practice Device Identifier Shelf Expiration Date Model / Serial / Lot Screw Cortex 3.5x48mm [id number] - [id number] Implanted:Qty: 1 on 04/10/2025 by Roge Cartwright MD at [employer]An[employer] hor Left: Knee [employer] [id number] / / [id number] Imp Scr Bone 3.5mm 55mml Ti [address] Axsos [id number] - [id number] Implanted:Qty: 1 on 04/10/2025 by Roge Cartwright MD at [employer] Left: Knee [employer] [id number] / / [id number] Imp Scr Strk Axsos3 [address] 3.5x32mm Ti [id number] - [id number] Implanted:Qty: 1 on 04/10/2025 by Roge Cartwright MD at [employer] Left: Knee [employer] [id number] / / [id number] Screw Bn 48mm 3.5mm Lck Tx Hd T15 Ns [place] Lf [id number] - [id number] Implanted:Qty: 1 on 04/10/2025 by Roge Cartwright MD at [employer] Left: Knee [employer] [id number] / / [id number] Screw Bn 55mm 3.5mm Lck Tx Hd T15 Ns [place] Lf [id number] - [id number] Implanted:Qty: 1 on 04/10/2025 by Roge Cartwright MD at [employer] Left: Knee [employer] [id number] / / [id number] Screw Bn 40mm 3.5mm Lck Tx Hd T15 Ns [place] Lf 128579 - [id number] Implanted:Qty: 1 on 04/10/2025 by Roge Cartwright MD at [employer]An[employer] hor Left: Knee [employer] [id number] / / [id number] Plate Bn 77mm 3t Ti Al Vndm 3.5mm 5 Hl [place] Ns [id number] - [id number] Implanted:Qty: 1 on 04/10/2025 by Roge Cartwright MD at [employer]An[employer] hor Left: Knee [employer] [id number] / / [id number] Sheet Silicone [id number] mm [id number] Implanted:Qty: 1 on 03/11/2014 by Deandre Ibrahim MD at [facility] Right: Ear [employer] 12/10/2018 [id number] / / [id number] Sheet Silicone [id number] mm [id number] Implanted:Qty: 1 on 07/22/2014 by Deandre Ibrahim MD at [facility] Left: Ear [employer] 02/19/2019 [id number] / / [id number] Procedures Procedure Name Priority Date/Time Associated Diagnosis Comments TRIP CHARGE - LAB ONLY Routine 04/22/2025 6:40 AM CDT Anemia, unspecified CBC WITH PLATELETS Routine 04/22/2025 6: 40 AM CDT Anemia, unspecified QUANTIFERON-TB GOLD PLUS Routine 04/18/2025 7:00 AM CDT Encounter for screening for respiratory tuberculosis TRIP CHARGE - LAB ONLY Routine 04/18/2025 7:00 AM CDT Encounter for screening for respiratory tuberculosis QUANTIFERON TB GOLD PLUS Routine 04/18/2025 7:00 AM CDT Encounter for screening for respiratory tuberculosis QUANTIFERON TB GOLD PLUS PURPLE TUBE Routine 04/18/2025 7:00 AM CDT Encounter for screening for respiratory tuberculosis QUANTIFERON TB GOLD PLUS YELLOW TUBE Routine 04/18/2025 7:00 AM CDT Encounter for screening for respiratory tuberculosis QUANTIFERON TB GOLD PLUS GREEN TUBE Routine 04/18/2025 7:00 AM CDT Encounter for screening for respiratory tuberculosis QUANTIFERON TB GOLD PLUS KAPLAN TUBE Routine 04/18/2025 7:00 AM CDT Encounter for screening for respiratory tuberculosis QUANTIFERON TB GOLD PLUS PRIMARY Routine 04/18/2025 7:00 AM CDT Encounter for screening for respiratory tuberculosis QUANTIFERON TB GOLD PLUS COLLECTION Routine 04/18/2025 7:00 AM CDT Encounter for screening for respiratory tuberculosis PLATELET COUNT Routine 04/16/2025 6:13 AM CDT CREATININE Routine 04/16/2025 6:13 AM CDT PLATELET COUNT Routine 04/13/2025 6:24 AM CDT CREATININE Routine 04/13/2025 6:24 AM CDT US LOWER EXTREMITY VENOUS DUPLEX LEFT STAT 04/12/2025 11:50 AM CDT GLUCOSE Routine 04/12/2025 7:09 AM CDT HEMOGLOBIN Routine 04/12/2025 7:09 AM CDT BASIC METABOLIC PANEL (LIMITED OCCURRENCES) Routine 04/11/2025 7:11 AM CDT CBC WITH PLATELETS (LIMITED OCCURRENCES) Routine 04/11/2025 7:11 AM CDT XR SURGERY BOBBY FLUORO LESS THAN 5 MIN W STILLS Routine 04/10/2025 12:11 PM CDT ANE AIRWAY SUPRAGLOTTIC PERFORMABLE Routine 04/10/2025 11:08 AM CDT OPEN REDUCTION INTERNAL FIXATION, FRACTURE, TIBIA, PLATEAU 04/10/2025 10:51 AM CDT Closed fracture of left tibial plateau, initial encounter ANE PERIPHERAL/PARAVETEBR AL BLOCK Routine 04/10/2025 10:18 AM CDT GLUCOSE BY METER Routine 04/10/2025 8:19 AM CDT CBC WITH PLATELETS Routine 04/10/2025 5: 19 AM CDT BASIC METABOLIC PANEL (LIMITED OCCURRENCES) Routine 04/10/2025 5:[address] KNEE LEFT W/O CONTRAST STAT 04/09/2025 4:20 PM CDT XR FEMUR LEFT 2 VIEWS STAT 04/09/2025 3:41 PM CDT XR KNEE LEFT 3 VIEWS STAT 04/09/2025 3:40 PM CDT XR PELVIS 1/2 VIEWS STAT 04/09/2025 3 :39 PM CDT ABO/RH TYPE AND SCREEN STAT 04/09/2025 2:24 PM CDT TYPE AND SCREEN, ADULT STAT 04/09/2025 2:24 PM CDT BASIC METABOLIC PANEL (LIMITED OCCURRENCES) STAT 04/09/2025 2:24 PM CDT CBC WITH PLATELETS (LIMITED OCCURRENCES) STAT 04/09/2025 2:24 PM CDT MA SCREENING DIGITAL BILATERAL Routine 09/19/2018 10:51 AM CAREER DEVELOPMENT MANAGER Visit for screening mammogram HPV HIGH RISK TYPES DNA CERVICAL Routine 09/19/2018 9:41 AM CAREER DEVELOPMENT MANAGER Screening for malignant neoplasm of cervix TSH WITH FREE T4 REFLEX Routine 09/19/2018 9:39 AM CAREER DEVELOPMENT MANAGER Routine general medical examination at a health care facility LIPID REFLEX TO DIRECT LDL PANEL Routine 09/19/2018 9:39 AM CAREER DEVELOPMENT MANAGER Routine general medical examination at a health care facility PAP IMAGED THIN LAYER SCREEN Routine 09/19/2018 9:33 AM CAREER DEVELOPMENT MANAGER Screening for malignant neoplasm of cervix ASTHMA ACTION PLAN Routine 01/31/2017 10 :19 AM CDT COLONOSCOPY Routine 02/21/2015 12:56 PM CDT FECAL COLORECTAL CANCER SCREEN FIT Routine 02/12/2014 9:00 AM CDT Iron deficiency anemia from Last 3 Months or Most Recently Relevant to Health Maintenance Results * Trip Charge - LAB ONLY (04/22/2025 6:40 AM CDT) Only the most recent of2 resultswithin the time period is included. Other TOPOGRAPHY UNKNOWN / Unknown Billing only / Unknown 04/22/2025 6:40 AM CDT 04/22/2025 8:56 AM CDT us Ashley S Jean SENIOR TECHNICAL TRAINER UROLOGY TEACHER LAB CHARGE PERFORMABLE S Final Result LABORATORY [facility] [address], [address] [place] [address], [place] [phone] * (ABNORMAL) CBC with platelets (04/22/2025 6:40 AM CDT) Only the most recent of2 resultswithin the time period is included. WBC Count 5.8 4.0 - 11.0 10e3/uL 04/22/2025 9:30 AM CDT LABORATORY RBC Count 3.13(L) 3.80 - 5.20 10e6/uL 04/22/2025 9:30 AM CDT LABORATORY Hemoglobin 9.4(L) 11.7 - 15.7 g/dL 04/22/2025 9:30 AM CDT LABORATORY Hematocrit 29.0(L) 35.0 - 47.0 % 04/22/2025 9:30 AM CDT LABORATORY MCV 93 78 - 100 fL 04/22/2025 9:30 AM CDT LABORATORY MCH 30.0 26.5 - 33.0 pg 04/22/2025 9:30 AM CDT LABORATORY MCHC 32.4 31.5 - 36.5 g/dL 04/22/2025 9:30 AM CDT LABORATORY RDW 15.6(H) 10.0 - 15.0 % 04/22/2025 9:30 AM CDT LABORATORY Platelet Count 437 150 - 450 10e3/uL 04/22/2025 9:30 AM CDT LABORATORY Blood BLOOD SPECIMEN / Unknown Venipuncture / Unknown 04/22/2025 6:40 AM CDT 04/22/2025 8:56 AM CDT us Ashley S Jean SENIOR TECHNICAL TRAINER UROLOGY TEACHER LAB - BLOOD ORDERABLES Final Result LABORATORY [facility] [address], [address] [place] [address], [facility] [phone] * Quantiferon TB Gold Plus (04/18/2025 7:00 AM CDT) [facility] Quantiferon-TB Gold Plus Negative Negative 04/19/2025 6:01 PM CDT SPECIALTY CORE/PROT/END O Comment: No interferon gamma response to M.tuberculosis antigens was detected. Infection with M.tuberculosis is unlikely, however a single negative result does not exclude infection. In patients at high risk for infection, a second test should be considered in accordance with the 2017 ATS/IDSA/CDC Clinical Pract ice Guidelines for Diagnosis of Tuberculosis in Adults and Children TB1 Ag minus Nil Value 0.00 IU/mL 04/19/2025 6:01 PM CDT [facility] SPECIALTY CORE/PROT/END O TB2 Ag minus Nil Value -0.01 IU/mL 04/19/2025 6:01 PM CDT SPECIALTY CORE/PROT/END O Mitogen minus Nil Result 9.95 IU/mL 04/19/2025 6:01 PM CDT SPECIALTY CORE/PROT/END O Nil Result 0.05 IU/mL 04/19/2025 6:01 PM CDT SPECIALTY CORE/PROT/END O Blood STRUCTURE OF LEFT UPPER LIMB / Unknown Venipuncture / Unknown 04/18/2025 7:00 AM CDT 04/18/2025 12:01 PM CDT [facility] Amy Jean SENIOR TECHNICAL TRAINER UROLOGY TEACHER LAB - MICRO GENERAL OR DERABLES Final Result [facility] SPECIALTY CORE/PROT/ENDO [facility] Specialty Core/Prot/Endo [address] [facility], [address] * Quantiferon TB Gold Plus Purple Tube (04/18/2025 7:00 AM CDT) Quantiferon Mitogen 10.00 IU/mL 04/19/2025 5:22 PM CDT SPECIALTY CORE/PROT/ENDO Blood STRUCTURE OF LEFT UPPER LIMB / Unknown Venipuncture / Unknown 04/18/2025 7:00 AM CDT 04/18/2025 12:01 PM CDT [facility] Amy Ted JACK UROLOGY TEACHER LAB - MICRO GENERAL OR DERABLES Final Result [facility] SPECIALTY CORE/PROT/ENDO Specialty Core/Prot/Endo [address] [facility], [address] * Quantiferon TB Gold Plus Yellow Tube (04/18/2025 7:00 AM CDT) Quantiferon TB2 Tube 0.04 04/19/2025 5:23 PM CDT SPECIALTY CORE/PROT/ENDO Blood STRUCTURE OF LEFT UPPER LIMB / Unknown Venipuncture / Unknown 04/18/2025 7:00 AM CDT 04/18/2025 12:01 PM CDT [facility] Amy EscobarJean SENIOR TECHNICAL TRAINER UROLOGY TEACHER LAB - MICRO GENERAL OR DERABLES Final Result UM SPECIALTY CORE/PROT/ENDO UM Specialty Core/Prot/Endo [address] [facility] [address] [facility], Room [address] * Quantiferon TB Gold Plus Green Tube (04/18/2025 7:00 AM CDT) Quantiferon TB1 Tube 0.05 IU/mL 04/19/2025 5:23 PM CDT UM SPECIALTY CORE/PROT/ENDO Blood STRUCTURE OF LEFT UPPER LIMB / Unknown Venipuncture / Unknown 04/18/2025 7:00 AM CDT 04/18/2025 12:01 PM CDT [facility] Ted JACK UROLOGY TEACHER LAB - MICRO GENERAL OR DERABLES Final Result Performing Organization Address City/[facility] Co de Phone Number UM SPECIALTY CORE/PROT/ENDO UM Specialty Core/Prot/Endo 500 [facility], Room [address] * Quantiferon TB Gold Plus Kaplan Tube (04/18/2025 7:00 AM CDT) Quantiferon Nil Tube 0.05 IU/mL 04/19/2025 5:23 PM CDT UM SPECIALTY CORE/PROT/ENDO Blood STRUCTURE OF LEFT UPPER LIMB / Unknown Venipuncture / Unknown 04/18/2025 7:00 AM CDT 04/18/2025 12:01 PM CDT [facility] Jean SENIOR TECHNICAL TRAINER UROLOGY TEACHER LAB - MICRO GENERAL OR DERABLES Final Result UM SPECIALTY CORE/PROT/ENDO UM Specialty Core/Prot/Endo [address] [facility] [address] [facility], Room [address] * Quantiferon TB Gold Plus Collection (04/18/2025 7:00 AM CDT) Blood STRUCTURE OF LEFT UPPER LIMB / Unknown Venipuncture / Unknown 04/18/2025 7:00 AM CDT 04/18/2025 8:56 AM CDT Ashley Escobarble SENIOR TECHNICAL TRAINER UROLOGY TEACHER LAB - MICRO GENERAL OR DERABLES Final Result Performing Organization Address City/[facility]/ZIP Co de Phone Number UM SPECIALTY CORE/PROT/ENDO UM Specialty Core/Prot/Endo [address] [facility] [address] [facility], Room [address] * Quantiferon TB Gold Plus Primary (04/18/2025 7:00 AM CDT) Blood STRUCTURE OF LEFT UPPER LIMB / Unknown Venipuncture / Unknown 04/18/2025 7:00 AM CDT 04/18/2025 12:01 PM CDT Ashley Escobarble SENIOR TECHNICAL TRAINER UROLOGY TEACHER LAB - MICRO GENERAL OR DERABLES Final Result Performing Organization Address [facility] Co de Phone Number UM SPECIALTY CORE/PROT/ENDO UM Specialty Core/Prot/Endo 500 [facility], Room [address] * Platelet count (04/16/2025 6:13 AM CDT) Only the most recent of2 resultswithin the time period is included. Platelet Count 280 150 - 450 10e3/uL 04/16/2025 6:37 AM CDT [facility] MCV 92 78 - 100 fL 04/16/2025 6:37 AM CDT [facility] Blood STRUCTURE OF LEFT HAND / Unknown Venipuncture / Unknown 04/16/2025 6:13 AM CDT 04/16/2025 6:30 AM CDT Moody Oneal MD LAB - BLOOD ORDERABLES Final Res ult [facility] LABORATORY [facility] Lab [address] Lab (1st floor, no room number) [place] [address], [facility] * (ABNORMAL) Creatinine (04/16/2025 6:13 AM CDT) Only the most recent of2 resultswithin the time period is included. Creatinine 1.09(H) 0.51 - 0.95 mg/dL 04/16/2025 6:58 AM CDT LABORATORY GFR Estimate 59(L) >60 mL/min/1.7 3m2 04/16/2025 6:58 AM CDT [facility] Comment:eGFR calculated 2020 CKD-EPI equation. Blood STRUCTURE OF LEFT HAND / Unknown Venipuncture / Unknown 04/16/2025 6:13 AM CDT 04/16/2025 6:29 AM CDT Davie Mari PA-C LAB - BLOOD ORDERABLES Elly srinivasan Result LABORATORY [facility] [address] Lab (1st floor, no room number) [place] [address] * US Lower Extremity Venous Duplex Left (04/12/2025 11:50 AM CDT) Anatomical Region Laterality Modality Vascular, Thigh, Leg Ultrasound 04/12/2025 11:5 0 AM CDT Impressions 04/12/2025 11:58 AM CDT IMPRESSION: 1. No deep venous thrombosis in the left lower extremity. Narrative 04/12/2025 11:58 AM CDT EXAM: US LOWER EXTREMITY VENOUS DUPLEX LEFT LOCATION: [facility] DATE: 04/12/2025 INDICATION: calf pain post op [...] US LOWER EXTREMITY VENOUS DUPLEX LEFT LOCATION: [facility] DATE: 04/12/2025 INDICATION: calf pain post op [...] venous thrombosis in the left lower extremity. us Allison Gibbons PA-C IMG US ORDER [facility] Final Result * (ABNORMAL) Hemoglobin (04/12/2025 7:09 AM CDT) Hemoglobin 8.6(L) 11.7 - 15.7 g/dL 04/12/2025 7:25 AM CDT [facility] MCV 91 78 - 100 fL 04/12/2025 7:25 AM CDT [facility] Blood STRUCTURE OF RIGHT HAND / Unknown Venipuncture / Unknown 04/12/2025 7:09 AM CDT 04/12/2025 7:21 AM CDT us Davie Mari PA-C LAB - BLOOD ORDERABLES Elly l Result [facility] Lab [address] Lab (1st floor, no room number) [place] [address] * Glucose (04/12/2025 7:09 AM CDT) Glucose 97 70 - 99 mg/dL 04/12/2025 7:43 AM CDT [facility] Blood STRUCTURE OF RIGHT HAND / Unknown Venipuncture / Unknown 04/12/2025 7:09 AM CDT 04/12/2025 7:21 AM CDT us Lionel Logan MD LAB - BLOOD ORDERABLES Final Result [facility] [address] Lab (1st floor, no room number) [place] [address], [facility] * (ABNORMAL) CBC with Platelets (Limited Occurrences) (04/11/2025 7:11 AM CDT) Only the most recent of2 resultswithin the time period is included. WBC Count 8.4 4.0 - 11.0 10e3/uL [...] 7:21 AM CDT us Andi Mackenzie APRN UROLOGY TEACHER LAB - BLOOD ORDERABLE S Final Result [facility] [address] Lab (1st floor, no room number) [place] [address], [facility] * (ABNORMAL) Basic Metabolic Panel (Limited Occurrences) (04/11/2025 7:11 AM CDT) Only the most recent of3 resultswithin the time period is included. Sodium 136 135 - 145 mmol/L 04/11/2025 [...] 04/11/2025 7:48 AM CDT LABORATORY Comment:eGFR calculated us2020 CKD-EPI equation. Calcium 8.8 8.8 - 10.4 mg/dL 04/11/2025 7:48 AM CDT LABORATORY Glucose 122(H) 70 - 99 mg/dL 04/11/2025 7:48 AM CDT LABORATORY Blood STRUCTURE OF RIGHT HAND / Unknown Venipuncture / Unknown 04/11/2025 7:11 AM CDT 04/11/2025 7:21 AM CDT us Andi Mackenzie APRN UROLOGY TEACHER LAB - BLOOD ORDERABLE S Final Result LABORATORY [facility] [address] Lab (1st floor, no room number) [place] [address], [facility] * XR Surgery BOBBY L/T 5 Min [...] LESS THAN 5 MIN W STILLS LOCATION: [facility] DATE: 04/10/2025 INDICATION: ORIF left tibial plateau. COMPARISON: None. TECHNIQUE: Intraoperative fluoroscopy performed during the patient's procedure. RADIATION DOSE: Dose Area Product 0.8377 mGy-cm2. Procedure Note Deon Ghosh MD - 04/10/2025 EXAM: XR SURGERY C-ARM FLUORO LESS THAN 5 MIN W STILLS LOCATION: [facility] DATE: 04/10/2025 INDICATION: ORIF left tibial plateau. COMPARISON: None. TECHNIQUE: Intraoperative fluoroscopy performed during the patient'sprocedure. RADIATION DOSE: Dose Area Product 0.8377 mGy-cm2. IMPRESSION: Two fluoroscopic images acquired by the clinical service for ORIF of theleft tibial plateau. Anatomic alignment. us Moody Oneal MD IMG DIAGNOSTIC IMAGING ORDERABLE S Final Result * ANE AIRWAY SUPRAGLOTTIC PERFORMABLE (04/10/2025 11:08 AM CDT) Narrative Rhett Fernandez APRN CRNA - 04/10/2025 11:08 AM CDT Rhett Fernandez APRN CRNA 04/10/2025 11:08 AM Airway Patient location during procedure: OR Staff - MACHINE INSPECTOR: Rhett Fernandez APRN MACHINE INSPECTOR Performed By: MACHINE INSPECTOR Consent for Airway Urgency: elective Indications and [...] easy Dentition: Unchanged us Shamika Apodaca MD [place] ANESTHESIA Final Re sult * Peripheral/Paravertebral Block [...] Medication Administration Time: 04/10/2025 10:18 AM FOR [facility] ([facility]) ONLY: Pain Team Contact information: please page the Pain Team Via [employer]. Search Pain. During daytime hours, please page the attending first. At night please page the resident first. us Shamika Apodaca MD [place] ANESTHESIA Final Re sult * Glucose by meter (04/10/2025 8:19 AM CDT) GLUCOSE BY METER POCT 73 70 - 99 mg/dL 04/10/2025 8:25 AM CDT LABORATORY POC Comment:Dr/RN Notified Blood, Capillary BLOOD SPECIMEN / Unknown 04/10/2025 8:19 AM CDT 04/10/2025 8:25 AM CDT us Moody Oneal MD LAB - BEAKER POCT Final Result LABORATORY [facility] Acute [facility] Lab [address] Lab (1st floor, no room number) [place] [address] * CT Knee Left w/o Contrast [...] EXAM: CT KNEE LEFT W/O CONTRAST LOCATION: [facility] DATE: 04/09/2025 INDICATION: cocnern tibial plateau fractures [...] EXAM: CT KNEE LEFT W/O CONTRAST LOCATION: [facility] DATE: 04/09/2025 INDICATION: cocnern tibial plateau fractures [...] fracture of the proximal fibula (series 4 [id number], series 2 image 187). Diffuse osseous demineralization [...] VIEWS, XR FEMUR LEFT 2 VIEWS LOCATION: [facility] DATE: 04/09/2025 INDICATION: fall, pain COMPARISON: None. Procedure Note Adrián Berg MD - 04/09/2025 EXAM: XR KNEE LEFT 3 VIEWS, XR FEMUR LEFT 2 VIEWS LOCATION: [facility] DATE: 04/09/2025 INDICATION: fall, pain COMPARISON: None. IMPRESSION: Cortical irregularity of the medial tibial plateau suspiciousfor a comminuted intra-articular fracture. Small knee joint effusion witha fluid/fluid level likely representing a lipohemarthrosis. CT isrecommended to confirm these findings. Cortical irregularity of the fibular head likely a nondisplacedfracture. Demineralization. No fracture of the more proximal left femur. Mild leftsacroiliac joint osteoarthritis. us Ashley Rodriguez PA-C IMG DIAGNOSTIC IMAGING O [...] VIEWS, XR FEMUR LEFT 2 VIEWS LOCATION: [facility] DATE: 04/09/2025 INDICATION: fall, pain COMPARISON: None. Procedure Note Adrián Berg MD - 04/09/2025 EXAM: XR KNEE LEFT 3 VIEWS, XR FEMUR LEFT 2 VIEWS LOCATION: [facility] DATE: 04/09/2025 INDICATION: fall, pain COMPARISON: None. [...] CDT EXAM: XR PELVIS 1/2 VIEWS LOCATION: [facility] DATE: 04/09/2025 INDICATION: fall, pain COMPARISON: Correlation with same day radiographs. Procedure Note Raudel Cardoso DO - 04/09/2025 EXAM: XR PELVIS 1/2 VIEWS LOCATION: [facility] DATE: 04/09/2025 INDICATION: fall, pain COMPARISON: Correlation [...] ROXY Edited Result - Final BLOOD [place] [address], [facility] * *MA Screening Digital Bilateral (09/19/2018 10:51 AM CAREER DEVELOPMENT MANAGER) Anatomical Region Laterality Modality Breast Bilateral Mammography Impressions 09/19/2018 12:59 PM CAREER DEVELOPMENT MANAGER IMPRESSION: BI-RADS CATEGORY: 1 - Negative RECOMMENDED FOLLOW-UP: Annual Mammography. Exam results letter mailed to patient. BRIELLE SERRATO MD Narrative 09/19/2018 12:59 PM CAREER DEVELOPMENT MANAGER SCREENING MAMMOGRAM, BILATERAL, DIGITAL w/CAD - 09/19/2018 10:51 AM BREAST SYMPTOMS: No current breast complaints. COMPARISON: 11/26/15, 08/10/13. BREAST DENSITY: Scattered fibroglandular densities. COMMENTS: No findings of suspicion for malignancy. Procedure Note Brielle Serrato MD - 09/19/2018 SCREENING MAMMOGRAM, BILATERAL, DIGITAL w/CAD - 09/19/2018 10:51 AM BREAST SYMPTOMS: No current breast complaints. COMPARISON: 11/26/15, 08/10/13. BREAST DENSITY: Scattered fibroglandular densities. COMMENTS: No findings of suspicion for malignancy. IMPRESSION: BI-RADS CATEGORY: 1 - Negative RECOMMENDED FOLLOW-UP: Annual Mammography. Exam results letter mailed to patient. BRIELLE SERRATO MD Andi Luna MD [facility] MAMMOGRAPHY ORDERABLES Final Result * HPV High Risk Types DNA Cervical (09/19/2018 9:41 AM CAREER DEVELOPMENT MANAGER) HPV Source SurePath 09/19/2018 9:33 AM CAREER DEVELOPMENT MANAGER [facility] HPV 16 DNA Negative NEG^Nega tive 09/25/2018 2:40 PM CAREER DEVELOPMENT MANAGER [facility] HPV 18 DNA Negative NEG^Nega tive 09/25/2018 2:40 PM CAREER DEVELOPMENT MANAGER [facility] Other HR HPV Negative NEG^Nega tive 09/25/2018 2:40 PM CAREER DEVELOPMENT MANAGER [facility] Final Diagnosis This patient's sample is negative for HPV DNA. 09/25/2018 2:40 PM CAREER DEVELOPMENT MANAGER [facility] Comment: This test was developed and its performance characteristics determined by the [facility]. It has not been cleared or approved by the FDA. The laboratory is regulated under CLIA as qualified to perform high-complexity testing. This test is used for clinical purposes. It should not be regarded as investigational or for research. (Note) METHODOLOGY: The Sue donita 4800 system uses automated extraction, simultaneous amplification of HPV (L1 region) and beta-globin, followed by real time detection of fluorescent labeled HPV and beta globin using specific oligonucleotide probes . The test specifically identifies types HPV 16 DNA and HPV 18 DNA while concurrently detecting the rest of the high risk types (31, 33, 35, 39, 45, 51, 52, 56, 58, 59, 66 or 68). COMMENTS: This test is not intended for use as a screening device for women under age 30 with normal cervical cytology. Results should be correlated with cytologic and histologic findings. Close clinical followup is recommended. Specimen Description Cervical Cells 09/19/2018 9:33 AM CAREER DEVELOPMENT MANAGER [facility] Comment:[id number] Cervical Cells CERVIX UTERI STRUCTURE / Unknown 09/19/2018 9:41 AM CAREER DEVELOPMENT MANAGER 09/19/2018 9:45 AM CAREER DEVELOPMENT MANAGER Tisha Almazan APRN UROLOGY TEACHER LAB - BLOOD ORDERABLES F inal Result [facility] [address] [place] [address] [address] * (ABNORMAL) TSH with free T4 reflex (09/19/2018 9:39 AM CAREER DEVELOPMENT MANAGER) TSH 19.30(H) 0.40 - 4.00 mU/L 09/20/2018 9:23 AM CAREER DEVELOPMENT MANAGER [facility] Blood specimen (specimen) 09/19/2018 9:39 AM CAREER DEVELOPMENT MANAGER 09/19/2018 9:44 AM CAREER DEVELOPMENT MANAGER Tisha Almazan APRN UROLOGY TEACHER LAB - BLOOD ORDERABLES E dited Result - Final Performing Organization Address City/[facility]/ZIP Co de Phone Number [facility] [address] [place], [place] [address] * (ABNORMAL) Lipid panel reflex to direct LDL Fasting (09/19/2018 9:39 AM CAREER DEVELOPMENT MANAGER) Cholesterol 211(H) <200 mg/dL 09/20/2018 9:16 AM CAREER DEVELOPMENT MANAGER [facility] Comment:Desirable: <200 mg/d l Triglycerides 157(H) <150 mg/dL 09/20/2018 9:16 AM CAREER DEVELOPMENT MANAGER [facility] Comment: Borderline high: 150-199 mg/dl High: 200-499 mg/dl Very high: >499 mg/dl Fasting specimen HDL Cholesterol 69 >49 mg/dL 9 9:16 AM CAREER DEVELOPMENT MANAGER [facility] LDL Cholesterol Calculated 111(H) <100 mg/dL 09/20/2018 9:16 AM CAREER DEVELOPMENT MANAGER [facility] Comment: Above desirable: 100-129 mg/dl Borderline High: 130-159 mg/dL High: 160-189 mg/dL Very high: >189 mg/dl Non HDL Cholesterol 142(H) <130 mg/dL 09/20/2018 9:16 AM CAREER DEVELOPMENT MANAGER [facility] Comment: Above Desirable: 130-159 mg/dl Borderline high: 160-189 mg/dl High: 190-219 mg/dl Very high: >219 mg/dl Blood specimen (specimen) 09/19/2018 9:39 AM CAREER DEVELOPMENT MANAGER 09/19/2018 9:44 AM CAREER DEVELOPMENT MANAGER us Tisha Almazan SENIOR TECHNICAL TRAINER UROLOGY TEACHER LAB - BLOOD ORDERABLES F inal Result [facility] [address] [place] [address] * (ABNORMAL) Pap imaged thin layer screen with HPV - recommended age 30 - 65 years (select HPV order below) (09/19/2018 9:33 AM CAREER DEVELOPMENT MANAGER) PAP LSIL(A) RAFAEL Cotter Report Patient Name: KELLY ERVIN MR#: [id number] Specimen #: [id number] Collected: 09/19/2018 Received: 09/20/2018 Reported: 09/22/2018 15:20 Ordering Phy(s): TISHA ALMAZAN For improved result formatting, select 'View Enhanced Report Format' under Linked Documents section. SPECIMEN/STAIN PROCESS: Pap imaged thin layer prep screening (Surepath, FocalPoint with guided screening) Pap-Cyto x 1, HPV ordered x 1 SOURCE: Cervical, endocervical Pap imaged thin layer prep screening (Surepath, FocalPoint with guided screening) SPECIMEN ADEQUACY: Satisfactory for evaluation. -Transformation zone component absent. CYTOLOGIC INTERPRETATION: Epithelial cell abnormality: squamous cell: low-grade squamous intraepithelial lesion (LSIL) Electronically signed out by: Silvino J. Kappel, M.D. Processed and screened at [facility] CLINICAL HISTORY: Perimenopausal Irregular Bleeding, Papanicolaou Test Limitations: Cervical cytology is a screening test with limited sensitivity; regular screening is critical for cancer prevention; Pap tests are primarily effective for the diagnosis/preventi on of squamous cell carcinoma, not adenocarcinomas or other cancers. TESTING LAB LOCATION: [address] [place] [address] COLLECTION SITE: Client: [facility] Location: FP (R) COPATH Cytologic material (specimen) 09/19/2018 9:33 AM CAREER DEVELOPMENT MANAGER 09/20/2018 10:32 AM CAREER DEVELOPMENT MANAGER Tisha Almazan APRN UROLOGY TEACHER LAB - OPTIME CLINICAL SP ECIMEN Final Result COPATH * COLONOSCOPY (02/21/2015 12:56 PM CDT) COLONOSCOPY [facility] Patient Name: Kelly Ervin Procedure Date: 02/21/2015 12:56 PM Date of : 1970 Admit Type: Outpatient Age: 45 Gender: Female Attending MD: Simon Montanez MD Instrument Name: [id number] Procedure: Colonoscopy Indications: High risk colon cancer surveillance: Personal history of colonic polyps Providers: Simon Montanez MD, Lilia Bernardo RN (Nurse) Referring MD: Andi Luna MD Medicines: Midazolam 4 mg IV, Fentanyl 200 micrograms IV Complications: No immediate complications. Procedure: Pre-Anesthesia Assessment: - Prior to the procedure, a History and Physical was performed, and patient medications and allergies were reviewed. The patient is competent. The risks and benefits of the procedure and the sedation options and risks were discussed with the patient. All questions were answered and informed consent was obtained. Patient identification and proposed procedure were verified by the physician in the procedure room. Mental Status Examination: alert and oriented. Airway Examination: normal oropharyngeal airway and neck mobility. Respiratory Examination: clear to auscultation. CV Examination: normal. Prophylactic Antibiotics: The patient does not require prophylactic antibiotics. Prior Anticoagulants: The patient has taken no previous anticoagulant or antiplatelet agents. ASA Grade Assessment: II - A patient with mild systemic disease. After reviewing the risks and benefits, the patient was deemed in satisfactory condition to undergo the procedure. The anesthesia plan was to use moderate sedation / analgesia (conscious sedation). Immediately prior to administration of medications, the patient was re-assessed for adequacy to receive sedatives. The heart rate, respiratory rate, oxygen saturations, blood pressure, adequacy of pulmonary ventilation, and response to care were monitored throughout the procedure. The physical status of the patient was re-assessed after the procedure. After obtaining informed consent, the colonoscope was passed under direct vision. Throughout the procedure, the patient's blood pressure, pulse, and oxygen saturations were monitored continuously. The [id number] was introduced through the anus and advanced to the cecum, identified by appendiceal orifice and ileocecal valve. The [id number] was introduced through the and advanced to. The colonoscopy was performed without difficulty. The patient tolerated the procedure well. The quality of the bowel preparation was good. Findings: The perianal and digital rectal examinations were normal. The entire examined colon appeared normal on direct and retroflexion views. Impression: - The entire examined colon is normal on direct and retroflexion views. Recommendation: - Repeat colonoscopy in 5 years for surveillance. Procedure Code(s): --- Professional --- G0105, Colorectal cancer screening; colonoscopy on individual at high risk Diagnosis Code(s): --- Professional --- V12.72, Personal history of colonic polyps CPT copyright 2013 [employer]. All rights reserved. The codes documented in this report are preliminary and upon warehouse laborer review may be revised to meet current compliance requirements. Electronically signed by Simon Montanez MD __ Simon Montanez MD 02/21/2015 1:57 PM I was physically present for the entire viewing portion of the exam. Number of Addenda: 0 Note Initiated On: 02/21/2015 12:56 PM Procedure Date: 02/21/2015 12:56:33 PM Scope Withdrawal Time: 0 hours 6 minutes 15 seconds Total Procedure Duration: 0 hours 42 minutes 22 seconds Scope In: 1:12:10 PM Scope Out: 1:54:32 PM RADIOLOGY RESULTS 02/21/2015 12:5 6 PM CDT us Andi Luna MD PROCEDURES Final Result Performing Organization Address City/[facility]/ZIP Co de Phone Number RADIOLOGY RESULTS * Fecal colorectal cancer screen (FIT) (02/12/2014 9:00 AM CDT) Occult Blood Scn FIT Negative NEG [facility] Stool specimen (specimen) 02/12/2014 9:00 AM CDT 02/13/2014 1:50 PM CDT us Luz Champagne MD LAB - STOOLS ORDERABLE S Final Result Performing Organization Address City/[facility]/ZIP Co de Phone Number [facility] [address] [place] [address] from Last 3 Months or Most Recently Relevant to Health Maintenance Insurance [facility] Address: [address] [address] [place] [address] [facility] Advance Directives For more information, please contact: [phone] Documents on File Type Date Recorded Patient Travel Accommodations Rater Expl anation Advance Directives and Living Will 05/13/2015 [facility] CARE DIRECT E 02-19-2015 * Full Code (Latest Code Status on File) Date Activated Date Inactivated Comments 04/10/2025 2:39 PM 04/17/2025 2:13 PM All basic and advanced life-sustaining interventions are performed as appropriate Question Answer Comments Code status determined by: Unable to dis cuss and no AD/POLST on file; continue PREVIOUSLY ORDERED code status * Full Code Date Activated Date Inactivated Comments 04/09/2025 8:00 PM 04/10/2025 2:39 PM All basic an d advanced life-sustaining interventions are performed as appropriate Question Answer Comments Code status determined by: Discussion with patie nt/ legal decision maker * Full Code Date Activated Date Inactivated Comments 07/26/2017 12:34 PM 04/09/2025 1:27 PM * Full Code Date Activated Date Inactivated Comments 07/25/2017 7:13 PM 07/26/2017 12:34 PM * Full Code Date Activated Date Inactivated Comments 05/12/2015 11:43 AM 07/25/2017 7:13 PM Care Teams Floor Tech Relationship Specialty Start Date End Date Maggie Bowers PA-C [address] [facility] [place] [address] PCP - General Family Practice 04/09/25 Ashley Jean APRN UROLOGY TEACHER [address] [place] [address] Assigned Pain Medication Provider 05/04/25
--- OUTSIDE RECORDS SUMMARY | 2025-05-16 18:40 | XMS_ITS | Encounter Summary ---
Author Organization [facility] Address [address] [place] [address]. [place] [address] Care Team Providers Care Pivot End Polisher Name Role Phone Maggie Bowers PA-C Primary Care Provid er Encounter Details Date Type Department Care Team (Latest Contact Info) Description 04/09/2025 Travel Social History Tobacco Use Types Packs/Day [...] in an abandoned building, in an overnight fci, or couch-surfing.) Yes 04/09/2025 Are you worried [...] on file Legal Sex Female 4:02 AM KEG WASHER Gender Identity Not on file Sexual Orientation Not on file documented as of this encounter Plan of Treatment Not on file documented as of this encounter Visit Diagnoses Not on filedocumented in this encounter Additional Health Concerns Assessment Noted Time PHQ-9 Depression Total Score: 3 09/19/19 19 9:27 AM KEG WASHER documented as of this encounter Care Teams Pivot End Polisher Relationship Specialty Start Date End Date Maggie Bowers PA-C [address] [place] [address] PCP - General Family Practice 04/09/25 documented as of this encounter
--- OUTSIDE RECORDS SUMMARY | 2025-05-16 18:41 | XMS_ITS | Patient Health Record ---
Author Organization [facility] Address [address] [place] [address] Care Team Providers Care Hris Specialist Name Role Phone Yusuf Billie Primary Care Provider UnavailBELÉN Ramos Unavailable [phone] Allergies Allergen (clinical drug ingredient) Drug/Non Drug Allergy documented on EMR Reaction Allergy Type Onset Date Status Codeine Phosphate Unknown Drug Allergy Active Reason For Referral No Information Medications Medication SIG (Take, Route, Fr equency, Duration) Notes Start Date End Date Status Jinteli Active Synthroid Active hydroCHLOROthiazide Active Wellbutrin Active Social History Tobacco Use: Social History Observation Description Date Details (start date - stop date) Never Smoker NA - NA Social History Tobacco Use: Social Info Question Answer Notes Tobacco use/smoking Are you a nonsmoker Problems Problem Type SNOMED Code ICD Code Onset Dates Problem Status W/U Status Risk Notes Problem Neck pain (60290318) Neck pain (M54.2) Active confirmed Problem Dysfunction of bilateral eustachian tubes (544827781848718 0) ETD (eustachian tube dysfunction), bilateral (H69.83) Active confirmed Plan Of Treatment No Information Insurance Providers Payer Name Payer Address Payer Phone Subscriber Number Group Number Insured Name Patient Relationship to Insured Coverage Start Date Coverage End Date [employer] [address] [address] IVIS TSE [id number] Adilene Thurman Self - patient is the insured Medical (General) History Medical History History ICD Code sleep apnea asthma hashmotos disease Surgical History Surgery Date(Month/Year) constructive ear surgery in both gastric bypass BMT
--- OUTSIDE RECORDS SUMMARY | 2025-05-16 18:41 | XMS_ITS | Encounter Summary ---
Author Organization [facility] Address [address] [place] [address] Care Team Providers Care Die Cut Operator Name Role Phone Andi Luna MD Primary Care Provider [phone] Andi Luna MD Unavailable Tisha David APRN ASSISTANT PROFESSOR IN FAMILY STUDIES Unavailable +[phone] Andi Luna MD Unavailable + Tisha David APRN ASSISTANT PROFESSOR IN FAMILY STUDIES Unavailable +[phone] Maggie Bowers PA-C Primary Care Provid er (Fgs), [facility] [place] Unavailab le Ashley Jean EMULSION OPERATOR ASSISTANT PROFESSOR IN FAMILY STUDIES Unavailable + Ashley Jean EMULSION OPERATOR ASSISTANT PROFESSOR IN FAMILY STUDIES Unavailable + Encounter Details Date Type Department Care Team (Late st Contact Info) Description 01/30/2019 MyC Medical Advice [facility], [address] [place] [address] Heaven Shrestha MA Social History Tobacco Use Types Packs/Day Years Used Date Smoking Tobacco: Former Cigarettes 0 11/07/1985 - 11/07/1995 Smokeless Tobacco: Never Comments:social smoker Alcohol Use Standard Drinks/Week Comments Yes 0 (1 standard drink = 0.6 oz pur e alcohol) Very little PHQ-2 Answer Date Recorded PHQ-2 Score 1 09/19/2018 Comments No Sex and Gender Information Value Date Recorded Sex Assigned at Not on file Legal Sex Female 4:02 AM MODERN LANGUAGES PROFESSOR Gender Identity Not on file Sexual Orientation Not on file documented as of this encounter Plan of Treatment Not on file documented as of this encounter Visit Diagnoses Not on filedocumented in this encounter Additional Health Concerns Assessment Noted Time PHQ-9 Depression Total Score: 3 09/19/19 19 9:27 AM MODERN LANGUAGES PROFESSOR documented as of this encounter Care Teams Die Cut Operator Relationship Specialty Start Date End Date Andi Luna MD PCP - General Family Practice 12/29/14 04/08/25 Maggie Bowers PA-C [address] [place] [address] PCP - General Family Practice 04/09/25 [place] [address] [address] [address] Assigned PCP 02/16/15 03/03/19 Tisha David APRN ASSISTANT PROFESSOR IN FAMILY STUDIES [address] [address] [address] Assigned PCP 03/04/19 09/22/19 [place] [address] [address] [address] Assigned PCP 09/23/19 03/07/21 Tisha David APRN ASSISTANT PROFESSOR IN FAMILY STUDIES [address] [address] [address] Assigned PCP 03/08/21 09/19/21 (Fgs), [facility] [place] [address] [phone] 04/17/25 04/28/25 Ashley Jean APRN CNP [address] [place] [address] Nurse Practitioner Family Medicine 04/17/25 04/28/25 Ashley Jean APRN ASSISTANT PROFESSOR IN FAMILY STUDIES [address] [place] [address] Assigned Pain Medication Provider 05/04/25 documented as of this encounter
--- OUTSIDE RECORDS SUMMARY | 2025-05-16 18:41 | XMS_ITS | Encounter Summary ---
Author Organization [facility] Address [address] [place] [address] Care Team Providers Care Blade Grinder Name Role Phone Andi Luna MD Primary Care Provider [phone] Andi Luna MD Unavailable Andi Luna MD Unavailable Tisha David APRN CYLINDER DYER Unavailable [phone] Andi Luna MD Unavailable Tisha David APRN CYLINDER DYER Unavailable [phone] Maggie Bowers PA-C Primary Care Provid er (Fgs), [facility] [place] Unavailab le Ashley Jean APRN CYLINDER DYER Unavailable + Ashley Jean APRN CYLINDER DYER Unavailable + Encounter Details Date Type Department Care Team (Late st Contact Info) Description 06/07/[address] [facility] Medical Advice [address], [address] [place] [address] Madie Bridges RN Social History Tobacco Use Types Packs/Day Years Used Date Smoking Tobacco: Former Cigarettes 0 11/07/1985 - 11/07/1995 Smokeless Tobacco: Never Comments:social smoker Alcohol Use Standard Drinks/Week Comments Yes 0 (1 standard drink = 0.6 oz pur e alcohol) Very little Comments No Sex and Gender Information Value Date Recorded Sex Assigned at Not on file Legal Sex Female 4:02 AM LIFE SKILLS WORKER Gender Identity Not on file Sexual Orientation Not on file documented as of this encounter Plan of Treatment Not on file documented as of this encounter Visit Diagnoses Not on filedocumented in this encounter Additional Health Concerns Assessment Noted Time PHQ-9 Depression Total Score: 7 10/01/19 16 7:58 AM LIFE SKILLS WORKER documented as of this encounter Care Teams Blade Grinder Relationship Specialty Start Date End Date Andi Luna MD PCP - General Family Practice 12/29/14 04/08/25 [place] [address] [address] [address] PCP - Assigned PCP 02/16/15 11/14/18 Maggie Bowers PA-C [address] [place] [address] PCP - General Family Practice 04/09/25 [place] [address] [address] [address] Assigned PCP 02/16/15 03/03/19 Tisha David APRN CYLINDER DYER [address] [address] [address] Assigned PCP 03/04/19 09/22/19 [place] [address] [address] [address] Assigned PCP 09/23/19 03/07/21 Tisha David APRN CYLINDER DYER [address] [address] [address] Assigned PCP 03/08/21 09/19/21 (Fgs), [facility] [address] [place] [address] 04/17/25 04/28/25 Ashley Jean APRN CYLINDER DYER [address] [place] [address] Nurse Practitioner Family Medicine 04/17/25 04/28/25 Ashley Jean APRN CYLINDER DYER [address] [place] [address] Assigned Pain Medication Provider 05/04/25 documented as of this encounter
--- OUTSIDE RECORDS SUMMARY | 2025-05-16 18:41 | XMS_ITS | Encounter Summary ---
Author Organization [facility] Address [address] [place] [address] Care Team Providers Care Distillery Manager Name Role Phone Andi Luna MD Primary Care Provider [phone] Tisha David APRN MARKETING CONSULTANT Unavailable [phone] Andi Luna MD Unavailable + Tisha David HOT METAL MIXER OPERATOR MARKETING CONSULTANT Unavailable +[phone] Maggie Bowers PA-C Primary Care Provid er (Fgs), [facility] [place] Unavailab le Ashley Jean HOT METAL MIXER OPERATOR MARKETING CONSULTANT Unavailable + Ashley Jean HOT METAL MIXER OPERATOR MARKETING CONSULTANT Unavailable + Encounter Details Date Type Department Care Team (Late st Contact Info) Description 05/24/2019 MyC Medical Advice [facility], [facility] [address] [place] [address] Jessica Sexton CMA Social History Tobacco Use Types Packs/Day Years [...] on file Legal Sex Female 4:02 AM SENIOR NET WEB DEVELOPER Gender Identity Not on file Sexual Orientation Not on file documented as of this encounter Plan of Treatment Not on file documented as of this encounter Visit Diagnoses Not on filedocumented in this encounter Additional Health Concerns Assessment Noted Time PHQ-9 Depression Total Score: 3 09/19/19 19 9:27 AM SENIOR NET WEB DEVELOPER documented as of this encounter Care Teams Distillery Manager Relationship Specialty Start Date End Date Andi Luna MD PCP - General Family Practice 12/29/14 04/08/25 Maggie Bowers PA-C [address] [place] [address] PCP - General Family Practice 04/09/25 Tisha David APRN MARKETING CONSULTANT [address] [place] [id number] Assigned PCP 03/04/19 09/22/19 [place] [address] [place] [address] Assigned PCP 09/23/19 03/07/21 Tisha David APRN MARKETING CONSULTANT [address] [place] [address] Assigned PCP 03/08/21 09/19/21 (Fgs), [facility] [place] [address] [phone] 04/17/25 04/28/25 Ashley Jean APRN MARKETING CONSULTANT [address] [place] [address] Nurse Practitioner Family Medicine 04/17/25 04/28/25 Ashley Jean APRN MARKETING CONSULTANT [address] [place] [address] Assigned Pain Medication Provider 05/04/25 documented as of this encounter
--- OUTSIDE RECORDS SUMMARY | 2025-05-16 18:41 | XMS_ITS | Encounter Summary ---
Author Organization [facility] Address [address] [place] [address]. [place] [address] Care Team Providers Care Chain Mortiser Operator Name Role Phone Andi Luna MD Primary Care Provider [phone] Andi Luna MD Unavailable Andi Luna MD Unavailable Tisha David APRN SHIP FITTER Unavailable [phone] Andi Luna MD Unavailable Tisha David APRN SHIP FITTER Unavailable [phone] Maggie Bowers PA-C Primary Care Provid er (Fgs), [facility] [place] Unavailab le Ashley Jean APRN SHIP FITTER Unavailable + Ashley Jean APRN SHIP FITTER Unavailable + Reason for Visit * Reason Comments Medication Refill levothyroxine (SYNTH ROID/LEVOTHROID) 150 MCG tablet Encounter Details Date Type Department Care Team (Late st Contact Info) Description 03/23/[address], [address] [place] [address] [place] [address] [place] [address] Medication Refill (levothyroxine (SYNTHROID/LEVOTHROID) 150 MCG tablet) Social History Tobacco Use Types Packs/Day Years Used Date Smoking Tobacco: Former Cigarettes 0 11/07/1985 - 11/07/1995 Smokeless Tobacco: Never Comments:social smoker Alcohol Use Standard Drinks/Week Comments Yes 0 (1 standard drink = 0.6 oz pur e alcohol) Very little Comments No Sex and Gender Information Value Date Recorded Sex Assigned at Not on file Legal Sex Female 4:02 AM FLIGHT ENGINEER INSPECTOR Gender Identity Not on file Sexual Orientation Not on file documented as of this encounter Miscellaneous Notes * Telephone Encounter - Madie Bridges RN - 03/24/2017 9:01 AM CDT Notes Recorded by Andi Luna MD on 02/01/2017 at 8:59 AM Wilma, Your thyroid is about the same as it always is - TSH a little high, T4 OK. ??When we meet again in a month we can review this in more detail and discuss options. Let me know if you have any questions, Andi Luna MD Patient did not come back in a month for a follow up appointment. 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 documented in this encounter Additional Health Concerns Assessment Noted Time PHQ-9 Depression Total Score: 10 017 7:17 AM CDT documented as of this encounter Care Teams Chain Mortiser Operator Relationship Specialty Start Date End Date Andi Luna MD PCP - General Family Practice 12/29/14 04/08/25 [place] [address] [place] [address] PCP - Assigned PCP 02/16/15 11/14/18 Maggie Bowers PA-C [address] [address] [place] [place] [address] PCP - General Family Practice 04/09/25 [place] [address] [place] [address] Assigned PCP 02/16/15 03/03/19 Tisha David APRN SHIP FITTER [address] [place] [address] Assigned PCP 03/04/19 09/22/19 [place] [address] [place] [address] Assigned PCP 09/23/19 03/07/21 Tisha David APRN SHIP FITTER [address] [place] [address] Assigned PCP 03/08/21 09/19/21 (Fgs), [facility] [place] [address] [place] [place] [phone] 04/17/25 04/28/25 Ashley Jean APRN SHIP FITTER [address] [place] [address] Nurse Practitioner Family Medicine 04/17/25 04/28/25 Ashley Jean APRN CNP [address] [place] [address] Assigned Pain Medication Provider 05/04/25 documented as of this encounter
--- OUTSIDE RECORDS SUMMARY | 2025-05-16 18:41 | XMS_ITS | Encounter Summary ---
Author Organization [facility] Address [address] [place] [address] Care Team Providers Care Manager Software Development Name Role Phone Roxana Ramey MD Primary Care Provider [phone] Luz Champagne MD Primary Care Provider Unavailable Andi Luna MD Primary Care Provider [phone] Andi Luna MD Unavailable Andi Luna MD Unavailable Tisha David APRN BARREL FILLER Unavailable [phone] Andi Luna MD Unavailable + Tisha David EMBEDDED SOFTWARE DEVELOPER BARREL FILLER Unavailable +[phone] Maggie Bowers PA-C Primary Care Provid er (Fgs), [facility] [place] Unavailab le Ashley Jean EMBEDDED SOFTWARE DEVELOPER BARREL FILLER Unavailable + Ashley Jean EMBEDDED SOFTWARE DEVELOPER BARREL FILLER Unavailable + Reason for Visit * Reason Onset Date Comments Results 01/22/2014 Lab results Encounter Details Date Type Department Care Team (Late st Contact Info) Description 01/22/2014 MyC Medical Advice [address] [address] Luz Champagne MD Results (Lab results) Social History Tobacco Use Types Packs/Day Years Used Date Smoking Tobacco: Former Cigarettes Q uit: 11/07/1995 Smokeless Tobacco: Never Alcohol Use Standard Drinks/Week Comments Yes 0 (1 standard drink = 0.6 oz pur e alcohol) occasional Comments No Sex and Gender Information Value Date Recorded Sex Assigned at Not on file Legal Sex Female 4:02 AM RADIOLOGY PRACTITIONER ASSISTANT Gender Identity Not on file Sexual Orientation Not on file documented as of this encounter Miscellaneous Notes * Telephone Encounter - Luz Champagne MD - 01/23/2014 5:12 PM CDT See result note * Telephone Encounter - Bindu Andujar RN - 01/23/2014 3:29 PM CDT Pt is requesting lab results from 01/21. Please send it to her through . CHANDA Ruano Message handled by Nurse Triage. documented in this encounter Plan of Treatment Not on file documented as of this encounter Visit Diagnoses Diagnosis Vitamin D deficiency- Primary Unspecified vitamin D deficiency documented in this encounter Care Teams Manager Software Development Relationship Specialty Start Date End Date Roxana Ramey MD PCP - General 05/19/12 02/10/14 Luz Champagne MD PCP - General Internal Medicine 02/11/14 12/28/14 Andi Luna MD PCP - General Family Practice 12/29/14 04/08/25 [place] [address] [place] [address] PCP - Assigned PCP 02/16/15 11/14/18 Maggie Bowers PA-C [address] [address] [facility] [address] PCP - General Family Practice 04/09/25 [place] [address] [place] [address] Assigned PCP 02/16/15 03/03/19 Tisha David APRN BARREL FILLER [address] [place] [address] Assigned PCP 03/04/19 09/22/19 [place] [address] [place] [address] Assigned PCP 09/23/19 03/07/21 Tisha David APRN BARREL FILLER [address] [place] [address] Assigned PCP 03/08/21 09/19/21 (Fgs), [facility] On [facility] [place] [address] [place] [address] 04/17/25 04/28/25 Ashley Jean APRN BARREL FILLER [address] [place] [address] Nurse Practitioner Family Medicine 04/17/25 04/28/25 Ashley Jean APRN BARREL FILLER [address] [place] [address] Assigned Pain Medication Provider 05/04/25 documented as of this encounter
--- OUTSIDE RECORDS SUMMARY | 2025-05-16 18:41 | XMS_ITS | Encounter Summary ---
Author Organization [facility] Address [address] [place] [address] Care Team Providers Care Flitch Hanger Name Role Phone Andi Luna MD Primary Care Provider [phone] Andi Luna MD Unavailable Andi Luna MD Unavailable Tisha David APRN LOOM CLEANER Unavailable +[phone] Andi Luna MD Unavailable + Tisha David APRN LOOM CLEANER Unavailable +[phone] Maggie Bowers PA-C Primary Care Provid er (Fgs), [facility] [place] Unavailab le Ashley Jean APRN LOOM CLEANER Unavailable + Ashley Jean APRN LOOM CLEANER Unavailable + Encounter Details Date Type Department Care Team (Late st Contact Info) Description 07/13/2016 [facility] Medical Advice [address] [address] Reena King RN Social History Tobacco Use Types Packs/Day Years Used Date Smoking Tobacco: Former Cigarettes 0 11/07/1985 - 11/07/1995 Smokeless Tobacco: Never Comments:social smoker Alcohol Use Standard Drinks/Week Comments Yes 0 (1 standard drink = 0.6 oz pur e alcohol) Very little Comments No Sex and Gender Information Value Date Recorded Sex Assigned at Not on file Legal Sex Female 4:02 AM ELECTRIC METER TESTER SHOP Gender Identity Not on file Sexual Orientation Not on file documented as of this encounter Plan of Treatment Not on file documented as of this encounter Visit Diagnoses Not on filedocumented in this encounter Additional Health Concerns Assessment Noted Time PHQ-9 Depression Total Score: 7 10/01/19 16 7:58 AM ELECTRIC METER TESTER SHOP documented as of this encounter Care Teams Flitch Hanger Relationship Specialty Start Date End Date Andi Luna MD PCP - General Family Practice 12/29/14 04/08/25 [place] [address] [address] [address] PCP - Assigned PCP 02/16/15 11/14/18 Maggie Bowers PA-C [address] [address] [facility] [place] [address] PCP - General Family Practice 04/09/25 [place] [address] [address] [address] Assigned PCP 02/16/15 03/03/19 Tisha David APRN LOOM CLEANER [address] [address] [address] Assigned PCP 03/04/19 09/22/19 [place] [address] [address] [address] Assigned PCP 09/23/19 03/07/21 Tisha David APRN LOOM CLEANER [address] [address] [address] Assigned PCP 03/08/21 09/19/21 (Fgs), [facility] [address] [place] [address] 04/17/25 04/28/25 Ashley Jean APRN LOOM CLEANER [address] [place] [address] Nurse Practitioner Family Medicine 04/17/25 04/28/25 Ashley Jean APRN LOOM CLEANER [address] [place] [address] Assigned Pain Medication Provider 05/04/25 documented as of this encounter
--- OUTSIDE RECORDS SUMMARY | 2025-05-16 18:41 | XMS_ITS | Encounter Summary ---
Author Organization [facility] Address [address] [place] [address] Care Team Providers Care Print Finisher Name Role Phone Andi Luna MD Primary Care Provider [phone] Andi Luna MD Unavailable Tisha David COUNTER CASER SPANISH MEDICAL INTERPRETER Unavailable [phone] Maggie Bowers PA-C Primary Care Provid er (Fgs), [facility] [place] Unavailab le Ashley Jean COUNTER CASER SPANISH MEDICAL INTERPRETER Unavailable + Ashley Jean COUNTER CASER SPANISH MEDICAL INTERPRETER Unavailable + Encounter Details Date Type Department Care Team (Late st Contact Info) Description 01/31/2020 MyC Medical Advice [address] [address] Jessica Saini, WATER TRUCK DRIVER Social History Tobacco Use Types Packs/Day Years [...] on file Legal Sex Female 4:02 AM CREWMAN MAIN BATTLE TANK Gender Identity Not on file Sexual Orientation Not on file documented as of this encounter Plan of Treatment Not on file documented as of this encounter Visit Diagnoses Not on filedocumented in this encounter Additional Health Concerns Assessment Noted Time PHQ-9 Depression Total Score: 3 09/19/19 19 9:27 AM CREWMAN MAIN BATTLE TANK documented as of this encounter Care Teams Print Finisher Relationship Specialty Start Date End Date Andi Luna MD PCP - General Family Practice 12/29/14 04/08/25 Maggie Bowers PA-C [address] [place] [address] PCP - General [facility] Practice 04/09/25 [place] [address] [place] [address] Assigned PCP 09/23/19 03/07/21 Tisha David APRN SPANISH MEDICAL INTERPRETER [address] [place] [address] Assigned PCP 03/08/21 09/19/21 (Fgs), [facility] [place] [address] [place] [phone] 04/17/25 04/28/25 Ashley Jean APRN SPANISH MEDICAL INTERPRETER [address] [place] [address] Nurse Practitioner Family Medicine 04/17/25 04/28/25 Ashley Jean APRN SPANISH MEDICAL INTERPRETER [address] [place] [address] Assigned Pain Medication Provider 05/04/25 documented as of this encounter
--- OUTSIDE RECORDS SUMMARY | 2025-05-16 18:41 | XMS_ITS | Encounter Summary ---
Author Organization [facility] Address [address] [place] [id number] Care Team Providers Care Finance Professional Name Role Phone Andi Luna MD Primary Care Provider [phone] Andi Luna MD Unavailable Andi Luna MD Unavailable Tisha David APRN HOSPICE CARE TRANSITIONS COORDINATOR Unavailable [phone] Andi Luna MD Unavailable Tisha David APRN HOSPICE CARE TRANSITIONS COORDINATOR Unavailable [phone] Maggie Bowers PA-C Primary Care Provid er (Fgs), [facility] Unavailab le Ashley Jean APRN HOSPICE CARE TRANSITIONS COORDINATOR Unavailable + Ashley Jean APRN HOSPICE CARE TRANSITIONS COORDINATOR Unavailable + Encounter Details Date Type Department Care Team (Late st Contact Info) Description 06/07/2016 [facility] Medical Advice [address], [address] [place] [address] Madie Bridges RN Social History [...] on file Legal Sex Female 4:02 AM LITERATURE PROFESSOR Gender Identity Not on file Sexual Orientation Not on file documented as of this encounter Plan of Treatment Not on file documented as of this encounter Visit Diagnoses Not on filedocumented in this encounter Additional Health Concerns Assessment Noted Time PHQ-9 Depression Total Score: 7 10/01/19 16 7:58 AM LITERATURE PROFESSOR documented as of this encounter Care Teams Finance Professional Relationship Specialty Start Date End Date Andi Luna MD PCP - General Family Practice 12/29/14 04/08/25 [place] [id number] [address] [id number] PCP - Assigned PCP 02/16/15 11/14/18 Maggie Bowers PA-C [id number] [place] [address] PCP - General Family Practice 04/09/25 [place] [id number] [address] [id number] Assigned PCP 02/16/15 03/03/19 Tisha David APRN HOSPICE CARE TRANSITIONS COORDINATOR [id number] [address] [id number] Assigned PCP 03/04/19 09/22/19 [place] [id number] [address] [id number] Assigned PCP 09/23/19 03/07/21 Tisha David APRN HOSPICE CARE TRANSITIONS COORDINATOR [id number] [address] [id number] Assigned PCP 03/08/21 09/19/21 (Fgs), Marian Fisher [address] [place] [address] 04/17/25 04/28/25 Ashley Jean APRN HOSPICE CARE TRANSITIONS COORDINATOR [address] [place] [address] Nurse Practitioner Family Medicine 04/17/25 04/28/25 Ashley Jean APRN HOSPICE CARE TRANSITIONS COORDINATOR [address] [place] [address] Assigned Pain Medication Provider 05/04/25 documented as of this encounter
--- OUTSIDE RECORDS SUMMARY | 2025-05-16 18:41 | XMS_ITS | Clinical Summary ---
Author Organization [employer] [facility] Address [address] [place] [address] Care Team Providers Care Turret Lathe Tender Name Role Phone Maggie Bowers Primary Care Provider [facility] [place] Unavailable [phone] Allergies Active Allergy Reactions Criticality Noted Date Comments Adhesive Hives 12/16/2007 Clear plastic tap used in lab darws and IV sites Clear tape=RASH; tegaderm ok Amoxicillin-Pot Clavulanate Nausea And Vomiting 12/16/2007 Codeine Anxiety 11/07/2005 Panic attack Droperidol Other - Describe In Comment Field 12/16/2007 Panic attacks Morphine *Unknown 11/07/2005 Panic attack Medications levothyroxine 25 mcg tabletIndication s:Hypothyroidism (acquired) Take 1 Tablet (25 mcg) by mouth before breakfast. 90 Tablet 3 03/04/2025 Active levothyroxine 200 mcg tabletIndication s:Hypothyroidism (acquired) Take 1 Tablet (200 mcg) by mouth before breakfast. 90 Tablet 3 03/04/2025 Active lisinopril-hydro chlorothiazide (20-25 mg) 20-25 mg per tabletIndication s:Essential hypertension, benign Take 1 Tablet by mouth once daily. 90 Tablet 03/04/2025 Active acetaminophen (TYLENOL) 325 mg tablet Take 500 mg by mouth every 6 hours if needed for Pain. 04/29/2025 Active celecoxib (CELEBREX) 100 mg capsule Take 100 mg by mouth two times daily with meals. 04/29/2025 Active hydrOXYzine HCL (ATARAX) 25 mg tablet Take 25 mg by mouth 3 times daily if needed for Anxiety. 04/29/2025 Active oxyCODONE (ROXICODONE) 5 mg immediate release tablet Take 5 mg by mouth every 6 hours if needed for Pain. 04/29/2025 Active aspirin enteric coated 81 mg tabletIndication s:Closed fracture of left tibial plateau with routine healing, subsequent encounter Take 1 Tablet (81 mg) by mouth once daily with a meal. Do not crush or chew. 30 Tablet 05/09/2025 Active Active Problems Problem Noted Date Diagnosed Date Class 2 severe obesity with body mass index (BMI) of 35 to 39.9 with serious comorbidity 03/26/2024 Hypothyroidism (acquired) 03/26/2024 Anxiety 03/26/2024 JOHN (generalized anxiety disorder) 09/22/2023 MDD (major depressive disorder), recurrent episo de, mild 09/22/2023 Depression with anxiety 09/29/2022 Colon polyp 08/20/2021 Overview (08/20/2021): Colonoscopy 08/2021 2-SSA, repeat in 5 years, propofol, colowrap Poor intravenous access 08/19/2021 Osteopenia of multiple sites 07/20/2021 LLUVIA I (cervical intraepithelial neoplasia I) 09/2019 Overview (03/21/2025): 09/2018 LSIL/HPV negative 02/2020 LSIL/HPV negative 03/2020 [place]: LLUVIA I 06/2021 NIL/HPV negative 03/2024 ASCUS/HPV negative 02/2025 NIL/HPV negative Plan: HPV-based testing due in 3 years ELEONORA (obstructive sleep apnea) 10/28/2015 Overview (08/05/2021): Sleep study showing moderate eleonora with cpap recommended in 2016. Results in scans. Other specified hypothyroidism 06/24/2015 Osteoarthritis of right knee 04/05/2015 Essential hypertension, benign 02/11/2014 B12 deficiency 04/21/2011 Overview (07/27/2011): Was on B12 shots. B12 (oral ) did not work per report Shots since April 2011. B12 = 462 on shots (07/21/11). Symptomatic improvement. Secondary hyperparathyroidism 04/21/2011 Overview (07/27/2011): Outside notes indicated this resolved with Vitamin [...] around OctoberNovember 2011. Vitamin D deficiency 04/21/2011 Bariatric surgery status 04/21/2011 Overview (12/24/2022): November 27, 2002 [facility]-Y at [facility] Lost 130 total; as of Apr 2011 has had regain of about 20 pounds. Iron deficiency anemia, unspecified 01/15/2011 Overview (08/12/2011): Dr. Tapia note (08/09/11) states primary care physician started her on iron supplements. Resolved Problems Problem Noted Date Diagnosed Date Resolved Date JOHN (generalized anxiety disorder) 07/02/2015 09/29/2022 Intermittent asthma 11/12/2014 09/29/19 23 H/O Leonel thyroiditis 04/21/2011 Overview (07/27/2011): Hypothyroidism diagnosis around 2003 to 2005 Hashimotos diagnosis made June 2010. Hoping to become . TSH = 3.12 on 200mcg (07/21/11), increasing to 225mcg levothyroxine daily. S/P gastric bypass 04/21/2011 Overview (04/21/2011): November 27, 2002 Lavern-en-Y at [facility] Lost 130 total; as of Apr 2011 has had regain of about 20 pounds. Depression 04/21/2011 08/12/2012 Family history of diabetes mellitus 01/15/2011 09/29/2022 LGSIL of cervix of undetermined significance 03/21/2025 Overview (07/20/2021): 09/19/2018 LSIL/HPV negative 02/14/2020 LSIL/HPV negative 04/01/20 [place]:LLUVIA I 10111/30 NIL/HPV negative Plan: Pap/HPV due 06/2024 Encounters Date Type Department Care Team Description 05/16/2025 [place]phone [facility] [address] [place] [address] Maggie Bowers PA Form (PHYSICIAN ORDER) 05/07/2025 Telephone [facility] [address] [place] [address] Maggie Bowers PA Form (HOME HEALTH PLAN OF CARE) 05/06/2025 Telephone [facility] [address] [place] [address] Maggie Bowers PA visit type issue 05/06/2025 Telephone [facility] [address] [place] [address] Maggie Bowers PA Questions (Mammogram appointment back on 02/14/2025) 05/03/2025 Telephone [facility] [address] [place] [address] Maggie Bowers PA Form (PHYSICIAN ORDER) 05/02/2025 Telephone [facility] [address] [place] [address] Maggie Bowers PA ORDERS (Verbal Orders - OT ) 05/01/2025 Telephone [facility] [address] [place] [address] Maggie Bowers PA Form (PHYSICIAN ORDER) 04/30/2025 Telephone [facility] [place] [id number] [place] [address] Maggie Bowers PA ACC Order Request (Verbal) 04/24/2025 Transcribe Orders [address] [address] Ashley Jean 04/16/2025 Home Care Visit [address] [address] Janessa Snyder, OT NOT TAKEN UNDER HOME CARE 04/16/2025 Home Care Visit [address] [address] Janessa Snyder, OT CARE COORDINATION 04/14/2025 Home Care Visit [address] [address] Apollo Combs, PT CARE COORDINATION 04/14/2025 Home Care Visit [address] [address] Denise Morelos, RN CARE COORDINATION 04/13/2025 Home Care Visit [address] [address] Laura May, PT CARE COORDINATION 04/11/2025 Transcribe Orders [address] [address] Provider, Non-[facility] 03/26/2025 Telephone [facility] [address] [place] [address] Maggie Bowers PA error 03/22/2025 Telephone [facility] [address] [place] [address] Maggie Bowers PA Results 03/10/2025 Refill [facility] [address] [place] [address] Maggie Bowers PA Refill Request (Lisinopril-hydroch lorothiazide (20-25 Mg)) 03/06/2025 Telephone [facility] [address] [place] [address] Maggie Bowers PA RESULTS 03/04/2025 8:45 AM CDT Office Visit [facility] [address] [place] [address] Maggie Bowers PA Medication Management 03/04/2025 Travel 02/14/2025 9:20 AM CDT Ancillary Procedure [facility] [address] [place] [address] 02/14/2025 Travel from Last 3 Months Immunizations Immunization Administration Dates Next Due COVID-19 vaccine (Moderna 100mcg/0.5mL) PF, MDV 10/14/2020,09/16/2020 COVID-19 vaccine (Pfizer-Bio NTech 30mcg/0.3mL) PF, MDV 09/08/2021 INFLUENZA, IIV3 PF (AGE >= 6 MO) 08/22/2024 Influenza Virus, Unspecified 07/15/2014,07/01/20 06 Influenza, IIV3 (Age 6-35 mos) 06/29/2018,2005 Influenza, IIV3 (Age >=3 years) 08/07/2013,07/21,06/26/2011 Influenza, IIV4 09/07/2023,,06/24/2021,2016,06/12/2017,06/22/2016,07/02/2015 Influenza, IIV4 (=>6mos) MDV 06/12/2017 Influenza,LAIV4 Live Intrana garcía (Flumist) 07/15/2014 Pneumococcal Poly,23-Valent (Pneumovax) 05/27/2012,05/26/2012 Td (Age >=7 Years) 06/12/2004 Td, Preservative Free (age > = 7 Years) 06/12/2004 Tdap 02/11/2014, 2,06/12/2004,2003 Family History Medical History Relation Name Comments Unknown Father Heart Disease Maternal Grandfather Stroke Maternal Grandfather Heart Disease Maternal Grandmother Diabetes Mother Heart Disease Mother Hypertension Mother Lung cancer Mother smoker Narcolepsy Mother Asthma Other Ysabel and cousin s Cancer-breast Other mat great gran dmother post nelli Unknown Paternal Grandfather Unknown Paternal Grandmother Cancer-colon No Family History Cancer-ovarian No Family History Cancer-prostate No Family History Relation Name Status Comments Father Maternal Grandfather Maternal Grandmother Mother Other Paternal Grandfather Paternal Grandmother Social History Tobacco Use Types Packs/Day Years Used Date Smoking Tobacco: Former Cigarettes 1 10 0 09/12/1987 - 09/12/1997 Smokeless Tobacco: Never Tobacco Cessation:Counseling Given: Not Answered Alcohol Use Standard Drinks/Week Comments Yes 0 (1 standard drink = 0.6 oz pure alcohol) 2-4 glasses of wine/beer per month PHQ-2 Answer Date Recorded PHQ-2 TOTAL SCORE 2 03/04/2025 Social Connections Answer Date Recorded Do you often feel lonely or isolated from those around you? 0 08/03/2024 Financial Resource Strain Answer Date R ecorded Difficulty of Paying Living Expenses 3 08/03/2024 Difficulty of Paying Living Expenses Not on file 08/03/2024 Food Insecurity Answer Date Recorded Do you worry your food will run out before you are able to buy more? 1 08/03/2024 Transportation Needs Answer Date Record ed Does lack of transportation keep you from medica l appointments? 1 08/03/2024 Does lack of transportation keep you from work, meetings or getting things that you need? 1 08/03/2024 Housing Stability Answer Date Recorded What is your housing situation today? 1 08/03/2024 Utilities Answer Date Recorded Do you have trouble paying f or utilities (for example, heat, electricity, water, phone)? 1 08/03/2024 Comments No Sex and Gender Information Value Date Recorded Sex Assigned at Not on file Legal Sex Female 8:06 AM YARD LABOR SUPERVISOR Gender Identity Not on file Sexual Orientation Not on file Obstetrics History Last Filed Vital Signs Vital Sign Reading Time Taken Comments Blood Pressure 106/72 03/04/2025 8:48 AM CDT Pulse 78 03/04/2025 8:48 AM CDT Temperature 37.1 C (98.7 F) 08/03/2024 2:13 PM YARD LABOR SUPERVISOR Respiratory Rate 20 08/30/2022 12:5 1 PM YARD LABOR SUPERVISOR Oxygen Saturation 95% 08/03/2024 2:13 PM YARD LABOR SUPERVISOR Inhaled Oxygen Concentration - - Weight 101.9 kg (224 lb 9.6 oz) 03/04/2025 8:48 AM CDT Height 171.5 cm (5' 7.5) 03/04/2025 8:48 AM CDT Body Mass Index 34.66 03/04/2025 8:48 AM CDT Plan of Treatment Upcoming Encounters Date Type Department Care Team (Late st Contact Info) Description 05/31/2025 11:00 AM CDT Office Visit [facility] [address] [place] [address] Chasity Austin PA [address] [place] [address] Health Maintenance Due Date Last Done Comments HIV for age 15-65 12/31/1982 Hepatitis C screening for ag e 18-79 12/31/1985 Hepatitis B series for 19+ ( 1 of 3 - 19+ 3-dose series) 12/31/1986 Pneumococcal series for age 50+ (2 of 2 - PCV) 12/31/2017 05/27/2012, 05/26/2012 Zoster (shingles) series for age 50+ (1 of 2) 12/31/2017 Tetanus booster 02/12/2024 02/11/2014, 05/13, 06/12/2004, Additional history exists COVID-19 vaccine series ( season) 2025 09/08/2021, 10/14/2020, 09/16/2020 Influenza Vaccine (#1) 2025 , 09/07/2023, 07/06/2021, Additional history exists Mammogram for age 45-75 02/14/2026 02/15/20, 11/18/2023, 10/05/2022, Additional history exists BMI (ht and wt on same day) for age 18+ 03/04/2026 03/04/2025, 08/03/2024, 03/26/2024, Additional history exists Depression screening for age 12+ 03/04/2026 03/04/2025, 03/27/2024, 03/26/2024, Additional history exists Colonoscopy through age 75 08/19/202608/19, 08/19/2021, 08/19/2021 Pap test for age 21-65 03/04/2028 , 03/04/2025, 03/26/2024, Additional history exists Lipids for age 45-75 03/26/2029 03/26/2024, 09/29/2022, 03/27/2020, Additional history exists RSV vaccine for adults or (1 - 1-dose 75+ series) 12/31/2042 Procedures Procedure Name Priority Date/Time Associated Diagnosis Comments DISTILLERY SUPERVISOR THIN PREP PAP SCREEN IMAGED Routine 03/04/2025 9:48 AM CDT Screening for cervical cancer HPV HIGH RISK Routine 03/04/2025 9:48 AM CDT Screening for cervical cancer TSH Routine 03/04/2025 9:21 AM CDT BASIC METABOLIC PANEL Routine 03/04/2025 9:21 AM CDT Essential hypertension, benign T3,TOTAL Routine 03/04/2025 9:21 AM CDT Hypothyroidism (acquired) T4,FREE Routine 03/04/2025 9:21 AM CDT Hypothyroidism (acquired) VITAMIN B12 Routine 03/04/2025 9:21 AM CDT B12 deficiency VITAMIN D 25 (DEFICIENCY) Routine 03/04/2025 9:21 AM CDT Vitamin D deficiency CBC WITH AUTO DIFFERENTIAL Routine 03/04/2025 9:21 AM CDT B12 deficiency Iron deficiency anemia, unspecified iron deficiency anemia type IRON PLUS IRON BINDING CAP Routine 03/04/2025 9:21 AM CDT Iron deficiency anemia, unspecified iron deficiency anemia type FERRITIN Routine 03/04/2025 9:21 AM CDT Iron deficiency anemia, unspecified iron deficiency anemia type XR MAMMO BILAT SCREENING Routine 02/14/2025 9:46 AM CDT Visit for screening mammogram LIPID PANEL W REFLEX MEASURED LDL Routine 03/26/2024 11:03 AM CDT Screening for hyperlipidemia COLONOSCOPY SCREENING Routine 08/19/2021 10:14 AM YARD LABOR SUPERVISOR Screening for colon cancer from Last 3 Months or Most Recently Relevant to Health Maintenance Results * DISTILLERY SUPERVISOR THIN PREP PAP SCREEN IMAGED [[id number]] (03/04/2025 9:48 AM CDT) Case Report Gynecologic Cytology Report Case: [id number] Authorizing Provider: Maggie Bowers, Collected: 03/04/2025 0948 PA Ordering Location: [facility] Received: 03/04/2025 0948 Clinic First Screen: Eliseo Frederick Rescreen: Suha Badillo Specimen: DISTILLERY SUPERVISOR ThinPrep Vial Screening, Cervical 03/20/2025 10:23 AM CDT Status Overload-C [facility] INTERPRETATION/ RESULT NEGATIVE FOR INTRAEPITHELIAL LESION OR MALIGNANCY (NIL) (none) 03/20/2025 10:23 AM CDT Status Overload-C ENTRAL LABORATORY at 1023 CDT SPECIMEN ADEQUACY Satisfactory for evaluation Endocervical component present 03/20/2025 10:23 AM CDT Status Overload-C [facility] HPV REQUEST HPV and PAP 03/20/2025 10:23 AM CDT Status Overload-C [facility] LAB[facility] Date of LMP 199603/20/2025 10:23 AM CDT Status Overload-C EN[facility] LAB[facility] Last Pap Date 03/26/24 03/20/2025 10:23 AM CDT [facility] Last Pap Result [facility] 10:23 AM CDT Status Overload-C ENTRAL LABORATORY Abnormal Pap or [facility] Bx in last 5 years Yes 03/20/2025 10:23 AM CDT [facility] Menstrual Status Postmenopausal 03/20/2025 10:23 AM CDT [facility] [place] Bx Done Today No 03/20/2025 10:23 AM CDT [facility] Additional Information None given 03/20/2025 10:23 AM CDT [facility] Comment: Cytology is screened at [facility] - [address], [place] [address] and [facility] - [address], [place] [address] and [facility] - [address] [place] [address] Interpreted at [facility] - [address], [place] [address] Automated Review Successful 03/20/2025 10:23 AM CDT [facility] Comment:Specimen processed s uccessfully by automated patient care representative device, ThinPrep Imaging System, [employer] ANCILLARY TESTING DISTILLERY SUPERVISOR HPV Ordered, Please see separate report 03/20/2025 10:23 AM CDT [facility] Note The pap test is a screening technique, not a diagnostic procedure. It is used primarily to screen for squamous cancers and precursor lesions. Published studies have shown that it is subject to both false negative and false positive results. The pap test should not be used as the sole means to diagnose or exclude pre-malignant and malignant lesions. 03/20/2025 10:23 AM CDT [facility] Other (Cervical) Non-Blood / Unknown 03/04/2025 9:48 AM CDT 03/04/2025 9:48 AM CDT us Maggie ESCOBAR PATHOLOGY/CYTOLOGY Fin al Result [facility] [address] [place] [address], * HPV HIGH RISK (03/04/2025 9:48 AM CDT) TYPE 16 Negative Negative 03/06/2025 5:57 PM CDT [facility] TYPE 18 Negative Negative 03/06/2025 5:57 PM CDT [facility] OTHER HIGH RISK TYPES Negative Negative 03/06/2025 5:57 PM CDT [facility] Other (Cervical) Non-Blood / Unknown 03/04/2025 9:48 AM CDT 03/05/2025 10:17 AM CDT Narrative [facility] - 03/06/2025 5:57 PM CDT HPV types 16, 18, 31, 33, 35, 39, 45, 51, 52, 56, 58, 59, 66 and 68 DNA were undetectable or below the pre-set threshold. Methodology: Sue Urban 4800 HPV Test us Maggie ESCOBAR MICROBIOLOGY Final Result [facility] [address] [place] [address], [place] * VITAMIN D 25 (DEFICIENCY) (03/04/2025 9:21 AM CDT) VITAMIN D,25-OH,TOTAL,IA 40 30 - 100 ng/mL [facility] Comment: Vitamin D Status 25-OH Vitamin D: Deficiency: <20 ng/mL Insufficiency: 20 - 29 ng/mL Optimal: > or = 30 ng/mL For 25-OH Vitamin D testing on patients on D2-supplementation and patients for whom quantitation of D2 and D3 fractions is required, the QuestAssureD(TM) 25-OH VIT D, (D2,D3), LC/MS/MS is recommended: order code 12606 (patients >2yrs). See Note 1 Note 1 For additional information, please refer to http://education.[employer]/faq/LBX825 (This link is being provided for informational/ educational purposes only.) Blood BLOOD SPECIMEN / Unknown 03/04/2025 9:21 AM CDT 03/04/2025 9:21 AM CDT us Maggie ESCOBAR SEND OUTS Final Result [employer] [facility] [address] [place] [address], [place] [phone] [facility] [address] [place] [address] * TSH (03/04/2025 9:21 AM CDT) [facility] TSH 1.68 0.40 - 4.50 mIU/L [facility] 03/04/2025 9:21 AM CDT 03/04/2025 9:21 AM CDT Maggie ESCOBAR CHEMISTRY Final Result [facility] [address] [place] [address], [place] [phone] [facility] [address] [place] [address] * (ABNORMAL) IRON PLUS IRON BINDING CAP (03/04/2025 9:21 AM CDT) [facility] IRON, TOTAL 28(L) 45 - 160 mcg/dL [facility] IRON BINDING CAPACITY 324 250 - 450 mcg/dL (calc) [facility] % SATURATION 9(L) 16 - 45 % (calc) [facility] Blood BLOOD SPECIMEN / Unknown 03/04/2025 9:21 AM CDT 03/04/2025 9:21 AM CDT Maggie ESCOBAR CHEMISTRY Final Result [employer] [facility] [address] [place] [address], [place] [phone] [facility] [address] [place] [address] * (ABNORMAL) CBC AND DIFFERENTIAL (03/04/2025 9:21 AM CDT) [facility] WHITE BLOOD CELL COUNT 9.9 3.8 - 10.8 Thousand/u L [facility] RED BLOOD CELL COUNT 4.23 3.80 - 5.10 Million/uL [facility] HEMOGLOBIN 12.1 11.7 - 15.5 g/dL [facility] HEMATOCRIT 38.2 35.0 - 45.0 % [facility] MCV 90.3 80.0 - 100.0 fL [facility] MCH 28.6 27.0 - 33.0 pg [facility] MCHC 31.7(L) 32.0 - 36.0 g/dL [facility] Comment: For adults, a slight decrease in the calculated MCHC value (in the range of 30 to 32 g/dL) is most likely not clinically significant; however, it should be interpreted with caution in correlation with other red cell parameters and the patient's clinical condition. RDW 13.3 11.0 - 15.0 % [facility] PLATELET COUNT 428(H) 140 - 400 Thousand/u L [facility] MPV 10.5 7.5 - 12.5 fL [facility] ABSOLUTE NEUTROPHILS 6,514 1,500 - 7,800 cells/uL [facility] ABSOLUTE LYMPHOCYTES 2,485 850 - 3,900 cells/uL [facility] ABSOLUTE MONOCYTES 495 200 - 950 cells/uL [facility] ABSOLUTE EOSINOPHILS 347 15 - 500 cells/uL [facility] ABSOLUTE BASOPHILS 59 0 - 200 cells/uL [facility] NEUTROPHILS 65.8 % [facility] LYMPHOCYTES 25.1 % [facility] MONOCYTES 5.0 % [facility] EOSINOPHILS 3.5 % [facility] BASOPHILS 0.6 % [facility] Blood BLOOD SPECIMEN / Unknown 03/04/2025 9:21 AM CDT 03/04/2025 9:21 AM CDT Maggie ESCOBAR HEMATOLOGY Final Result [facility] [address] [place] [address], [facility] [address] [place] [address] * T3,TOTAL (03/04/2025 9:21 AM CDT) T3, TOTAL 105 76 - 181 ng/dL [facility] Blood BLOOD SPECIMEN / Unknown 03/04/2025 9:21 AM CDT 03/04/2025 9:21 AM CDT Maggie ESCOBAR CHEMISTRY Final Result [employer] [facility] [address] [place] [address], [facility] [address] [place] [address] * T4,FREE (03/04/2025 9:21 AM CDT) T4, FREE 1.1 0.8 - 1.8 ng/dL [facility] Blood BLOOD SPECIMEN / Unknown 03/04/2025 9:21 AM CDT 03/04/2025 9:21 AM CDT Maggie ESCOBAR CHEMISTRY Final Result [facility] [address] [place] [address], [facility] [address] [place] [address] * (ABNORMAL) FERRITIN (03/04/2025 9:21 AM CDT) FERRITIN 14(L) 16 - 232 ng/mL [facility] Blood BLOOD SPECIMEN / Unknown 03/04/2025 9:21 AM CDT 03/04/2025 9:21 AM CDT us Maggie ESCOBAR CHEMISTRY Final Result Performing Organization Address City/[facility]/ZIP Co de Phone Number [employer] [facility] [address] [place] [address], [place] [phone] [facility] [address] [place] [address] * VITAMIN B12 (03/04/2025 9:21 AM CDT) [facility] VITAMIN B12 463 200 - 1,100 pg/mL [facility] Blood BLOOD SPECIMEN / Unknown 03/04/2025 9:21 AM CDT 03/04/2025 9:21 AM CDT us Maggie ESCOBAR CHEMISTRY Final Result Performing Organization Address [facility] Co de Phone Number [employer] [facility] [address] [place] [address], [place] [phone] [facility] [address] [place] [address] * (ABNORMAL) BASIC METABOLIC PANEL (03/04/2025 9:21 AM CDT) [facility] GLUCOSE 82 65 - 99 mg/dL [facility] Comment: Fasting reference interval UREA NITROGEN (BUN) 6(L) 7 - 25 mg/dL [facility] Comment: Verified by repeat analysis. CREATININE 0.33(L) 0.50 - 1.03 mg/dL [facility] Comment: Verified by repeat analysis. EGFR 121 > OR = 60 mL/min/1.7 3m2 [facility] BUN/CREATININE RATIO 18 6 - 22 (calc) [facility] SODIUM 138 135 - 146 mmol/L [facility] POTASSIUM 4.3 3.5 - 5.3 mmol/L [facility] CHLORIDE 105 98 - 110 mmol/L [facility] CARBON DIOXIDE 23 20 - 32 mmol/L [facility] ELECTROLYTE BALANCE 10 7 - 17 mmol/L (calc) [facility] CALCIUM 9.4 8.6 - 10.4 mg/dL [facility] Blood BLOOD SPECIMEN / Unknown 03/04/2025 9:21 AM CDT 03/04/2025 9:21 AM CDT Maggie ESCOBAR CHEMISTRY Final Result [employer] [facility] [address] [place] [address], [facility] [address] [place] [address] * XR MAMMO BILAT SCREENING (02/14/2025 9:46 AM CDT) Anatomical Region Laterality Modality BREASTS, Breast Left, Breast Right Bilateral Mammography Impressions 02/18/2025 2:04 PM CDT There is no radiographic evidence for malignancy. Recommend annual mammograms. MAMMOGRAM ASSESSMENT: ACR 1 Negative PATIENTS: You will also receive a letter with your examination results in an easy to read format. If you have questions about your results, please contact your referring provider. Narrative 02/18/2025 2:04 PM CDT For Patients: As a result of the Century Cures Act, medical imaging exams and procedure reports are released immediately into your electronic medical record. You may view this report before your referring provider. If you have questions, please contact your health care provider. XR MAMMO BILAT SCREENING [[id number]] CLINICAL HISTORY: This is an asymptomatic 55 y.o. patient. INDICATION FOR EXAM: Mammogram Screening. TECHNIQUE: CC and MLO views were obtained. This study was evaluated with the assistance of Computer-Aided Detection. COMPARISON FILM: Yes 11/18/23 [facility] 10/05/22 [facility] FINDINGS: There are scattered areas of fibroglandular density. There are no dominant masses, suspicious micro calcifications or areas of architectural distortion. us Renetta ESCOBAR MAMMO Final Res ult * (ABNORMAL) LIPID PANEL W REFLEX MEASURED LDL (03/26/2024 11:03 AM CDT) CHOLESTEROL,TOTAL 215(H) 100 - 199 mg/dL 03/26/2024 6:42 PM CDT [facility] Comment: Cholesterol, Total Reference Ranges Desirable <200 mg/dL Borderline 200-239 mg/dL High >=240 mg/dL TRIGLYCERIDES 175(H) <150 mg/dL 03/26/2024 6:42 PM CDT [facility] HDL CHOLESTEROL 55 >40 mg/dL 6:42 PM CDT [facility] NON-HDL CHOLESTEROL 160(H) <145 mg/dl 03/26/2024 6:42 PM CDT [facility] CHOL/HDL RATIO 3.91 <4.50 03/26/2024 6:42 PM CDT [facility] LDL CHOLESTEROL 125 <=130 mg/dL 03/26/2024 6:42 PM CDT [facility] VLDL CHOLESTEROL 35(H) <=30 mg/dL 03/26/2024 6:42 PM CDT [facility] PROVIDER ORDERED STATUS RANDOM 03/26/2024 6:42 PM CDT [facility] Blood BLOOD SPECIMEN / Unknown Venipuncture / Unknown 03/26/2024 11:03 AM CDT 03/26/2024 11:03 AM CDT Maggie ESCOBAR CHEMISTRY Final Result [facility] [address] [place] [address], * COLONOSCOPY (08/19/2021 10:44 AM YARD LABOR SUPERVISOR) 08/19/2021 10:4 4 AM YARD LABOR SUPERVISOR Narrative Transcriptions David Styles MD - 08/19/2021 12:17 PM CST Patient Name: Adilene Thurman Procedure Date: 08/19/2021 Gender: Female Date of : 1970 Admit Type: Outpatient Procedure: Colonoscopy Proceduralist: David Styles MD , Renetta Isaacs RN(Nurse) Referring MD: Joan Walls Indications/Pre-Op Diagnosis: Screening for colorectal malignant neoplasm, This is the patient's first colonoscopy Medications: Fentanyl 150 micrograms IV, Midazolam 2 mgIV Procedure Description: The patient had risks, benefits and alternatives explained to andgave informed consent. The patient had a stable cardiopulmonary status and judged an adequate candidate for conscious sedation. The Colonoscope was passed through the anus and advanced to thececum, identified by appendiceal orifice and ileocecal valve. Thecolonoscopy was performed without difficulty. The patient tolerated the procedure well. The quality of the bowel preparation was good. The ileocecal valve, appendiceal orifice, and rectum were photographed. Complications: No immediate complications. Estimated Blood Loss & Specimen: Estimated blood loss: none. Specimen collected - Yes and sent to Laboratory Findings: The perianal and digital rectal examinations were normal. A 4 mm polyp was found in the ascending colon. The polyp was sessile. The polyp was removed with a cold snare. Resection and retrieval were complete. A 4 mm polyp was found in the descending colon. The polyp wassessile. The polyp was removed with a cold snare. Resection and retrieval were complete. The colon (entire examined portion) was moderately tortuous. The exam was otherwise without abnormality on direct and retroflexion views. Impressions/Post-Op Diagnosis: - One 4 mm polyp in the ascending colon, removed with a cold snare. Resected and retrieved. - One 4 mm polyp in the descending colon, removed with a cold snare. Resected and retrieved. - Tortuous colon. - The examination was otherwise normal on direct and retroflexionviews. Recommendation: - Patient has a contact number available for emergencies. The signsand symptoms of potential delayed complications were discussed with the patient. Return to normal activities tomorrow. Written discharge instructions were provided to the patient. - Resume previous diet. - Continue present medications. - Await pathology results. - Repeat colonoscopy for surveillance based on pathology results. Usea colowrap. - Patient's sedation for a repeat study will require Anesthesia staff assistance. Patient has poor IV access. Moderate Sedation: Moderate (conscious) sedation was administered by the endoscopy nurse and supervised by the endoscopist. The following parameters were monitored: oxygen saturation, heart rate, respiratory rate, blood pressure, adequacy of pulmonary ventilation and reponse to care. Please refer to the patient's medical record flowsheets and nursing notes for moderate sedation details. Total physician intraservice time was 33 minutes. David Styles MD 08/19/2021 12:17:34 PM This report has been signed electronically. Note Initiated On: 08/19/2021 10:44 AM Procedure Code(s): --- Professional --- 39285, Colonoscopy, flexible; with removalof tumor(s), polyp(s), or other lesion(s) bysnare technique Diagnosis Code(s): --- Professional --- Z12.11, Encounter for screening formalignant neoplasm of colon K63.5, Polyp of colon Q43.8, Other specified congenitalmalformations of intestine CPT copyright 2020 [employer]. All rights reserved. The codes documented in this report are preliminary and upon offal trimmer reviewmay be revised to meet current compliance requirements. Scope In: 11:34:00 AM Scope Withdrawal Time 0 hours 9 minutes 40 seconds Scope Out: 12:05:18 PM us David Styles MD PROCEDURE ORD Final Res ult from Last 3 Months or Most Recently Relevant to Health Maintenance Insurance Care Teams Turret Lathe Tender Relationship Specialty [place] [address] [place] [address] PCP - General Physician Terrazzo Grinder 02/14/[address] [address] 04/12/25
--- OUTSIDE RECORDS SUMMARY | 2025-05-16 18:41 | XMS_ITS | Encounter Summary ---
Author Organization [facility] Address [address] [place] [address]. [place] [address] Care Team Providers Care Map Maker Name Role Phone Andi Luna MD Primary Care Provider [phone] Tisha David APRN TEMPORARY RECEPTIONIST Unavailable [phone] Andi Luna MD Unavailable + Tisha David VOICE TEACHER TEMPORARY RECEPTIONIST Unavailable + Maggie Bowers PA-C Primary Care Provid er (Fgs), [facility] Unavailab le Ashley Jean VOICE TEACHER TEMPORARY RECEPTIONIST Unavailable + Ashley Jean VOICE TEACHER TEMPORARY RECEPTIONIST Unavailable + Encounter Details Date Type Department Care Team (Late st Contact Info) Description 09/06/2019 [facility] Medical Advice M [address] [phone] Yessi Hernández Social History Tobacco Use Types Packs/Day Years [...] on file 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 Gender Identity Not on file Sexual Orientation Not on file documented as of this encounter Plan of Treatment Not on file documented as of this encounter Visit Diagnoses Not on filedocumented in this encounter Additional Health Concerns Assessment Noted Time PHQ-9 Depression Total Score: 3 09/19/19 19 9:27 AM 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 documented as of this encounter Care Teams Map Maker Relationship Specialty Start Date End Date Andi Luna MD PCP - General Family Practice 12/29/14 04/08/25 Maggie Bowers [facility]C [address] [facility] [place] [address] PCP - General Family Practice 04/09/25 Tisha David APRN TEMPORARY RECEPTIONIST [address] [place] [place] [id number] Assigned PCP 03/04/19 09/22/19 [place] [address] [place] [address] Assigned PCP 09/23/19 03/07/21 Tisha David APRN TEMPORARY RECEPTIONIST [address] [place] [address] Assigned PCP 03/08/21 09/19/21 (Fgs), [facility] [address] [phone] 04/17/25 04/28/25 Ashley Jean APRN TEMPORARY RECEPTIONIST [address] [place] [address] Nurse Practitioner Family Medicine 04/17/25 04/28/25 Ashley Jean APRN TEMPORARY RECEPTIONIST [address] [place] [address] Assigned Pain Medication Provider 05/04/25 documented as of this encounter
[2025-05-16 18:54] VITALS: BP 117/84; PULSE 85; RESP 16; TEMP 36.1; O2SAT 94; BMI 35.7
--- NOTE | 2025-05-16 20:15 | ED.GENADULT ---
HPI - General Adult General Date Seen: 05/16/25 Chief complaint: Dental/Oral/Mouth Injury/Pain Stated complaint: Abscess in mouth Time Seen by Provider: 05/16/25 20:02 History of Present Illness HPI narrative: 55 yo F who is allergic to clavulanic but not amoxicillin presenting to the ER today with concern for an oral abscess. She began having pain in her left lower jaw few days ago over the weekend. Initially was a little bit sore. A couple of days ago she noted a little ?canker sore? on the lateral side of her left mandibular gums. It was not otherwise bleeding or draining. Yesterday evening she woke up from sleep because of increasing pain and swelling on her left jaw. She has been taking Tylenol, which is helpful but only lasts about 4-5 hours per dose. She is not having a fever. No swelling under her chin. No trouble swallowing.. Related Data Home Medications ?Medication ?Instructions ?Recorded ?Confirmed levothyroxine 200 mcg tablet 200 mcg PO DAILY 02/15/25 05/16/25 levothyroxine 25 mcg tablet 25 mcg PO DAILY 02/15/25 05/16/25 lisinopril 20 1 tab PO DAILY 02/15/25 05/16/25 mg-hydrochlorothiazide 25 mg tablet acetaminophen 05/16/25 aspirin 81 mg tablet,delayed 81 mg PO DAILY 05/16/25 05/16/25 release celecoxib 100 mg capsule 100 mg PO BID PRN pain 05/16/25 05/16/25 hydroxyzine HCl 25 mg tablet 25 mg PO Q6H PRN pain 05/16/25 05/16/25 Allergies Allergy/AdvReac Type Severity Reaction Status Date / Time codeine AdvReac Intermediate Verified 05/16/25 19:00 amoxicillin (From Augmentin) AdvReac Nausea Verified 02/15/25 11:59 clavulanic acid (From AdvReac Nausea Verified 02/15/25 11:59 Augmentin) [facility] Medical History (Updated 05/16/25 @ 20:30 by Deandre Manning MD) Seasonal allergies ?J30.2 - Other seasonal allergic rhinitis (ICD-10) Hyperthyroidism ?E05.90 - Thyrotoxicosis, unspecified without thyrotoxic crisis or storm (ICD-10) Hypertension ?I10 - Essential (primary) hypertension (ICD-10) Exam Narrative: Exam Narrative: Constitutional: Appears well-developed and well-nourished. Alert. Conversant. Non toxic. HENT: Head: Atraumatic. Nose: Nose normal. Mouth/Throat: She does have dental caries affecting molars on both sides of her mandible. The anterior-most molar on the left mandible does have either dental caries or dental fracture with large prior issue racing. There is a little bit of swelling of the gums on the lateral side of mandible there. I can see the ?canker sore? that the patient and reported feeling at home a couple of days ago. I believe she probably had a gingival abscess that drained in broke through this area on her gums. On careful palpation I cannot appreciate any ongoing fluctuance. At this point no drainable abscess. No submandibular swelling. Intraorally her sublingual tissues are normal. Tongue normal. Posterior oropharynx and tonsils and uvula are normal. Oral mucosa is clear and moist other than her left mandibular gingival mucosa. no trismus. Pharynx normal. Tonsils symmetric. No tonsillar enlargement, erythema, or exudate. Eyes: Conjunctivae normal. EOM normal. Pupils equal, round, and reactive to light. No scleral icterus. Neck: Normal range of motion. Neck supple. No tracheal deviation present. Cardiovascular: Normal rate, regular rhythm. No gallop. No friction rub. No murmur heard. Symmetric radial artery pulses Pulmonary/Chest: Effort normal. No stridor. No respiratory distress. No wheezes. No rales. No rhonchi Musculoskeletal: RUE: Normal range of motion. No tenderness. No deformity LUE: Normal range of motion. No tenderness. No deformity RLE: Normal range of motion. No edema. No tenderness. No deformity LLE: Normal range of motion. No edema. No tenderness. No deformity Lymph: No cervical adenopathy. Neurological: Alert and oriented to person, place, and time. Normal strength. CN II-VII intact. No sensory deficit. GCS eye subscore is 4. GCS verbal subscore is 5. GCS motor subscore is 6. Normal coordination Skin: Skin is warm and dry. No rash noted. No pallor. Normal capillary refill. Psychiatric: Normal mood. Normal affect. Const: Vital Signs, click to edit/add: Vital Signs - 24 hr 05/16/25 18:54 Temperature 97 F L Pulse Rate [Pulse Oximeter] 85 Respiratory Rate 16 Blood Pressure [Ri ght Upper Arm] 117/84 Pulse Oximetry 94 Oxygen Delivery Me thod Room Air Course Vital Signs Vital signs: Initial Vital Signs Temperature 97 F L 05/16/25 18:54 Temperature Source Temporal Artery Scan 05/16/25 18:54 Pulse Rate 85 05/16/25 18:54 Respiratory Rate 16 05/16/25 18:54 Blood Pressure 117/84 05/16/25 18:54 Blood Pressure Mean 95 05/16/25 18:54 Blood Pressure Position Sitting 05/16/25 18:54 Pulse Oximetry 94 05/16/25 18:54 Oxygen Delivery Method Room Air 05/16/25 18:54 Vital Signs Temperature 97 F L 05/16/25 18:54 Pulse Rate 85 05/16/25 18:54 Respiratory Rate 16 05/16/25 18:54 Blood Pressure 117/84 05/16/25 18:54 Pulse Oximetry 94 05/16/25 18:54 Oxygen Delivery Method Room Air 05/16/25 18:54 Temperature 97 F L 05/16/25 18:54 Pulse Rate 85 05/16/25 18:54 Respiratory Rate 16 05/16/25 18:54 Blood Pressure 117/84 05/16/25 18:54 Pulse Oximetry 94 05/16/25 18:54 Oxygen Delivery Method Room Air 05/16/25 18:54 Medical Decision Making MDM Narrative Medical decision making narrative: This patient presents with a dental pain affecting her left jaw with swelling along her left jaw line. The differential diagnosis includes: cracked tooth syndrome, pulpitis, sub-apical abscess, amongst others. It appears as though she had a gingival abscess which probably already spontaneously drained. There is no ongoing abscess detected around the tooth amenable to incision and drainage. There is no evidence of buccinator/canine space infections, significant facial swelling, or Akira's angina. There are no posterior pharyngeal space infections detected. Suspect pulpitis. Treatment with NSAID, antibiotics. Will put her on amoxicillin 1000 mg b.i.d.. Follow up with a dentist/office equipment technician in the coming days is indicated for further work up and treatment. Instructions for return to the ER were reviewed with the patient. Discharge Plan Discharge Clinical Impression: Dental abscess Patient Disposition: Home, Self-Care Condition: Stable Instructions: Dental Abscess (ED) Additional Instructions: As we discussed, please start on the antibiotics (amoxicillin) tonight and take them twice a day for 10 days. Monitor your jaw carefully. If you have increasing swelling, worsening pain, pus or bleeding draining from your gums, fever, swelling underneath your jaw, trouble swallowing, or trouble breathing, please return to the ER right away. Please follow-up with your dentist as soon as you are able, ideally within 3-5 days. Activity Level: No Restrictions Discharge Diet: Regular Prescriptions: No Action levothyroxine 25 mcg tablet 25 mcg PO DAILY lisinopril-hydrochlorothiazide 20-25 mg tablet 1 tab PO DAILY levothyroxine 200 mcg tablet 200 mcg PO DAILY aspirin 81 mg tablet,delayed release (DR/EC) 81 mg PO DAILY hydroxyzine HCl 25 mg tablet 25 mg PO Q6H PRN (Reason: pain) celecoxib 100 mg capsule 100 mg PO BID PRN (Reason: pain) acetaminophen Follow Up/Referrals: Provider,Not a Local [Primary Care Provider, Family Practice] Stand Alone Forms: [employer] Info Instructions
== END 2025-05-16 21:03 | disposition home or self-care (01) ==
LOC: ED 20:54
PROVIDERS: Emergency Provider Emergency Medicine
DX: K04.7 Periapical abscess without sinus (principal)
CPT/HCPCS: 99282; 99283

== ENCOUNTER 2025-08-26 15:45 | Outpatient (RCR) | payer OTHER, SELFPAY | END 2025-08-27 10:05 | disposition home or self-care (01) | PROVIDERS: Visit Provider Physician Assistant | DX: S82.142D Displaced bicondylar fracture of left tibia, subsequent encounter for closed fracture with routine healing (principal); Z51.89 Encounter for other specified aftercare | CPT/HCPCS: 97016; 97032; 97110; 97140; 97161 ==